=== PATIENT | female | born 1960 | race Caucasian/White ===

== ENCOUNTER 2016-06-15 06:16 | Emergency (ER) | payer OTHER ==
[~2016-06-15] VITALS: Ht 162.6 cm; Wt 92.5 kg
[~2016-06-15 06:16] MED LIST: ATOR40TA68 PO; BEN50 PO; CEPH-443 PO; CHOL100062 PO; CIPR500T4 PO; FLUC150T17 PO; FLUO20CA38 PO; GABA300C16 PO; GLIP-95 PO; HYDR-3498 PO; HYDR-906 PO; INSU100V23 SC; LANT3I SC; LISI2.5T59 PO; PRED20TA PO; TAMS-14 PO; TRAM50TA2 PO
[2016-06-15 06:18] VITALS: Ht 162.6 cm; Wt 92.5 kg
[2016-06-15] MEDS ORDERED: ALBUTEROL 0.5% (NEB) 2.5 MG/0.5 ML AMP NEB STA (06:41)
[2016-06-15] MEDS ORDERED: IPRATROPIUM (NEB) 0.5 MG/2.5 ML AMP HHN ONE (07:00)
[2016-06-15] MEDS ORDERED: LEVALBUTEROL (NEB) 1.25 MG/0.5 ML AMP INH STA (07:39)
--- NOTE | 2016-06-15 07:49 | RADRPT ---
PROCEDURE: XR Chest. CLINICAL INDICATION: Asthma exacerbation TECHNIQUE: A single AP view of the chest was obtained. COMPARISON: Chest x-ray dated 12/05/2015 FINDINGS: No focal airspace opacification, pleural effusion or pneumothorax is seen. The cardiomediastinal si lhouette is within normal limits for size. The osseous structures are unremarkable. IMPRESSION: No radiographic evidence of acute cardiopulmonary disease. No significant interval change. RPTAT: HH .Temitope Covarrubias MD, MD Date Time Electronically viewed and signed by .Temitope Covarrubias MD, MD on 06/15/2016 07:49 .G/
[2016-06-15] MEDS ORDERED: DEXAMETHASONE 10 MG/ML 1 ML INJ IM ONE (08:00)
[2016-06-15] MEDS ORDERED: METHYLPREDNISOLONE 125 MG INJ IM ONE (08:00)
[2016-06-15] MEDS ORDERED: IBUPROFEN 600 MG TAB PO ONE (09:30)
[2016-06-15] MEDS ORDERED: IBUP400T22 PO (09:49)
[2016-06-15] MEDS ORDERED: BENZ100C70 PO (09:49)
[2016-06-15] MEDS ORDERED: ALBU8.5H3 INH (09:49)
[2016-06-15 10:01] VITALS: BP 125/58; PULSE 104; RESP 20; TEMP 98.7
--- NOTE | 2016-06-15 11:32 | ERD ---
ER Documentation Chief Complaint Date/Time DATE: 06/15/16 TIME: 11:26 Chief Complaint cough x 1 week, sob since 2 hours ago HPI 55-year-old female with a past medical history of asthma, diabetes, hypertension , hyperlipidemia presents to the ED complaining of a productive cough that occurred intermittently 1 month ago. States that she went to a clinic about 15 days ago and was given Zithromax which has not alleviated her symptoms. States that she started to get shortness of breath 2 days ago. States that she feels like the wheezing has worsened. Reports that using her inhaler has not helped her symptoms. Denies any fever, chills, leg swelling, abdominal pain, nausea, vomiting. ROS All systems reviewed and are negative except as per history of present illness. Medications Home Meds Active Scripts Benzonatate* (Tessalon Perle*) 100 Mg Capsule, 100 MG PO Q8H Y for COUGH, #20 CAP Prov:JACOB GOLDMAN PA-C 06/15/16 Albuterol Sulfate* (Proair HFA*) 8.5 Gm Hfa.aer.ad, 2 PUFF INH Q4, #1 INHALER Prov:JACOB GOLDMAN PA-C 06/15/16 Ibuprofen* (Motrin*) 400 Mg Tab, 400 MG PO Q6, #30 TAB Prov:JACOB GOLDMAN PA-C 06/15/16 Hydrocodone/Acetaminophen (Margie 5-325 Tablet) 1 Each Tablet, 1 TAB PO Q6H Y for PAIN, #7 TAB Prov:JACOB GOLDMAN PA-C 02/17/16 Cephalexin* (Keflex*) 500 Mg Capsule, 500 MG PO QID for 10 Days, CAP Prov:JACOB GOLDMAN PA-C 02/17/16 Tramadol HCl (Tramadol HCl) 50 Mg Tablet, 50 MG PO Q8H Y for PAIN, #6 TAB Prov:LAILA GOLDMAN MD 01/09/16 Tamsulosin Hcl* (Flomax*) 0.4 Mg Cap.er.24h, 0.4 MG PO BID, #30 CAP Prov:KATLYN JOHNS PA-C 10/08/15 Tramadol HCl (Tramadol HCl) 50 Mg Tablet, 50 MG PO Q4 Y for PAIN, #20 TAB Prov:KATLYN JOHNS PA-C 10/08/15 Cephalexin* (Keflex*) 500 Mg Capsule, 500 MG PO QID for 7 Days, CAP Prov:SUSAN VEEC 10/03/15 Prednisone* (Prednisone*) 20 Mg Tab, 40 MG PO DAILY for 4 Days, TAB Prov:MERA GARCIA PIPE STEM SAWYER 10/02/15 Diphenhydramine Hcl* (Benadryl*) 50 Mg Cap, 50 MG PO Q6 Y for ITCHING, #10 CAP Prov:MERA GARCIA PIPE STEM SAWYER 10/02/15 Prednisone* (Prednisone*) 20 Mg Tab, 40 MG PO DAILY for 4 Days, TAB Prov:MERA GARCIA PIPE STEM SAWYER 10/02/15 Hydrocodone Bit-Acetaminophen* (Margie*) 5-325 Mg Tab, 1 TAB PO Q6 Y for PAIN, # 7 TAB Prov:TAWANA NOONANC 04/25/15 Fluconazole* (Diflucan*) 150 Mg Tablet, 150 MG PO ONCE, #1 TAB Prov:TAWANA NOONANC 04/25/15 Ciprofloxacin Hcl* (Ciprofloxacin Hcl*) 500 Mg Tablet, 500 MG PO BID for 7 Days , TAB Prov:TAWANA NOONANC 04/25/15 Reported Medications Atorvastatin* (Atorvastatin*) 40 Mg Tablet, 40 MG PO QHS, #30 TAB 12/05/15 Insulin Glargine* (Lantus*) 100 Unit/Ml Soln, 20 UNIT SC QHS, #1 VIAL 12/05/15 Insulin Regular, Human* (Novolin R*) 100 U/Ml Vial, 5 UNIT SC TID, VIAL 12/05/15 Gabapentin* (Gabapentin*) 300 Mg Capsule, 300 MG PO TID, #90 CAP 12/05/15 Fluoxetine Hcl* (Prozac*) 20 Mg Capsule, 20 MG PO DAILY, CAP 08/24/14 Lisinopril* (Lisinopril*) 2.5 Mg Tablet, 2.5 MG PO DAILY, TAB 08/24/14 Glipizide* (Glipizide*) 10 Mg Tablet, 10 MG PO BID, TAB 08/24/14 Cholecalciferol* (Vitamin D3*) 1,000 Unit Tablet, 1000 UNIT PO EVERY JUJU, TAB 03/20/14 Allergies Allergies: Coded Allergies: No Known Allergy (Unverified , 06/15/16) PMhx/Soc History of Surgery: Yes (cholecystectomy , hernia repair , c section ) Anesthesia Reaction: No Hx Neurological Disorder: No Hx Respiratory Disorders: Yes (asthma ) Hx Cardiac Disorders: Yes (htn ,high cholesterol) Hx Psychiatric Problems: No Hx Miscellaneous Medical Probl: Yes (dm) Hx Alcohol Use: No Hx Substance Use: No Hx Tobacco Use: No Smoking Status: Never smoker Physical Exam Vitals Vital Signs Date Time Temp Pulse Resp B/P Pulse Ox O2 Delivery O2 Flow Rate FiO2 06/15/16 10:01 98.7 104 20 125/58 96 Room Air 06/15/16 07:57 72 20 97 21 06/15/16 07:00 68 20 97 21 Physical Exam Const: [id number], well-nourished. In no acute distress. Head: Atraumatic, normocephalic Eyes: Normal Conjunctiva without injection. No purulent discharge. PERRL. EOMI ENT: Normal external ear. Ear canal without erythema. Tympanic membrane pearly deleon without effusion or bulging. Nasal canal clear with normal turbinates. Moist oropharynx without tonsillar exudates. Non-erythematous pharynx. Uvula midline. No drooling. No trismus. Neck: Full range of motion. No meningismus. No cervical lymphadenopathy. Resp: Clear to auscultation bilaterally. No wheezing, rhonchi, rales, or crackles. No accessory muscle use. No retractions. Cardio: Regular rate and rhythm. No murmurs, rubs or gallops. Abd: Soft, non tender, non distended. Normal bowel sounds. No palpable masses. No rebound tenderness. No guarding. Skin: No petechiae or rashes Back: No midline tenderness. No CVA tenderness. Ext: No cyanosis, or edema. Neur: Awake and alert. Psych: Normal Mood and Affect Results 24 hrs Current Medications Medications (Trade) Dose Ordered Sig/Roland Route PRN Reason Start Time Stop Time Status Last Admin Dose Admin Albuterol (Proventil 0.5% (Neb)) 10 mg ONCE STAT NEB 06/15/16 06:41 06/15/16 06:43 DC 06/15/16 06:57 Ipratropium [place] (Atrovent 0.02% (Neb)) 1 mg ONCE ONCE HHN 06/15/16 07:00 06/15/16 07:01 DC 06/15/16 06:58 Methylprednisolone Sodium Succinate (Solu-Medrol) 125 mg ONCE ONCE IM 06/15/16 08:00 06/15/16 08:01 Cancel Dexamethasone (Decadron) 10 mg ONCE ONCE IM 06/15/16 08:00 06/15/16 08:01 DC 06/15/16 07:47 Levalbuterol (Xopenex Neb) 5 mg ONCE STAT INH 06/15/16 07:39 06/15/16 07:41 DC 06/15/16 07:56 Ibuprofen (Motrin) 600 mg ONCE ONCE PO 06/15/16 09:30 06/15/16 09:31 DC 06/15/16 09:31 Procedures/MDM 55-year-old female with a past medical history of asthma, diabetes, hypertension , hyperlipidemia presents the ED complaining of an intermittent cough that has worsened her asthma. Patient is afebrile and nontoxic-appearing. Patient has normal vital signs. Patient was given a breathing treatment here in the ED consisting of 10 mg albuterol and 1 mg Atrovent. Patient was noted to still have wheezing and stated that she felt like she had palpitations from the breathing treatment. Therefore a breathing treatment consisting of 5 mg continuous Xopenex was ordered to further treat patient with improvement. Patient was also given Decadron here in the ED which has improved her wheezing. I instructed patient strictly to monitor her blood sugars at home as the steroids can increase her glucose. Also reported that she has a headache therefore Ibuprofen was ordered to further improve her pain. PROCEDURE: XR Chest. CLINICAL INDICATION: Asthma exacerbation TECHNIQUE: A single AP view of the chest was obtained. COMPARISON: Chest x-ray dated 12/05/2015 FINDINGS: No focal airspace opacification, pleural effusion or pneumothorax is seen. The cardiomediastinal silhouette is within normal limits for size. The osseous structures are unremarkable. IMPRESSION: No radiographic evidence of acute cardiopulmonary disease. No significant interval change. EKG reviewed and interpreted by Dr. Gay Rate/Rhythm: [97 bpm, Normal Sinus Rhythm] No ectopy, no ST elevations, normal axis. QRS, ST, T-waves: [No changes consistent w/ acute ischemia] Impression: [No evidence of ischemia or arrhythmia] Patient is afebrile and non-toxic appearing. Patient is hemodynamically stable. Patient has a normal pulse oximetry. Patient's respiratory status has stabilized while in the department and is appropriate for outpatient work up.Exam and work up not consistent w/ impending respiratory failure or cardiovascular collapse. This patient presents to the ED with symptoms consistent with a viral bronchitis which exacerbated her asthma. Patient is afebrile and has normal vital signs. Patient's physical exam include lungs which were clear to auscultation and a normal pulse oximetry. There is a low suspicion for pneumonia, pneumothorax, pulmonary embolism, epiglottitis, otitis media, otitis externa, viral/strep pharyngitis, sinusitis, peritonsillar abscess , mastoiditis, retropharyngeal abscess, meningitis, sepsis, acute abdomen or other emergent conditions. Fluids, rest, and symptomatic treatment are recommended for the management of patient's symptoms. Low suspicion for acute myocardial infarction, cardiac tamponade, pulmonary embolism, AAA, aortic dissection, Boerhaave's syndrome, cardiac dysrhythmias,meningitis, intracranial bleed, seizure, stroke, TIA or other emergent conditions. Discharge medications: Tessalon Perles, Pro-air, Ibuprofen Follow up with primary care physician in 1-2 days. Instructed patient to return to the ED sooner for any worsening symptoms. Patient's questions were answered. Patient understood and agreed with discharge plan. Patient discharged stable. Departure Diagnosis: Primary Impression: Bronchitis Condition: Stable Patient Instructions: Asthma, Acute (Adult), Bronchitis With Wheezing (Adult) Referrals: [facility] YOU HAVE RECEIVED A MEDICAL SCREENING EXAM AND THE RESULTS INDICATE THAT YOU DO NOT HAVE A CONDITION THAT REQUIRES URGENT TREATMENT IN THE EMERGENCY DEPARTMENT. FURTHER EVALUATION AND TREATMENT OF YOUR CONDITION CAN WAIT UNTIL YOU ARE SEEN IN YOUR DOCTORS OFFICE WITHIN THE NEXT 1-2 DAYS. IT IS YOUR RESPONSIBILITY TO MAKE AN APPOINTMENT FOR FOLOW-UP CARE. IF YOU HAVE A PRIMARY DOCTOR --you should call your primary doctor and schedule an appointment IF YOU DO NOT HAVE A PRIMARY DOCTOR YOU CAN CALL OUR PHYSICIAN REFERRAL HOTLINE AT IF YOU CAN NOT AFFORD TO SEE A PHYSICIAN YOU CAN CHOSE FROM THE FOLLOWING [facility] [address] [facility]. [facility] [address] [address] [facility] [address] [facility] [address] [facility]. [facility] [address] [facility]. [facility] YOU HAVE RECEIVED A MEDICAL SCREENING EXAM AND THE RESULTS INDICATE THAT YOU DO NOT HAVE A CONDITION THAT REQUIRES URGENT TREATMENT IN THE EMERGENCY DEPARTMENT. FURTHER EVALUATION AND TREATMENT OF YOUR CONDITION CAN WAIT UNTIL YOU ARE SEEN IN YOUR DOCTORS OFFICE WITHIN THE NEXT 1-2 DAYS. IT IS YOUR RESPONSIBILITY TO MAKE AN APPOINTMENT FOR FOLOW-UP CARE. IF YOU HAVE A PRIMARY DOCTOR --you should call your primary doctor and schedule and appointment IF YOU DO NOT HAVE A PRIMARY DOCTOR YOU CAN CALL OUR PHYSICIAN REFERRAL HOTLINE AT . IF YOU CAN NOT AFFORD TO SEE A PHYSICIAN YOU CAN CHOSE FROM THE FOLLOWING [facility] INSTITUTIONS: [facility] [address] [place] [address] [facility] [address] [place] [address] [facility] [address] [place] [address] [facility] URGENT CARE/SPECIALTIES Additional Instructions: You were given steroids here in the ER to help with your breathing. Please monitor your blood sugar at home accordingly. FOLLOW UP WITH YOUR PRIMARY CARE PHYSICIAN TOMORROW. Return to this facility if you are not improving as expected. JACOB GOLDMAN PA-C Jun 15, 2016 11:32 JACOB GOLDMAN PA-C Jun 15, 2016 11:32
== END 2016-06-15 10:00 | disposition home or self-care (01) ==
LOC: FTE 06:16
DX: J40 Bronchitis, not specified as acute or chronic (principal); I10 Essential (primary) hypertension; E11.9 Type 2 diabetes mellitus without complications; Z79.4 Long term (current) use of insulin; Z79.84 Long term (current) use of oral hypoglycemic drugs
CPT/HCPCS: 71010; 93005; 94644; 94645; 96372; J1100; Z7502; Z7610

== ENCOUNTER 2016-08-01 10:37 | Emergency (ER) | payer OTHER ==
[~2016-08-01] VITALS: Ht 162.6 cm; Wt 92.0 kg
[~2016-08-01 10:37] MED LIST changes: +ALBU8.5H3 INH; +BENZ100C70 PO; +IBUP400T22 PO
[2016-08-01 10:41] VITALS: Ht 162.6 cm; Wt 92.0 kg
--- NOTE | 2016-08-01 11:53 | RADRPT ---
PROCEDURE: CT Abdomen and Pelvis without contrast. CLINICAL INDICATION: Left flank pain TECHNIQUE: CT of the abdomen and pelvis was performed on a multi-detector scanner without IV contr ast. Coronal and sagittal images were reformatted from the axial data set. One or more of the foll owing dose reduction techniques were used: automated exposure control, adjustment of the mA and/or kV according to patient size, use of iterative reconstruction technique. CTDI = 21.62 mGy. DLP = 13 86.37 mGy-cm. COMPARISON: CT, 02/17/2016 FINDINGS: CT abdomen: The lung bases are clear. The heart size is normal, without pericardial effusion. Gallbladder is s urgically absent. Mild hepatomegaly (20 cm) and splenomegaly (13 cm) are noted, without evidence of focal mass. Biliary tree, pancreas and adrenal glands are unremarkable. Multiple small bilateral nonobstructive renal calculi are noted, measuring up to 3 mm on the left, without ureterolithiasis o r obstructive uropathy. Benign renal cysts are noted. The stomach is grossly unremarkable. The aorta is of normal caliber. There is no retroperitoneal lymphadenopathy. The ely hepatis reg ion is clear. CT pelvis: No bowel obstruction, free intraperitoneal air or abscess is identified. The appendix is well visua lized and normal. There is no diverticulosis, diverticulitis or colitis. Urinary bladder, uterus a nd adnexa are grossly unremarkable. No pelvic mass, free fluid or lymphadenopathy is seen. Bilater al fat containing inguinal hernias are noted without incarceration. The surrounding osseous structures are unremarkable. No osteolytic or osteoblastic lesion is detect ed. IMPRESSION: 1. Small bilateral nonobstructive renal calculi are noted, without ureterolithiasis or obstructive uropathy, similar in appearance to the prior CT. 2. There is mild hepatosplenomegaly. 3. Gallbladder is surgically absent. 4. Bilateral fat containing inguinal hernias are seen, without incarceration. 5. No mass, lymphadenopathy, or focal acute inflammatory process is identified. RPTAT: EE .Adrian Bethea MD, MD Date Time Electronically viewed and signed by .Adrian Bethea MD, MD on 08/01/2016 11:52 .R/
[2016-08-01 12:15] LABS: ADD UMIC NO; URINE BILIRUBIN (Dip) NEGATIVE (NEGATIVE); URINE BLOOD (Dip) NEGATIVE (NEGATIVE); URINE COLOR LT. YELLOW (YELLOW); URINE GLUCOSE (Dip) NEGATIVE (NEGATIVE); URINE KETONES (Dip) NEGATIVE (NEGATIVE); URINE LEUKOCYTE ESTERASE (Dip) NEGATIVE (NEGATIVE); URINE NITRITE (Dip) NEGATIVE (NEGATIVE); URINE TOTAL PROTEIN (Dip) NEGATIVE (NEGATIVE); URINE UROBILINOGEN (Dip) 0.2 E.U./dL (0.1-1.0)
[2016-08-01] MEDS ORDERED: KETOROLAC 30 MG INJ IM STA (12:58)
[2016-08-01] MEDS ORDERED: IBUP-1542 PO (13:02)
--- NOTE | 2016-08-01 13:13 | ERD ---
ER Documentation Chief Complaint Date/Time DATE: 08/01/16 TIME: 13:04 Chief Complaint dysuria, L flank and back pain HPI Patient is a 55-year-old female with past medical history of asthma, diabetes, hypertension, hyperlipidemia, nephrolithiasis who presents to the emergency department with dysuria and left-sided flank pain and back pain. She states that she was seen yesterday at an outside hospital however she states they only gave her "a unknown shot" and sent her home. Patient states that she has had severe flank pain for the last 4 days. Patient describes the pain to be constant. Patient states the pain originates in her left flank and radiates into her left groin. Patient denies taking any medications for her pain. She states yesterday she was given a prescription for Tylenol 3 however she did not fill this medication. Patient states that her current pain level is an 8 out of 10. Patient denies any fever, chills, nausea, vomiting, upper abdominal pain , vaginal bleeding, loss of consciousness. Patient does complain of some burning pain with urination. She denies any blood in her urine. She denies any chest pain, shortness of breath, arm pain, jaw pain or diaphoresis. She denies any saddle anesthesia, stool incontinence, urinary incontinence. Of note , patient has multiple visits to numerous emergency departments over the last year. ROS All systems reviewed and are negative except as per history of present illness. Medications Home Meds Active Scripts Ibuprofen* (Motrin*) 600 Mg Tab, 600 MG PO Q6, #30 TAB Prov:FELTON MORA PA-C 08/01/16 Benzonatate* (Tessalon Perle*) 100 Mg Capsule, 100 MG PO Q8H Y for COUGH, #20 CAP Prov:JACOB GOLDMAN PA-C 06/15/16 Albuterol Sulfate* (Proair HFA*) 8.5 Gm Hfa.aer.ad, 2 PUFF INH Q4, #1 INHALER Prov:JACOB GOLDMAN PA-C 06/15/16 Ibuprofen* (Motrin*) 400 Mg Tab, 400 MG PO Q6, #30 TAB Prov:JACOB GOLDMAN PA-C 06/15/16 Hydrocodone/Acetaminophen ([place] 5-325 Tablet) 1 Each Tablet, 1 TAB PO Q6H Y for PAIN, #7 TAB Prov:JACOB GOLDMAN PA-C 02/17/16 Cephalexin* (Keflex*) 500 Mg Capsule, 500 MG PO QID for 10 Days, CAP Prov:JACOB GOLDMAN PA-C 02/17/16 Tramadol HCl (Tramadol HCl) 50 Mg Tablet, 50 MG PO Q8H Y for PAIN, #6 TAB Prov:LAILA GOLDMAN MD 01/09/16 Tamsulosin Hcl* (Flomax*) 0.4 Mg Cap.er.24h, 0.4 MG PO BID, #30 CAP Prov:KATLYN JOHNS PA-C 10/08/15 Tramadol HCl (Tramadol HCl) 50 Mg Tablet, 50 MG PO Q4 Y for PAIN, #20 TAB Prov:KATLYN JOHNS PA-C 10/08/15 Cephalexin* (Keflex*) 500 Mg Capsule, 500 MG PO QID for 7 Days, CAP Prov:SUSAN VEE PA-C 10/03/15 Prednisone* (Prednisone*) 20 Mg Tab, 40 MG PO DAILY for 4 Days, TAB Prov:MERA GARCIA NP 10/02/15 Diphenhydramine Hcl* (Benadryl*) 50 Mg Cap, 50 MG PO Q6 Y for ITCHING, #10 CAP Prov:MERA GARCIA NP 10/02/15 Prednisone* (Prednisone*) 20 Mg Tab, 40 MG PO DAILY for 4 Days, TAB Prov:MERA GARCIA NP 10/02/15 Hydrocodone Bit-Acetaminophen* ([place]*) 5-325 Mg Tab, 1 TAB PO Q6 Y for PAIN, # 7 TAB Prov:TAWANA NOONAN PA-C 04/25/15 Fluconazole* (Diflucan*) 150 Mg Tablet, 150 MG PO ONCE, #1 TAB Prov:TAWANA NOONAN PA-C 04/25/15 Ciprofloxacin Hcl* (Ciprofloxacin Hcl*) 500 Mg Tablet, 500 MG PO BID for 7 Days , TAB Prov:TAWANA NOONANC 04/25/15 Reported Medications Atorvastatin* (Atorvastatin*) 40 Mg Tablet, 40 MG PO QHS, #30 TAB 12/05/15 Insulin Glargine* (Lantus*) 100 Unit/Ml Soln, 20 UNIT SC QHS, #1 VIAL 12/05/15 Insulin Regular, Human* (Novolin R*) 100 U/Ml Vial, 5 UNIT SC TID, VIAL 12/05/15 Gabapentin* (Gabapentin*) 300 Mg Capsule, 300 MG PO TID, #90 CAP 12/05/15 Fluoxetine Hcl* (Prozac*) 20 Mg Capsule, 20 MG PO DAILY, CAP 08/24/14 Lisinopril* (Lisinopril*) 2.5 Mg Tablet, 2.5 MG PO DAILY, TAB 08/24/14 Glipizide* (Glipizide*) 10 Mg Tablet, 10 MG PO BID, TAB 08/24/14 Cholecalciferol* (Vitamin D3*) 1,000 Unit Tablet, 1000 UNIT PO EVERY SUNDAY, TAB 03/20/14 Allergies Allergies: Coded Allergies: No Known Allergy (Unverified , 06/15/16) PMhx/Soc History of Surgery: Yes (cholecystectomy , hernia repair , c section ) Anesthesia Reaction: No Hx Neurological Disorder: No Hx Respiratory Disorders: Yes (asthma ) Hx Cardiac Disorders: Yes (htn ,high cholesterol) Hx Psychiatric Problems: No Hx Miscellaneous Medical Probl: Yes (dm) Hx Alcohol Use: No Hx Substance Use: No Hx Tobacco Use: No Smoking Status: Never smoker Physical Exam Vitals Vital Signs Date Time Temp Pulse Resp B/P Pulse Ox O2 Delivery O2 Flow Rate FiO2 08/01/16 10:41 98.3 73 18 115/62 96 Physical Exam GENERAL: Well-developed, well-nourished female. Appears in no acute distress. HEAD: Normocephalic, atraumatic. EYES: Pupils are equally reactive bilaterally. EOMs grossly intact. No conjunctival erythema. ENT: Moist mucous membranes. No uvula deviation. No kissing tonsils. NECK: Supple. No meningismus. Normal range of motion of the neck. LUNG: Clear to auscultation bilaterally. No rhonchi, wheezing, rales or coarse breath sounds. HEART: Regular rate and rhythm. No murmurs, rubs or gallops. ABDOMEN: No scars, ecchymosis or rashes noted. Soft, nontender, and nondistended. Positive bowel sounds in all four quadrants. No rebound tenderness , no guarding. (-) McBurney's point tenderness. L CVA tenderness. BACK: No midline tenderness. Tender to palpation to paraspinalis muscles of L lumbar region. EXTREMITIES: Equal pulses bilaterally. No peripheral clubbing, cyanosis or edema. No unilateral leg swelling. NEUROLOGIC: Alert and oriented. Moving all four extremities without any difficulty. Normal speech. Steady gait. SKIN: Normal color. Warm and dry. No rashes or lesions. Results 24 hrs Laboratory Tests Test 08/01/16 11:35 Urine Bilirubin NEGATIVE Urine Clarity CLEAR Urine Color LT. YELLOW Urine Glucose NEGATIVE% Urine Hemoglobin NEGATIVE Urine Ketones NEGATIVE Urine Leukocyte Esterase NEGATIVE Urine Nitrite NEGATIVE Urine Specific [place] 1.020 Urine Total Protein NEGATIVE Urine Urobilinogen 0.2 E.U./dL Urine pH 6.0 Current Medications Medications (Trade) Dose Ordered Sig/Roland Route PRN Reason Start Time Stop Time Status Last Admin Dose Admin Ketorolac Tromethamine (Toradol) 30 mg ONCE STAT IM 08/01/16 12:58 08/01/16 13:00 DC 08/01/16 13:11 Procedures/MDM ED COURSE: The patient was stable throughout ED course. I kept the patient and/or family informed of laboratory and diagnostic imaging results throughout the ED course. DIAGNOSTIC IMAGING: Read by radiologist. DIAGNOSTIC IMAGING REPORT Patient: MARK LEONARD : 1960 Age: 55 Sex: F [id number] DOS: 08/01/16 1130 Ordering MD: FELTON MORA PA-C Location: [facility] Room/Bed: PROCEDURE: CT Abdomen and Pelvis without contrast. CLINICAL INDICATION: Left flank pain TECHNIQUE: CT of the abdomen and pelvis was performed on a multi-detector scanner without IV contrast. Coronal and sagittal images were reformatted from the axial data set. One or more of the following dose reduction techniques were used: automated exposure control, adjustment of the mA and/or kV according to patient size, use of iterative reconstruction technique. CTDI = 21.62 mGy. DLP = 1386.37 mGy-cm. COMPARISON: CT, 02/17/2016 FINDINGS: CT abdomen: The lung bases are clear. The heart size is normal, without pericardial effusion. Gallbladder is surgically absent. Mild hepatomegaly (20 cm) and splenomegaly (13 cm) are noted, without evidence of focal mass. Biliary tree, pancreas and adrenal glands are unremarkable. Multiple small bilateral nonobstructive renal calculi are noted, measuring up to 3 mm on the left, without ureterolithiasis or obstructive uropathy. Benign renal cysts are noted. The stomach is grossly unremarkable. The aorta is of normal caliber. There is no retroperitoneal lymphadenopathy. The ely hepatis region is clear. CT pelvis: No bowel obstruction, free intraperitoneal air or abscess is identified. The appendix is well visualized and normal. There is no diverticulosis, diverticulitis or colitis. Urinary bladder, uterus and adnexa are grossly unremarkable. No pelvic mass, free fluid or lymphadenopathy is seen. Bilateral fat containing inguinal hernias are noted without incarceration. The surrounding osseous structures are unremarkable. No osteolytic or osteoblastic lesion is detected. IMPRESSION: 1. Small bilateral nonobstructive renal calculi are noted, without ureterolithiasis or obstructive uropathy, similar in appearance to the prior CT. 2. There is mild hepatosplenomegaly. 3. Gallbladder is surgically absent. 4. Bilateral fat containing inguinal hernias are seen, without incarceration. 5. No mass, lymphadenopathy, or focal acute inflammatory process is identified. RPTAT: EE .Adrian Bethea MD, MD Date Time Electronically viewed and signed by .Adrian Bethea MD, MD on 08/01/2016 11: 52 .R/ CC: FELTON MORA PA-C PROCEDURES: None. MEDICATIONS GIVEN: Toradol IM Patient tolerated medication well with no adverse reactions. Patient reported improvement in pain. MEDICAL DECISION MAKING: This is a 55-year-old female with a past medical history of asthma, diabetes, hypertension, hyperlipidemia and nephrolithiasis who presents with flank pain, dysuria, lower back pain is 4 days. Patient denied saddle anesthesia, stool incontinence, urinary incontinence fever, chills or loss of consciousness. Of note patient was seen in outside hospital yesterday and she states that they only gave her pain medication and discharged her home. Vital signs were reviewed. Patient was afebrile. UA showed no acute infection or hematuria. Abdominal CT showed Small bilateral nonobstructive renal calculi are noted, without ureterolithiasis or obstructive uropathy, similar in appearance to the prior CT. There is mild hepatosplenomegaly. Gallbladder is surgically absent. Bilateral fat containing inguinal hernias are seen, without incarceration. No mass, lymphadenopathy, or focal acute inflammatory process is identified. Given these findings, the patient's presentation is most consistent with nephrolithiasis and lumbar strain. I have a much lower clinical concern for pyelonephritis, appendicitis, diverticulitis, small bowel obstruction, bowel perforation, cauda equina syndrome, spinal fracture, epidural abscess, epidural hematoma. PRESCRIPTIONS: Ibuprofen Patient states that she has a prescription for Tylenol 3 at home. I advised the patient that she will need to fill this prescription. I will not prescribe patient any additional narcotics at this time given that she does have prescription for pain at home. DISCHARGE: At this time, patient is stable for discharge and outpatient management. I have instructed the patient to follow-up with his/her primary care physician in 1-2 days. If symptoms persist, patient may need to see a urologist for further examinations and testing. I have instructed the patient to promptly return to the ER at any time for any new or worsening symptoms including increased increased pain, fever, nausea, vomiting, urinary changes or weakness. The patient and/or family expressed understanding of and agreement with this plan. All questions were answered. Home care instructions were provided. Departure Diagnosis: Primary Impression: Nephrolithiasis Condition: Stable Patient Instructions: Kidney Stone W/ Colic Referrals: VIKI COBOS MD, GALESH L. MD GUERENA, MICHAEL METZGER, CHARLES K MOTZKIN, DONALD MD= [facility] YOU HAVE RECEIVED A MEDICAL SCREENING EXAM AND THE RESULTS INDICATE THAT YOU DO NOT HAVE A CONDITION THAT REQUIRES URGENT TREATMENT IN THE EMERGENCY DEPARTMENT. FURTHER EVALUATION AND TREATMENT OF YOUR CONDITION CAN WAIT UNTIL YOU ARE SEEN IN YOUR DOCTORS OFFICE WITHIN THE NEXT 1-2 DAYS. IT IS YOUR RESPONSIBILITY TO MAKE AN APPOINTMENT FOR FOLOW-UP CARE. IF YOU HAVE A PRIMARY DOCTOR --you should call your primary doctor and schedule an appointment IF YOU DO NOT HAVE A PRIMARY DOCTOR YOU CAN CALL OUR PHYSICIAN REFERRAL HOTLINE AT IF YOU CAN NOT AFFORD TO SEE A PHYSICIAN YOU CAN CHOSE FROM THE FOLLOWING [facility] [address] [facility] [address] [facility] [address] [facility] [address] [facility] [address] [facility]. [facility] [address] [facility]. [facility] YOU HAVE RECEIVED A MEDICAL SCREENING EXAM AND THE RESULTS INDICATE THAT YOU DO NOT HAVE A CONDITION THAT REQUIRES URGENT TREATMENT IN THE EMERGENCY DEPARTMENT. FURTHER EVALUATION AND TREATMENT OF YOUR CONDITION CAN WAIT UNTIL YOU ARE SEEN IN YOUR DOCTORS OFFICE WITHIN THE NEXT 1-2 DAYS. IT IS YOUR RESPONSIBILITY TO MAKE AN APPOINTMENT FOR FOLOW-UP CARE. IF YOU HAVE A PRIMARY DOCTOR --you should call your primary doctor and schedule and appointment IF YOU DO NOT HAVE A PRIMARY DOCTOR YOU CAN CALL OUR PHYSICIAN REFERRAL HOTLINE AT . IF YOU CAN NOT AFFORD TO SEE A PHYSICIAN YOU CAN CHOSE FROM THE FOLLOWING [facility] INSTITUTIONS: [facility] [address] [place] [address] [facility] [address] [place] [address] [facility] + [facility] [address] [place] [address] Additional Instructions: Call your primary care doctor TOMORROW for an appointment during the next 1-2 days.See the doctor sooner or return here if your condition worsens before your appointment time. Patient states that she was given Tylenol 3 while being seen at [facility] yesterday. Patient was advised that she will need to fill this prescription. I will not prescribe the patient any additional narcotics at this time. Patient will need to follow-up with the urologist for further management of her chronic kidney stones. Referral information provided. FELTON MORA PA-C Aug 01, 2016 13:12
== END 2016-08-01 13:18 | disposition home or self-care (01) ==
LOC: FTE 10:37
DX: N20.0 Calculus of kidney (principal); J45.909 Unspecified asthma, uncomplicated; I10 Essential (primary) hypertension; E11.9 Type 2 diabetes mellitus without complications; Z79.4 Long term (current) use of insulin; Z79.84 Long term (current) use of oral hypoglycemic drugs
CPT/HCPCS: 74176; 81003; J1885; 96372

== ENCOUNTER 2016-08-04 16:23 | Inpatient (IN) | payer OTHER ==
[~2016-08-04] VITALS: Ht 162.6 cm; Wt 91.1 kg
[~2016-08-04 16:23] MED LIST changes: +IBUP-1542 PO
[2016-08-04 21:30] VITALS: BP 110/63; RESP 18
[2016-08-04 22:05] VITALS: Ht 162.6 cm; Wt 91.1 kg
[2016-08-04] MEDS ORDERED: METF1000 PO (22:20)
[2016-08-04] MEDS ORDERED: ONDANSETRON 4 MG INJ IV PRN (22:30)
[2016-08-04] MEDS ORDERED: ACETAMINOPHEN 325 MG TAB PO PRN (22:30)
[2016-08-04] MEDS ORDERED: BARIUM SULF 2% 450 ML BTL (BERRY SMOOTHIE) PO ONE (23:00)
[2016-08-04] MEDS: SOD CHLORIDE 0.45% 1,000 ML IV SCH (23:11)
[2016-08-05] MEDS: morphine 2 MG INJ IV PRN ×3 (03:45→18:36)
[2016-08-05] MEDS: ALBUTEROL HFA 8 GM INHALER INH SCH ×5 (05:00→21:28)
[2016-08-05] MEDS ORDERED: GLUCOSE GEL 15 GRAM TUBE BUCCAL PRN (05:00)
[2016-08-05] MEDS ORDERED: GLUCOSE GEL 15 GRAM TUBE PO PRN ×2 (05:00)
[2016-08-05] MEDS ORDERED: GLUCAGON 1 MG INJ IM PRN (05:00)
[2016-08-05] MEDS ORDERED: hydrALAzine 20 MG INJ IV PRN (05:00)
[2016-08-05] MEDS ORDERED: DEXTROSE 50% 50 ML SYRINGE IV PRN ×2 (05:00)
[2016-08-05] MEDS ORDERED: BENZONATATE 100 MG CAP PO PRN (05:00)
[2016-08-05 05:06] LABS: ADD SCAN DIFF NO
[2016-08-05 05:23] LABS: BASOPHILS % 0.4 % (0.0-2.0); EOSINOPHILS # 0.1 10^3/ul (0.0-0.5); EOSINOPHILS % 1.8 % (0.0-7.0); HEMATOCRIT 33.7 % (37.0-47.0); HEMOGLOBIN 11.2 g/dl (12.0-16.0); LYMPHOCYTES # 1.7 10^3/ul (0.8-2.9); LYMPHOCYTES % 29.3 % (15.0-51.0); MEAN CORPUSCULAR HEMOGLOBIN 30.1 pg (29.0-33.0); MEAN CORPUSCULAR HGB CONC 33.2 g/dl (32.0-37.0); MEAN CORPUSCULAR VOLUME 90.6 fl (82.0-101.0); MONOCYTE # 0.4 10^3/ul (0.3-0.9); MONOCYTES % 6.7 % (0.0-11.0); NEUTROPHIL # 3.5 10^3/ul (1.6-7.5); NEUTROPHILS % 61.6 % (39.0-77.0); PLATELET COUNT 212 10^3/UL (140-415); RED BLOOD COUNT 3.72 10^6/ul (4.20-5.40); RED CELL DISTRIBUTION WIDTH 13.5 % (11.5-14.5); WHITE BLOOD COUNT 5.7 10^3/ul (4.8-10.8)
[2016-08-05 05:40] LABS: ALBUMIN 3.4 g/dl (3.3-4.9)
[2016-08-05 05:43] LABS: ALBUMIN/GLOBULIN RATIO 1.36; BILIRUBIN,INDIRECT 0.1 mg/dl (0-1.1); BILIRUBIN,TOTAL 0.1 mg/dl (0.2-1.3); CREATININE 0.64 mg/dl (0.44-1.00); TOTAL PROTEIN 5.9 g/dl (6.1-8.1)
[2016-08-05 05:44] LABS: CALCIUM 8.2 mg/dl (8.4-10.2); CHOL/HDL RATIO 2.8 RATIO
[2016-08-05] MEDS: CEFTRIAXONE 1 GM/50 ML (PMX) 50 ML IVPB SCH (05:45)
[2016-08-05] MEDS: PANTOPRAZOLE 40 MG INJ IV SCH (05:45)
[2016-08-05] MEDS: INSULIN ASPART [NOVOLOG] 3 ML PEN SC SCH ×5 (06:05→21:35)
[2016-08-05 06:09] LABS: THYROID STIMULATING HORMONE 3.89 MIU/L (0.465-4.680)
--- NOTE | 2016-08-05 06:40 | HP ---
DATE OF ADMISSION: 08/04/2016 The patient was seen and examined by me at 10:00 p.m. on 08/04/2016. CHIEF COMPLAINT: Abdominal pain. HISTORY OF PRESENT ILLNESS: A 55-year-old female with a past medical history of kidney stones, type 2 diabetes, chronic low back pain, essential hypertension, and high cholesterol, who has been havin g abdominal pain and low back pain for the last 5 days. She denies any significant nausea or vomiti ng, no fevers or chills. She says that she had a bowel movement yesterday, however. No diarrhea or constipation. No headaches, dizziness or loss of consciousness. No chest pain or shortness of karsno ath. She presented to an outside hospital earlier today at [place] and was transferred over here du e to insurance purposes, but not before having a CT of the abdomen and pelvis performed that shows s igns of possible early small-bowel obstruction. The patient was made n.p.o. She also had nonobstru ctive left kidney stones, but again, they were nonobstructive. She has been having some mild dysuri a symptoms, but no hematuria. The patient was last here at our hospital from 12/05/2015 to 12/08/19 16. At that time she had chest pain and ruled out for acute coronary syndrome. PAST MEDICAL HISTORY: As stated above. ALLERGIES: NO KNOWN DRUG ALLERGIES. HOME MEDICATIONS: 1. Benadryl 50 mg q.6 p.r.n. 2. ProAir HFA 2 puffs inhaled q.4h. 3. Flomax 0.4 mg b.i.d. 4. Atorvastatin 40 mg at bedtime. 5. Lisinopril 2.5 mg daily. 6. Prozac 20 mg daily. 7. Tessalon Perles 100 mg q.8h. p.r.n. 8. Glipizide 10 mg b.i.d. 9. Metformin 1000 mg b.i.d. 10. Vitamin D3 1000 units every Sunday. PAST SURGICAL HISTORY: She has had C-sections x3 in the past. She has had kidney stone removal kelly matthew in the past and a cholecystectomy in the past. FAMILY HISTORY: Her brother had heart disease at age 40 and there is positive diabetes in the famil y. SOCIAL HISTORY: Negative for smoking, drinking, or IV drug abuse. PHYSICAL EXAMINATION: VITAL SIGNS: Today T-max 97.9, pulse 70, respirations 18, blood pressure 110/63, saturating at 98% o n room air. GENERAL: The patient is lying in bed, in mild distress, but alert. HEENT: Pupils are equal, round, react to light. Extraocular muscles are intact. NECK: Supple. No thyromegaly. LUNGS: Clear to auscultation bilaterally. CARDIOVASCULAR: S1, S2 heard. No rubs or gallops. ABDOMEN: Soft. Mild tenderness to palpation in the epigastric area, but no rebound or guarding. MUSCULOSKELETAL: No lower extremity edema bilaterally. NEUROLOGIC: No focal deficits. LABORATORIES: At the outside hospital she had a UA that showed negative nitrites, but 1+ leukocyte esterase positive. CMP showed sodium 143, potassium 4.4, chloride 104, CO2 25, BUN 15, creatinine 0 .6, glucose 160, total bilirubin 0.3, alkaline phosphatase 72. AST is 21, ALT is 20. WBC 6.0, hemo globin 12.3, hematocrit 36.7, platelets 204, lipase 58. CT abdomen and pelvis results showed dilated left upper quadrant small bowel, raising questions of e mirian small-bowel obstruction possibly. Followup imaging is recommended. Nonobstructing left renal stones, as described above. No hydronephrosis. Mild bibasilar atelectasis. Status post cholecyste ctomy, bilateral inguinal hernias containing mesenteric fat, small calcific foci along the anterior bladder wall. No hydronephrosis seen. ASSESSMENT AND PLAN: A 55-year-old female coming in with abdominal pain. Differential diagnoses in clude small-bowel obstruction versus renal calculus versus other abdominal pathology. 1. Abdominal pain. Again, keep the patient n.p.o. I discussed the case with the general surgery te am, who will consult on the case. Will order for CT scan with contrast to further evaluate. Antiem etic medicines. Pain control medications with morphine and [place] p.r.n. Tylenol p.r.n. for pain an d fevers. Check a TSH, A1c and lipid panel. 2. Type 2 diabetes. Again, check an A1c. Continue sliding scale insulin. 3. History of essential hypertension. Blood pressure is stable. Continue the current medications, including hydralazine p.r.n. 4. High cholesterol. Check a lipid panel. 5. Gastrointestinal prophylaxis. PPI. 6. Deep venous thrombosis prophylaxis. Heparin subcutaneously. Dictated By: JOSE RONDON Conf#: [id number] DID#: [id number]
[2016-08-05] MEDS: TAMSULOSIN (SR) 0.4 MG CAP PO SCH ×2 (08:35→21:27)
[2016-08-05] MEDS: FLUOXETINE 20 MG CAP PO SCH (08:35)
[2016-08-05] MEDS: HEPARIN 5,000 UNIT/0.5 ML SYG SC SCH ×2 (08:35→21:30)
[2016-08-05 08:38] VITALS: BP 98/48; PULSE 58; RESP 18
[2016-08-05] MEDS: SOD CHLORIDE 0.45% 1,000 ML IV SCH (09:05)
[2016-08-05] MEDS ORDERED: IOHEXOL 300MG/ML 150 ML BTL ONE (11:22)
[2016-08-05] MEDS ORDERED: SOD CHLORIDE 0.9% 100 ML ONE (11:22)
--- NOTE | 2016-08-05 11:33 | PN ---
Date/Time of Note Date/Time of Note DATE: 08/05/16 TIME: 11:30 Assessment/Plan VTE Prophylaxis VTE Prophylaxis Intervention: heparin Lines/Catheters IV Catheter Type (from Nrsg): Peripheral IV Assessment/Plan Assessment/Plan 1. small bowel obstruction 2. Type 2 diabetes. Again, check an A1c. Continue sliding scale insulin. 3. History of essential hypertension. Blood pressure is stable. Continue the current medications, including hydralazine p.r.n. 4. High cholesterol. Check a lipid panel. 5. Gastrointestinal prophylaxis. PPI. 6. Deep venous thrombosis prophylaxis. Heparin subcutaneously. Gen surg cconsulte, NPO, IVF Pain control CT abdomen with Plevis iwth IV contrast to rule out kidney stone also Subjective 24 Hr Interval Summary Free Text/Dictation abd pain, not passing gas, plan for CT abd +pelvi s Exam/Review of Systems Vital Signs Vitals Vital Signs Date Time Temp Pulse Resp B/P Pulse Ox O2 Delivery O2 Flow Rate FiO2 08/05/16 08:38 98.5 58 18 98/48 96 Room Air Intake and Output 08/04/16 08/04/16 08/05/16 15:00 23:00 07:00 Intake Total 700 ml Balance 700 ml Exam GENERAL: The patient is lying in bed, in mild distress, but alert. HEENT: Pupils are equal, round, react to light. Extraocular muscles are intact. NECK: Supple. No thyromegaly. LUNGS: Clear to auscultation bilaterally. CARDIOVASCULAR: S1, S2 heard. No rubs or gallops. ABDOMEN: Soft. Mild tenderness to palpation in the epigastric area, but no rebound or guarding. MUSCULOSKELETAL: No lower extremity edema bilaterally. NEUROLOGIC: No focal deficits. Results Result Diagram: 08/05/16 0445 08/05/16 0445 Results 24 hrs Laboratory Tests Test 08/04/16 23:18 08/05/16 04:45 08/05/16 05:57 08/05/16 08:24 Bedside Glucose 140 141 119 Alanine Aminotransferase (ALT/SGPT) 32 Albumin 3.4 Albumin/Globulin Ratio 1.36 Alkaline Phosphatase 68 Anion Gap 15 Aspartate Amino Transf (AST/SGOT) 26 Basophils # 0.0 Basophils % 0.4 Blood Urea Nitrogen 14 Calcium Level 8.2 L Carbon Dioxide Level 24 Chloride Level 106 Cholesterol Level 108 Cholesterol/HDL Ratio 2.8 Creatinine 0.64 Direct Bilirubin 0.00 Eosinophils # 0.1 Eosinophils % 1.8 Globulin 2.50 Glucose Level 141 HDL Cholesterol 38 Hematocrit 33.7 #L Hemoglobin 11.2 #L Hemoglobin A1c 9.2 H Indirect Bilirubin 0.1 LDL Cholesterol, Calculated 39 Lymphocytes # 1.7 Lymphocytes % 29.3 Mean Corpuscular Hemoglobin 30.1 Mean Corpuscular Hemoglobin Concent 33.2 Mean Corpuscular Volume 90.6 Mean Platelet Volume 12.0 H Monocytes # 0.4 Monocytes % 6.7 Neutrophils # 3.5 Neutrophils % 61.6 Nucleated Red Blood Cells # 0.0 Nucleated Red Blood Cells % 0.0 Platelet Count 212 Potassium Level 4.0 Red Blood Count 3.72 #L Red Cell Distribution Width 13.5 Sodium Level 141 Thyroid Stimulating Hormone (TSH) 3.890 Total Bilirubin 0.1 L Total Protein 5.9 L Triglycerides Level 157 H White Blood Count 5.7 Medications Medications Current Medications Ondansetron HCl (Zofran Inj) 4 mg Q6H PRN IV NAUSEA AND/OR VOMITING; Start at 22:30 Morphine Sulfate (morphine) 2 mg Q4H PRN IV pain Last administered on 03:45; Admin Dose 2 MG; Start 08/04/16 at 22:30 Pantoprazole (Protonix Iv) 40 mg DAILY@06 IV Last administered on 08/05/16 05: 45; Admin Dose 40 MG; Start 08/05/16 at 06:00 Heparin Sodium (Porcine) (Heparin (5000 Units/0.5 ml)) 5,000 unit BID SC Last administered on 08/05/16 08:35; Admin Dose 5,000 UNIT; Start 08/05/16 at 09:00 Acetaminophen (Tylenol Tab) 650 mg Q6H PRN PO PAIN AND OR ELEVATED TEMP; Start 08/04/16 at 22:30 Atorvastatin Calcium (Lipitor) 40 mg QHS PO ; Start 08/05/16 at 21:00 Benzonatate (Tessalon) 100 mg Q8H PRN PO COUGH; Start 08/05/16 at 05:00 Fluoxetine HCl (Prozac) 20 mg DAILY PO ; Start 08/05/16 at 09:00 Tamsulosin HCl (Flomax) 0.4 mg BID PO ; Start 08/05/16 at 09:00 Insulin Aspart (Novolog Insulin Pen) NOVOLOG *MILD* ALGORI... Q4 SC Last administered on 08/05/16 06:05; Admin Dose 1 UNIT; Start 08/05/16 at 05:00 Miscellaneous Information 1 ea NOTE XX ; Start 08/05/16 at 05:00 Glucose (Glutose) 15 gm Q15M PRN PO DECREASED GLUCOSE; Start 08/05/16 at 05:00 Glucose (Glutose) 22.5 gm Q15M PRN PO DECREASED GLUCOSE; Start 08/05/16 at 05: 00 Dextrose (D50w Syringe) 25 ml Q15M PRN IV DECREASED GLUCOSE; Start 08/05/16 at 05:00 Dextrose (D50w Syringe) 50 ml Q15M PRN IV DECREASED GLUCOSE; Start 08/05/16 at 05:00 Glucagon (Glucagen) 1 mg Q15M PRN IM DECREASED GLUCOSE; Start 08/05/16 at 05:00 Glucose 15 gm 15 gm Q15M PRN BUCCAL DECREASED GLUCOSE; Start 08/05/16 at 05:00 Ceftriaxone Sodium (Rocephin) 50 ml @ 100 mls/hr Q24H IVPB Last administered on 08/05/16 05:45; Admin Dose 100 MLS/HR; Start 08/05/16 at 05:00 Hydralazine HCl 10 mg 10 mg Q6H PRN IV ELEVATED SYSTOLIC BP; Start 08/05/16 at 05:00 Potassium Chloride/Dextrose/ Sod Cl (D5-1/2ns + KCl 10 Meq) 1,000 ml @ 75 mls/ hr [id number] IV ; Start 08/05/16 at 11:30 KENNY LEARY MD Aug 05, 2016 11:33
[2016-08-05] MEDS: D5W-0.45 NACL + KCL 10 MEQ 1,000 ML IV SCH (11:44)
--- NOTE | 2016-08-05 13:05 | RADRPT ---
PROCEDURE: CT abdomen and pelvis with intravenous contrast. CLINICAL INDICATION: SBO TECHNIQUE: Following intravenous contrast, spiral CT of the abdomen pelvis was performed and is re constructed at 2.5 mm contiguous axial intervals from the dome of the diaphragm to the inferior pubi c rami. Computer reformatted coronal and sagittal images are included. CT D I 20 millicurie Dose 1201 millicurie per centimeter COMPARISON: CT abdomen pelvis August 01, 2016 FINDINGS: Lung bases are clear of any infiltrate or mass. There is no effusion. The liver is of normal size, contour and attenuation with no mass or intrahepatic ductal dilatation. Gallbladder has been removed. No splenic, adrenal or pancreatic abnormalities present. Kidneys excrete contrast symmetrically. No hydronephrosis or solid masses present. Noted is a 3 mm nonobstructing stone in the lower pole of the left kidney. There is a 2 cm parapelvic cyst of the right kidney. Ureters are of normal course and caliber with no stone. No bladder mass or stone is present. Uterus and ovaries are normal. No bowel mass or obstruction is seen. There is no phlegmon, ascites or pneumoperitoneum. No aneurysm is detected. There is no adenopathy. The osseous structures are intact. IMPRESSION: No evidence of bowel obstruction. 3 mm nonobstructing left renal calculus. Right renal cyst. No obstructive uropathy, diverticulitis or appendicitis. Post cholecystectomy. .Sherman Aguirre MD, Date Time Electronically viewed and signed by .Sherman Aguirre MD, on 08/05/2016 13:05 .A/
[2016-08-05 20:00] VITALS: BP 118/65; PULSE 74; RESP 18
[2016-08-05] MEDS: ATORVASTATIN 40 MG TAB PO SCH (21:27)
[2016-08-06] MEDS: D5W-0.45 NACL + KCL 10 MEQ 1,000 ML IV SCH ×2 (00:27→15:52)
[2016-08-06] MEDS: morphine 2 MG INJ IV PRN ×2 (00:28→04:44)
[2016-08-06] MEDS: ALBUTEROL HFA 8 GM INHALER INH SCH ×6 (01:05→20:38)
[2016-08-06] MEDS ORDERED: ACCU-CHEK XX SCH (02:00)
[2016-08-06] MEDS: ACCU-CHEK XX SCH (02:07)
[2016-08-06] MEDS: CEFTRIAXONE 1 GM/50 ML (PMX) 50 ML IVPB SCH (04:46)
[2016-08-06] MEDS: PANTOPRAZOLE 40 MG INJ IV SCH (05:19)
[2016-08-06 05:36] LABS: ADD SCAN DIFF NO
[2016-08-06 05:39] LABS: BASOPHILS % 0.2 % (0.0-2.0); EOSINOPHILS # 0.1 10^3/ul (0.0-0.5); EOSINOPHILS % 1.9 % (0.0-7.0); HEMATOCRIT 34.5 % (37.0-47.0); HEMOGLOBIN 11.6 g/dl (12.0-16.0); LYMPHOCYTES # 1.7 10^3/ul (0.8-2.9); LYMPHOCYTES % 32.4 % (15.0-51.0); MEAN CORPUSCULAR HEMOGLOBIN 30.2 pg (29.0-33.0); MEAN CORPUSCULAR HGB CONC 33.6 g/dl (32.0-37.0); MEAN CORPUSCULAR VOLUME 89.8 fl (82.0-101.0); MEAN PLATELET VOLUME 12.2 fl (7.4-10.4); MONOCYTE # 0.4 10^3/ul (0.3-0.9); MONOCYTES % 8.1 % (0.0-11.0); NEUTROPHIL # 2.9 10^3/ul (1.6-7.5); PLATELET COUNT 220 10^3/UL (140-415); RED BLOOD COUNT 3.84 10^6/ul (4.20-5.40); RED CELL DISTRIBUTION WIDTH 13.5 % (11.5-14.5); WHITE BLOOD COUNT 5.2 10^3/ul (4.8-10.8)
[2016-08-06 05:57] LABS: PARTIAL THROMBOPLASTIN TIME 27.2 Sec (25.0-35.0)
[2016-08-06 06:00] LABS: INR 0.97; PROTIME 12.9 Sec (12.2-14.2)
[2016-08-06 06:01] LABS: POTASSIUM 4.1 mmol/L (3.5-5.1)
[2016-08-06 06:03] LABS: CREATININE 0.65 mg/dl (0.44-1.00)
[2016-08-06 06:04] LABS: CALCIUM 8.8 mg/dl (8.4-10.2)
[2016-08-06 07:43] VITALS: BP 110/52; RESP 18
[2016-08-06] MEDS: TAMSULOSIN (SR) 0.4 MG CAP PO SCH ×2 (07:56→20:38)
[2016-08-06] MEDS: FLUOXETINE 20 MG CAP PO SCH (07:56)
[2016-08-06] MEDS: HEPARIN 5,000 UNIT/0.5 ML SYG SC SCH ×2 (08:11→20:43)
[2016-08-06] MEDS: INSULIN ASPART [NOVOLOG] 3 ML PEN SC SCH ×4 (08:11→20:43)
[2016-08-06] MEDS ORDERED: morphine (ER) 15 MG TAB PO ONE (09:30)
[2016-08-06] MEDS ORDERED: CITRIC ACID/NA CITRATE 30 ML CUP PO ONE (09:30)
[2016-08-06] MEDS ORDERED: LACTULOSE 30ML CUP PO ONE (09:30)
[2016-08-06] MEDS ORDERED: LACTULOSE 30ML CUP PO PRN (09:30)
[2016-08-06] MEDS: CITRIC ACID/NA CITRATE 30 ML CUP PO SCH ×2 (09:49→20:38)
[2016-08-06] MEDS: morphine (ER) 15 MG TAB PO SCH ×2 (09:49→20:39)
[2016-08-06] MEDS: HYDROCODONE/APAP (7.5/325) TAB PO PRN ×2 (13:10→17:09)
[2016-08-06 19:50] VITALS: BP 103/52; RESP 18
[2016-08-06] MEDS: ATORVASTATIN 40 MG TAB PO SCH (20:38)
--- NOTE | 2016-08-06 20:51 | PN ---
Date/Time of Note Date/Time of Note DATE: 08/06/16 TIME: 20:49 Assessment/Plan VTE Prophylaxis VTE Prophylaxis Intervention: heparin Lines/Catheters IV Catheter Type (from Nrsg): Peripheral IV Assessment/Plan Assessment/Plan 1. small bowel obstruction resolved 2. Intractable abdominal pain due to 2. Type 2 diabetes. Again, check an A1c. Continue sliding scale insulin. 3. History of essential hypertension. Blood pressure is stable. Continue the current medications, including hydralazine p.r.n. 4. High cholesterol. Check a lipid panel. 5. Gastrointestinal prophylaxis. PPI. 6. Deep venous thrombosis prophylaxis. Heparin subcutaneously. advance diet as tolerated to soft diet Pain control CT abdomen with Plevis iwth IV contrast showed left kidney stone and Right kidney cyst Subjective 24 Hr Interval Summary Free Text/Dictation less abd pain, CT abdomen showed nephrolithiaiss and kidney cyst Exam/Review of Systems Vital Signs Vitals Vital Signs Date Time Temp Pulse Resp B/P Pulse Ox O2 Delivery O2 Flow Rate FiO2 08/06/16 19:50 98.5 63 18 103/52 97 08/05/16 20:00 Room Air Intake and Output 08/05/16 08/05/16 08/06/16 15:00 23:00 07:00 Intake Total 1240 ml 375 ml 1070 ml Output Total 250 ml Balance 1240 ml 125 ml 1070 ml Results Result Diagram: 08/06/16 0445 08/06/16 0445 Results 24 hrs Laboratory Tests Test 08/05/16 21:26 08/06/16 02:04 08/06/16 04:45 08/06/16 07:55 Bedside Glucose 267 H 131 180 Activated Partial Thromboplast Time 27.2 Anion Gap 14 Basophils # 0.0 Basophils % 0.2 Blood Urea Nitrogen 9 Calcium Level 8.8 Carbon Dioxide Level 28 Chloride Level 105 Creatinine 0.65 Eosinophils # 0.1 Eosinophils % 1.9 Glucose Level 154 Hematocrit 34.5 L Hemoglobin 11.6 L INR International Normalized Ratio 0.97 Lymphocytes # 1.7 Lymphocytes % 32.4 Mean Corpuscular Hemoglobin 30.2 Mean Corpuscular Hemoglobin Concent 33.6 Mean Corpuscular Volume 89.8 Mean Platelet Volume 12.2 H Monocytes # 0.4 Monocytes % 8.1 Neutrophils # 2.9 Neutrophils % 57.0 Nucleated Red Blood Cells # 0.0 Nucleated Red Blood Cells % 0.0 Platelet Count 220 Potassium Level 4.1 Prothrombin Time 12.9 Prothrombin Time Ratio 1.0 Red Blood Count 3.84 L Red Cell Distribution Width 13.5 Sodium Level 143 White Blood Count 5.2 Test 08/06/16 11:52 08/06/16 17:05 08/06/16 20:35 Bedside Glucose 185 219 165 Medications Medications Current Medications Ondansetron HCl (Zofran Inj) 4 mg Q6H PRN IV NAUSEA AND/OR VOMITING; Start at 22:30 Morphine Sulfate (morphine) 2 mg Q4H PRN IV pain Last administered on 04:44; Admin Dose 2 MG; Start 08/04/16 at 22:30 Pantoprazole (Protonix Iv) 40 mg DAILY@06 IV Last administered on 08/06/16 05: 19; Admin Dose 40 MG; Start 08/05/16 at 06:00 Heparin Sodium (Porcine) (Heparin (5000 Units/0.5 ml)) 5,000 unit BID SC Last administered on 08/06/16 20:43; Admin Dose 5,000 UNIT; Start 08/05/16 at 09:00 Acetaminophen (Tylenol Tab) 650 mg Q6H PRN PO PAIN AND OR ELEVATED TEMP; Start 08/04/16 at 22:30 Atorvastatin Calcium (Lipitor) 40 mg QHS PO Last administered on 08/06/16 20: 38; Admin Dose 40 MG; Start 08/05/16 at 21:00 Benzonatate (Tessalon) 100 mg Q8H PRN PO COUGH; Start 08/05/16 at 05:00 Fluoxetine HCl (Prozac) 20 mg DAILY PO Last administered on 08/06/16 07:56; Admin Dose 20 MG; Start 08/05/16 at 09:00 Tamsulosin HCl (Flomax) 0.4 mg BID PO Last administered on 08/06/16 20:38; Admin Dose 0.4 MG; Start 08/05/16 at 09:00 Miscellaneous Information 1 ea NOTE XX ; Start 08/05/16 at 05:00 Glucose (Glutose) 15 gm Q15M PRN PO DECREASED GLUCOSE; Start 08/05/16 at 05:00 Glucose (Glutose) 22.5 gm Q15M PRN PO DECREASED GLUCOSE; Start 08/05/16 at 05: 00 Dextrose (D50w Syringe) 25 ml Q15M PRN IV DECREASED GLUCOSE; Start 08/05/16 at 05:00 Dextrose (D50w Syringe) 50 ml Q15M PRN IV DECREASED GLUCOSE; Start 08/05/16 at 05:00 Glucagon (Glucagen) 1 mg Q15M PRN IM DECREASED GLUCOSE; Start 08/05/16 at 05:00 Glucose 15 gm 15 gm Q15M PRN BUCCAL DECREASED GLUCOSE; Start 08/05/16 at 05:00 Ceftriaxone Sodium (Rocephin) 50 ml @ 100 mls/hr Q24H IVPB Last administered on 08/06/16 04:46; Admin Dose 100 MLS/HR; Start 08/05/16 at 05:00 Hydralazine HCl 10 mg 10 mg Q6H PRN IV ELEVATED SYSTOLIC BP; Start 08/05/16 at 05:00 Potassium Chloride/Dextrose/ Sod Cl (D5-1/2ns + KCl 10 Meq) 1,000 ml @ 75 mls/ hr [id number] IV Last administered on 08/06/16 15:52; Admin Dose 75 MLS/HR; Start 08/05/16 at 11:30 Diagnostic Test (Pha) (Accucheck) 1 ea 02 XX Last administered on 08/06/16 02: 07; Admin Dose 1 EA; Start 08/06/16 at 02:00 Citric Acid/ Sodium Citrate (Bicitra) 30 ml BID PO Last administered on 20:38; Admin Dose 30 ML; Start 08/06/16 at 09:38 Acetaminophen/ Hydrocodone Bitart ([place] (7.5-325)) 1 tab Q4H PRN PO moderate pain Last administered on 08/06/16 17:09; Admin Dose 1 TAB; Start 08/06/16 at 09:30 Morphine Sulfate (Ms Contin (Er)) 15 mg BID PO Last administered on 08/06/16 20:39; Admin Dose 15 MG; Start 08/06/16 at 09:39 Lactulose (Enulose) 20 gm BID PRN PO CONSTIPATION; Start 08/06/16 at 09:30 KENNY LEARY MD Aug 06, 2016 20:50
[2016-08-07] MEDS: ALBUTEROL HFA 8 GM INHALER INH SCH ×6 (01:00→21:00)
[2016-08-07] MEDS: ACCU-CHEK XX SCH (01:54)
[2016-08-07] MEDS: HYDROCODONE/APAP (7.5/325) TAB PO PRN ×3 (04:04→19:46)
[2016-08-07] MEDS: CEFTRIAXONE 1 GM/50 ML (PMX) 50 ML IVPB SCH (04:05)
[2016-08-07] MEDS: D5W-0.45 NACL + KCL 10 MEQ 1,000 ML IV SCH ×3 (04:08→19:47)
[2016-08-07] MEDS: PANTOPRAZOLE 40 MG INJ IV SCH (05:39)
[2016-08-07] MEDS: TAMSULOSIN (SR) 0.4 MG CAP PO SCH ×2 (08:08→21:32)
[2016-08-07] MEDS: CITRIC ACID/NA CITRATE 30 ML CUP PO SCH ×2 (08:08→21:32)
[2016-08-07] MEDS: FLUOXETINE 20 MG CAP PO SCH (08:08)
[2016-08-07] MEDS: morphine (ER) 15 MG TAB PO SCH ×2 (08:09→21:32)
[2016-08-07 08:10] VITALS: BP 105/56; PULSE 62; RESP 18
[2016-08-07] MEDS: INSULIN ASPART [NOVOLOG] 3 ML PEN SC SCH ×4 (08:26→21:00)
[2016-08-07] MEDS: HEPARIN 5,000 UNIT/0.5 ML SYG SC SCH ×2 (08:26→21:33)
--- NOTE | 2016-08-07 10:17 | PN ---
Date/Time of Note Date/Time of Note DATE: 08/07/16 TIME: 10:15 Assessment/Plan VTE Prophylaxis VTE Prophylaxis Intervention: heparin Lines/Catheters IV Catheter Type (from Nrsg): Peripheral IV Assessment/Plan Assessment/Plan 1. small bowel obstruction resolved 2. Intractable abdominal pain due to nephrolithiasis and hemorrhagic Right renal cyst 2. Type 2 diabetes. 3. History of essential hypertension. Blood pressure is stable. Continue the current medications, including hydralazine p.r.n. 4. High cholesterol. Check a lipid panel. 5. Gastrointestinal prophylaxis. PPI. 6. Deep venous thrombosis prophylaxis. Heparin subcutaneously. advance diet as tolerated to soft diet Pain control-still requiring IV pain meds around the clock, MS contin added for better pain control CT abdomen with Plevis iwth IV contrast showed left kidney stone and Right kidney cyst Subjective 24 Hr Interval Summary Free Text/Dictation pt still c/o excruciting pain, Tolerating diet , no nausea, no vomiting Exam/Review of Systems Vital Signs Vitals Vital Signs Date Time Temp Pulse Resp B/P Pulse Ox O2 Delivery O2 Flow Rate FiO2 08/07/16 08:10 98.0 62 18 105/56 97 Room Air Intake and Output 08/06/16 08/06/16 08/07/16 15:00 23:00 07:00 Intake Total 2380 ml 1605 ml Balance 2380 ml 1605 ml Exam GENERAL: in acute distress due to pain HEENT: Pupils are equal, round, react to light. Extraocular muscles are intact. NECK: Supple. No thyromegaly. LUNGS: Clear to auscultation bilaterally. CARDIOVASCULAR: S1, S2 heard. No rubs or gallops. ABDOMEN: Soft. Mild tenderness to palpation in the epigastric area, but no rebound or guarding. MUSCULOSKELETAL: No lower extremity edema bilaterally. NEUROLOGIC: No focal deficits. Results Result Diagram: 08/06/16 0445 08/06/16 0445 Results 24 hrs Laboratory Tests Test 08/06/16 11:52 08/06/16 17:05 08/06/16 20:35 08/07/16 07:50 Bedside Glucose 185 219 165 186 Medications Medications Current Medications Ondansetron HCl (Zofran Inj) 4 mg Q6H PRN IV NAUSEA AND/OR VOMITING; Start at 22:30 Morphine Sulfate (morphine) 2 mg Q4H PRN IV pain Last administered on 04:44; Admin Dose 2 MG; Start 08/04/16 at 22:30 Pantoprazole (Protonix Iv) 40 mg DAILY@06 IV Last administered on 08/07/16 05: 39; Admin Dose 40 MG; Start 08/05/16 at 06:00 Heparin Sodium (Porcine) (Heparin (5000 Units/0.5 ml)) 5,000 unit BID SC Last administered on 08/07/16 08:26; Admin Dose 5,000 UNIT; Start 08/05/16 at 09:00 Acetaminophen (Tylenol Tab) 650 mg Q6H PRN PO PAIN AND OR ELEVATED TEMP; Start 08/04/16 at 22:30 Atorvastatin Calcium (Lipitor) 40 mg QHS PO Last administered on 08/06/16 20: 38; Admin Dose 40 MG; Start 08/05/16 at 21:00 Benzonatate (Tessalon) 100 mg Q8H PRN PO COUGH; Start 08/05/16 at 05:00 Fluoxetine HCl (Prozac) 20 mg DAILY PO Last administered on 08/07/16 08:08; Admin Dose 20 MG; Start 08/05/16 at 09:00 Tamsulosin HCl (Flomax) 0.4 mg BID PO Last administered on 08/07/16 08:08; Admin Dose 0.4 MG; Start 08/05/16 at 09:00 Miscellaneous Information 1 ea NOTE XX ; Start 08/05/16 at 05:00 Glucose (Glutose) 15 gm Q15M PRN PO DECREASED GLUCOSE; Start 08/05/16 at 05:00 Glucose (Glutose) 22.5 gm Q15M PRN PO DECREASED GLUCOSE; Start 08/05/16 at 05: 00 Dextrose (D50w Syringe) 25 ml Q15M PRN IV DECREASED GLUCOSE; Start 08/05/16 at 05:00 Dextrose (D50w Syringe) 50 ml Q15M PRN IV DECREASED GLUCOSE; Start 08/05/16 at 05:00 Glucagon (Glucagen) 1 mg Q15M PRN IM DECREASED GLUCOSE; Start 08/05/16 at 05:00 Glucose 15 gm 15 gm Q15M PRN BUCCAL DECREASED GLUCOSE; Start 08/05/16 at 05:00 Ceftriaxone Sodium (Rocephin) 50 ml @ 100 mls/hr Q24H IVPB Last administered on 08/07/16 04:05; Admin Dose 100 MLS/HR; Start 08/05/16 at 05:00 Hydralazine HCl 10 mg 10 mg Q6H PRN IV ELEVATED SYSTOLIC BP; Start 08/05/16 at 05:00 Potassium Chloride/Dextrose/ Sod Cl (D5-1/2ns + KCl 10 Meq) 1,000 ml @ 75 mls/ hr [id number] IV Last administered on 08/07/16 04:08; Admin Dose 75 MLS/HR; Start 08/05/16 at 11:30 Diagnostic Test (Pha) (Accucheck) 1 ea 02 XX Last administered on 08/06/16 02: 07; Admin Dose 1 EA; Start 08/06/16 at 02:00 Citric Acid/ Sodium Citrate (Bicitra) 30 ml BID PO Last administered on 08:08; Admin Dose 30 ML; Start 08/06/16 at 09:38 Acetaminophen/ Hydrocodone Bitart ([place] (7.5-325)) 1 tab Q4H PRN PO moderate pain Last administered on 08/07/16 04:04; Admin Dose 1 TAB; Start 08/06/16 at 09:30 Morphine Sulfate (Ms Contin (Er)) 15 mg BID PO Last administered on 08/07/16 08:09; Admin Dose 15 MG; Start 08/06/16 at 09:39 Lactulose (Enulose) 20 gm BID PRN PO CONSTIPATION; Start 08/06/16 at 09:30 KENNY LEARY MD Aug 07, 2016 10:17
[2016-08-07 20:00] VITALS: BP 119/57; RESP 18
[2016-08-07] MEDS: ATORVASTATIN 40 MG TAB PO SCH (21:32)
[2016-08-08] MEDS: ALBUTEROL HFA 8 GM INHALER INH SCH ×6 (01:00→20:09)
[2016-08-08] MEDS: ACCU-CHEK XX SCH (02:00)
[2016-08-08] MEDS: CEFTRIAXONE 1 GM/50 ML (PMX) 50 ML IVPB SCH (04:39)
[2016-08-08 05:34] LABS: ADD SCAN DIFF NO
[2016-08-08] MEDS: PANTOPRAZOLE (EC) 40 MG TAB PO SCH (05:50)
[2016-08-08] MEDS: HYDROCODONE/APAP (7.5/325) TAB PO PRN ×2 (05:50→15:08)
[2016-08-08 06:08] LABS: BASOPHILS % 0.4 % (0.0-2.0); EOSINOPHILS # 0.1 10^3/ul (0.0-0.5); EOSINOPHILS % 2.5 % (0.0-7.0); HEMATOCRIT 34.8 % (37.0-47.0); HEMOGLOBIN 11.6 g/dl (12.0-16.0); LYMPHOCYTES # 1.8 10^3/ul (0.8-2.9); LYMPHOCYTES % 34.2 % (15.0-51.0); MEAN CORPUSCULAR HEMOGLOBIN 30.1 pg (29.0-33.0); MEAN CORPUSCULAR HGB CONC 33.3 g/dl (32.0-37.0); MEAN CORPUSCULAR VOLUME 90.4 fl (82.0-101.0); MEAN PLATELET VOLUME 12.3 fl (7.4-10.4); MONOCYTE # 0.4 10^3/ul (0.3-0.9); MONOCYTES % 8.1 % (0.0-11.0); NEUTROPHIL # 2.8 10^3/ul (1.6-7.5); NEUTROPHILS % 54.4 % (39.0-77.0); PLATELET COUNT 207 10^3/UL (140-415); RED BLOOD COUNT 3.85 10^6/ul (4.20-5.40); RED CELL DISTRIBUTION WIDTH 13.6 % (11.5-14.5); WHITE BLOOD COUNT 5.2 10^3/ul (4.8-10.8)
[2016-08-08 06:32] LABS: POTASSIUM 4.1 mmol/L (3.5-5.1)
[2016-08-08 06:34] LABS: CREATININE 0.62 mg/dl (0.44-1.00)
[2016-08-08 06:35] LABS: CALCIUM 9.2 mg/dl (8.4-10.2)
[2016-08-08 07:06] VITALS: BP 118/56; RESP 18
[2016-08-08] MEDS: INSULIN ASPART [NOVOLOG] 3 ML PEN SC SCH ×4 (08:01→21:04)
[2016-08-08] MEDS: FLUOXETINE 20 MG CAP PO SCH (09:31)
[2016-08-08] MEDS: CITRIC ACID/NA CITRATE 30 ML CUP PO SCH ×2 (09:31→20:08)
[2016-08-08] MEDS: TAMSULOSIN (SR) 0.4 MG CAP PO SCH ×2 (09:31→20:08)
[2016-08-08] MEDS: morphine (ER) 15 MG TAB PO SCH ×2 (09:32→20:08)
[2016-08-08] MEDS: HEPARIN 5,000 UNIT/0.5 ML SYG SC SCH ×2 (09:35→20:59)
[2016-08-08] MEDS: D5W-0.45 NACL + KCL 10 MEQ 1,000 ML IV SCH (09:36)
[2016-08-08] MEDS: LACTULOSE 30ML CUP PO SCH ×2 (11:54→20:08)
--- NOTE | 2016-08-08 16:49 | PN ---
Date/Time of Note Date/Time of Note DATE: 08/08/16 TIME: 16:48 Assessment/Plan VTE Prophylaxis VTE Prophylaxis Intervention: heparin Lines/Catheters IV Catheter Type (from Nrsg): Peripheral IV Assessment/Plan Assessment/Plan 1. small bowel obstruction resolved 2. Intractable abdominal pain due to nephrolithiasis and hemorrhagic Right renal cyst 2. Type 2 diabetes. 3. History of essential hypertension. Blood pressure is stable. Continue the current medications, including hydralazine p.r.n. 4. High cholesterol. Check a lipid panel. 5. Gastrointestinal prophylaxis. PPI. 6. Deep venous thrombosis prophylaxis. Heparin subcutaneously. advance diet as tolerated to soft diet Pain control-still requiring IV pain meds around the clock, MS contin added for better pain control CT abdomen with Plevis iwth IV contrast showed left kidney stone and Right kidney cyst agressive bowel regimen for Constipation Subjective 24 Hr Interval Summary Free Text/Dictation c/o pain still, Constipated Exam/Review of Systems Vital Signs Vitals Vital Signs Date Time Temp Pulse Resp B/P Pulse Ox O2 Delivery O2 Flow Rate FiO2 08/08/16 07:06 98.8 63 18 118/56 96 08/07/16 08:10 Room Air Intake and Output 08/07/16 08/07/16 08/08/16 15:00 23:00 07:00 Intake Total 1840 ml 1380 ml Balance 1840 ml 1380 ml Exam GENERAL: in acute distress due to pain HEENT: Pupils are equal, round, react to light. Extraocular muscles are intact. NECK: Supple. No thyromegaly. LUNGS: Clear to auscultation bilaterally. CARDIOVASCULAR: S1, S2 heard. No rubs or gallops. ABDOMEN: Soft. Mild tenderness to palpation in the epigastric area, but no rebound or guarding. MUSCULOSKELETAL: No lower extremity edema bilaterally. NEUROLOGIC: No focal deficits. Results Result Diagram: 08/08/1652408/08/16524 Results 24 hrs Laboratory Tests Test 08/07/16 17:05 08/07/16 20:58 08/08/16 05:25 08/08/16 07:39 Bedside Glucose 226 H 175 193 Anion Gap 15 Basophils # 0.0 Basophils % 0.4 Blood Urea Nitrogen 10 Calcium Level 9.2 Carbon Dioxide Level 27 Chloride Level 103 Creatinine 0.62 Eosinophils # 0.1 Eosinophils % 2.5 Glucose Level 180 Hematocrit 34.8 L Hemoglobin 11.6 L Lymphocytes # 1.8 Lymphocytes % 34.2 Mean Corpuscular Hemoglobin 30.1 Mean Corpuscular Hemoglobin Concent 33.3 Mean Corpuscular Volume 90.4 Mean Platelet Volume 12.3 H Monocytes # 0.4 Monocytes % 8.1 Neutrophils # 2.8 Neutrophils % 54.4 Nucleated Red Blood Cells # 0.0 Nucleated Red Blood Cells % 0.0 Platelet Count 207 Potassium Level 4.1 Red Blood Count 3.85 L Red Cell Distribution Width 13.6 Sodium Level 141 White Blood Count 5.2 Test 08/08/16 11:53 Bedside Glucose 199 Medications Medications Current Medications Ondansetron HCl (Zofran Inj) 4 mg Q6H PRN IV NAUSEA AND/OR VOMITING; Start at 22:30 Morphine Sulfate (morphine) 2 mg Q4H PRN IV pain Last administered on 04:44; Admin Dose 2 MG; Start 08/04/16 at 22:30 Heparin Sodium (Porcine) (Heparin (5000 Units/0.5 ml)) 5,000 unit BID SC Last administered on 08/08/16 09:35; Admin Dose 5,000 UNIT; Start 08/05/16 at 09:00 Acetaminophen (Tylenol Tab) 650 mg Q6H PRN PO PAIN AND OR ELEVATED TEMP; Start 08/04/16 at 22:30 Atorvastatin Calcium (Lipitor) 40 mg QHS PO Last administered on 08/07/16 21: 32; Admin Dose 40 MG; Start 08/05/16 at 21:00 Benzonatate (Tessalon) 100 mg Q8H PRN PO COUGH; Start 08/05/16 at 05:00 Fluoxetine HCl (Prozac) 20 mg DAILY PO Last administered on 08/08/16 09:31; Admin Dose 20 MG; Start 08/05/16 at 09:00 Tamsulosin HCl (Flomax) 0.4 mg BID PO Last administered on 08/08/16 09:31; Admin Dose 0.4 MG; Start 08/05/16 at 09:00 Miscellaneous Information 1 ea NOTE XX ; Start 08/05/16 at 05:00 Glucose (Glutose) 15 gm Q15M PRN PO DECREASED GLUCOSE; Start 08/05/16 at 05:00 Glucose (Glutose) 22.5 gm Q15M PRN PO DECREASED GLUCOSE; Start 08/05/16 at 05: 00 Dextrose (D50w Syringe) 25 ml Q15M PRN IV DECREASED GLUCOSE; Start 08/05/16 at 05:00 Dextrose (D50w Syringe) 50 ml Q15M PRN IV DECREASED GLUCOSE; Start 08/05/16 at 05:00 Glucagon (Glucagen) 1 mg Q15M PRN IM DECREASED GLUCOSE; Start 08/05/16 at 05:00 Glucose 15 gm 15 gm Q15M PRN BUCCAL DECREASED GLUCOSE; Start 08/05/16 at 05:00 Ceftriaxone Sodium (Rocephin) 50 ml @ 100 mls/hr Q24H IVPB Last administered on 08/08/16 04:39; Admin Dose 100 MLS/HR; Start 08/05/16 at 05:00 Hydralazine HCl (Apresoline) 10 mg Q6H PRN IV ELEVATED SYSTOLIC BP; Start 08/05 at 05:00 Diagnostic Test (Pha) (Accucheck) 1 ea 02 XX Last administered on 08/06/16 02: 07; Admin Dose 1 EA; Start 08/06/16 at 02:00 Citric Acid/ Sodium Citrate (Bicitra) 30 ml BID PO Last administered on 09:31; Admin Dose 30 ML; Start 08/06/16 at 09:38 Acetaminophen/ Hydrocodone Bitart ([place] (7.5-325)) 1 tab Q4H PRN PO moderate pain Last administered on 08/08/16 15:08; Admin Dose 1 TAB; Start 08/06/16 at 09:30 Morphine Sulfate (Ms Contin (Er)) 15 mg BID PO Last administered on 08/08/16 09:32; Admin Dose 15 MG; Start 08/06/16 at 09:39 Lactulose (Enulose) 20 gm BID PRN PO CONSTIPATION; Start 08/06/16 at 09:30; Stop 08/08/16 at 21:00 Pantoprazole (Protonix Tab) 40 mg DAILY@06 PO Last administered on 08/08/16 05 :50; Admin Dose 40 MG; Start 08/08/16 at 06:00 Lactulose (Enulose) 20 gm TID PO Last administered on 08/08/16 11:54; Admin Dose 20 GM; Start 08/08/16 at 11:00 KENNY LEARY MD Aug 08, 2016 16:49
[2016-08-08 19:55] VITALS: BP 105/56; RESP 16
[2016-08-08] MEDS: ATORVASTATIN 40 MG TAB PO SCH (20:08)
[2016-08-09] MEDS: ALBUTEROL HFA 8 GM INHALER INH SCH ×4 (00:21→12:03)
[2016-08-09] MEDS: ACCU-CHEK XX SCH (02:17)
[2016-08-09] MEDS: CEFTRIAXONE 1 GM/50 ML (PMX) 50 ML IVPB SCH (05:20)
[2016-08-09] MEDS: PANTOPRAZOLE (EC) 40 MG TAB PO SCH (05:20)
[2016-08-09 07:35] VITALS: BP 104/53; RESP 18
[2016-08-09] MEDS: CITRIC ACID/NA CITRATE 30 ML CUP PO SCH (08:29)
[2016-08-09] MEDS: TAMSULOSIN (SR) 0.4 MG CAP PO SCH (08:30)
[2016-08-09] MEDS: morphine (ER) 15 MG TAB PO SCH (08:30)
[2016-08-09] MEDS: FLUOXETINE 20 MG CAP PO SCH (08:31)
[2016-08-09] MEDS: LACTULOSE 30ML CUP PO SCH ×2 (08:31→12:03)
[2016-08-09] MEDS: HEPARIN 5,000 UNIT/0.5 ML SYG SC SCH (08:33)
[2016-08-09] MEDS: INSULIN ASPART [NOVOLOG] 3 ML PEN SC SCH ×2 (08:33→12:02)
--- NOTE | 2016-08-09 11:46 | PN ---
Date/Time of Note Date/Time of Note DATE: 08/09/16 TIME: 11:44 Assessment/Plan VTE Prophylaxis VTE Prophylaxis Intervention: SCD's Lines/Catheters IV Catheter Type (from Nrsg): Peripheral IV Assessment/Plan Assessment/Plan 1. small bowel obstruction resolved 2. Intractable abdominal pain due to nephrolithiasis and hemorrhagic Right renal cyst 2. Type 2 diabetes. 3. History of essential hypertension. Blood pressure is stable. Continue the current medications, including hydralazine p.r.n. 4. High cholesterol. Check a lipid panel. 5. Gastrointestinal prophylaxis. PPI. 6. Deep venous thrombosis prophylaxis. Heparin subcutaneously. advance diet as tolerated to soft diet Pain control-still requiring IV pain meds around the clock, MS contin added for better pain control CT abdomen with Plevis iwth IV contrast showed left kidney stone and Right kidney cyst agressive bowel regimen for Constipation d/c home today Subjective 24 Hr Interval Summary Free Text/Dictation pt pain controlled, BP stable, afebirle, C/o Right abd pain Exam/Review of Systems Vital Signs Vitals Vital Signs Date Time Temp Pulse Resp B/P Pulse Ox O2 Delivery O2 Flow Rate FiO2 08/09/16 07:35 98.4 70 18 104/53 91 08/07/16 08:10 Room Air Intake and Output 08/08/16 08/08/16 08/09/16 15:00 23:00 07:00 Intake Total 1800 ml 200 ml Balance 1800 ml 200 ml Results Result Diagram: 08/08/16 0525 08/08/16 0525 Results 24 hrs Laboratory Tests Test 08/08/16 11:53 08/08/16 17:14 08/08/16 20:56 08/09/16 02:06 Bedside Glucose 199 181 215 200 Test 08/09/16 07:49 Bedside Glucose 195 Medications Medications Current Medications Ondansetron HCl (Zofran Inj) 4 mg Q6H PRN IV NAUSEA AND/OR VOMITING; Start at 22:30 Morphine Sulfate (morphine) 2 mg Q4H PRN IV pain Last administered on 04:44; Admin Dose 2 MG; Start 08/04/16 at 22:30 Heparin Sodium (Porcine) (Heparin (5000 Units/0.5 ml)) 5,000 unit BID SC Last administered on 08/09/16 08:33; Admin Dose 5,000 UNIT; Start 08/05/16 at 09:00 Acetaminophen (Tylenol Tab) 650 mg Q6H PRN PO PAIN AND OR ELEVATED TEMP Last administered on 08/08/16 22:54; Admin Dose 650 MG; Start 08/04/16 at 22:30 Atorvastatin Calcium (Lipitor) 40 mg QHS PO Last administered on 08/08/16 20: 08; Admin Dose 40 MG; Start 08/05/16 at 21:00 Benzonatate (Tessalon) 100 mg Q8H PRN PO COUGH; Start 08/05/16 at 05:00 Fluoxetine HCl (Prozac) 20 mg DAILY PO Last administered on 08/09/16 08:31; Admin Dose 20 MG; Start 08/05/16 at 09:00 Tamsulosin HCl (Flomax) 0.4 mg BID PO Last administered on 08/09/16 08:30; Admin Dose 0.4 MG; Start 08/05/16 at 09:00 Miscellaneous Information 1 ea NOTE XX ; Start 08/05/16 at 05:00 Glucose (Glutose) 15 gm Q15M PRN PO DECREASED GLUCOSE; Start 08/05/16 at 05:00 Glucose (Glutose) 22.5 gm Q15M PRN PO DECREASED GLUCOSE; Start 08/05/16 at 05: 00 Dextrose (D50w Syringe) 25 ml Q15M PRN IV DECREASED GLUCOSE; Start 08/05/16 at 05:00 Dextrose (D50w Syringe) 50 ml Q15M PRN IV DECREASED GLUCOSE; Start 08/05/16 at 05:00 Glucagon (Glucagen) 1 mg Q15M PRN IM DECREASED GLUCOSE; Start 08/05/16 at 05:00 Glucose 15 gm 15 gm Q15M PRN BUCCAL DECREASED GLUCOSE; Start 08/05/16 at 05:00 Ceftriaxone Sodium (Rocephin) 50 ml @ 100 mls/hr Q24H IVPB Last administered on 08/09/16 05:20; Admin Dose 100 MLS/HR; Start 08/05/16 at 05:00 Hydralazine HCl (Apresoline) 10 mg Q6H PRN IV ELEVATED SYSTOLIC BP; Start 08/05 at 05:00 Diagnostic Test (Pha) (Accucheck) 1 ea 02 XX Last administered on 08/09/16 02: 17; Admin Dose 1 EA; Start 08/06/16 at 02:00 Citric Acid/ Sodium Citrate (Bicitra) 30 ml BID PO Last administered on 08:29; Admin Dose 30 ML; Start 08/06/16 at 09:38 Acetaminophen/ Hydrocodone Bitart ([place] (7.5-325)) 1 tab Q4H PRN PO moderate pain Last administered on 08/08/16 15:08; Admin Dose 1 TAB; Start 08/06/16 at 09:30 Morphine Sulfate (Ms Contin (Er)) 15 mg BID PO Last administered on 08/09/16 08:30; Admin Dose 15 MG; Start 08/06/16 at 09:39 Pantoprazole (Protonix Tab) 40 mg DAILY@06 PO Last administered on 08/09/16 05 :20; Admin Dose 40 MG; Start 08/08/16 at 06:00 Lactulose (Enulose) 20 gm TID PO Last administered on 08/08/16 20:08; Admin Dose 20 GM; Start 08/08/16 at 11:00 KENNY LEARY MD Aug 09, 2016 11:45
--- NOTE | 2016-08-09 11:47 | PDOCDIS ---
Discharge Instructions CONDITION Patient Condition: Good HOME CARE INSTRUCTIONS: Special Diet: low salt diet ACTIVITY: Activity Restrictions: Slowly Increase Activity Rest between Activity Avoid heavy lifting Avoid Heavy Housework FOLLOW UP/APPOINTMENTS Appointments follow up with her own PMD through HMO insurance in 1-2 week after discharge KENNY LEARY MD Aug 09, 2016 11:47
[2016-08-09] MEDS ORDERED: HYDR-3605 PO (11:49)
[2016-08-09] MEDS ORDERED: CIPR500T4 PO (11:49)
[2016-08-09] MEDS ORDERED: TAMS-14 PO (11:49)
[2016-08-09] MEDS ORDERED: GLIP-95 PO (11:49)
--- NOTE | 2016-08-09 21:44 | DS ---
DATE OF ADMISSION: 08/04/2016 DATE OF DISCHARGE: 08/09/2016 FINAL DISCHARGE DIAGNOSES: 1. Small-bowel obstruction, early, resolved. 2. Intractable abdominal pain secondary to nephrolithiasis and hemorrhagic right renal cyst. 3. Type 2 diabetes mellitus. 4. History of hypertension. 5. History of hyperlipidemia. CONSULTATIONS DONE DURING THIS HOSPITALIZATION: None. PROCEDURES PERFORMED DURING THIS HOSPITALIZATION: None. Hospital COURSE: This is a 55-year-old female with a past medical history of hypertension, hyperlip idemia, diabetes mellitus, asthma, history of previous constipation who presented with a complaint o f abdominal pain. Her past surgical history includes cholecystectomy, , hernia repair, and history of previous kidney stones in 2010. The patient is noted to have mild early small-bowel obs truction for which she was kept n.p.o., IV fluid was given, and the bowel rest was given. Her small -bowel obstruction was resolved, but she continues to complain of abdominal pain for which she had a CT abdomen and pelvis with and without contrast done, which revealed right-sided kidney cyst, possi nai hemorrhagic, along with left-sided nephrolithiasis ____ kidney stone. The patient was complaini ng of bilateral flank pain associated with bilateral abdominal pain, which was thought secondary to her kidney stone and kidney cyst. She continues to complain of the abdominal pain for which she req uired aggressive pain regimen, MS Contin, along with the [place] p.r.n. She was complicated by consti pation for which she also required aggressive bowel regimen. Her constipation was resolved. Her pa in was getting better. Today, she was discharged home with prescriptions of [place] 7.5/325 p.r.n. pa in. DISPOSITION: To home. DISCHARGE CONDITION: Stable, improved compared to admission. DISCHARGE ACTIVITIES: As tolerated, slowly resume to the normal baseline activity. DISCHARGE DIET: Low fat, low sodium diet. DISCHARGE MEDICATIONS: As per medical reconciliation discharge. 1. Please note that the patient's glipizide has been decreased to 10 mg p.o. daily. 2. She was continued on metformin for her diabetes management. 3. She was also given a prescription of ciprofloxacin 500 mg p.o. b.i.d. to cover her for any infec tion. DISCHARGE FOLLOWUP AND INSTRUCTIONS: The patient is to follow up with her own primary care doctor t hrough her HMO insurance 1 to 2 weeks after discharge. She has been explained about the discharge p cruz and followup instructions. She understood and verbalized understanding. Dictated By: KENNY LEARY MD, KP/MONICA Conf#: [id number] DID#: [id number] CC: BETH COOK MD;*EndCC*
== END 2016-08-09 13:00 | disposition home or self-care (01) | DRG 390 ==
LOC: MS2 21:23
PROVIDERS: ADMIT Internal Medicine; ATTEND Internal Medicine
DX: K56.60 Unspecified intestinal obstruction (principal); N20.0 Calculus of kidney; I10 Essential (primary) hypertension; Z87.442 Personal history of urinary calculi; N28.1 Cyst of kidney, acquired; E11.9 Type 2 diabetes mellitus without complications; E78.5 Hyperlipidemia, unspecified; J45.909 Unspecified asthma, uncomplicated; Z79.84 Long term (current) use of oral hypoglycemic drugs
CPT/HCPCS: 74177; 80048; 80053; 80061; 82962; 83036; 84443; 85025; 85610; 85730; C9113; J0696; J1644; J1815; J2270; J3480; Q9967

== ENCOUNTER 2016-09-10 11:28 | Inpatient (IN) | payer OTHER ==
[~2016-09-10] VITALS: Ht 165.1 cm; Wt 92.0 kg
[~2016-09-10 11:28] MED LIST changes: -CEPH-443 PO; -FLUC150T17 PO; -GABA300C16 PO; -HYDR-3498 PO; +HYDR-3605 PO; -HYDR-906 PO; -IBUP-1542 PO; -IBUP400T22 PO; -INSU100V23 SC; -LANT3I SC; +METF1000 PO; -PRED20TA PO; -TRAM50TA2 PO
[2016-09-10] MEDS ORDERED: ASPIRIN 325 MG TAB PO STA (15:38)
[2016-09-10] MEDS ORDERED: ONDANSETRON 4 MG INJ IV STA (15:38)
[2016-09-10] MEDS ORDERED: morphine 4 MG/ML VIAL IV STA (15:38)
--- NOTE | 2016-09-10 16:16 | RADRPT ---
PROCEDURE: XR Chest. CLINICAL INDICATION: Chest pain, cough TECHNIQUE: Single frontal view of the chest was obtained COMPARISON: 06/15/2016 FINDINGS: The heart and mediastinum are within normal limits. The lungs are clear. There is no pleural effusion or pneumothorax. IMPRESSION: No definite abnormalities are identified. RPTAT:AAJJ Wyatt Matias Physician Date Time Electronically viewed and signed by Wyatt Matias Physician on 09/10/2016 16:16 MINA/
[2016-09-10 16:19] LABS: ADD SCAN DIFF NO
[2016-09-10 16:21] LABS: BASOPHILS % 0.3 % (0.0-2.0); EOSINOPHILS # 0.2 10^3/ul (0.0-0.5); EOSINOPHILS % 2.4 % (0.0-7.0); HEMOGLOBIN 12.7 g/dl (12.0-16.0); LYMPHOCYTES # 2.4 10^3/ul (0.8-2.9); LYMPHOCYTES % 35.8 % (15.0-51.0); MEAN CORPUSCULAR HEMOGLOBIN 29.5 pg (29.0-33.0); MEAN CORPUSCULAR HGB CONC 32.6 g/dl (32.0-37.0); MEAN CORPUSCULAR VOLUME 90.5 fl (82.0-101.0); MEAN PLATELET VOLUME 12.7 fl (7.4-10.4); MONOCYTE # 0.4 10^3/ul (0.3-0.9); NEUTROPHIL # 3.7 10^3/ul (1.6-7.5); NEUTROPHILS % 55.2 % (39.0-77.0); PLATELET COUNT 226 10^3/UL (140-415); RED BLOOD COUNT 4.31 10^6/ul (4.20-5.40); RED CELL DISTRIBUTION WIDTH 13.5 % (11.5-14.5); WHITE BLOOD COUNT 6.8 10^3/ul (4.8-10.8)
[2016-09-10 16:30] LABS: INR 0.91; PROTIME 12.3 Sec (12.2-14.2)
[2016-09-10 16:40] LABS: ANION GAP 12 (8-16); BLOOD UREA NITROGEN 17 mg/dl (7-20); CALCIUM 9.5 mg/dl (8.4-10.2); CARBON DIOXIDE 25 mmol/L (21-31); CHLORIDE 107 mmol/L (97-110); CREATININE 0.58 mg/dl (0.44-1.00); GLUCOSE 231 mg/dl (70-220); POTASSIUM 4.1 mmol/L (3.5-5.1); SODIUM 140 mmol/L (135-144)
--- NOTE | 2016-09-10 16:43 | ERA ---
ER Documentation Chief Complaint Date/Time DATE: 09/10/16 TIME: 16:41 Chief Complaint CHEST PAIN X3 DAYS HPI 55-year-old female history of hypertension, diabetes who presents emergency with chest pain. She describes left-sided substernal chest pressure for approximately 3 days. Nonexertional. No significant chest pain currently. She is having abdominal hernia surgery this Sunday. She denies any pleuritic pain, no fevers or chills. No cough. ROS All systems reviewed and are negative except as per history of present illness. Medications Home Meds Active Scripts Glipizide* (Glipizide*) 10 Mg Tablet, 10 MG PO DAILY, #60 TAB Prov:KENNY LEARY MD 08/09/16 Reported Medications Ibuprofen* (Ibuprofen*) 800 Mg Tab, 800 MG PO Q6H Y for PAIN, TAB 09/10/16 Fluoxetine Hcl* (Fluoxetine Hcl*) 40 Mg Capsule, 40 MG PO DAILY, CAP 09/10/16 Metformin Hcl* (Metformin Hcl*) 1,000 Mg Tablet, 1000 MG PO WITH BREAKFAST DINNE , #30 TAB 08/04/16 Atorvastatin* (Atorvastatin*) 40 Mg Tablet, 40 MG PO QHS, #30 TAB 12/05/15 Lisinopril* (Lisinopril*) 2.5 Mg Tablet, 2.5 MG PO DAILY, TAB 08/24/14 Discontinued Reported Medications Fluoxetine Hcl* (Prozac*) 20 Mg Capsule, 20 MG PO DAILY, CAP 08/24/14 Cholecalciferol* (Vitamin D3*) 1,000 Unit Tablet, 1000 UNIT PO EVERY SUNDAY, TAB 03/20/14 Discontinued Scripts Tamsulosin Hcl* (Flomax*) 0.4 Mg Cap.er.24h, 0.4 MG PO DAILY, #30 CAP Prov:KENNY LEARY MD 08/09/16 Ciprofloxacin Hcl* (Ciprofloxacin Hcl*) 500 Mg Tablet, 500 MG PO BID, #10 TAB Prov:KENNY LEARY MD 08/09/16 Hydrocodone/Acetaminophen (Hydrocodon-Acetaminoph 7.5-325) 1 Each Tablet, 1 TAB PO Q4H Y for moderate pain , #30 TAB Prov:KENNY LEARY MD 08/09/16 Benzonatate* (Tessalon Perle*) 100 Mg Capsule, 100 MG PO Q8H Y for COUGH, #20 CAP Prov:JACOB GOLDMAN Ekaterina MELGAR 06/15/16 Albuterol Sulfate* (Proair HFA*) 8.5 Gm Hfa.aer.ad, 2 PUFF INH Q4, #1 INHALER Prov:JACOB GOLDMAN Ekaterina MELGAR 06/15/16 Tamsulosin Hcl* (Flomax*) 0.4 Mg Cap.er.24h, 0.4 MG PO BID, #30 CAP Prov:KATLYN JOHNS PA-C 10/08/15 Diphenhydramine Hcl* (Benadryl*) 50 Mg Cap, 50 MG PO Q6 Y for ITCHING, #10 CAP Prov:MERA GARCIA NP 10/02/15 Allergies Allergies: Coded Allergies: No Known Allergy (Unverified , 09/10/16) PMhx/Soc History of Surgery: Yes (cholecystectomy, c-sections 3, hernia repair, kidney stones 2010) Anesthesia Reaction: No Hx Neurological Disorder: No Hx Respiratory Disorders: Yes (asthma) Hx Cardiac Disorders: Yes (htn, high cholestrol ) Hx Psychiatric Problems: No Hx Miscellaneous Medical Probl: Yes (DM) Hx Alcohol Use: No Hx Substance Use: No Hx Tobacco Use: No Smoking Status: Never smoker FmHx Family History: No diabetes Physical Exam Vitals Vital Signs Date Time Temp Pulse Resp B/P Pulse Ox O2 Delivery O2 Flow Rate FiO2 09/10/16 12:02 99.2 85 16 110/56 95 Physical Exam General: Well developed, well nourished, no acute distress Head: Normocephalic, atraumatic. Eyes: Pupils equally reactive, EOM intact ENT: Moist mucous membranes Neck: Supple, no lymphadenopathy Respiratory: Lungs clear bilaterally, no distress Cardiovascular: RRR, no murmurs, rubs, or gallops, slightly reproducible chest wall tenderness Abdominal: Soft, non-tender, non-distended, no peritoneal signs : Deferred MSK: No edema, no unilateral swelling, 5/5 strength Neurologic: Alert and oriented, moving all extremities, normal speech, no focal weakness, no cerebellar signs Skin: No rash Psych: Normal mood Result Diagram: 09/10/16 1549 09/10/16 1549 Results 24 hrs Laboratory Tests Test 09/10/16 15:49 White Blood Count 6.810^3/ul Red Blood Count 4.3110^6/ul Hemoglobin 12.7g/dl Hematocrit 39.0% Mean Corpuscular Volume 90.5fl Mean Corpuscular Hemoglobin 29.5pg Mean Corpuscular Hemoglobin Concent 32.6g/dl Red Cell Distribution Width 13.5% Platelet Count 34836^3/UL Mean Platelet Volume 12.7fl Neutrophils % 55.2% Lymphocytes % 35.8% Monocytes % 6.0% Eosinophils % 2.4% Basophils % 0.3% Nucleated Red Blood Cells % 0.0/100WBC Neutrophils # 3.710^3/ul Lymphocytes # 2.410^3/ul Monocytes # 0.410^3/ul Eosinophils # 0.210^3/ul Basophils # 0.010^3/ul Nucleated Red Blood Cells # 0.010^3/ul Prothrombin Time 12.3Sec Prothrombin Time Ratio 1.0 INR International Normalized Ratio 0.91 Activated Partial Thromboplast Time 27.0Sec Sodium Level 140mmol/L Potassium Level 4.1mmol/L Chloride Level 107mmol/L Carbon Dioxide Level 25mmol/L Anion Gap 12 Blood Urea Nitrogen 17mg/dl Creatinine 0.58mg/dl Glucose Level 231mg/dl Calcium Level 9.5mg/dl Troponin I < 0.012ng/ml Current Medications Medications (Trade) Dose Ordered Sig/Roland Route PRN Reason Start Time Stop Time Status Last Admin Dose Admin Aspirin (Aspirin) 325 mg ONCE STAT PO 09/10/16 15:38 09/10/16 15:39 DC 09/10/16 15:53 Morphine Sulfate (morphine) 4 mg ONCE STAT IV 09/10/16 15:38 09/10/16 15:40 DC 09/10/16 15:54 Ondansetron HCl (Zofran Inj) 4 mg ONCE STAT IV 09/10/16 15:38 09/10/16 15:40 DC 09/10/16 15:53 Procedures/MDM EKG, MONITORS, & DIAGNOSTIC IMAGING: EKG: I reviewed and interpreted a 12-lead EKG. Rhythm: Normal sinus rhythm Ectopy: None Intervals: No abnormalities ST segments: No elevations or depressions T waves: No contiguous inversions Repeat EKG: EKG: I reviewed and interpreted a 12-lead EKG. Rhythm: Normal sinus rhythm Ectopy: None Intervals: No abnormalities ST segments: No elevations or depressions T waves: No contiguous inversions Chest x-ray: I reviewed and interpreted a 1 view of the chest Mediastinum: No enlargement Cardiac silhouette: No cardiomegaly Airspace: Clear lung aragon bilaterally without evidence of pneumothorax Bones: No evidence of fracture LAB INTERPRETATION: Negative troponin MEDICAL DECISION MAKING: The patient's history, physical exam and clinical presentation is concerning for possible cardiogenic etiology and acute coronary syndrome. Based on the patient's clinical exam and history and risk factors, I have a much lower clinical concern for pulmonary embolism, acute aortic dissection, pneumothorax, pneumonia, cardiac tamponade HEART Score: 4 MACE Rate: 16.6% Shared Decision Making: We had a conversation regarding risk stratification, MACE rate, and the risks, benefits, alternatives of disposition planning options. Disposition planning: Given risk profile I recommend inpatient hospitalization last stress testing >1 year ago ER COURSE: Patient given aspirin, morphine. The patient does have a strong reproducible component however given her risk factor profile inpatient hospitalization would be appropriate. Regardless, the patient requires medical clearance prior to surgical intervention this week. I kept the patient and/or family informed of laboratory and diagnostic imaging results throughout the emergency room course. DISPOSITION PLAN: Telemetry admission for management of chest pain CONSULTATION: Accepting care team and consultations: I discussed the current laboratory data, diagnostic imaging and emergency care provided. Admitting team: Dr. Harden Admitting team indication: Insurance directed Departure Diagnosis: Primary Impression: Chest pain Qualified Code: R07.9 - Chest pain, unspecified type Condition: Stable MICHELLE COPPOLA MD Sep 10, 2016 16:43
[2016-09-10 16:53] LABS: TROPONIN-I < 0.012 ng/ml (0.00-0.12)
[2016-09-10] MEDS ORDERED: FLUO40CA PO (17:00)
[2016-09-10] MEDS ORDERED: IBUP800T25 PO (17:01)
[2016-09-10] MEDS ORDERED: ACETAMINOPHEN 325 MG TAB PO PRN ×2 (17:30→19:30)
[2016-09-10] MEDS ORDERED: ONDANSETRON 4 MG INJ IV PRN ×2 (17:30→19:30)
[2016-09-10 18:18] VITALS: TEMP 98.6
[2016-09-10 18:47] LABS: CK-MB 0.32 ng/ml (0.0-2.4)
[2016-09-10] MEDS ORDERED: HYDROCODONE/APAP (5/325) TAB PO PRN (19:30)
[2016-09-10] MEDS ORDERED: DOCUSATE SODIUM 100 MG CAP PO PRN (19:30)
[2016-09-10] MEDS ORDERED: IBUPROFEN 800 MG TAB PO PRN (19:30)
[2016-09-10] MEDS ORDERED: NACL 0.9% 3 ML SYG IV SCH (19:30)
[2016-09-10] MEDS ORDERED: morphine 2 MG INJ IV PRN (19:30)
[2016-09-10] MEDS ORDERED: ZOLPIDEM 5 MG TAB PO PRN (19:30)
[2016-09-10 19:50] VITALS: BP 92/49; RESP 17
[2016-09-10 20:11] VITALS: PULSE 60
[2016-09-10 20:12] VITALS: Ht 165.1 cm; Wt 92.0 kg
--- NOTE | 2016-09-10 20:19 | HP ---
DATE OF ADMISSION: 09/10/2016 CHIEF COMPLAINT: Chest pain. HISTORY OF PRESENT ILLNESS: This is a 55-year-old female with a history of flx-heqdmad-dqoqnbvma di abetes, hypertension, dyslipidemia, and small-bowel obstruction. The patient was recently hospitali zed and discharged in July of this year for small-bowel obstruction. The patient presents with sherry st pain. She states that the pain has been going on for 3 days now. There is radiation of pain int o her left arm. She denies any cardiac history. In the ED, EKG and troponins were negative for any signs of ischemia. PAST MEDICAL HISTORY: As per HPI. HOME MEDICATIONS: Please see medication reconciliation. ALLERGIES: NO KNOWN DRUG ALLERGIES. FAMILY HISTORY: Diabetes. SOCIAL HISTORY: Denies any tobacco abuse, any alcohol or drug abuse. REVIEW OF SYSTEMS: A 12-point review of systems negative except for that as in HPI. PHYSICAL EXAMINATION: VITAL SIGNS: Temperature is 98.6, pulse 70, respiratory rate is 18, BP is 105/73, saturation 95% on room air. GENERAL: No acute distress, alert and oriented. HEENT: Normocephalic, atraumatic. LUNGS: Clear to auscultation. CARDIOVASCULAR: Regular rate and rhythm. ABDOMEN: Nondistended, nontender, soft. EXTREMITIES: No clubbing, cyanosis, or edema. MUSCULOSKELETAL: Chest pain reproducible with palpation. LABORATORIES: White count 6.8, hemoglobin 12.7, platelets are 276. Chemistry within normal limits except for glucose of 231. Troponin is negative. INR is 0.91. DIAGNOSTICS: Chest x-ray shows no acute findings. EKG shows no signs of ischemia. ASSESSMENT AND PLAN: 1. Chest pain, atypical, but her pain is reproducible with palpation. An EKG and first set of trop onins negative. We will trend the troponins. We will get a 2D echo. 2. Diabetes. Continue home medications. 3. Hypertension. Resume home medications. 4. Prophylaxis. Ambulation. Dictated By: BETH COOK MD BS/NTS Conf#: [id number] DID#: [id number]
[2016-09-10] MEDS ORDERED: ATORVASTATIN 40 MG TAB PO SCH (21:00)
[2016-09-10 22:05] LABS: CREATINE KINASE 51 IU/L (23-200)
[2016-09-10 22:15] LABS: CK-MB 0.24 ng/ml (0.0-2.4)
[2016-09-10 22:20] LABS: TROPONIN-I < 0.012 ng/ml (0.00-0.12)
[2016-09-11] VITALS (8 sets, daily range): BP systolic 89–115; BP diastolic 48–56; PULSE 60–69; RESP 17–20
[2016-09-11 03:49] LABS: ADD SCAN DIFF NO
[2016-09-11 04:13] LABS: POTASSIUM 3.8 mmol/L (3.5-5.1)
[2016-09-11 04:15] LABS: CREATININE 0.58 mg/dl (0.44-1.00)
[2016-09-11 04:16] LABS: CALCIUM 8.6 mg/dl (8.4-10.2); CHOL/HDL RATIO 2.7 RATIO; MAGNESIUM 1.5 mg/dl (1.7-2.5)
[2016-09-11 04:17] LABS: BASOPHILS % 0.3 % (0.0-2.0); EOSINOPHILS # 0.2 10^3/ul (0.0-0.5); EOSINOPHILS % 2.9 % (0.0-7.0); HEMATOCRIT 36.9 % (37.0-47.0); HEMOGLOBIN 11.9 g/dl (12.0-16.0); LYMPHOCYTES # 2.4 10^3/ul (0.8-2.9); LYMPHOCYTES % 37.6 % (15.0-51.0); MEAN CORPUSCULAR HEMOGLOBIN 29.6 pg (29.0-33.0); MEAN CORPUSCULAR HGB CONC 32.2 g/dl (32.0-37.0); MEAN CORPUSCULAR VOLUME 91.8 fl (82.0-101.0); MONOCYTE # 0.5 10^3/ul (0.3-0.9); NEUTROPHIL # 3.4 10^3/ul (1.6-7.5); NEUTROPHILS % 51.9 % (39.0-77.0); PLATELET COUNT 211 10^3/UL (140-415); RED BLOOD COUNT 4.02 10^6/ul (4.20-5.40); RED CELL DISTRIBUTION WIDTH 13.3 % (11.5-14.5); WHITE BLOOD COUNT 6.5 10^3/ul (4.8-10.8)
[2016-09-11 04:31] LABS: CREATINE KINASE 45 IU/L (23-200)
[2016-09-11 04:45] LABS: CK-MB 0.38 ng/ml (0.0-2.4)
[2016-09-11 04:47] LABS: TROPONIN-I < 0.012 ng/ml (0.00-0.12)
[2016-09-11] MEDS ORDERED: MAGNESIUM SULFATE 2 GM/50 ML 50 ML IVPB ONE (05:30)
[2016-09-11] MEDS ORDERED: SOD CHLORIDE 0.9% 500 ML IV ONE (06:30)
[2016-09-11] MEDS ORDERED: metFORMIN 500 MG TAB PO SCH (07:55)
[2016-09-11] MEDS ORDERED: ASPIRIN (EC) 81 MG TAB PO SCH (09:00)
[2016-09-11] MEDS ORDERED: FLUOXETINE 20 MG CAP PO SCH (09:00)
[2016-09-11] MEDS ORDERED: LISINOPRIL 5 MG TAB PO SCH (09:00)
[2016-09-11] MEDS ORDERED: glipiZIDE 10 MG TAB PO SCH (09:00)
[2016-09-11] MEDS ORDERED: MAGNESIUM OXIDE 400 MG TAB PO ONE (09:30)
--- NOTE | 2016-09-11 09:31 | PDOCDIS ---
Discharge Instructions CONDITION Patient Condition: Good HOME CARE INSTRUCTIONS: Special Diet: Carbohydrate Controlled Diet ACTIVITY: Activity Restrictions: No Restrictions FOLLOW UP/APPOINTMENTS Appointments F/U WITH YOUR PCP IN 1-2 WEEKS BETH COOK Sep 11, 2016 09:31
--- NOTE | 2016-09-11 14:44 | RADRPT ---
Echocardiogram Report Patient Name: MARK LEONARD Gender: Female Date: 1960 Study Date: 11-Sep-2016 Skein Yarn Dyer: Linda Kemp [facility] Location: [facility] Ref. Physician: BETH COOK Quality: Good Procedures: Transthoracic echocardiogram with complete 2D, M-Mode, and doppler examination. Indications: Chest Pain. 2D/M Mode Doppler Measurement Value Normal Ranges Measurement Value Normal Ranges LVIDd 2D 5.2 3.5 - 5.6 cm AV Peak Sage 1.2 m/sec LVIDs 2D 2.2 2.1 - 4.1 cm AV Peak PG 6.0 mmHg FS 2D 57.9 % LVOT Peak Sage 1.1 m/sec LVPWd 2D 1.1 0.6 - 1.1 cm LVOT Peak PG 5.0 mmHg IVSd 2D 1.0 0.6 - 1.1 cm MV E Peak Sage 0.7 m/sec IVS/LVPW 2D 1.0 MV A Peak Sage 0.7 m/sec AoR Diam 2D 2.9 2.0 - 3.7 cm MV E/A 0.9 LA/Ao 2D 1 0 - 1 MV Decel Time 173 msec EDV 2D 143.0 cm3 MV E/A 0.9 ESV 2D 10.6 cm3 TR Peak Sage 2.4 m/sec LA Dimen 2D 3.9 2.3 - 4.0 cm TR Peak PG 23.0 mmHg RVSP 31.0 mmHg Findings Left Ventricle: Normal left ventricular systolic function. Normal left ventricular cavity size. Mild concentric left ventricular hypertrophy. Ejection fraction is visually estimated at 65 %. Tissue Doppler/Mitral Doppler indices are consistent with impaired relaxation (Stage I diastolic dysfunction). Right Ventricle: Normal right ventricular size. Normal right ventricular systolic function. Left Atrium: The left atrium is normal in size. Right Atrium: The right atrium is normal in size. Mitral Valve: Normal appearance and function of the mitral valve with trace physiologic regurgitation. Aortic Valve: Normal appearance of the aortic valve. No significant aortic stenosis or insufficiency. Tricuspid Valve: Normal appearance of the tricuspid valve. Estimated peak PA systolic pressure 31 mmHg. There is trace tricuspid regurgitation. Pulmonic Valve: Normal pulmonic valve appearance. Pericardium: Normal pericardium with no significant pericardial effusion. Aorta: Normal aortic root. IVC: Dilated IVC with respiratory collapse consistent with elevated right atrial pressure. Conclusions 1.Normal left ventricular systolic function. Normal left ventricular cavity size. Mild concentric left ventricular hypertrophy. Ejection fraction is visually estimated at 65 %. Tissue Doppler/Mitral Doppler indices are consistent with impaired relaxation (Stage I diastolic dysfunction). 2.Normal appearance and function of the mitral valve with trace physiologic regurgitation. 3.Normal appearance of the aortic valve. No significant aortic stenosis or insufficiency. 4.Normal appearance of the tricuspid valve. Estimated peak PA systolic pressure 31 mmHg. There is trace tricuspid regurgitation. Electronically Signed By: Pj Collado 11-Sep-2016 14:43:20 -0700 Patient Name: MARK LEONARD Study Date: 11-Sep-2016 [id number]
--- NOTE | 2016-09-12 03:00 | DS ---
DATE OF ADMISSION: 09/10/2016 DATE OF DISCHARGE: 09/11/2016 DISCHARGE DIAGNOSES: 1. Chest pain secondary to musculoskeletal pain, improved. Acute coronary syndrome has been ruled out. Musculoskeletal pain may have been secondary to low magnesium. 2. Hypomagnesemia, replaced. 3. History of diabetes. Continue home medications. 4. Hypertension. Continue home medications. HOSPITAL COURSE: The patient is a 55-year-old female with a history of hypertension and non-insulin -dependent diabetes. The patient also has a history of small-bowel obstruction. The patient presen ts with atypical chest pain. Pain was reproducible with palpation. The patient was ruled out for A CS as patient had 3 negative troponins. EKG showed no signs of ischemia. The patient's magnesium w as quite low and was replaced, and her muscle pain did improve once magnesium was replaced. The [facility] ient does have chronically low blood pressure. Otherwise, patient's vital signs and labs are stable . On day of discharge, the patient had no acute complaints. The physical exam was stable on day of discharge. CONDITION ON DISCHARGE: Stable. DISPOSITION: To home. MEDICATIONS: The patient to continue her usual home medications. FOLLOWUP: The patient to follow up with her PCP in 1 to 2 weeks. Of note, she is to have surgery w chely March for hernia repair this coming Sunday. Once again, the patient to follow up with her PCP in 1 to 2 weeks. Greater than 30 minutes was spent coordinating discharge of patient. Dictated By: BETH COOK MD BS/NTS Conf#: [id number] DID#: [id number]
== END 2016-09-11 13:57 | disposition home or self-care (01) | DRG 313 ==
LOC: E/R 11:28 → TEL 17:07
PROVIDERS: ADMIT Internal Medicine; ATTEND Internal Medicine
DX: R07.89 Other chest pain (principal); E83.42 Hypomagnesemia; I10 Essential (primary) hypertension; E11.9 Type 2 diabetes mellitus without complications
CPT/HCPCS: 36415; 71010; 80048; 80061; 82550; 82553; 82962; 83036; 83735; 84484; 85025; 85610; 85730; 93005; 93306; 96374; 96375; J2270; J2405; J3475; J7040

== ENCOUNTER 2016-09-24 07:07 | Emergency (ER) | payer OTHER ==
[~2016-09-24] VITALS: Ht 167.6 cm; Wt 89.0 kg
[~2016-09-24 07:07] MED LIST changes: -ALBU8.5H3 INH; -BEN50 PO; -BENZ100C70 PO; -CHOL100062 PO; -CIPR500T4 PO; -FLUO20CA38 PO; +FLUO40CA PO; -HYDR-3605 PO; +IBUP800T25 PO; -TAMS-14 PO
[2016-09-24 07:09] VITALS: Ht 167.6 cm; Wt 89.0 kg
[2016-09-24] MEDS ORDERED: ONDANSETRON 4 MG INJ IV STA (07:34)
[2016-09-24] MEDS ORDERED: SOD CHLORIDE 0.9% 1,000 ML IV STA (07:34)
[2016-09-24] MEDS ORDERED: morphine 4 MG/ML VIAL IV STA (07:34)
--- NOTE | 2016-09-24 07:41 | ERA ---
ER Documentation Chief Complaint Date/Time DATE: 09/24/16 TIME: 07:30 Chief Complaint on and off vomitting and generalized abdominal pain since last night HPI 55-year-old female diabetic, hypertensive, dyslipidemic, history of small bowel obstruction, remote cholecystectomy and umbilical hernia repair presents to the ED for evaluation of abdominal pain and vomiting. She has had multiple previous admissions for small bowel obstruction. Yesterday and multiple episodes of nonbloody, nonbilious emesis and then developed severe, crampy and achy, nonradiating generalized abdominal pain. She had a loose bowel movement yesterday morning but none since. Has not passed gas since then. Denies hematemesis, hematochezia or melanotic stools. No chest pain or palpitations. No shortness of breath or cough. Denies dysuria, polyuria, hematuria or flank pain. No relieving or exacerbating factors. No fevers or chills. ROS All systems reviewed and are negative except as per history of present illness. Medications Home Meds Active Scripts Glipizide* (Glipizide*) 10 Mg Tablet, 10 MG PO DAILY, #60 TAB Prov:KENNY LEARY MD 08/09/16 Reported Medications Ibuprofen* (Ibuprofen*) 800 Mg Tab, 800 MG PO Q6H Y for PAIN, TAB 09/10/16 Fluoxetine Hcl* (Fluoxetine Hcl*) 40 Mg Capsule, 40 MG PO DAILY, CAP 09/10/16 Metformin Hcl* (Metformin Hcl*) 1,000 Mg Tablet, 1000 MG PO WITH BREAKFAST DINNE , #30 TAB 08/04/16 Atorvastatin* (Atorvastatin*) 40 Mg Tablet, 40 MG PO QHS, #30 TAB 12/05/15 Lisinopril* (Lisinopril*) 2.5 Mg Tablet, 2.5 MG PO DAILY, TAB 08/24/14 Allergies Allergies: Coded Allergies: No Known Allergy (Unverified , 09/24/16) PMhx/Soc Reviewed in chart. As per HPI. History of Surgery: Yes (CHOLECYSTECTOMY, C-SEECTION 3X, HERNIA REPAIR, KIDNEY STONES REMOVAL 2010) Anesthesia Reaction: No Hx Neurological Disorder: No Hx Respiratory Disorders: No Hx Cardiac Disorders: Yes (HTN, HIGH CHOLESTEROL) Hx Psychiatric Problems: No Hx Miscellaneous Medical Probl: No Hx Alcohol Use: No Hx Substance Use: No Hx Tobacco Use: No FmHx Brother: DC at the age of 30. Daughter: Diabetes and uterine cancer. Mother: Diabetes Physical Exam Vitals Vital Signs Date Time Temp Pulse Resp B/P Pulse Ox O2 Delivery O2 Flow Rate FiO2 09/24/16 07:09 98.0 104 18 122/51 94 Physical Exam Const: Alert, moderate distress due to pain Head: Atraumatic Eyes: Normal Conjunctiva ENT: Normal External Ears, Nose and Mouth. Neck: Full range of motion. Nontender. Resp: Clear to auscultation bilaterally Cardio: Regular rate and rhythm, no murmurs Abd: Soft, obese, diffuse tenderness but no rebound or guarding. Mild distention. Bowel sounds are present. Skin: No petechiae or rashes Back: No midline or flank tenderness Ext: No cyanosis, or edema Neur: Awake and alert. No focal deficit Psych: Normal Mood and Affect Result Diagram: 09/24/16 0845 09/24/16 0845 Results 24 hrs Laboratory Tests Test 09/24/16 07:45 09/24/16 08:00 09/24/16 08:45 Bedside Glucose 213mg/dL Urine Color YELLOW Urine Clarity CLEAR Urine pH 5.5 Urine Specific [place] >=1.030 Urine Ketones NEGATIVE Urine Nitrite NEGATIVE Urine Bilirubin NEGATIVE Urine Urobilinogen 0.2 E.U./dL Urine Leukocyte Esterase NEGATIVE Urine Microscopic RBC NONE SEEN/HPF Urine Microscopic WBC NONE SEEN/HPF Urine Hemoglobin TRACE Urine Glucose NEGATIVE% Urine Total Protein 2+ White Blood Count 9.710^3/ul Red Blood Count 4.4610^6/ul Hemoglobin 13.5g/dl Hematocrit 40.5% Mean Corpuscular Volume 90.8fl Mean Corpuscular Hemoglobin 30.3pg Mean Corpuscular Hemoglobin Concent 33.3g/dl Red Cell Distribution Width 13.1% Platelet Count 81040^3/UL Mean Platelet Volume 11.5fl Neutrophils % 90.1% Lymphocytes % 4.0% Monocytes % 4.6% Eosinophils % 1.0% Basophils % 0.1% Nucleated Red Blood Cells % 0.0/100WBC Neutrophils # 8.710^3/ul Lymphocytes # 0.410^3/ul Monocytes # 0.510^3/ul Eosinophils # 0.110^3/ul Basophils # 0.010^3/ul Nucleated Red Blood Cells # 0.010^3/ul Sodium Level 140mmol/L Potassium Level 4.4mmol/L Chloride Level 106mmol/L Carbon Dioxide Level 24mmol/L Anion Gap 14 Blood Urea Nitrogen 16mg/dl Creatinine 0.58mg/dl Glucose Level 206mg/dl Calcium Level 9.1mg/dl Total Bilirubin 0.3mg/dl Direct Bilirubin 0.00mg/dl Indirect Bilirubin 0.3mg/dl Aspartate Amino Transf (AST/SGOT) 28IU/L Alanine Aminotransferase (ALT/SGPT) 36IU/L Alkaline Phosphatase 91IU/L Total Protein 7.3g/dl Albumin 4.2g/dl Globulin 3.10g/dl Albumin/Globulin Ratio 1.35 Lipase 517U/L Current Medications Medications (Trade) Dose Ordered Sig/Roland Route PRN Reason Start Time Stop Time Status Last Admin Dose Admin Sodium Chloride (NS) 1,000 ml @ 1,000 mls/hr Q1H STAT IV 09/24/16 07:34 09/24/16 08:33 DC 09/24/16 08:16 Morphine Sulfate (morphine) 4 mg ONCE STAT IV 09/24/16 07:34 09/24/16 07:36 DC 09/24/16 07:57 Ondansetron HCl (Zofran Inj) 4 mg ONCE STAT IV 09/24/16 07:34 09/24/16 07:36 DC 09/24/16 07:56 Metoclopramide HCl (Reglan) 10 mg ONCE ONCE IV 09/24/16 09:30 09/24/16 09:31 DC 09/24/16 09:28 Diphenhydramine HCl (Benadryl) 25 mg ONCE ONCE IV 09/24/16 09:30 09/24/16 09:31 DC 09/24/16 09:28 IMAGING: PROCEDURE: CT scan of the abdomen and pelvis without IV contrast. CLINICAL INDICATION: 55-year-old with abdominal pain. TECHNIQUE: Thin section axial, coronal and sagittal images were performed through the abdomen and pelvis without contrast. Radiation Dose: CTDI: 20 and DLP: 1146. One or more of the following dose reduction techniques were used: - Automated exposure control. - Adjustment of the mA and/or kV according to patient size. Use of iterative reconstruction technique. COMPARISON: Chest x-ray 06/23/2016 06:18 a.m. FINDINGS: Soft tissues: Normal. Lungs and pleural spaces: There is minimal peripheral atelectasis in the dependent portion of the lungs. No pleural effusion or pulmonary nodule is identified. Heart: Normal. No pericardial effusion is identified. The liver, common bile duct and gallbladder: Liver is enlarged measuring 18.1 cm AP. No hepatic mass or intrahepatic biliary ductal dilatation is identified. There are clips in the ely hepatis area from prior cholecystectomy. The extrahepatic common bile duct is normal. Gastrointestinal: There is no hiatal hernia. The stomach is unremarkable. Some small bowel wall thickening is noted. Series 3; image 89. The small bowel loops have a normal caliber. There is fluid in the small bowel and colon. No mechanical bowel obstruction is identified. Multiple phleboliths are noted in the pelvis. There are bilateral inguinal hernias. There is no intra-abdominal. Pancreas: Normal. Kidneys, bladder and adrenal glands : The adrenal glands are normal. There is focal cortical scarring involving both kidneys. There is a 3.7 mm nonobstructive nephrolith in the upper pole of the left kidney. There is a 4.4 mm nonobstructive nephrolith in the lower pole of the left kidney. There is a 1 mm nonobstructive nephrolith in the lower portion of the upper third of the right kidney. A 1.6 cm parapelvic cyst is noted in the lower middle third of the right kidney. There is no evidence of hydronephrosis. Urinary bladder is incompletely distended but no bladder stone or bladder wall thickening is noted. Spleen: Normal. Lymph nodes: Normal. Reproductive system and pelvis : Normal. Bony elements: There are degenerative osteophytes in the lower thoracic spine. No acute bony fracture or bone metastasis is identified. Vasculature: A punctate calcifications noted in the dorsal wall of the upper abdominal aorta. No aneurysm or stenosis is identified. IMPRESSION: 1. Hepatomegaly. 2. Status post cholecystectomy. 3. Acute small bowel enteritis. There are no signs of appendicitis or diverticulitis. 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 5. Focal cortical scarring involving both kidneys. 6. 3.7 mm nonobstructive nephrolith upper pole left kidney. 4.4 mm nonobstructive nephrolith lower pole left kidney. 1 mm nonobstructive nephrolith lower middle third left kidney. 7. 1 mm nonobstructive nephrolith upper pole right kidney. 1.6 cm parapelvic cyst lower middle third right kidney. RPTAT:AAJJ Physician Reynaldo Date Time Electronically viewed and signed by Dhruv Doll Physician on 09/24/2016 08:25 JM/ Procedures/MDM DOCUMENTS REVIEWED: ED nurse, prior ED, prior records MEDICAL DECISION MAKIN-year-old female diabetic, hypertensive, dyslipidemic , history of small bowel obstruction, remote cholecystectomy and umbilical hernia repair presents to the ED for evaluation of abdominal pain and vomiting. CT reveals evidence of enteritis but no obstruction or signs of mesenteric ischemia. Nonobstructive ureterolithiasis. Mildly elevated lipase less than 2 times normal without any epigastric tenderness likely secondary to vomiting and irritation. CT does not show any signs of pancreatitis. Pain resolved with intravenous hydration, analgesics and antiemetics. Patient observed in the ED for over 4 hours multiple examinations were performed. At 11:35 she is tolerating p.o.'s and stable for discharge with precautionary instructions and outpatient follow-up as counseled. Counseled patient and family regarding diagnosis, diagnostic results and plan for discharge. Observation Note: Time: 4 hours Family Hx: No Hypertension Evaluation: Multiple exams showed improving symptoms and no significant abdominal tenderness, rebound, guarding or signs of peritonitis. Departure Diagnosis: Primary Impression: Acute generalized abdominal pain Additional Impressions: Enteritis Diabetes mellitus type 2 in obese Condition: Stable (Improved) DAVIDA CLARK MD September 24, 2016 07:41
[2016-09-24 08:18] LABS: ADD UMIC YES; URINE BILIRUBIN (Dip) NEGATIVE (NEGATIVE); URINE BLOOD (Dip) TRACE (NEGATIVE); URINE COLOR YELLOW (YELLOW); URINE GLUCOSE (Dip) NEGATIVE (NEGATIVE); URINE KETONES (Dip) NEGATIVE (NEGATIVE); URINE LEUKOCYTE ESTERASE (Dip) NEGATIVE (NEGATIVE); URINE NITRITE (Dip) NEGATIVE (NEGATIVE); URINE TOTAL PROTEIN (Dip) 2+ (NEGATIVE); URINE UROBILINOGEN (Dip) 0.2 E.U./dL (0.1-1.0)
--- NOTE | 2016-09-24 08:26 | RADRPT ---
PROCEDURE: CT scan of the abdomen and pelvis without IV contrast. CLINICAL INDICATION: 55-year-old with abdominal pain. TECHNIQUE: Thin section axial, coronal and sagittal images were performed through the abdomen and pelvis without contrast. Radiation Dose: CTDI: 20 and DLP: 1146. One or more of the following dose reduction techniques were used: - Automated exposure control. - Adjustment of the mA and/or kV according to patient size. Use of iterative reconstruction technique. COMPARISON: Chest x-ray 06/23/2016 06:18 a.m. FINDINGS: Soft tissues: Normal. Lungs and pleural spaces: There is minimal peripheral atelectasis in the dependent portion of the bipin ngs. No pleural effusion or pulmonary nodule is identified. Heart: Normal. No pericardial effusion is identified. The liver, common bile duct and gallbladder: Liver is enlarged measuring 18.1 cm AP. No hepatic mas s or intrahepatic biliary ductal dilatation is identified. There are clips in the ely hepatis are a from prior cholecystectomy. The extrahepatic common bile duct is normal. Gastrointestinal: There is no hiatal hernia. The stomach is unremarkable. Some small bowel wall th ickening is noted. Series 3; image 89. The small bowel loops have a normal caliber. There is fluid in the small bowel and colon. No mechanical bowel obstruction is identified. Multiple phleboliths are noted in the pelvis. There are bilateral inguinal hernias. There is no intra-abdominal. Pancreas: Normal. Kidneys, bladder and adrenal glands : The adrenal glands are normal. There is focal cortical scarrin g involving both kidneys. There is a 3.7 mm nonobstructive nephrolith in the upper pole of the left kidney. There is a 4.4 mm nonobstructive nephrolith in the lower pole of the left kidney. There i s a 1 mm nonobstructive nephrolith in the lower portion of the upper third of the right kidney. A 1 .6 cm parapelvic cyst is noted in the lower middle third of the right kidney. There is no evidence of hydronephrosis. Urinary bladder is incompletely distended but no bladder stone or bladder wall th ickening is noted. Spleen: Normal. Lymph nodes: Normal. Reproductive system and pelvis : Normal. Bony elements: There are degenerative osteophytes in the lower thoracic spine. No acute bony fractu re or bone metastasis is identified. Vasculature: A punctate calcifications noted in the dorsal wall of the upper abdominal aorta. No an eurysm or stenosis is identified. IMPRESSION: 1. Hepatomegaly. 2. Status post cholecystectomy. 3. Acute small bowel enteritis. There are no signs of appendicitis or diverticulitis. 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 5. Focal cortical scarring involving both kidneys. 6. 3.7 mm nonobstructive nephrolith upper pole left kidney. 4.4 mm nonobstructive nephrolith lower pole left kidney. 1 mm nonobstructive nephrolith lower middle third left kidney. 7. 1 mm nonobstructive nephrolith upper pole right kidney. 1.6 cm parapelvic cyst lower middle thi rd right kidney. RPTAT:AAJJ Physician Reynaldo Date Time Electronically viewed and signed by Physician Reynaldo on 09/24/2016 08:25 /
[2016-09-24 08:53] LABS: ADD SCAN DIFF NO
[2016-09-24 08:53] LABS: URINE RBCS NONE SEEN /HPF (0)
[2016-09-24 08:55] LABS: ABNORMAL IP MESSAGE 1; BASOPHILS % 0.1 % (0.0-2.0); EOSINOPHILS # 0.1 10^3/ul (0.0-0.5); HEMATOCRIT 40.5 % (37.0-47.0); HEMOGLOBIN 13.5 g/dl (12.0-16.0); LYMPHOCYTES # 0.4 10^3/ul (0.8-2.9); MEAN CORPUSCULAR HEMOGLOBIN 30.3 pg (29.0-33.0); MEAN CORPUSCULAR HGB CONC 33.3 g/dl (32.0-37.0); MEAN CORPUSCULAR VOLUME 90.8 fl (82.0-101.0); MEAN PLATELET VOLUME 11.5 fl (7.4-10.4); MONOCYTE # 0.5 10^3/ul (0.3-0.9); MONOCYTES % 4.6 % (0.0-11.0); NEUTROPHIL # 8.7 10^3/ul (1.6-7.5); NEUTROPHILS % 90.1 % (39.0-77.0); PLATELET COUNT 219 10^3/UL (140-415); RED BLOOD COUNT 4.46 10^6/ul (4.20-5.40); RED CELL DISTRIBUTION WIDTH 13.1 % (11.5-14.5); WHITE BLOOD COUNT 9.7 10^3/ul (4.8-10.8)
[2016-09-24 09:28] LABS: ALBUMIN 4.2 g/dl (3.3-4.9); ALBUMIN/GLOBULIN RATIO 1.35; BILIRUBIN,INDIRECT 0.3 mg/dl (0-1.1); BILIRUBIN,TOTAL 0.3 mg/dl (0.2-1.3); CALCIUM 9.1 mg/dl (8.4-10.2); CREATININE 0.58 mg/dl (0.44-1.00); POTASSIUM 4.4 mmol/L (3.5-5.1); TOTAL PROTEIN 7.3 g/dl (6.1-8.1)
[2016-09-24] MEDS ORDERED: DIPHENHYDRAMINE 50 MG INJ IV ONE (09:30)
[2016-09-24] MEDS ORDERED: METOCLOPRAMIDE 10 MG INJ IV ONE (09:30)
[2016-09-24] MEDS ORDERED: TRAM50TA2 PO (11:50)
[2016-09-24] MEDS ORDERED: ONDA4TAB14 PO (11:50)
[2016-09-24] MEDS ORDERED: METR500T PO (11:50)
[2016-09-24] MEDS ORDERED: CIPR500T4 PO (11:50)
[2016-09-24 12:04] VITALS: BP 111/61; PULSE 100; RESP 16; TEMP 98
== END 2016-09-24 10:24 | disposition home or self-care (01) ==
LOC: E/R 07:07
DX: R10.84 Generalized abdominal pain (principal); K52.9 Noninfective gastroenteritis and colitis, unspecified; E11.9 Type 2 diabetes mellitus without complications; I10 Essential (primary) hypertension; E66.9 Obesity, unspecified; Z68.31 Body mass index [BMI] 31.0-31.9, adult; Z79.84 Long term (current) use of oral hypoglycemic drugs
CPT/HCPCS: 74176; 80053; 81001; 82962; 83690; 85025; 96374; 96375; J1200; J2270; J2405; J2765; J7030; Z7502; 81003

== ENCOUNTER 2016-10-19 16:39 | Emergency (ER) | payer OTHER ==
[~2016-10-19] VITALS: Wt 90.5 kg
[~2016-10-19 16:39] MED LIST changes: +CIPR500T4 PO; +METR500T PO; +ONDA4TAB14 PO; +TRAM50TA2 PO
[2016-10-19] MEDS ORDERED: HYDROmorphONE 1 MG/ML SYG IV STA ×2 (18:45→19:54)
[2016-10-19] MEDS ORDERED: SOD CHLORIDE 0.9% 1,000 ML IV STA (18:45)
[2016-10-19] MEDS ORDERED: ONDANSETRON 4 MG INJ IV STA ×2 (18:45→19:54)
[2016-10-19 18:50] VITALS: BP 108/58; PULSE 72; RESP 20; TEMP 97.8
[2016-10-19 19:05] LABS: ADD SCAN DIFF NO
[2016-10-19 19:06] LABS: BASOPHILS % 0.3 % (0.0-2.0); EOSINOPHILS # 0.2 10^3/ul (0.0-0.5); HEMATOCRIT 37.5 % (37.0-47.0); HEMOGLOBIN 12.7 g/dl (12.0-16.0); LYMPHOCYTES # 2.4 10^3/ul (0.8-2.9); LYMPHOCYTES % 32.3 % (15.0-51.0); MEAN CORPUSCULAR HEMOGLOBIN 30.2 pg (29.0-33.0); MEAN CORPUSCULAR HGB CONC 33.9 g/dl (32.0-37.0); MEAN CORPUSCULAR VOLUME 89.3 fl (82.0-101.0); MEAN PLATELET VOLUME 11.7 fl (7.4-10.4); MONOCYTE # 0.6 10^3/ul (0.3-0.9); MONOCYTES % 7.6 % (0.0-11.0); NEUTROPHIL # 4.2 10^3/ul (1.6-7.5); NEUTROPHILS % 57.4 % (39.0-77.0); PLATELET COUNT 247 10^3/UL (140-415); RED CELL DISTRIBUTION WIDTH 13.2 % (11.5-14.5); WHITE BLOOD COUNT 7.3 10^3/ul (4.8-10.8)
[2016-10-19] MEDS ORDERED: NIT4 SL (19:15)
[2016-10-19] MEDS ORDERED: MOME13HF2 INHALATION (19:18)
[2016-10-19 19:24] LABS: ALBUMIN 4.8 g/dl (3.3-4.9); ALBUMIN/GLOBULIN RATIO 2.08; BILIRUBIN,INDIRECT 0.1 mg/dl (0-1.1); BILIRUBIN,TOTAL 0.1 mg/dl (0.2-1.3); CALCIUM 9.5 mg/dl (8.4-10.2); CREATININE 0.64 mg/dl (0.44-1.00); POTASSIUM 4.5 mmol/L (3.5-5.1); TOTAL PROTEIN 7.1 g/dl (6.1-8.1)
[2016-10-19] MEDS ORDERED: IODIXANOL LOCM 100 ML BTL ONE (19:36)
[2016-10-19] MEDS ORDERED: SOD CHLORIDE 0.9% 100 ML ONE (19:36)
--- NOTE | 2016-10-19 20:58 | RADRPT ---
PROCEDURE: CT Abdomen and Pelvis without contrast. CLINICAL INDICATION: Pain. TECHNIQUE: CT scan of the abdomen and pelvis was performed on a multidetector slice CT scanner. No intravenous contrast material was utilized. Sagittal and coronal reformatted images were obtained fr om the axial source images. Images were reviewed on a high-resolution PACS workstation. Exam CTDlvol = 21 mGy and DLP = 1293 Gy-cm. One of the following 3 dose reduction techniques were used: Automate d exposure control; adjustment of the mA and/or kV according to patient size; or use of iterative re construction technique. COMPARISON: 09/24/2016. FINDINGS: There is no obstruction or ileus. There is redemonstrated mild small bowel thickening and 9-day of t he loops of mid small bowel suggestive of a nonspecific enteritis. The appendix is visualized. Ther e is no evidence for appendicitis.. There is no evidence for diverticulitis. There is no free fluid. The liver is enlarged at 21.8 cm length.. No intrahepatic lesions are identified. The gallbladder aky s been removed.. There is no definite biliary ductal dilation. Pancreas is normal in appearance. The spleen is unremarkable.. There are no adrenal masses. The aorta is normal caliber. Minimal atheros clerotic vascular calcifications are present. There is redemonstrated bilateral renal scarring. There is 1.7 cm cyst in the mid pole right kidney . Punctate nonobstructing left renal calcifications present. No definite right renal calcification s are present. Kidneys are otherwise normal in appearance without hydronephrosis, mass or obstructi ng calculus.. Ureters are of normal caliber and without evidence for an obstructing calculus. The u rinary bladder is normal in appearance.. Uterus unremarkable. The ovaries are not well characterized. Limited evaluation of the lung bases is unremarkable. There are degenerative changes of the lumbar spine. IMPRESSION: 1. Mild small bowel wall thickening in nondilated loops of small bowel. Consistent with a nonspeci fic enteritis. No bowel obstruction or ileus. 2. No evidence for appendicitis or diverticulitis. 3. Hepatomegaly. 4. Status post cholecystectomy. 5. No obstructive uropathy. Nonobstructing left renal calcifications. Bilateral renal scarring. Right renal cyst. RPTAT: HMVK .Noel Valdez MD, MD Date Time Electronically viewed and signed by .Noel Valdez MD, MD on 10/19/2016 20:58 .K/
[2016-10-19] MEDS ORDERED: ONDA4TAB14 PO (22:34)
[2016-10-19] MEDS ORDERED: HYDR-902 PO (22:34)
[2016-10-19] MEDS ORDERED: METR500T PO (22:34)
[2016-10-19] MEDS ORDERED: CIPR500T4 PO (22:34)
--- NOTE | 2016-10-19 22:38 | ERD ---
ER Documentation Chief Complaint Date/Time DATE: 10/19/16 TIME: 22:34 Chief Complaint ABD PAIN X3 DAYS, HX OF HERNIA, NO N/V HPI This is a 55-year-old female who complains of nausea and vomiting and some left mid abdominal pain described as crampy and intermittent. No diarrhea no fever no bili or blood in her vomit. No chest pain shortness of breath or dysuria hematuria. No prior symptoms like this in the past. She said the pain for the past 2 days. ROS All systems reviewed and are negative except as per history of present illness. Medications Home Meds Active Scripts Metronidazole* (Flagyl*) 500 Mg Tablet, 500 MG PO TID for 7 Days, TAB Prov:KATERIN SETH A. DO 10/19/16 Ciprofloxacin Hcl* (Ciprofloxacin Hcl*) 500 Mg Tablet, 500 MG PO BID for 7 Days , TAB Prov:HEMA SETHS A. DO 10/19/16 Ondansetron (Ondansetron Odt) 4 Mg Tab.rapdis, 4 MG PO Q6H Y for NAUSEA AND/OR VOMITING, #10 TAB Prov:HEMA SETHS A. DO 10/19/16 Hydrocodone/Acetaminophen ([place] 10-325 Tablet) 1 Each Tablet, 1 TAB PO Q6H Y for PAIN, #15 TAB Prov:HEMA SETHS A. DO 10/19/16 Glipizide* (Glipizide*) 10 Mg Tablet, 10 MG PO DAILY, #60 TAB Prov:KENNY LEARY MD 08/09/16 Reported Medications Mometasone-Formoterol (Dulera) 100-5 Mcg - 13 Gm Hfa.aer.ad, 2 PUFFS INHALATION BID, #1 INHALER 10/19/16 Nitroglycerin* (Nitrostat*) 0.4 Mg Tab.subl, 0.4 MG SL Q5MIN Y for CHEST PAIN, BOTTLE 10/19/16 Fluoxetine Hcl* (Fluoxetine Hcl*) 40 Mg Capsule, 40 MG PO DAILY, CAP 09/10/16 Metformin Hcl* (Metformin Hcl*) 1,000 Mg Tablet, 1000 MG PO WITH BREAKFAST DINNE , #30 TAB 08/04/16 Atorvastatin* (Atorvastatin*) 40 Mg Tablet, 40 MG PO QHS, #30 TAB 12/05/15 Lisinopril* (Lisinopril*) 2.5 Mg Tablet, 2.5 MG PO DAILY, TAB 08/24/14 Discontinued Reported Medications Ibuprofen* (Ibuprofen*) 800 Mg Tab, 800 MG PO Q6H Y for PAIN, TAB 09/10/16 Discontinued Scripts Ciprofloxacin Hcl* (Ciprofloxacin Hcl*) 500 Mg Tablet, 500 MG PO BID for 7 Days , TAB Prov:DAVIDA CLARK MD 09/24/16 Metronidazole* (Flagyl*) 500 Mg Tablet, 500 MG PO TID for 7 Days, TAB Prov:DAVIDA CLARK MD 09/24/16 Tramadol HCl (Tramadol HCl) 50 Mg Tablet, 50 MG PO Q6 Y for PAIN, #12 TAB Prov:DAVIDA CLARK MD 09/24/16 Ondansetron (Ondansetron Odt) 4 Mg Tab.rapdis, 4 MG PO Q6H Y for NAUSEA AND/OR VOMITING, #10 TAB Prov:DAVIDA CLARK MD 09/24/16 Allergies Allergies: Coded Allergies: No Known Allergy (Unverified , 10/19/16) PMhx/Soc History of Surgery: Yes (CHOLECYSTECTOMY, C-SEECTION 3X, HERNIA REPAIR, KIDNEY STONES REMOVAL 2010) Anesthesia Reaction: No Hx Neurological Disorder: No Hx Respiratory Disorders: No Hx Cardiac Disorders: Yes (HTN, HIGH CHOLESTEROL) Hx Psychiatric Problems: No Hx Miscellaneous Medical Probl: Yes (inguinal hernia (bilat)) Hx Alcohol Use: No Hx Substance Use: No Hx Tobacco Use: No Smoking Status: Never smoker FmHx Family History: No coronary disease Physical Exam Vitals Vital Signs Date Time Temp Pulse Resp B/P Pulse Ox O2 Delivery O2 Flow Rate FiO2 10/19/16 18:50 97.8 72 20 108/58 97 Room Air 10/19/16 16:42 98.0 90 17 129/59 97 Physical Exam Const: Well-developed, well-nourished Head: Atraumatic, normocephalic Eyes: Normal Conjunctiva, PERRLA, EOMI, normal sclera, no nystagmus ENT: Normal External Ears, Nose and Mouth, moist mucus membranes. Neck: Full range of motion. No meningismus, no lymphadenopathy. Resp: Clear to auscultation bilaterally, no wheezing, rhonchi, rales Cardio: Regular rate and rhythm, no murmurs, S1 S2 present Abd: Soft, mild left lower and left mid abdominal tenderness to palpation, non distended. Normal bowel sounds, no guarding or rebound, no pulsitile abdominal masses or bruits Skin: No petechiae or rashes, no ecchymosis , no maculopapular rash Back: No midline or flank tenderness Ext: No cyanosis, or edema, FROM x 4, normal inspection, neurovascularly intact x 4 Neur: Awake and alert, STR 5/5 x 4, sensation intact x 4, no focal findings, cerebellum intact Psych: Normal Mood and Affect Result Diagram: 10/19/16184910/19/161849 Results 24 hrs Laboratory Tests Test 10/19/16 18:50 White Blood Count 7.310^3/ul Red Blood Count 4.2010^6/ul Hemoglobin 12.7g/dl Hematocrit 37.5% Mean Corpuscular Volume 89.3fl Mean Corpuscular Hemoglobin 30.2pg Mean Corpuscular Hemoglobin Concent 33.9g/dl Red Cell Distribution Width 13.2% Platelet Count 99598^3/UL Mean Platelet Volume 11.7fl Neutrophils % 57.4% Lymphocytes % 32.3% Monocytes % 7.6% Eosinophils % 2.0% Basophils % 0.3% Nucleated Red Blood Cells % 0.0/100WBC Neutrophils # 4.210^3/ul Lymphocytes # 2.410^3/ul Monocytes # 0.610^3/ul Eosinophils # 0.210^3/ul Basophils # 0.010^3/ul Nucleated Red Blood Cells # 0.010^3/ul Sodium Level 139mmol/L Potassium Level 4.5mmol/L Chloride Level 108mmol/L Carbon Dioxide Level 24mmol/L Anion Gap 12 Blood Urea Nitrogen 21mg/dl Creatinine 0.64mg/dl Glucose Level 346mg/dl Calcium Level 9.5mg/dl Total Bilirubin 0.1mg/dl Direct Bilirubin 0.00mg/dl Indirect Bilirubin 0.1mg/dl Aspartate Amino Transf (AST/SGOT) 41IU/L Alanine Aminotransferase (ALT/SGPT) 42IU/L Alkaline Phosphatase 94IU/L Total Protein 7.1g/dl Albumin 4.8g/dl Globulin 2.30g/dl Albumin/Globulin Ratio 2.08 Lipase 235U/L Current Medications Medications (Trade) Dose Ordered Sig/Roland Route PRN Reason Start Time Stop Time Status Last Admin Dose Admin Sodium Chloride (NS) 1,000 ml @ 1,000 mls/hr Q1H STAT IV 10/19/16 18:45 10/19/16 19:44 DC 10/19/16 18:59 Hydromorphone HCl (Dilaudid) 1 mg ONCE STAT IV 10/19/16 18:45 10/19/16 18:47 DC 10/19/16 18:59 Ondansetron HCl (Zofran Inj) 4 mg ONCE STAT IV 10/19/16 18:45 10/19/16 18:47 DC 10/19/16 18:58 Iodixanol 100 ml 100 ml STK-MED ONCE .ROUTE 10/19/16 19:36 10/19/16 19:37 DC 10/19/16 20:13 Sodium Chloride (NS) 100 ml @ ud STK-MED ONCE .ROUTE 10/19/16 19:36 10/19/16 19:37 DC 10/19/16 20:12 Hydromorphone HCl (Dilaudid) 1 mg ONCE STAT IV 10/19/16 19:54 10/19/16 19:55 DC 10/19/16 19:57 Ondansetron HCl (Zofran Inj) 4 mg ONCE STAT IV 10/19/16 19:54 10/19/16 19:55 DC 10/19/16 19:57 Procedures/MDM PROCEDURE: CT Abdomen and Pelvis without contrast. CLINICAL INDICATION: Pain. TECHNIQUE: CT scan of the abdomen and pelvis was performed on a multidetector slice CT scanner. No intravenous contrast material was utilized. Sagittal and coronal reformatted images were obtained from the axial source images. Images were reviewed on a high-resolution PACS workstation. Exam CTDlvol = 21 mGy and DLP = 1293 Gy-cm. One of the following 3 dose reduction techniques were used: Automated exposure control; adjustment of the mA and/or kV according to patient size; or use of iterative reconstruction technique. COMPARISON: 09/24/2016. FINDINGS: There is no obstruction or ileus. There is redemonstrated mild small bowel thickening and 9-day of the loops of mid small bowel suggestive of a nonspecific enteritis. The appendix is visualized. There is no evidence for appendicitis.. There is no evidence for diverticulitis. There is no free fluid. The liver is enlarged at 21.8 cm length.. No intrahepatic lesions are identified. The gallbladder has been removed.. There is no definite biliary ductal dilation. Pancreas is normal in appearance. The spleen is unremarkable.. There are no adrenal masses. The aorta is normal caliber. Minimal atherosclerotic vascular calcifications are present. There is redemonstrated bilateral renal scarring. There is 1.7 cm cyst in the mid pole right kidney. Punctate nonobstructing left renal calcifications present. No definite right renal calcifications are present. Kidneys are otherwise normal in appearance without hydronephrosis, mass or obstructing calculus.. Ureters are of normal caliber and without evidence for an obstructing calculus. The urinary bladder is normal in appearance.. Uterus unremarkable. The ovaries are not well characterized. Limited evaluation of the lung bases is unremarkable. There are degenerative changes of the lumbar spine. IMPRESSION: 1. Mild small bowel wall thickening in nondilated loops of small bowel. Consistent with a nonspecific enteritis. No bowel obstruction or ileus. 2. No evidence for appendicitis or diverticulitis. 3. Hepatomegaly. 4. Status post cholecystectomy. 5. No obstructive uropathy. Nonobstructing left renal calcifications. Bilateral renal scarring. Right renal cyst. RPTAT: HMVK .Noel Valdez MD, MD Date Time Electronically viewed and signed by .Noel Valdez MD, on 10/19/2016 20:58 .K/ CC: KATERIN SETH DO Patient has no acute process other than some mild enteritis for discharge home with Cipro Flagyl and [place] and Zoan Departure Diagnosis: Primary Impression: Enteritis Condition: Stable Patient Instructions: Abdominal Pain, Unknown Cause, (Female) KATERIN SETH DO Oct 19, 2016 22:38
== END 2016-10-19 22:51 | disposition home or self-care (01) ==
LOC: E/R 16:39
DX: K52.9 Noninfective gastroenteritis and colitis, unspecified (principal); I10 Essential (primary) hypertension
CPT/HCPCS: 36415; 74177; 80053; 83690; 85025; 96374; 96375; 96376; J1170; J2405; J7030; Q9967; Z7502; Z7610

== ENCOUNTER 2016-11-10 17:42 | Emergency (ER) | payer OTHER ==
[~2016-11-10] VITALS: Ht 167.6 cm; Wt 89.0 kg
[~2016-11-10 17:42] MED LIST changes: +HYDR-902 PO; -IBUP800T25 PO; +MOME13HF2 INHALATION; +NIT4 SL; -TRAM50TA2 PO
[2016-11-10 17:50] VITALS: Ht 167.6 cm; Wt 89.0 kg
[2016-11-10] MEDS ORDERED: morphine 4 MG/ML VIAL IV STA (18:40)
[2016-11-10] MEDS ORDERED: SOD CHLORIDE 0.9% 1,000 ML IV STA (18:40)
[2016-11-10] MEDS ORDERED: ONDANSETRON 4 MG INJ IV STA (18:40)
[2016-11-10 19:02] LABS: ADD UMIC YES; UR ASCORBIC ACID NEGATIVE (NEGATIVE); UR BACTERIA FEW /HPF (NONE SEEN); UR BILIRUBIN (Dip) NEGATIVE (NEGATIVE); UR BLOOD (Dip) 1+ mg/dL (NEGATIVE); UR CLARITY SLIGHTLY CLOUDY (CLEAR); UR COLOR YELLOW (YELLOW); UR GLUCOSE (Dip) NEGATIVE (NEGATIVE); UR KETONES (Dip) NEGATIVE (NEGATIVE); UR LEUKOCYTE ESTERASE (Dip) 3+ Leu/ul (NEGATIVE); UR NITRITE (Dip) NEGATIVE (NEGATIVE); UR RBC 1 /HPF (0-5); UR SPECIFIC GRAVITY (Dip) 1.018 (1.003-1.030); UR SQUAMOUS EPITHELIAL CELL FEW /HPF (FEW); UR TOTAL PROTEIN (Dip) NEGATIVE (NEGATIVE); UR UROBILINOGEN (Dip) NEGATIVE (NEGATIVE)
--- NOTE | 2016-11-10 19:26 | ERD ---
ER Documentation Chief Complaint Date/Time DATE: 11/10/16 TIME: 19:23 Chief Complaint Complains of blood in the stool Hx of a hernia (DEVORAH BATRES) HPI This is a 55-year-old female presents to the ER with lower abdominal pain that started today. Patient has a known medical history of 2 hernias, however she was unable to get surgery because they found something wrong with her EKG and she is currently being treated by Dr. Palbo. Patient states that last night she had fever. She is complaining of nausea and nonbilious nonbloody vomiting. Patient was constipated over the last few days and today had 3 episodes of bright red blood per rectum. Patient denies any dark stools. Patient denies any diarrhea. Pain is severe and constant and radiates throughout her lower abdomen. Patient denies any chest pain, palpitations, shortness of breath at this time. (DEVORAH BATRES) ROS 12 point review of systems was done, all negative except per HPI. (DEVORAH BATRES) Medications Home Meds Active Scripts Hydrocodone/Acetaminophen ([place] 5-325 Tablet) 1 Each Tablet, 1 TAB PO Q6H Y for PAIN, #20 TAB Prov:SUSAN VEE PA-C 11/10/16 Cephalexin* (Keflex*) 500 Mg Capsule, 500 MG PO BID for 7 Days, CAP Prov:DEVORAH BATRES 11/10/16 Metronidazole* (Flagyl*) 500 Mg Tablet, 500 MG PO TID for 7 Days, TAB Prov:KATERIN SETH DO 10/19/16 Ciprofloxacin Hcl* (Ciprofloxacin Hcl*) 500 Mg Tablet, 500 MG PO BID for 7 Days , TAB Prov:HEMA SETHS ARegan DO 10/19/16 Ondansetron (Ondansetron Odt) 4 Mg Tab.rapdis, 4 MG PO Q6H Y for NAUSEA AND/OR VOMITING, #10 TAB Prov:SHAHBAZ SETHSTFELIPES A. DO 10/19/16 Hydrocodone/Acetaminophen ([place] 10-325 Tablet) 1 Each Tablet, 1 TAB PO Q6H Y for PAIN, #15 TAB Prov:SHAHBAZ SETHSTFELIPES ARegan DO 10/19/16 Glipizide* (Glipizide*) 10 Mg Tablet, 10 MG PO DAILY, #60 TAB Prov:KENNY LEARY MD 08/09/16 Reported Medications Mometasone-Formoterol (Dulera) 100-5 Mcg - 13 Gm Hfa.aer.ad, 2 PUFFS INHALATION BID, #1 INHALER 10/19/16 Nitroglycerin* (Nitrostat*) 0.4 Mg Tab.subl, 0.4 MG SL Q5MIN Y for CHEST PAIN, BOTTLE 10/19/16 Fluoxetine Hcl* (Fluoxetine Hcl*) 40 Mg Capsule, 40 MG PO DAILY, CAP 09/10/16 Metformin Hcl* (Metformin Hcl*) 1,000 Mg Tablet, 1000 MG PO WITH BREAKFAST DINNE , #30 TAB 08/04/16 Atorvastatin* (Atorvastatin*) 40 Mg Tablet, 40 MG PO QHS, #30 TAB 12/05/15 Lisinopril* (Lisinopril*) 2.5 Mg Tablet, 2.5 MG PO DAILY, TAB 08/24/14 Allergies Allergies: Coded Allergies: No Known Allergy (Unverified , 10/19/16) PMhx/Soc History of Surgery: Yes (CHOLECYSTECTOMY, C-SEECTION 3X, HERNIA REPAIR, KIDNEY STONES REMOVAL 2010) Anesthesia Reaction: No Hx Neurological Disorder: No Hx Respiratory Disorders: No Hx Cardiac Disorders: Yes (HTN, HIGH CHOLESTEROL) Hx Psychiatric Problems: No Hx Miscellaneous Medical Probl: Yes (inguinal hernia (bilat)) Hx Alcohol Use: No Hx Substance Use: No Hx Tobacco Use: No Smoking Status: Never smoker (DEVORAH BATRES) Physical Exam Vitals Vital Signs Date Time Temp Pulse Resp B/P Pulse Ox O2 Delivery O2 Flow Rate FiO2 11/10/16 17:50 98.3 87 20 115/56 94 (SUSAN VEE-C) Physical Exam GENERAL: The patient is well developed and appropriate for usual state of health , in no apparent distress. HEENT: Atraumatic CHEST: Clear to auscultation bilaterally. There are no rales, wheezes or rhonchi. HEART: Regular rate and rhythm. No murmurs, clicks, rubs or gallops. ABDOMEN: Soft and nondistended, patient is tender to palpation in the left lower quadrant of the abdomen and the right lower quadrant of the abdomen. Good bowel sounds. No rebound or guarding. No gross peritonitis. No gross organomegaly or masses. No Kraus sign or McBurney point tenderness. BACK: No midline or flank tenderness. NEURO: Alert and oriented. SKIN: There is no apparent rash or petechia. The skin is warm and dry. (DEVORAH BATRES) Result Diagram: 11/10/16193211/10/161932 Results 24 hrs Laboratory Tests Test 11/10/16 18:51 11/10/16 19:33 Urine Color YELLOW Urine Clarity SLIGHTLY CLOUDY Urine pH 5.0 Urine Specific [place] 1.018 Urine Ketones NEGATIVEmg/dL Urine Nitrite NEGATIVEmg/dL Urine Bilirubin NEGATIVEmg/dL Urine Urobilinogen NEGATIVEmg/dL Urine Leukocyte Esterase 3+Margaret/ul Urine Microscopic RBC 1/HPF Urine Microscopic WBC 10/HPF Urine Squamous Epithelial Cells FEW/HPF Urine Bacteria FEW/HPF Urine Hemoglobin 1+mg/dL Urine Glucose NEGATIVEmg/dL Urine Total Protein NEGATIVEmg/dl White Blood Count 7.610^3/ul Red Blood Count 4.3710^6/ul Hemoglobin 13.1g/dl Hematocrit 39.1% Mean Corpuscular Volume 89.5fl Mean Corpuscular Hemoglobin 30.0pg Mean Corpuscular Hemoglobin Concent 33.5g/dl Red Cell Distribution Width 13.0% Platelet Count 62435^3/UL Mean Platelet Volume 12.4fl Neutrophils % 58.4% Lymphocytes % 31.2% Monocytes % 7.6% Eosinophils % 2.1% Basophils % 0.3% Nucleated Red Blood Cells % 0.0/100WBC Neutrophils # 4.510^3/ul Lymphocytes # 2.410^3/ul Monocytes # 0.610^3/ul Eosinophils # 0.210^3/ul Basophils # 0.010^3/ul Nucleated Red Blood Cells # 0.010^3/ul Sodium Level 144mmol/L Potassium Level 4.4mmol/L Chloride Level 110mmol/L Carbon Dioxide Level 21mmol/L Anion Gap 17 Blood Urea Nitrogen 18mg/dl Creatinine 0.63mg/dl Glucose Level 168mg/dl Calcium Level 9.9mg/dl Total Bilirubin 0.2mg/dl Direct Bilirubin 0.00mg/dl Indirect Bilirubin 0.2mg/dl Aspartate Amino Transf (AST/SGOT) 36IU/L Alanine Aminotransferase (ALT/SGPT) 36IU/L Alkaline Phosphatase 95IU/L Total Protein 7.5g/dl Albumin 4.6g/dl Globulin 2.90g/dl Albumin/Globulin Ratio 1.58 Lipase 152U/L Current Medications Medications (Trade) Dose Ordered Sig/Roland Route PRN Reason Start Time Stop Time Status Last Admin Dose Admin Sodium Chloride (NS) 1,000 ml @ 1,000 mls/hr Q1H STAT IV 11/10/16 18:40 11/10/16 19:39 DC 11/10/16 19:03 Morphine Sulfate (morphine) 6 mg ONCE STAT IV 11/10/16 18:40 11/10/16 18:41 DC 11/10/16 19:04 Ondansetron HCl (Zofran Inj) 4 mg ONCE STAT IV 11/10/16 18:40 11/10/16 18:41 DC 11/10/16 19:04 IV Flush 10 ml 10 ml STK-MED ONCE .ROUTE 11/10/16 20:18 11/10/16 20:19 DC Sodium Chloride (NS) 100 ml @ ud STK-MED ONCE .ROUTE 11/10/16 20:18 11/10/16 20:19 DC Iohexol (Omnipaque 300mg/ ml) 150 ml STK-MED ONCE .ROUTE 11/10/16 20:18 11/10/16 20:19 DC Iodixanol (Visipaque Locm) 100 ml STK-MED ONCE .ROUTE 11/10/16 20:23 11/10/16 20:24 DC (SUSAN VEE PA-C) Procedures/MDM Addendum to the note placed by BARRY Batres who asked me to follow-up regarding the patient's blood work which was unremarkable other than the urinalysis which shows evidence of cystitis. CT scan of the pelvis shows1. When compared to the previous CT of 10/19/2016, there is again evidence of a previous cholecystectomy with a mild dilatation of the central intrahepatic bile ducts and with the common bile duct slightly more dilated now measuring 9 mm in cross diameter. No choledocholith is evident and the pancreas appears unremarkable. 2. There is less fluid distension of small bowel and there is no evidence of bowel obstruction or inflammation. There is no evidence of appendicitis. 3. Too nonobstructing nephroliths are again seen within the left kidney and a 1.8 cm inferior parapelvic cyst is again seen within the right kidney but there is no evidence of urinary outflow obstruction or ureterolithiasis. 2 punctate calcifications are again seen within the anterior wall of the bladder which is otherwise unremarkable. 4. There is no free intraperitoneal fluid or air. Small bilateral fat containing inguinal hernias are again noted. 5. The liver remains enlarged and mildly diffusely fatty infiltrated with no focal lesion. 6. Minimal vague ground-glass infiltrates are again seen in the lung bases with no alveolar infiltrate or effusion identified. Patient was discharged with Keflex as well as [place] for pain and copies of all of her labs and radiology reports she can follow with primary care. Please refer to Devorah's note for further details. (SUSAN VEE PA-C) DEVORAH BATRES Nov 10, 2016 19:26 SUSAN VEE PA-C Nov 10, 2016 21:11
[2016-11-10 19:41] LABS: ADD SCAN DIFF NO
[2016-11-10 19:52] LABS: BASOPHILS % 0.3 % (0.0-2.0); EOSINOPHILS # 0.2 10^3/ul (0.0-0.5); EOSINOPHILS % 2.1 % (0.0-7.0); HEMATOCRIT 39.1 % (37.0-47.0); HEMOGLOBIN 13.1 g/dl (12.0-16.0); LYMPHOCYTES # 2.4 10^3/ul (0.8-2.9); LYMPHOCYTES % 31.2 % (15.0-51.0); MEAN CORPUSCULAR HGB CONC 33.5 g/dl (32.0-37.0); MEAN CORPUSCULAR VOLUME 89.5 fl (82.0-101.0); MEAN PLATELET VOLUME 12.4 fl (7.4-10.4); MONOCYTE # 0.6 10^3/ul (0.3-0.9); MONOCYTES % 7.6 % (0.0-11.0); NEUTROPHIL # 4.5 10^3/ul (1.6-7.5); NEUTROPHILS % 58.4 % (39.0-77.0); PLATELET COUNT 231 10^3/UL (140-415); RED BLOOD COUNT 4.37 10^6/ul (4.20-5.40); WHITE BLOOD COUNT 7.6 10^3/ul (4.8-10.8)
[2016-11-10] MEDS ORDERED: CEPH-443 PO (19:58)
[2016-11-10 20:03] LABS: ALBUMIN 4.6 g/dl (3.3-4.9); ALBUMIN/GLOBULIN RATIO 1.58; BILIRUBIN,INDIRECT 0.2 mg/dl (0-1.1); BILIRUBIN,TOTAL 0.2 mg/dl (0.2-1.3); CALCIUM 9.9 mg/dl (8.4-10.2); CREATININE 0.63 mg/dl (0.44-1.00); POTASSIUM 4.4 mmol/L (3.5-5.1); TOTAL PROTEIN 7.5 g/dl (6.1-8.1)
[2016-11-10] MEDS ORDERED: SOD CHLORIDE 0.9% 100 ML ONE (20:18)
[2016-11-10] MEDS ORDERED: IOHEXOL 300MG/ML 150 ML BTL ONE (20:18)
[2016-11-10] MEDS ORDERED: IODIXANOL LOCM 100 ML BTL ONE (20:23)
--- NOTE | 2016-11-10 21:02 | RADRPT ---
PROCEDURE: CT Abdomen and Pelvis with Contrast CLINICAL INDICATION: Abdominal pain, bilateral abdominal hernia TECHNIQUE: Transaxial images were obtained through the abdomen and pelvis on a multi-slice scanner following the intravenous administration of iodinated contrast. No oral contrast had previously be en given. Sagittal and coronal re-formations were subsequently reconstructed. One or more of the following dose reduction techniques were used: - Automated exposure control. - Adjustment of the mA and/or kV according to patient size. - Use of iterative reconstruction technique. Radiation dose: CTDIvol = 20.55 mGy; DLP = 1271.61 mGy-cm. COMPARISON: 10/19/2016 FINDINGS: Lung bases: Vague ground-glass infiltrates are is again seen at the lung bases. No alveolar infiltr ate or effusion is identified. Liver: The liver remains enlarged and appears mildly diffusely fatty infiltrated with no focal lesio n identified. Gallbladder: Surgical cindi are again seen in the gallbladder fossa. Bile ducts: There is mild dilatation of the central intrahepatic bile ducts. The common bile duct i s slightly more dilated now measuring 9 mm through the head of the pancreas. Pancreas: Appears normal with no mass or inflammation evident. Spleen: Normal in size with no focal lesion. Adrenals: Normal with no mass identified. Kidneys, ureters and bladder: A 4 mm nonobstructing nephrolith is seen at the superior pole left kid anne-marie and a 2 mm nonobstructing nephrolith is seen at the inferior pole of the left kidney. A 1.8 cm parapelvic cyst is seen at the inferior pole of the right kidney. Both renal margins are nodular co mpatible with cortical scarring. There is no hydronephrosis. The ureters appear unremarkable. Too small punctate calcifications are seen in the anterior bladder wall with the bladder otherwise appe aring unremarkable. Reproductive organs: The uterus is midline. No adnexal mass is identified. Phleboliths are seen in the pelvis. Stomach, bowel, and mesentery: The stomach appears unremarkable. There is no evidence of bowel obst ruction or inflammation. Appendix: There are no findings to suggest appendicitis. Peritoneum: No free intraperitoneal fluid or air is identified. Small fat containing bilateral ingui nal hernias are evident. Aorta: Normal in caliber with no aneurysmal dilatation. IVC: Unremarkable. Lymph nodes: No pathologically enlarged nodes are identified. Osseous structures: Mild degenerative endplate changes are seen anteriorly within the thoracic spine . IMPRESSION: 1. When compared to the previous CT of 10/19/2016, there is again evidence of a previous cholecyste ctomy with a mild dilatation of the central intrahepatic bile ducts and with the common bile duct sl ightly more dilated now measuring 9 mm in cross diameter. No choledocholith is evident and the panc reas appears unremarkable. 2. There is less fluid distension of small bowel and there is no evidence of bowel obstruction or i nflammation. There is no evidence of appendicitis. 3. Too nonobstructing nephroliths are again seen within the left kidney and a 1.8 cm inferior parap elvic cyst is again seen within the right kidney but there is no evidence of urinary outflow obstruc tion or ureterolithiasis. 2 punctate calcifications are again seen within the anterior wall of the bladder which is otherwise unremarkable. 4. There is no free intraperitoneal fluid or air. Small bilateral fat containing inguinal hernias are again noted. 5. The liver remains enlarged and mildly diffusely fatty infiltrated with no focal lesion. 6. Minimal vague ground-glass infiltrates are again seen in the lung bases with no alveolar infiltr ate or effusion identified. Physician Daniela Date Time Electronically viewed and signed by Physician Daniela on 11/10/2016 21:01 /
[2016-11-10] MEDS ORDERED: HYDR-906 PO (21:08)
[2016-11-10 21:18] VITALS: BP 109/56; PULSE 74; RESP 18; TEMP 96.9
[2016-11-10] MEDS ORDERED: HYDROCODONE/APAP (5/325) TAB PO ONE (21:30)
== END 2016-11-10 21:25 | disposition home or self-care (01) ==
LOC: FTE 17:42
DX: R10.30 Lower abdominal pain, unspecified (principal); I10 Essential (primary) hypertension; R11.0 Nausea; N30.90 Cystitis, unspecified without hematuria; Z79.84 Long term (current) use of oral hypoglycemic drugs
CPT/HCPCS: 36415; 74177; 80053; 81001; 83690; 85025; 96374; 96375; J2270; J2405; J7030; Q9967; Z7502; Z7610

== ENCOUNTER 2016-11-15 12:33 | Emergency (ER) | payer OTHER ==
[~2016-11-15] VITALS: Ht 162.6 cm; Wt 88.0 kg
[~2016-11-15 12:33] MED LIST changes: +CEPH-443 PO; +HYDR-906 PO
[2016-11-15 12:41] VITALS: Ht 162.6 cm; Wt 88.0 kg
[2016-11-15] MEDS ORDERED: ASPIRIN 325 MG TAB PO STA (13:06)
[2016-11-15] MEDS ORDERED: ONDANSETRON 4 MG INJ IV STA (13:09)
[2016-11-15] MEDS ORDERED: ALPR0.254 PO (13:15)
[2016-11-15] MEDS ORDERED: AMLO-145 PO (13:15)
[2016-11-15] MEDS ORDERED: RANI150T9 PO (13:16)
[2016-11-15] MEDS ORDERED: morphine 2 MG INJ IV ONE (13:30)
[2016-11-15 13:51] LABS: ADD SCAN DIFF NO
--- NOTE | 2016-11-15 14:02 | RADRPT ---
PROCEDURE: CT Abdomen and Pelvis without contrast. CLINICAL INDICATION: Abdominal pain TECHNIQUE: CT scan of the abdomen and pelvis was performed on a multidetector high-resolution CT s canner without intravenous contrast. Coronal and sagittal reformatted images were obtained from the axial source images. Images were reviewed on a high-resolution PACS workstation. The total exam CTD I equals 20/14mGy and the total exam DLP equals 1313mGy-cm. One or more of the following dose reduct ion techniques were used: Automated exposure control, Adjustment of the mA and/or kV according to pa tient size, and/or use of iterative reconstruction technique. COMPARISON: Abdominal CT 11/10/2016 FINDINGS: Evaluation of the solid organs is limited given the lack of intravenous contrast administration. The lung bases are clear. Hepatic dome not fully included in the field of view. Stable liver size. No pancreatic ductal dila tation. The spleen and right adrenals are unremarkable. Mild left adrenal nodularity is unchanged. Status post cholecystectomy. No hydronephrosis. Stable size nonobstructing left renal stones with the largest in the left upper renal pole measuring 5 mm. No new renal stone identified. Right renal cyst is stable size. Punctat e calcifications again seen along the anterior wall of the bladder. Bilateral fat containing inguin al hernias. No bowel obstruction. Normal-caliber appendix. No significant retroperitoneal lymphadenopathy, ascites or evidence of pneumoperitoneum. IMPRESSION: No definite change since 11/10/2016. Stable appearance of nonobstructing left renal stones. No evidence of bowel obstruction or appendicitis. Status post cholecystectomy. RPTAT: AA .Girish Moulton MD, MD Date Time Electronically viewed and signed by .Girish Moulton MD, MD on 11/15/2016 14:02 .T/
[2016-11-15 14:08] LABS: INR 0.89; PARTIAL THROMBOPLASTIN TIME 26.9 Sec (25.0-35.0); PT RATIO 0.9
[2016-11-15 14:10] LABS: ALANINE AMINOTRANSFERASE 45 IU/L (13-69); ALBUMIN 4.7 g/dl (3.3-4.9); ALBUMIN/GLOBULIN RATIO 1.67; ALKALINE PHOSPHATASE 89 IU/L (42-121); ANION GAP 19 (8-16); ASPARTATE AMINO TRANSFERASE 34 IU/L (15-46); BILIRUBIN,INDIRECT 0.2 mg/dl (0-1.1); BILIRUBIN,TOTAL 0.2 mg/dl (0.2-1.3); BLOOD UREA NITROGEN 18 mg/dl (7-20); CARBON DIOXIDE 23 mmol/L (21-31); CHLORIDE 106 mmol/L (97-110); CREATININE 0.73 mg/dl (0.44-1.00); GLUCOSE 163 mg/dl (70-220); POTASSIUM 3.9 mmol/L (3.5-5.1); SODIUM 144 mmol/L (135-144); TOTAL PROTEIN 7.5 g/dl (6.1-8.1)
[2016-11-15 14:14] LABS: BASOPHILS % 0.3 % (0.0-2.0); EOSINOPHILS # 0.2 10^3/ul (0.0-0.5); EOSINOPHILS % 2.3 % (0.0-7.0); HEMATOCRIT 38.9 % (37.0-47.0); LYMPHOCYTES # 2.2 10^3/ul (0.8-2.9); LYMPHOCYTES % 32.8 % (15.0-51.0); MEAN CORPUSCULAR HEMOGLOBIN 29.3 pg (29.0-33.0); MEAN CORPUSCULAR HGB CONC 33.4 g/dl (32.0-37.0); MEAN CORPUSCULAR VOLUME 87.8 fl (82.0-101.0); MEAN PLATELET VOLUME 12.2 fl (7.4-10.4); MONOCYTE # 0.5 10^3/ul (0.3-0.9); MONOCYTES % 8.2 % (0.0-11.0); NEUTROPHIL # 3.7 10^3/ul (1.6-7.5); NEUTROPHILS % 55.5 % (39.0-77.0); PLATELET COUNT 243 10^3/UL (140-415); RED BLOOD COUNT 4.43 10^6/ul (4.20-5.40); RED CELL DISTRIBUTION WIDTH 13.2 % (11.5-14.5); WHITE BLOOD COUNT 6.6 10^3/ul (4.8-10.8)
[2016-11-15 14:21] LABS: B-TYPE NATRIURETIC PEPTIDE 42 PG/ML (0-125)
[2016-11-15 14:23] LABS: TROPONIN-I < 0.012 ng/ml (0.00-0.12)
[2016-11-15 14:49] LABS: ADD UMIC YES; UR ASCORBIC ACID NEGATIVE (NEGATIVE); UR BILIRUBIN (Dip) NEGATIVE (NEGATIVE); UR BLOOD (Dip) NEGATIVE (NEGATIVE); UR CLARITY CLEAR (CLEAR); UR COLOR YELLOW (YELLOW); UR GLUCOSE (Dip) NEGATIVE (NEGATIVE); UR KETONES (Dip) NEGATIVE (NEGATIVE); UR LEUKOCYTE ESTERASE (Dip) 1+ Leu/ul (NEGATIVE); UR NITRITE (Dip) NEGATIVE (NEGATIVE); UR RBC 1 /HPF (0-5); UR SPECIFIC GRAVITY (Dip) 1.018 (1.003-1.030); UR SQUAMOUS EPITHELIAL CELL FEW /HPF (FEW); UR TOTAL PROTEIN (Dip) NEGATIVE (NEGATIVE); UR UROBILINOGEN (Dip) NEGATIVE (NEGATIVE)
--- NOTE | 2016-11-15 15:26 | RADRPT ---
PROCEDURE: XR Chest. CLINICAL INDICATION: Chest pain. TECHNIQUE: Single frontal view. COMPARISON: 09/10/2016. FINDINGS: The lungs are clear. The heart size is normal. There is no pleural effusion. There is no pneumothorax. IMPRESSION: 1. Normal chest radiograph. 2. No change from 09/10/2016. RPTAT: QQ .Gavino Seo MD, MD Date Time Electronically viewed and signed by .Gavino Seo MD, MD on 11/15/2016 15:26 .R/
[2016-11-15] MEDS ORDERED: HYDROmorphONE 1 MG/ML SYG IV STA (16:24)
[2016-11-15] MEDS ORDERED: OXYC-279 PO (16:28)
[2016-11-15] MEDS ORDERED: METO10TA92 PO (16:29)
--- NOTE | 2016-11-15 17:36 | ERD ---
ER Documentation Chief Complaint Date/Time DATE: 11/15/16 TIME: 17:26 Chief Complaint cp with radiating left and back pain, also ap with yellow stool HPI 55-year-old female presents emergency room mostly for aching abdominal pain in her mid abdomen and left lower quadrant that she has had on and off for a while.. States that she has hernias there she is working on getting repaired. She already has an appointment for cardiac clearance with Dr. Pablo coming up in the near future. States that sometimes her stool is hard and pellet like and sometimes it is yellow and soft. Has intermittent nausea. Only when asked if she mentioned that she also has chest pain. No shortness of breath. ROS All systems reviewed and are negative except as per history of present illness. Medications Home Meds Active Scripts Metoclopramide* (Reglan*) 10 Mg Tablet, 10 MG PO Q6 Y for NAUSEA AND/OR VOMITING , #10 TAB Prov:ELPIDIO MORALES DO 11/15/16 Oxycodone HCl/Acetaminophen (Percocet 5-325 mg Tablet) 1 Each Tablet, 1 EACH PO Q6, #18 TAB Prov:ELPIDIO MORALES DO 11/15/16 Ranitidine Hcl* (Zantac*) 150 Mg Tablet, 150 MG PO BID Y for EPIGASTRIC PAIN, # 30 TAB Prov:ELPIDIO MORALES DO 11/15/16 Hydrocodone/Acetaminophen ([place] 5-325 Tablet) 1 Each Tablet, 1 TAB PO Q6H Y for PAIN, #20 TAB Prov:SUSAN VEE PA-C 11/10/16 Cephalexin* (Keflex*) 500 Mg Capsule, 500 MG PO BID for 7 Days, CAP Prov:ANDREW BATRES 11/10/16 Glipizide* (Glipizide*) 10 Mg Tablet, 10 MG PO DAILY, #60 TAB Prov:KENNY LEARY MD 08/09/16 Reported Medications Fluoxetine Hcl* (Fluoxetine Hcl*) 40 Mg Capsule, 40 MG PO QAM, CAP 09/10/16 Metformin Hcl* (Metformin Hcl*) 1,000 Mg Tablet, 1000 MG PO WITH BREAKFAST DINNE , #30 TAB 08/04/16 Atorvastatin* (Atorvastatin*) 40 Mg Tablet, 40 MG PO QHS, #30 TAB 12/05/15 Lisinopril* (Lisinopril*) 2.5 Mg Tablet, 2.5 MG PO DAILY, TAB 08/24/14 Discontinued Reported Medications Mometasone-Formoterol (Dulera) 100-5 Mcg - 13 Gm Hfa.aer.ad, 2 PUFFS INHALATION BID, #1 INHALER 10/19/16 Nitroglycerin* (Nitrostat*) 0.4 Mg Tab.subl, 0.4 MG SL Q5MIN Y for CHEST PAIN, BOTTLE 10/19/16 Discontinued Scripts Alprazolam (Xanax) 0.25 Mg Tab, 0.25 MG PO Q8H Y for ANXIETY, #7 TAB Prov:ELPIDIO MORALES DO 11/15/16 Amlodipine Besylate* (Amlodipine Besylate*) 5 Mg Tablet, 5 MG PO DAILY, #15 TAB Prov:ELPIDIO MORALES DO 11/15/16 Metronidazole* (Flagyl*) 500 Mg Tablet, 500 MG PO TID for 7 Days, TAB Prov:LEKKOSAPOSTOLOS A. DO 10/19/16 Ciprofloxacin Hcl* (Ciprofloxacin Hcl*) 500 Mg Tablet, 500 MG PO BID for 7 Days , TAB Prov:LEKKOSAPOSTOLOS A. DO 10/19/16 Ondansetron (Ondansetron Odt) 4 Mg Tab.rapdis, 4 MG PO Q6H Y for NAUSEA AND/OR VOMITING, #10 TAB Prov:LEKKOSAPOSTOLOS A. DO 10/19/16 Hydrocodone/Acetaminophen ([place] 10-325 Tablet) 1 Each Tablet, 1 TAB PO Q6H Y for PAIN, #15 TAB Prov:LETAMERAOS,APOSTOLOS A. DO 10/19/16 Allergies Allergies: Coded Allergies: No Known Allergy (Unverified , 11/15/16) PMhx/Soc History of Surgery: Yes (CHOLECYSTECTOMY, C-SEECTION 3X, HERNIA REPAIR, KIDNEY STONES REMOVAL 2010) Anesthesia Reaction: No Hx Neurological Disorder: No Hx Respiratory Disorders: No Hx Cardiac Disorders: Yes (HTN, HIGH CHOLESTEROL) Hx Psychiatric Problems: No Hx Miscellaneous Medical Probl: Yes (inguinal hernia (bilat)) Hx Alcohol Use: No Hx Substance Use: No Hx Tobacco Use: No Smoking Status: Never smoker Physical Exam Vitals Vital Signs Date Time Temp Pulse Resp B/P Pulse Ox O2 Delivery O2 Flow Rate FiO2 11/15/16 15:47 73 18 91/67 98 Room Air 11/15/16 13:14 Nasal Cannula 2 11/15/16 12:41 99.1 70 20 123/56 97 Physical Exam Const: [] Mild distress, Head: Atraumatic Eyes: Normal Conjunctiva ENT: Normal External Ears, Nose and Mouth. Neck: Full range of motion..~ No meningismus. Resp: Clear to auscultation bilaterally Cardio: Regular rate and rhythm, no murmurs Abd: Soft, left periumbilical tenderness close to the left lower quadrant, no left upper quadrant tenderness or pain below the rib, non distended. Normal bowel sounds Skin: No petechiae or rashes Back: No midline or flank tenderness Ext: No cyanosis, or edema Neur: Awake and alert and oriented 3, no focal deficits Psych: Normal Mood and Affect Result Diagram: 11/15/16 1340 11/15/16 1340 Results 24 hrs Laboratory Tests Test 11/15/16 13:40 11/15/16 14:30 White Blood Count 6.610^3/ul Red Blood Count 4.4310^6/ul Hemoglobin 13.0g/dl Hematocrit 38.9% Mean Corpuscular Volume 87.8fl Mean Corpuscular Hemoglobin 29.3pg Mean Corpuscular Hemoglobin Concent 33.4g/dl Red Cell Distribution Width 13.2% Platelet Count 29584^3/UL Mean Platelet Volume 12.2fl Neutrophils % 55.5% Lymphocytes % 32.8% Monocytes % 8.2% Eosinophils % 2.3% Basophils % 0.3% Nucleated Red Blood Cells % 0.0/100WBC Neutrophils # 3.710^3/ul Lymphocytes # 2.210^3/ul Monocytes # 0.510^3/ul Eosinophils # 0.210^3/ul Basophils # 0.010^3/ul Nucleated Red Blood Cells # 0.010^3/ul Prothrombin Time 12.0Sec Prothrombin Time Ratio 0.9 INR International Normalized Ratio 0.89 Activated Partial Thromboplast Time 26.9Sec Sodium Level 144mmol/L Potassium Level 3.9mmol/L Chloride Level 106mmol/L Carbon Dioxide Level 23mmol/L Anion Gap 19 Blood Urea Nitrogen 18mg/dl Creatinine 0.73mg/dl Glucose Level 163mg/dl Calcium Level 10.0mg/dl Total Bilirubin 0.2mg/dl Direct Bilirubin 0.00mg/dl Indirect Bilirubin 0.2mg/dl Aspartate Amino Transf (AST/SGOT) 34IU/L Alanine Aminotransferase (ALT/SGPT) 45IU/L Alkaline Phosphatase 89IU/L Troponin I < 0.012ng/ml B-Type Natriuretic Peptide 42PG/ML Total Protein 7.5g/dl Albumin 4.7g/dl Globulin 2.80g/dl Albumin/Globulin Ratio 1.67 Lipase 736U/L Urine Color YELLOW Urine Clarity CLEAR Urine pH 5.0 Urine Specific [place] 1.018 Urine Ketones NEGATIVEmg/dL Urine Nitrite NEGATIVEmg/dL Urine Bilirubin NEGATIVEmg/dL Urine Urobilinogen NEGATIVEmg/dL Urine Leukocyte Esterase 1+Margaret/ul Urine Microscopic RBC 1/HPF Urine Microscopic WBC 2/HPF Urine Squamous Epithelial Cells FEW/HPF Urine Hemoglobin NEGATIVEmg/dL Urine Glucose NEGATIVEmg/dL Urine Total Protein NEGATIVEmg/dl Current Medications Medications (Trade) Dose Ordered Sig/Roland Route PRN Reason Start Time Stop Time Status Last Admin Dose Admin Aspirin (Aspirin) 325 mg ONCE STAT PO 11/15/16 13:06 11/15/16 13:09 DC 11/15/16 13:06 Morphine Sulfate (morphine) 2 mg ONCE ONCE IV 11/15/16 13:30 11/15/16 13:31 DC 11/15/16 13:30 Ondansetron HCl (Zofran Inj) 4 mg ONCE STAT IV 11/15/16 13:09 11/15/16 13:10 DC 11/15/16 13:09 Hydromorphone HCl (Dilaudid) 1 mg ONCE STAT IV 11/15/16 16:24 11/15/16 16:27 DC 11/15/16 17:18 Procedures/MDM Atypical chest pain as well as abdominal pain in a patient with history of hernias. Stated that nitro did not work she had taken at home. States that she has hernia that was not visible on CT causing her some pain. She was given 4 mg of Zofran with 4 mg of morphine. She stated this only helped with the pain a little. She was then given Dilaudid 1 mg IV. She stated the Rich[place] at home was not helping for the pain, and that she had taken Tylenol already. There is some suspicion for drug-seeking behavior although this is not high in the differential as the patient does mention surgical and anatomical abnormalities for which she is going to be treated for that did not appear on her CAT scan. She has an elevation of her lipase it is slightly higher than her previous lipase value of 517. No signs of pancreatitis on imaging on physical exam. Pain pattern not consistent with pancreatitis. I am going to discharge her with Percocet as well as Reglan. [place] has established follow -up. I am having her call her primary care doctor to notify him of the study today. A very low suspicion for acute coronary syndrome and the chest pain is resolved. EKG interpretation: Normal sinus rhythm rate of 79, left axis deviation, no ST or T-wave changes concerning for acute ischemia, normal intervals. I reviewed the patient's EKG from 3 months ago and is unchanged. satellite project site monitor interpretation: Normal sinus rhythm without arrhythmia Chest x-ray interpretation: I see no acute process. I see no pneumothorax, no pulmonary edema, no widened mediastinum, no fractures CT abdomen pelvis interpretation: Renal stones without significant hydronephrosis, I see no other acute process. I see no abnormal fat stranding, no obstruction, no free air, no fractures Departure Diagnosis: Primary Impression: Abdominal pain Additional Impression: Chest pain Condition: Stable Patient Instructions: Abdominal Pain, Chest Pain, Uncertain Cause Additional Instructions: Call your primary care doctor TOMORROW for an appointment during the next 1-2 days.See the doctor sooner or return here if your condition worsens before your appointment time. ELPIDIO MORALES DO Nov 15, 2016 17:36
[2016-11-15 18:20] VITALS: BP 113/65; PULSE 74; RESP 19; TEMP 97.9
== END 2016-11-15 18:21 | disposition home or self-care (01) ==
LOC: E/R 12:33
DX: R10.33 Periumbilical pain (principal); I10 Essential (primary) hypertension; R07.89 Other chest pain
CPT/HCPCS: 71010; 74176; 80053; 81001; 83690; 83880; 84484; 85025; 85610; 85730; 93005; 96374; 96375; J1170; J2270; J2405; Z7502; Z7610

== ENCOUNTER 2016-12-02 15:53 | Emergency (ER) | payer OTHER ==
[~2016-12-02] VITALS: Wt 89.0 kg
[~2016-12-02 15:53] MED LIST changes: -CIPR500T4 PO; -HYDR-902 PO; +METO10TA92 PO; -METR500T PO; -MOME13HF2 INHALATION; -NIT4 SL; -ONDA4TAB14 PO; +OXYC-279 PO; +RANI150T9 PO
[2016-12-02] MEDS ORDERED: ASPIRIN 325 MG TAB PO STA (16:37)
[2016-12-02 16:52] LABS: ADD SCAN DIFF NO
[2016-12-02 16:53] LABS: BASOPHILS % 0.2 % (0.0-2.0); EOSINOPHILS # 0.2 10^3/ul (0.0-0.5); EOSINOPHILS % 2.8 % (0.0-7.0); HEMATOCRIT 36.8 % (37.0-47.0); HEMOGLOBIN 12.5 g/dl (12.0-16.0); LYMPHOCYTES # 1.7 10^3/ul (0.8-2.9); LYMPHOCYTES % 29.7 % (15.0-51.0); MEAN CORPUSCULAR VOLUME 88.5 fl (82.0-101.0); MEAN PLATELET VOLUME 12.1 fl (7.4-10.4); MONOCYTE # 0.4 10^3/ul (0.3-0.9); MONOCYTES % 6.6 % (0.0-11.0); NEUTROPHIL # 3.4 10^3/ul (1.6-7.5); NEUTROPHILS % 60.3 % (39.0-77.0); PLATELET COUNT 213 10^3/UL (140-415); RED BLOOD COUNT 4.16 10^6/ul (4.20-5.40); RED CELL DISTRIBUTION WIDTH 13.2 % (11.5-14.5); WHITE BLOOD COUNT 5.6 10^3/ul (4.8-10.8)
[2016-12-02 17:08] LABS: INR 0.88; PROTIME 11.9 Sec (12.2-14.2); PT RATIO 0.9
[2016-12-02 17:09] LABS: PARTIAL THROMBOPLASTIN TIME 24.4 Sec (25.0-35.0)
[2016-12-02 17:21] LABS: ANION GAP 20 (8-16); BLOOD UREA NITROGEN 12 mg/dl (7-20); CARBON DIOXIDE 23 mmol/L (21-31); CHLORIDE 104 mmol/L (97-110); CREATININE 0.67 mg/dl (0.44-1.00); POTASSIUM 4.1 mmol/L (3.5-5.1); SODIUM 143 mmol/L (135-144)
[2016-12-02 17:23] LABS: GLUCOSE 449 mg/dl (70-220)
[2016-12-02 17:54] LABS: TROPONIN-I < 0.012 ng/ml (0.00-0.12)
--- NOTE | 2016-12-02 18:20 | RADRPT ---
PROCEDURE: XR Chest. CLINICAL INDICATION: Chest pain. TECHNIQUE: Single frontal view. COMPARISON: 11/15/2016. FINDINGS: The lungs are clear. The heart size is normal. There is no pleural effusion. There is no pneumothorax. IMPRESSION: 1. Normal chest radiograph. 2. No change from 11/15/2016. RPTAT: QQ .Gavino Seo MD, MD Date Time Electronically viewed and signed by .Gavino Seo MD, MD on 12/02/2016 18:19 .R/
[2016-12-02] MEDS ORDERED: SOD CHLORIDE 0.9% 1,000 ML IV ONE (18:30)
[2016-12-02] MEDS ORDERED: KETOROLAC 30 MG INJ IV STA (18:34)
[2016-12-02] MEDS ORDERED: morphine 4 MG/ML VIAL IV STA (18:59)
[2016-12-02] MEDS ORDERED: MAGNESIUM OXIDE 400 MG TAB PO ONE (19:00)
[2016-12-02] MEDS ORDERED: HYDROmorphONE 1 MG/ML SYG IV STA (19:13)
[2016-12-02] MEDS ORDERED: ONDANSETRON 4 MG INJ IV STA (19:13)
--- NOTE | 2016-12-02 19:25 | ERD ---
ER Documentation Chief Complaint Date/Time DATE: 12/02/16 TIME: 19:05 Chief Complaint BILAT ARM/LEG PAIN X1DAY; CHEST PAIN RADIATES BACK W/ DIZZINESS X1DAY HPI This 56-year-old female presents to the emergency room for chest pain is substernal and nonradiating described as an aching pain. She also has aches in her bilateral. Elbow areas in her bilateral area around her knees. Denies shortness of breath. ROS All systems reviewed and are negative except as per history of present illness. Medications Home Meds Active Scripts Metoclopramide* (Reglan*) 10 Mg Tablet, 10 MG PO Q6 Y for NAUSEA AND/OR VOMITING , #10 TAB Prov:ELPIDIO MORALES DO 11/15/16 Oxycodone HCl/Acetaminophen (Percocet 5-325 mg Tablet) 1 Each Tablet, 1 EACH PO Q6, #18 TAB Prov:ELPIDIO MORALES DO 11/15/16 Ranitidine Hcl* (Zantac*) 150 Mg Tablet, 150 MG PO BID Y for EPIGASTRIC PAIN, # 30 TAB Prov:ELPIDIO MORALES DO 11/15/16 Hydrocodone/Acetaminophen (Jean 5-325 Tablet) 1 Each Tablet, 1 TAB PO Q6H Y for PAIN, #20 TAB Prov:SUSAN VEE PA-C 11/10/16 Cephalexin* (Keflex*) 500 Mg Capsule, 500 MG PO BID for 7 Days, CAP Prov:ANDREW BATRES 11/10/16 Glipizide* (Glipizide*) 10 Mg Tablet, 10 MG PO DAILY, #60 TAB Prov:KENNY LEARY MD 08/09/16 Reported Medications Fluoxetine Hcl* (Fluoxetine Hcl*) 40 Mg Capsule, 40 MG PO QAM, CAP 09/10/16 Metformin Hcl* (Metformin Hcl*) 1,000 Mg Tablet, 1000 MG PO WITH BREAKFAST DINNE , #30 TAB 08/04/16 Atorvastatin* (Atorvastatin*) 40 Mg Tablet, 40 MG PO QHS, #30 TAB 12/05/15 Lisinopril* (Lisinopril*) 2.5 Mg Tablet, 2.5 MG PO DAILY, TAB 08/24/14 Allergies Allergies: Coded Allergies: No Known Allergy (Unverified , 11/15/16) PMhx/Soc History of Surgery: Yes (CHOLECYSTECTOMY, C-SEECTION 3X, HERNIA REPAIR, KIDNEY STONES REMOVAL 2010) Anesthesia Reaction: No Hx Neurological Disorder: No Hx Respiratory Disorders: No Hx Cardiac Disorders: Yes (HTN, HIGH CHOLESTEROL) Hx Psychiatric Problems: No Hx Miscellaneous Medical Probl: Yes (inguinal hernia (bilat)) Hx Alcohol Use: No Hx Substance Use: No Hx Tobacco Use: No Smoking Status: Never smoker Physical Exam Vitals Vital Signs Date Time Temp Pulse Resp B/P Pulse Ox O2 Delivery O2 Flow Rate FiO2 12/02/16 18:05 72 18 113/64 98 12/02/16 17:48 Nasal Cannula 2 12/02/16 15:56 98.6 87 20 126/58 98 Physical Exam Const: [] No distress Head: Atraumatic Eyes: Normal Conjunctiva ENT: Normal External Ears, Nose and Mouth. Neck: Full range of motion..~ No meningismus. Resp: Clear to auscultation bilaterally Cardio: Regular rate and rhythm, no murmurs Abd: Soft, non tender, non distended. Normal bowel sounds Skin: No petechiae or rashes Back: No midline or flank tenderness Ext: No cyanosis, or edema, some tenderness when you squeeze the area around her elbows and her knees. No deformities. Neur: Awake and alert and oriented 3, no focal deficits Psych: Normal Mood and Affect Result Diagram: 12/02/16 1650 12/02/16 1650 Results 24 hrs Laboratory Tests Test 12/02/16 16:50 White Blood Count 5.610^3/ul Red Blood Count 4.1610^6/ul Hemoglobin 12.5g/dl Hematocrit 36.8% Mean Corpuscular Volume 88.5fl Mean Corpuscular Hemoglobin 30.0pg Mean Corpuscular Hemoglobin Concent 34.0g/dl Red Cell Distribution Width 13.2% Platelet Count 09067^3/UL Mean Platelet Volume 12.1fl Neutrophils % 60.3% Lymphocytes % 29.7% Monocytes % 6.6% Eosinophils % 2.8% Basophils % 0.2% Nucleated Red Blood Cells % 0.0/100WBC Neutrophils # 3.410^3/ul Lymphocytes # 1.710^3/ul Monocytes # 0.410^3/ul Eosinophils # 0.210^3/ul Basophils # 0.010^3/ul Nucleated Red Blood Cells # 0.010^3/ul Prothrombin Time 11.9Sec Prothrombin Time Ratio 0.9 INR International Normalized Ratio 0.88 Activated Partial Thromboplast Time 24.4Sec Sodium Level 143mmol/L Potassium Level 4.1mmol/L Chloride Level 104mmol/L Carbon Dioxide Level 23mmol/L Anion Gap 20 Blood Urea Nitrogen 12mg/dl Creatinine 0.67mg/dl Glucose Level 449mg/dl Calcium Level 9.0mg/dl Troponin I < 0.012ng/ml Current Medications Medications (Trade) Dose Ordered Sig/Roland Route PRN Reason Start Time Stop Time Status Last Admin Dose Admin Aspirin 325 mg 325 mg ONCE STAT PO 12/02/16 16:37 12/02/16 16:39 DC 12/02/16 17:13 Sodium Chloride (NS) 1,000 ml @ 1,000 mls/hr Q1H ONCE IV 12/02/16 18:30 12/02/16 19:29 12/02/16 18:40 Ketorolac Tromethamine (Toradol) 30 mg ONCE STAT IV 12/02/16 18:34 12/02/16 18:35 DC 12/02/16 18:40 Magnesium Oxide (Mag-Ox 400) 400 mg ONCE ONCE PO 12/02/16 19:00 12/02/16 19:01 DC Morphine Sulfate (morphine) 4 mg ONCE STAT IV 12/02/16 18:59 12/02/16 19:02 DC Procedures/MDM Chest pain resolved with aspirin only. Senia low suspicion for acute coronary syndrome as patient has a nonischemic EKG and a recent visit in which she was ruled out for cardiac ischemia when she had chest pain. Does have significant hyperglycemia was treated with a liter of normal saline which is reducing her sugar. No signs of infection. Reviewed her EMR and see that on the last visit she had the same pains until she was treated with magnesium which was low. Give her Toradol as well as morphine and magnesium pill. Muscle can give her 1 mg 1 g of magnesium IV. Discharging with primary care follow-up and instructions to see her doctor to obtain a magnesium level as well as an echocardiogram as an outpatient. She is going to go home and take a diabetic medications. We are hydrating her with 2 L of normal saline which was certainly lower her sugar in the ER. Urine is still pending if she has UTI it is not causing any septic signs or systemic signs are elevated white count. Medication will be discharged with antibiotics. Also additionally with p.o. potassium and analgesic pain medicine. EKG interpretation: Normal sinus rhythm rate of 86, left axis deviation, normal intervals, no ST or T-wave changes concerning for acute ischemia. front desk monitor interpretation: Normal sinus rhythm without arrhythmia Chest x-ray interpretation: I see no acute process, no pneumothorax no hemothorax, no widened mediastinum, no fractures Departure Diagnosis: Primary Impression: Chest pain Additional Impression: Musculoskeletal pain of extremity Condition: Stable ELPIDIO MORALES DO Dec 02, 2016 19:15
[2016-12-02] MEDS ORDERED: MAGN250T24 PO (19:34)
[2016-12-02] MEDS ORDERED: HYDR-906 PO (19:34)
[2016-12-02] MEDS ORDERED: NAPR-688 PO (19:34)
[2016-12-02 19:51] LABS: ADD UMIC YES; UR ASCORBIC ACID NEGATIVE (NEGATIVE); UR BILIRUBIN (Dip) NEGATIVE (NEGATIVE); UR BLOOD (Dip) NEGATIVE (NEGATIVE); UR CLARITY CLEAR (CLEAR); UR COLOR STRAW (YELLOW); UR GLUCOSE (Dip) 3+ mg/dL (NEGATIVE); UR KETONES (Dip) TRACE mg/dL (NEGATIVE); UR LEUKOCYTE ESTERASE (Dip) TRACE Leu/ul (NEGATIVE); UR NITRITE (Dip) NEGATIVE (NEGATIVE); UR RBC 3 /HPF (0-5); UR SPECIFIC GRAVITY (Dip) 1.024 (1.003-1.030); UR TOTAL PROTEIN (Dip) NEGATIVE (NEGATIVE); UR UROBILINOGEN (Dip) NEGATIVE (NEGATIVE)
[2016-12-02 21:54] VITALS: BP 111/60; PULSE 60; RESP 15
== END 2016-12-02 22:02 | disposition home or self-care (01) ==
LOC: E/R 15:53
DX: R07.2 Precordial pain (principal); M25.521 Pain in right elbow; I10 Essential (primary) hypertension; R07.9 Chest pain, unspecified; Z79.84 Long term (current) use of oral hypoglycemic drugs
CPT/HCPCS: 36415; 71010; 80048; 81001; 83735; 84484; 85025; 85610; 85730; 93005; 96374; 96375; J1170; J1885; J2270; J2405; J7030; Z7502; Z7610

== ENCOUNTER 2016-12-22 06:03 | Day surgery (SDC) | payer OTHER ==
[2016-12-22] VITALS (18 sets, daily range): BP systolic 87–105; BP diastolic 41–60; PULSE 58–76; RESP 13–28; Ht 167.6 cm; Wt 86.0 kg
[~2016-12-22] VITALS: Ht 167.6 cm; Wt 86.0 kg
[~2016-12-22 06:03] MED LIST changes: +MAGN250T24 PO; +NAPR-688 PO
[2016-12-22 07:45] LABS: BASOPHILS % 0.5 % (0.0-2.0); EOSINOPHILS # 0.2 10^3/ul (0.0-0.5); EOSINOPHILS % 3.9 % (0.0-7.0); HEMATOCRIT 37.4 % (37.0-47.0); HEMOGLOBIN 12.4 g/dl (12.0-16.0); LYMPHOCYTES # 2.1 10^3/ul (0.8-2.9); LYMPHOCYTES % 34.3 % (15.0-51.0); MEAN CORPUSCULAR HEMOGLOBIN 29.2 pg (29.0-33.0); MEAN CORPUSCULAR HGB CONC 33.2 g/dl (32.0-37.0); MEAN CORPUSCULAR VOLUME 88.2 fl (82.0-101.0); MEAN PLATELET VOLUME 11.9 fl (7.4-10.4); MONOCYTE # 0.4 10^3/ul (0.3-0.9); MONOCYTES % 6.5 % (0.0-11.0); NEUTROPHIL # 3.3 10^3/ul (1.6-7.5); NEUTROPHILS % 54.5 % (39.0-77.0); PLATELET COUNT 226 10^3/UL (140-415); RED BLOOD COUNT 4.24 10^6/ul (4.20-5.40); RED CELL DISTRIBUTION WIDTH 13.6 % (11.5-14.5)
[2016-12-22] MEDS ORDERED: DIPHENHYDRAMINE 50 MG CAP PO ONE (08:00)
[2016-12-22] MEDS ORDERED: FAMOTIDINE 20 MG TAB PO ONE (08:00)
[2016-12-22] MEDS ORDERED: SOD CHLORIDE 0.45% 1,000 ML IV ONE (08:00)
[2016-12-22] MEDS ORDERED: DIAZEPAM 5 MG TAB PO ONE (08:00)
[2016-12-22] MEDS ORDERED: NITR0.4T6 SL (08:05)
[2016-12-22 08:14] LABS: CHOL/HDL RATIO 3.1 RATIO; POTASSIUM 4.3 mmol/L (3.5-5.1)
[2016-12-22 08:15] LABS: CALCIUM 9.5 mg/dl (8.4-10.2); CREATININE 0.57 mg/dl (0.44-1.00)
[2016-12-22 08:17] LABS: INR 0.93; PROTIME 12.5 Sec (12.2-14.2)
[2016-12-22 08:18] LABS: PARTIAL THROMBOPLASTIN TIME 27.4 Sec (25.0-35.0)
--- NOTE | 2016-12-22 09:11 | RADRPT ---
PROCEDURE: XR Chest. CLINICAL INDICATION: Preoperative. Chest pain. TECHNIQUE: Single frontal view. COMPARISON: 12/02/2016. FINDINGS: The lungs are clear. The heart size is normal. There is no pleural effusion. There is no pneumothorax. IMPRESSION: 1. Normal chest radiograph. 2. No change from 12/02/2016. RPTAT: QQ .Gavino Seo MD, MD Date Time Electronically viewed and signed by .Gavino Seo MD, MD on 12/22/2016 09:11 .R/
[2016-12-22] MEDS ORDERED: HEPARIN 1000 UNITS/ML 10 ML INJ ONE (09:14)
[2016-12-22] MEDS ORDERED: VERAPAMIL 5 MG INJ ONE (09:15)
[2016-12-22] MEDS ORDERED: MIDAZOLAM 1 MG/ML 2 ML INJ ONE (09:15)
[2016-12-22] MEDS ORDERED: LIDOCAINE 1% (MDV) 20 ML INJ ONE (09:15)
[2016-12-22] MEDS ORDERED: IODIXANOL LOCM 100 ML BTL ONE (09:15)
[2016-12-22] MEDS ORDERED: FENTAnyl 50 MCG/ML VIAL ONE (09:15)
[2016-12-22] MEDS ORDERED: NITROGLYCERIN (IC) 100 MCG/ML INJ ONE (09:16)
[2016-12-22] MEDS ORDERED: SOD CHLORIDE 0.9% 1,000 ML IV SCH (10:00)
--- NOTE | 2016-12-22 10:02 | OPR ---
Date/Time of Note Date/Time of Note DATE: 12/22/16 TIME: 09:53 Operative Report Procedure Date: Dec 22, 2016 Preoperative Diagnosis 1. Abnormal MPI 2.Pre-op Postoperative Diagnosis 1.Non-obstructive cad Operation Performed 1.Left Heart Catheterization 2.30 minutes concious sedation Anesthesia: other (Moderate concious sedation) Estimated Blood Loss: minimal Specimens None Grafts/Implants NA Tubes/Drains NA Complications: None Operative\Procedure Findings 20% Distal LAD stenosis 20% mid RCA stenosis LVEDP 22 No sig by gradient 1+MR LVEF 60% Procedure Description Modified seldinger technique 6 liberian radial sheath placed. JL 3.5 6 liberian used to cannulate LMN coronary ostium. Multiple views with contrast injection taken. JL 3.5 removed over guidewire. 6 Chinese JR4 used to cannulate R coronary artery ostium, and mutiple views taken with contrast injection. Removed over guidewire and pigtail placed in LV. LV gram undertaken and pigtail catheter removed over guidewire. Sheath removed and TR band applied. This completed procedure. ANISHA AMBROSIO Dec 22, 2016 10:02
[2016-12-22] MEDS ORDERED: AL HYDROX/MG HYDROX/SIMETH 30 ML CUP PO PRN (10:30)
[2016-12-22] MEDS ORDERED: morphine 4 MG/ML VIAL IV PRN (10:30)
[2016-12-22] MEDS ORDERED: ONDANSETRON 4 MG INJ IV PRN (10:30)
[2016-12-22] MEDS ORDERED: ACETAMINOPHEN 325 MG TAB PO PRN (10:30)
--- NOTE | 2016-12-22 15:05 | RADRPT ---
Vent Rate: 63 bpm RR Interval: 0 msec VA Interval: 126 msec QRS Duration: 82 msec QT Interval: 418 msec QTC Interval: 427 msec P-R-T [place] Var[place]: 2 - -35 - 12 degrees Normal sinus rhythm Left axis deviation Abnormal ECG Electronically Signed By: Lonnie Pablo [id number]
== END 2016-12-22 13:10 | disposition home or self-care (01) ==
LOC: SDS 06:03
PROVIDERS: ATTEND Internal Medicine
DX: I25.10 Atherosclerotic heart disease of native coronary artery without angina pectoris (principal); R94.31 Abnormal electrocardiogram [ECG] [EKG]; E11.9 Type 2 diabetes mellitus without complications; I10 Essential (primary) hypertension; E78.00 Pure hypercholesterolemia, unspecified; F41.9 Anxiety disorder, unspecified; J45.909 Unspecified asthma, uncomplicated
CPT/HCPCS: 71010; 80048; 80061; 82962; 84703; 85025; 85610; 85730; 93005; 93458; C1769; C1887; J1644; J2250; J3010; Q9967; Z7610

== ENCOUNTER 2017-01-07 07:43 | Emergency (ER) | payer OTHER ==
[~2017-01-07] VITALS: Ht 157.5 cm; Wt 90.0 kg
[~2017-01-07 07:43] MED LIST changes: -CEPH-443 PO; -GLIP-95 PO; -HYDR-906 PO; -MAGN250T24 PO; -METO10TA92 PO; -NAPR-688 PO; +NITR0.4T6 SL; -OXYC-279 PO; -RANI150T9 PO
[2017-01-07 07:56] VITALS: Ht 157.5 cm; Wt 90.0 kg
[2017-01-07] MEDS ORDERED: ALBUTEROL 0.083% (NEB) 2.5 MG/3 ML AMP NEB STA (08:26)
[2017-01-07] MEDS ORDERED: IPRATROPIUM (NEB) 0.5 MG/2.5 ML AMP NEB STA (08:26)
[2017-01-07] MEDS ORDERED: predniSONE 20 MG TAB PO ONE (08:30)
--- NOTE | 2017-01-07 09:21 | ERD ---
ER Documentation Chief Complaint Date/Time DATE: 01/07/17 TIME: 09:18 Chief Complaint Complains of SOB Hx Of Asthma HPI Patient is a 56-year-old female who has a history of diabetes, hypertension, high cholesterol, and asthma complaining of shortness of breath that began last night. She uses her inhaler but it did not help. She denies any chest pain or palpitations. Denies any fever or cough. She states she has appointment with her primary care doctor tomorrow but did not want to wait as she was still feeling short of breath after using her inhaler. ROS All systems reviewed and are negative except as per history of present illness. Medications Home Meds Reported Medications Nitroglycerin* (Nitroglycerin* SL) 0.4 Mg Tab.subl, 0.4 MG SL Q5MIN Y for CHEST PAIN, BOTTLE 12/22/16 Fluoxetine Hcl* (Fluoxetine Hcl*) 40 Mg Capsule, 40 MG PO QAM, CAP 09/10/16 Metformin Hcl* (Metformin Hcl*) 1,000 Mg Tablet, 1000 MG PO WITH BREAKFAST DINNE , #30 TAB 08/04/16 Atorvastatin* (Atorvastatin*) 40 Mg Tablet, 40 MG PO QHS, #30 TAB 12/05/15 Lisinopril* (Lisinopril*) 2.5 Mg Tablet, 2.5 MG PO DAILY, TAB 08/24/14 Allergies Allergies: Coded Allergies: No Known Allergy (Unverified , 01/07/17) PMhx/Soc History of Surgery: Yes (hernia, ) Anesthesia Reaction: No Hx Neurological Disorder: No Hx Respiratory Disorders: No Hx Cardiac Disorders: Yes (HTN) Hx Psychiatric Problems: No Hx Miscellaneous Medical Probl: Yes (DM) Hx Alcohol Use: No Hx Substance Use: No Hx Tobacco Use: No Smoking Status: Never smoker FmHx Family History: No diabetes Physical Exam Vitals Vital Signs Date Time Temp Pulse Resp B/P Pulse Ox O2 Delivery O2 Flow Rate FiO2 01/07/17 08:37 72 18 96 21 01/07/17 07:56 98.3 74 20 111/59 97 Physical Exam INITIAL VITAL SIGNS: Reviewed by me GENERAL: Awake, alert and oriented x 4, well appearing, nontoxic, speaking in full sentences. No acute distress HEAD: Atraumatic NECK: Supple. No masses. Full range of motion. No meningismus. No midline tenderness. RESPIRATORY: Clear to auscultation bilaterally. Symmetric chest wall rise. Mild inspiratory wheezing, no rales. No accessory muscle use. CV: Regular rate and rhythm. No murmurs, rubs, or gallops. ABDOMEN: Soft, non-distended. Nontender. Negative Brusly. Negative McBurneys point tenderness. No CVA tenderness bilaterally. No guarding. No rebound. : Deffered. Results 24 hrs Laboratory Tests Test 01/07/17 08:53 Bedside Glucose 196mg/dL Current Medications Medications (Trade) Dose Ordered Sig/Roland Route PRN Reason Start Time Stop Time Status Last Admin Dose Admin Albuterol (Proventil 0.083% (Neb)) 2.5 mg ONCE STAT NEB 01/07/17 08:26 01/07/17 08:28 DC 01/07/17 08:35 Ipratropium [place] (Atrovent 0.02% (Neb)) 0.5 mg ONCE STAT NEB 01/07/17 08:26 01/07/17 08:28 DC 01/07/17 08:35 Prednisone (Prednisone) 40 mg ONCE ONCE PO 01/07/17 08:30 01/07/17 08:31 DC 01/07/17 08:31 Procedures/MDM Patient presents with asthma exacerbation. Patients is alert, oriented, well appearing, and in no distress with normal vital signs. There is no fever, tachycardia, or tachypnea. The differential diagnosis includes but is not limited to asthma, COPD, pneumonia, pulmonary embolus, pleural effusion, congestive heart failure, and others. She was given a single dose of prednisone and a breathing treatment with significant improvement of her wheezing. Her Accu-Chek was 196. There is no evidence of DKA. I explained to her that I do not want to send her home with more steroids as it may increase her blood sugar and she states that this is okay with her and that she has appointment with primary care doctor tomorrow and will follow up with him. Patient counseled regarding my diagnostic impression and care plan. Prior to discharge all questions answered. Pt agrees with treatment plan and understands strict return precautions. Pt is instructed to follow up with primary care provider within 24-48 hours. Precautionary instructions provided including instructions to return to the ER if not improving or for any worsening or changing symptoms or concerns. Departure Diagnosis: Primary Impression: Asthma exacerbation Condition: Stable Patient Instructions: Asthma, Acute (Adult) Additional Instructions: Call your primary care doctor TOMORROW for an appointment during the next 1-2 days.See the doctor sooner or return here if your condition worsens before your appointment time. SUSAN VEE PA-C Jan 07, 2017 09:21
== END 2017-01-07 09:32 | disposition home or self-care (01) ==
LOC: FTE 07:43
DX: J45.901 Unspecified asthma with (acute) exacerbation (principal); E11.9 Type 2 diabetes mellitus without complications; I10 Essential (primary) hypertension; Z79.84 Long term (current) use of oral hypoglycemic drugs
CPT/HCPCS: 82962; 94664; J7512; Z7502; Z7610

== ENCOUNTER 2017-01-15 06:48 | Day surgery (SDC) | payer OTHER ==
[2017-01-15] VITALS (12 sets, daily range): BP systolic 93–155; BP diastolic 49–65; PULSE 74–81; RESP 10–25; Ht 167.6 cm; Wt 89.0 kg
[~2017-01-15] VITALS: Ht 167.6 cm; Wt 89.0 kg
[~2017-01-15 06:48] MED LIST changes: +CEFAZOLIN 2 GM/50 ML (PMX) 50 ML IVPB SCH; +MEPERIDINE 50 MG INJ ONE; +ONDANSETRON 4 MG INJ ONE; +SOD CHLORIDE 0.9% 1,000 ML IV SCH
[2017-01-15] MEDS ORDERED: ASPI81TA3 PO (08:12)
[2017-01-15] MEDS ORDERED: TAMS-14 PO (08:18)
[2017-01-15] MEDS ORDERED: MOME13HF2 INHALATION (08:18)
[2017-01-15] MEDS ORDERED: GLIP-95 PO (08:19)
[2017-01-15] MEDS ORDERED: ALBU8.5H3 INH (08:20)
[2017-01-15] MEDS ORDERED: INSULIN ASPART [NOVOLOG] 3 ML PEN SC ONE (09:30)
[2017-01-15] MEDS ORDERED: SOD CHLORIDE 0.9% 1,000 ML IV SCH (11:00)
[2017-01-15] MEDS ORDERED: CEFAZOLIN 2 GM/50 ML (PMX) 50 ML IVPB ONE (11:00)
[2017-01-15] MEDS ORDERED: PROPOFOL 20 ML ONE (13:11)
[2017-01-15] MEDS ORDERED: MIDAZOLAM 1 MG/ML 2 ML INJ ONE (13:11)
[2017-01-15] MEDS ORDERED: CEFAZOLIN 1 GM INJ ONE (13:11)
[2017-01-15] MEDS ORDERED: FENTAnyl 50 MCG/ML VIAL ONE ×2 (13:11→14:21)
[2017-01-15] MEDS ORDERED: ROPIVACAINE 0.5 % 30 ML VIAL ONE (13:11)
[2017-01-15] MEDS ORDERED: BUPIVACAINE 0.25% (MPF) 30 ML INJ ONE (13:29)
[2017-01-15] MEDS ORDERED: BUPIVACAINE 0.25% (STERILE-PAK) 30 ML INJ INJ ONE (13:45)
[2017-01-15] MEDS ORDERED: ONDANSETRON 4 MG INJ ONE (14:00)
[2017-01-15] MEDS ORDERED: METOCLOPRAMIDE 10 MG INJ ONE (14:00)
[2017-01-15] MEDS ORDERED: KETOROLAC 30 MG INJ ONE (14:00)
[2017-01-15] MEDS ORDERED: DEXAMETHASONE 4 MG/ML 1 ML INJ ONE (14:00)
[2017-01-15] MEDS ORDERED: EPHEDrine SULFATE 50 MG/5 ML SYG IV PRN (14:30)
[2017-01-15] MEDS ORDERED: METOCLOPRAMIDE 10 MG INJ IV PRN (14:30)
[2017-01-15] MEDS ORDERED: morphine (1 MG/ML) 10ML SYRINGE IV PRN ×3 (14:30)
[2017-01-15] MEDS ORDERED: DIPHENHYDRAMINE 50 MG INJ IV PRN (14:30)
[2017-01-15] MEDS ORDERED: hydrALAzine 20 MG INJ IV PRN (14:30)
[2017-01-15] MEDS ORDERED: ONDANSETRON 4 MG INJ IV PRN (14:30)
[2017-01-15] MEDS ORDERED: OXYCODONE/ACETAMINOPHEN (5/325) TAB PO PRN ×2 (14:30)
[2017-01-15] MEDS ORDERED: LABETALOL HCL 20MG INJ IV PRN (14:30)
[2017-01-15] MEDS ORDERED: FENTAnyl 50 MCG/ML VIAL IV PRN ×3 (14:30)
[2017-01-15] MEDS ORDERED: MEPERIDINE 25 MG INJ IV PRN (14:30)
[2017-01-15] MEDS ORDERED: HYDROmorphONE (0.2 MG/ML) 10ML SYG IV PRN ×3 (14:30)
[2017-01-15] MEDS ORDERED: SUGAMMADEX SODIUM 200 MG/2 ML VIAL IV ONE (14:40)
--- NOTE | 2017-01-15 14:45 | OPR ---
Date/Time of Note Date/Time of Note DATE: 01/15/17 TIME: 14:42 Operative Report Procedure Date: Jan 15, 2017 Preoperative Diagnosis incarcerated large left inguinal hernia Postoperative Diagnosis same Operation Performed 1. open incarcerated left inguinal hernia repair with large size ultrapro hernia system mesh 2. localized adjacent tissue transfer with the use of skin flaps 22 sq cm defect 3. therapeutic injection of subcutaneous marcaine cpt code 47941 Surgeon: Matt STEIN Anesthesia Type: general Estimated Blood Loss: minimal Specimen: none Grafts/Implants large ultrapro hernia system mesh Complications: no Indications This is a 56-year-old female with a large left incarcerated inguinal hernia which is painful. Patient requires surgical repair risks alternatives benefits in personal discussed the patient. Patient expressed understanding consents to the operation. Procedure Description She was taken to the OR and prepped and draped in usual sterile fashion. Surgical timeout was performed. IV antibiotics given. Left inguinal oblique incision was made approximately 11 cm due to the obese body habitus of the patient. Dissection cautery was carried down through the Rhiannon's fashion although down 6 oblique fascia. The external fascia is open with a 15 blade. This incision is extended medially inferiorly lateral superiorly with Metzenbaum scissors. Large indirect hernia is incarcerated. This indirect hernia is reduced manually. Large ultra pro hernia system mesh was used for this defect. The disc portion of the ultra pro system mesh was used to bolster and block this hernia defect. This is secured in place with a running 0 Prolene from the pubic tubercle along the shelving edge of the inguinal ligament. Superiorly to enter oblique this is fixed with interrupted 3-0 Vicryl. Onlay mesh is secured in a similar fashion from the pubic tubercle along the shelving of the inguinal ligament. The onlay mesh is secured to the internal oblique with interrupted 3-0 Vicryl. External oblique fascia is closed with running 3-0 Vicryl. Rhiannon's fascia was closed with interrupted 3- 0 Vicryl. Due to the very large tissue defect localized adjacent tissue transfer use of skin flaps was used to close the defect with skin cindi. Therapeutic subcutaneous Marcaine is injected throughout the large incision site. Dry dressings were applied. Matt STEIN Jan 15, 2017 14:45
[2017-01-15] MEDS ORDERED: HYDROCODONE/APAP (5/325) TAB PO ONE (15:00)
== END 2017-01-15 17:35 | disposition home or self-care (01) ==
LOC: SDS 06:48
PROVIDERS: ATTEND Surgery
DX: K40.30 Unilateral inguinal hernia, with obstruction, without gangrene, not specified as recurrent (principal); I10 Essential (primary) hypertension; E11.9 Type 2 diabetes mellitus without complications; E78.5 Hyperlipidemia, unspecified
CPT/HCPCS: 49507; 82962; 84703; C1781; J0690; J1100; J1815; J1885; J2175; J2250; J2405; J2765; J2795; J3010; Z7512; Z7610

== ENCOUNTER 2017-01-17 08:29 | Emergency (ER) | payer OTHER ==
[~2017-01-17] VITALS: Ht 167.6 cm; Wt 89.0 kg
[~2017-01-17 08:29] MED LIST changes: +ALBU8.5H3 INH; +ASPI81TA3 PO; -CEFAZOLIN 2 GM/50 ML (PMX) 50 ML IVPB SCH; +GLIP-95 PO; -LISI2.5T59 PO; -MEPERIDINE 50 MG INJ ONE; +MOME13HF2 INHALATION; -ONDANSETRON 4 MG INJ ONE; -SOD CHLORIDE 0.9% 1,000 ML IV SCH; +TAMS-14 PO
[2017-01-17 08:32] VITALS: Ht 167.6 cm; Wt 89.0 kg
[2017-01-17] MEDS ORDERED: morphine 4 MG/ML VIAL IV STA ×2 (08:46→11:45)
[2017-01-17] MEDS ORDERED: ONDANSETRON 4 MG INJ IV STA (08:46)
--- NOTE | 2017-01-17 09:17 | ERD ---
ER Documentation Chief Complaint Date/Time DATE: 01/17/17 TIME: 09:14 Chief Complaint POST OP PAIN, HERNIA REPAIR 2 DAYS AGO, BLEEDING FROM THE INCISION SITE HPI [id number] female with history of recent left inguinal hernia repair [address] March, comes in with postoperative pain, as well as bleeding from the site since yesterday. Patient describes pain that goes diffusely from the left groin to the left upper quadrant, achy, severe, not improving with the pain medication she was prescribed. She denies any fevers, chills, vomiting, diarrhea. She does report painful urination. Patient's other surgical history includes , cholecystectomy, umbilical hernia repair. ROS All systems reviewed and are negative except as per history of present illness. Medications Home Meds Active Scripts Oxycodone HCl/Acetaminophen (Percocet 5-325 mg Tablet) 1 Each Tablet, 1 EACH PO Q6, #15 TAB Prov:JAYLYN MCCOY PA-C 01/17/17 Amoxicillin/Potassium Clav (Amox-Clav 875-125 mg Tablet) 875-125 mg Tab, 1 TAB PO BID for 14 Days, #28 TAB Prov:JAYLYN MCCOY PA-C 01/17/17 Reported Medications Albuterol Sulfate* (Proair HFA*) 8.5 Gm Hfa.aer.ad, 2 PUFF INH Q4H Y for WHEEZING AND SOB, #1 INHALER 01/15/17 Glipizide* (Glipizide*) 10 Mg Tablet, 10 MG PO BID, TAB 01/15/17 Tamsulosin Hcl* (Flomax*) 0.4 Mg Cap.er.24h, 0.4 MG PO HS, CAP 01/15/17 Mometasone-Formoterol (Dulera) 100-5 Mcg - 13 Gm Hfa.aer.ad, 2 PUFFS INHALATION BID, #1 INHALER 01/15/17 Aspirin* (Aspirin* Chew) 81 Mg Tab.chew, 81 MG PO DAILY, TAB.CHEW 01/15/17 Nitroglycerin* (Nitroglycerin* SL) 0.4 Mg Tab.subl, 0.4 MG SL Q5MIN Y for CHEST PAIN, BOTTLE 12/22/16 Fluoxetine Hcl* (Fluoxetine Hcl*) 40 Mg Capsule, 40 MG PO QAM, CAP 09/10/16 Metformin Hcl* (Metformin Hcl*) 1,000 Mg Tablet, 1000 MG PO WITH BREAKFAST DINNE , #30 TAB 08/04/16 Atorvastatin* (Atorvastatin*) 40 Mg Tablet, 40 MG PO QHS, #30 TAB 12/05/15 Discontinued Reported Medications Lisinopril* (Lisinopril*) 2.5 Mg Tablet, 2.5 MG PO DAILY, TAB 08/24/14 Allergies Allergies: Coded Allergies: No Known Allergy (Unverified , 01/15/17) PMhx/Soc History of Surgery: Yes (C SECTION X3,UMBILICAL HERNIA REPAIR,NAYELI,KIDNEY STONES) Anesthesia Reaction: No Hx Neurological Disorder: No Hx Respiratory Disorders: Yes (ASTHMA,) Hx Cardiac Disorders: Yes (HTN) Hx Psychiatric Problems: No Hx Miscellaneous Medical Probl: Yes (ELEVATED CHOLESTEROL,ANEMIA, diabetes) Hx Alcohol Use: No Hx Substance Use: No Hx Tobacco Use: No Smoking Status: Never smoker Physical Exam Vitals Vital Signs Date Time Temp Pulse Resp B/P Pulse Ox O2 Delivery O2 Flow Rate FiO2 01/17/17 08:32 98.0 73 18 108/59 97 Physical Exam General: Well-developed, well-nourished. The patient appears in no acute distress. HEENT: Head is normocephalic, atraumatic. No scleral icterus. Pupils are equal , round, and reactive. Oral mucous membranes are moist. No pharyngeal erythema. Neck: Supple. Nontender. Lungs: Clear to auscultation. Normal air movement. Heart: Regular rate and rhythm. S1 and S2 are normal. No murmurs, gallops, or rubs. Abdomen: Soft, incision in the left inguinal region, is intact, no drainage, no erythema, no warmth, areas dry, cindi intact patient is tender to palpation across the incisional area, nondistended. Bowel sounds are normoactive. No peritoneal signs Extremities: No clubbing or cyanosis. Normal pulses. Moving extremities x 4. No weakness. Neurologic: Alert and oriented 3. No focal deficits. Skin: Normal turgor. No rash or lesions. Result Diagram: 01/17/17 0910 01/17/17 0910 Results 24 hrs Laboratory Tests Test 01/17/17 09:10 White Blood Count 8.410^3/ul Red Blood Count 4.2510^6/ul Hemoglobin 12.5g/dl Hematocrit 38.0% Mean Corpuscular Volume 89.4fl Mean Corpuscular Hemoglobin 29.4pg Mean Corpuscular Hemoglobin Concent 32.9g/dl Red Cell Distribution Width 13.8% Platelet Count 57583^3/UL Mean Platelet Volume 12.0fl Neutrophils % 61.4% Lymphocytes % 29.2% Monocytes % 7.1% Eosinophils % 1.7% Basophils % 0.4% Nucleated Red Blood Cells % 0.0/100WBC Neutrophils # (Manual) 5.210^3/ul Lymphocytes # 2.510^3/ul Monocytes # 0.610^3/ul Eosinophils # 0.110^3/ul Basophils # 0.010^3/ul Nucleated Red Blood Cells # 0.010^3/ul Urine Color YELLOW Urine Clarity CLEAR Urine pH 5.0 Urine Specific [place] 1.018 Urine Ketones NEGATIVEmg/dL Urine Nitrite NEGATIVEmg/dL Urine Bilirubin NEGATIVEmg/dL Urine Urobilinogen NEGATIVEmg/dL Urine Leukocyte Esterase NEGATIVELeu/ul Urine Hemoglobin NEGATIVEmg/dL Urine Glucose NEGATIVEmg/dL Urine Total Protein NEGATIVEmg/dl Sodium Level 146mmol/L Potassium Level 3.9mmol/L Chloride Level 106mmol/L Carbon Dioxide Level 25mmol/L Anion Gap 19 Blood Urea Nitrogen 13mg/dl Creatinine 0.66mg/dl Glucose Level 194mg/dl Calcium Level 9.1mg/dl Total Bilirubin 0.3mg/dl Direct Bilirubin 0.00mg/dl Indirect Bilirubin 0.3mg/dl Aspartate Amino Transf (AST/SGOT) 25IU/L Alanine Aminotransferase (ALT/SGPT) 46IU/L Alkaline Phosphatase 97IU/L Total Protein 7.5g/dl Albumin 4.2g/dl Globulin 3.30g/dl Albumin/Globulin Ratio 1.27 Lipase 102U/L Current Medications Medications (Trade) Dose Ordered Sig/Roland Route PRN Reason Start Time Stop Time Status Last Admin Dose Admin Morphine Sulfate (morphine) 4 mg ONCE STAT IV 01/17/17 08:46 01/17/17 08:49 DC 01/17/17 09:12 Ondansetron HCl (Zofran Inj) 4 mg ONCE STAT IV 01/17/17 08:46 01/17/17 08:49 DC 01/17/17 09:13 IV Flush 10 ml 10 ml STK-MED ONCE .ROUTE 01/17/17 09:21 01/17/17 09:22 DC Sodium Chloride (NS) 100 ml @ ud STK-MED ONCE .ROUTE 01/17/17 09:21 01/17/17 09:22 DC Iodixanol (Visipaque Locm) 100 ml STK-MED ONCE .ROUTE 01/17/17 09:21 01/17/17 09:22 DC Morphine Sulfate (morphine) 4 mg ONCE STAT IV 01/17/17 11:45 01/17/17 11:46 DC DIAGNOSTIC IMAGING REPORT Patient: MARK LEONARD : 1960 Age: 56 Sex: F MR #: [id number] DOS: 01/17/17 0846 Ordering MD: JAYLYN MCCOY PA-C Location: [facility] Room/Bed: PROCEDURE: CT Abdomen and pelvis with contrast CLINICAL INDICATION: Left lower quadrant pain, status post left inguinal hernia repair, bleeding TECHNIQUE: Spiral CT images through the abdomen and pelvis without administration of oral and during intravenous administration of 100 cc of Visipaque 320 contrast material. Multiplanar reconstructions. The total exam CTDI equals 21.9 mGy and the total exam DLP equals 1368 mGy-cm. One or more of the following dose reduction techniques were used: automated exposure control, adjustment of the mA and/or kV according to patient size, or use of iterative reconstruction technique. COMPARISON: 11/15/2016 FINDINGS: The lung bases are clear. No pleural or pericardial effusion is seen.. The liver is mildly enlarged. No focal lesion is identified. Unchanged small left adrenal nodule. The spleen, right adrenal gland and pancreas are normal in appearance. Cholecystectomy clips are seen. There is mild dilatation of the common duct. The kidneys are normal in size. The hypodense lesion in the lower pole of the right kidney appears unchanged. Lobulated renal contour and cortical scarring also noted.. The punctate calculus in the lower pole of the left kidney is unchanged. The calculus in the upper pole is no longer present. There is no hydronephrosis. The aorta is normal in caliber. No adenopathy or ascites is seen. There is no evidence for bowel obstruction, free air, or abscess. The appendix is absent. The colon rectum are fecal filled. There is lower left abdominal wall edema and emphysema, most pronounced at the inguinal region with a gas containing subcutaneous fluid measuring 3.6 x 2 cm anterior laterally. the uterus is anteverted. The bladder is decompressed. There are multiple pelvic phleboliths. There is bilateral sacroiliac joint space narrowing and sclerosis. IMPRESSION: Postoperative changes in the abdominal wall and inguinal region related to recent left inguinal hernia repair. Gas containing fluid collection or abscess. Follow-up recommended. Nonobstructing left renal calculus.. Fecal filled colon. Other findings are stable. RPTAT: HCNS Physician Rosangela Date Time Electronically viewed and signed by Michelle Chin Physician on 01/17/2017 10: 10 CS/ CC: JAYLYN MCCOY PA-C Procedures/MDM ED course: Patient had an IV line established, blood and urine obtained, she was given morphine 4 mg, Zofran 4 mg IV. Medical decision makin-year-old female comes in status post inguinal hernia repair on the left side 2 days ago coming in with bleeding from the incision site as well as postoperative pain Anca, There is evidence of free fluid versus gas seen in the left lower quadrant, likely patient's symptoms are most consistent with a postoperative pain with a hematoma. I spoke with Dr. March , who agrees that the patient may be discharged home. He also reviewed the CT imaging as well, and agreed that patient may be discharged home with Augmentin for 2 weeks. Differentials include bowel obstruction, intra-abdominal abscess, cellulitis, dehiscence, sepsis, UTI. The case was reviewed and discussed with Dr. Camilo who agrees with the plan of care including labs, treatment, and advanced imaging as appropriate. Departure Diagnosis: Primary Impression: Postoperative pain Condition: Good JAYLYN MCCOY PA-C Jan 17, 2017 09:17
[2017-01-17] MEDS ORDERED: IODIXANOL LOCM 100 ML BTL ONE (09:21)
[2017-01-17] MEDS ORDERED: SOD CHLORIDE 0.9% 100 ML ONE (09:21)
[2017-01-17 09:35] LABS: BASOPHILS % 0.4 % (0.0-2.0); EOSINOPHILS # 0.1 10^3/ul (0.0-0.5); EOSINOPHILS % 1.7 % (0.0-7.0); HEMOGLOBIN 12.5 g/dl (12.0-16.0); LYMPHOCYTES # 2.5 10^3/ul (0.8-2.9); LYMPHOCYTES % 29.2 % (15.0-51.0); MEAN CORPUSCULAR HEMOGLOBIN 29.4 pg (29.0-33.0); MEAN CORPUSCULAR HGB CONC 32.9 g/dl (32.0-37.0); MEAN CORPUSCULAR VOLUME 89.4 fl (82.0-101.0); MONOCYTE # 0.6 10^3/ul (0.3-0.9); MONOCYTES % 7.1 % (0.0-11.0); NEUTROPHILS % 61.4 % (39.0-77.0); PLATELET COUNT 253 10^3/UL (140-415); RED BLOOD COUNT 4.25 10^6/ul (4.20-5.40); RED CELL DISTRIBUTION WIDTH 13.8 % (11.5-14.5); WHITE BLOOD COUNT 8.4 10^3/ul (4.8-10.8)
[2017-01-17 09:40] LABS: ADD UMIC NO; UR ASCORBIC ACID NEGATIVE (NEGATIVE); UR BILIRUBIN (Dip) NEGATIVE (NEGATIVE); UR BLOOD (Dip) NEGATIVE (NEGATIVE); UR CLARITY CLEAR (CLEAR); UR COLOR YELLOW (YELLOW); UR GLUCOSE (Dip) NEGATIVE (NEGATIVE); UR KETONES (Dip) NEGATIVE (NEGATIVE); UR LEUKOCYTE ESTERASE (Dip) NEGATIVE Leu/ul (NEGATIVE); UR NITRITE (Dip) NEGATIVE (NEGATIVE); UR SPECIFIC GRAVITY (Dip) 1.018 (1.003-1.030); UR TOTAL PROTEIN (Dip) NEGATIVE (NEGATIVE); UR UROBILINOGEN (Dip) NEGATIVE (NEGATIVE)
[2017-01-17 09:51] LABS: ALBUMIN 4.2 g/dl (3.3-4.9); ALBUMIN/GLOBULIN RATIO 1.27; BILIRUBIN,INDIRECT 0.3 mg/dl (0-1.1); BILIRUBIN,TOTAL 0.3 mg/dl (0.2-1.3); CALCIUM 9.1 mg/dl (8.4-10.2); CREATININE 0.66 mg/dl (0.44-1.00); POTASSIUM 3.9 mmol/L (3.5-5.1); TOTAL PROTEIN 7.5 g/dl (6.1-8.1)
--- NOTE | 2017-01-17 11:00 | RADRPT ---
PROCEDURE: CT Abdomen and pelvis with contrast CLINICAL INDICATION: Left lower quadrant pain, status post left inguinal hernia repair, bleeding TECHNIQUE: Spiral CT images through the abdomen and pelvis without administration of oral and duri ng intravenous administration of 100 cc of Visipaque 320 contrast material. Multiplanar reconstruct ions. The total exam CTDI equals 21.9 mGy and the total exam DLP equals 1368 mGy-cm. One or more of the following dose reduction techniques were used: automated exposure control, adjustment of the mA and/or kV according to patient size, or use of iterative reconstruction technique. COMPARISON: 11/15/2016 FINDINGS: The lung bases are clear. No pleural or pericardial effusion is seen.. The liver is mildly enlarged. No focal lesion is identified. Unchanged small left adrenal nodule. The spleen, right adrenal gland and pancreas are normal in appearance. Cholecystectomy clips are se en. There is mild dilatation of the common duct. The kidneys are normal in size. The hypodense les ion in the lower pole of the right kidney appears unchanged. Lobulated renal contour and cortical s carring also noted.. The punctate calculus in the lower pole of the left kidney is unchanged. The c alculus in the upper pole is no longer present. There is no hydronephrosis. The aorta is normal in caliber. No adenopathy or ascites is seen. There is no evidence for bowel obstruction, free air, o r abscess. The appendix is absent. The colon rectum are fecal filled. There is lower left abdomin al wall edema and emphysema, most pronounced at the inguinal region with a gas containing subcutaneo us fluid measuring 3.6 x 2 cm anterior laterally. the uterus is anteverted. The bladder is decompressed. There are multiple pelvic phleboliths. There is bilateral sacroiliac joint space narrowing and sclerosis. IMPRESSION: Postoperative changes in the abdominal wall and inguinal region related to recent left inguinal nhan ia repair. Gas containing fluid collection or abscess. Follow-up recommended. Nonobstructing left renal calculus.. Fecal filled colon. Other findings are stable. RPTAT: HCNS Physician Rosangela Date Time Electronically viewed and signed by Physician Rosangela on 01/17/2017 10:10 CS/
[2017-01-17] MEDS ORDERED: AMOX1TAB10 PO (11:54)
[2017-01-17] MEDS ORDERED: OXYC-279 PO (12:02)
[2017-01-17 12:11] VITALS: BP 109/61; PULSE 72; RESP 22
== END 2017-01-17 12:12 | disposition home or self-care (01) ==
LOC: FTE 08:29
DX: G89.18 Other acute postprocedural pain (principal); E11.9 Type 2 diabetes mellitus without complications; J45.909 Unspecified asthma, uncomplicated; I10 Essential (primary) hypertension; R10.84 Generalized abdominal pain; Z79.82 Long term (current) use of aspirin; Z79.84 Long term (current) use of oral hypoglycemic drugs
CPT/HCPCS: 36415; 74177; 80053; 81003; 83690; 85025; 96374; 96375; J2270; J2405; Q9967; Z7502; Z7610

== ENCOUNTER 2017-01-23 17:05 | Emergency (ER) | payer OTHER ==
[~2017-01-23] VITALS: Ht 165.1 cm; Wt 80.0 kg
[~2017-01-23 17:05] MED LIST changes: +AMOX1TAB10 PO; +OXYC-279 PO
[2017-01-23 17:09] VITALS: Ht 165.1 cm; Wt 80.0 kg
--- NOTE | 2017-01-23 19:59 | ERA ---
ER Documentation Chief Complaint Date/Time DATE: 01/23/17 TIME: 19:56 Chief Complaint had left groin hernia repair on january 15, back for recheck HPI 56-year-old female presented with a chief complaint of discharge 7 days status post left inguinal repair. Patient states that there has been pain in the area as well as discharge. Denies any fevers, chills, headache, fell odor. Patient was prescribed Augmentin 7 days ago.Followed up with surgeon who prescribed Augmentin. Patient never told the surgeon that she was already on a forementioned medication. Denies worsening of symptoms since a visit with surgeon.Patient has no other complaints and describes no other associated manifestations. Nursing notes have been reviewed and are consistent with history given. ROS All systems reviewed and are negative except as per history of present illness. Medications Home Meds Active Scripts Oxycodone HCl/Acetaminophen (Percocet 5-325 mg Tablet) 1 Each Tablet, 1 EACH PO Q6, #15 TAB Prov:JAYLYN MCCOY PA-C 01/17/17 Amoxicillin/Potassium Clav (Amox-Clav 875-125 mg Tablet) 875-125 mg Tab, 1 TAB PO BID for 14 Days, #28 TAB Prov:JAYLYN MCCOY PA-C 01/17/17 Reported Medications Albuterol Sulfate* (Proair HFA*) 8.5 Gm Hfa.aer.ad, 2 PUFF INH Q4H Y for WHEEZING AND SOB, #1 INHALER 01/15/17 Glipizide* (Glipizide*) 10 Mg Tablet, 10 MG PO BID, TAB 01/15/17 Tamsulosin Hcl* (Flomax*) 0.4 Mg Cap.er.24h, 0.4 MG PO HS, CAP 01/15/17 Mometasone-Formoterol (Dulera) 100-5 Mcg - 13 Gm Hfa.aer.ad, 2 PUFFS INHALATION BID, #1 INHALER 01/15/17 Aspirin* (Aspirin* Chew) 81 Mg Tab.chew, 81 MG PO DAILY, TAB.CHEW 01/15/17 Nitroglycerin* (Nitroglycerin* SL) 0.4 Mg Tab.subl, 0.4 MG SL Q5MIN Y for CHEST PAIN, BOTTLE 12/22/16 Fluoxetine Hcl* (Fluoxetine Hcl*) 40 Mg Capsule, 40 MG PO QAM, CAP 09/10/16 Metformin Hcl* (Metformin Hcl*) 1,000 Mg Tablet, 1000 MG PO WITH BREAKFAST DINNE , #30 TAB 08/04/16 Atorvastatin* (Atorvastatin*) 40 Mg Tablet, 40 MG PO QHS, #30 TAB 12/05/15 Allergies Allergies: Coded Allergies: No Known Allergy (Unverified , 01/15/17) PMhx/Soc History of Surgery: Yes (C SECTION X3,UMBILICAL HERNIA REPAIR,NAYELI,KIDNEY STONES) Anesthesia Reaction: No Hx Neurological Disorder: No Hx Respiratory Disorders: Yes (ASTHMA,) Hx Cardiac Disorders: Yes (HTN) Hx Psychiatric Problems: No Hx Miscellaneous Medical Probl: Yes (ELEVATED CHOLESTEROL,ANEMIA, diabetes) Hx Alcohol Use: No Hx Substance Use: No Hx Tobacco Use: No Physical Exam Vitals Vital Signs Date Time Temp Pulse Resp B/P Pulse Ox O2 Delivery O2 Flow Rate FiO2 01/23/17 17:09 99.3 93 18 122/58 99 Physical Exam Const: Healthy-appearing. Well-nourished. Well-developed. No acute distress. Skin: Well appearing mildly erythematous incision consistent with a left inguinal hernia repair. No obvious discharge. Mild induration spreading 2 cm beyond incision site. Most consistent with superficial infection. No petechiae or rashes. No ulcer. Good turgor. Ext: No cyanosis or edema noted. Head: Normocephalic. As noted in skin exam. Eyes: Non-injected; No scleral erythema, or discharge. EOMI and CATALINO bilaterally. Ears: Normal External Ears, EACs clear, TM normal bilaterally without erythema. Nose: Normal nose without discharge, septal deviation, or sinus tenderness. Oral: No oral edema visualized. Mucous membranes moist and pink. Neck: No cervical lymphadenopathy, or masses. Trachea midline. Supple ~ No meningismus. Pulm: Good air movement in upper and lower respiratory tracts. No dyspnea, stridor, tripoding or drooling. Clear to auscultation bilaterally. Cardio: Regular rate and rhythm. No JVD grossly observed. Radial and posterior tibial pulses 2+ bilaterally. No cyanosis. Capillary refill less than 2 seconds. Abd: Soft, non tender, non distended. No guarding. Normal bowel sounds. MS: Normal motor strength, normal tone with gross examination. Back: No midline or flank tenderness. Neur: Neurovascularly intact bilaterally. Awake, alert and oriented x3. Procedures/MDM 56-year-old female with a chief complaint of discharge from incision site 7 days status post left inguinal repair as described in history and physical examination. At this time physical exam showed a well appearing/healing left inguinal repair. No obvious signs of infection. No discharge visualized. No foul odor. No imaging modalities indicated at this time. I have spoken with my attending Dr. Bradford who has recommended the continuation of Augmentin and follow-up with surgeon in the next 1-2 days. I have spoken with the patient and told her that these are the discharge instructions and she has verbally agreed that she understands and agrees to the plan of management. I will suspicion for systemic involvement versus there is bacterial infection, or abscess at this time. Patient be discharged with discharge instructions return precautions. Departure Diagnosis: Primary Impression: Postoperative complication Qualified Code: L76.82 - Other postoperative complication of skin Condition: Stable Patient Instructions: Post Op Wound Check, Infection Additional Instructions: Continue prescriptions as prescribed/directed. If symptoms worsen or change return to the emergency department immediately. Follow-up with surgeon within the next 1-2 days for further evaluation. SCOTT GARCIA PA-C Jan 23, 2017 19:59
[2017-01-23 20:11] VITALS: BP 125/81; PULSE 81; RESP 18; TEMP 99.3
== END 2017-01-23 20:45 | disposition home or self-care (01) ==
LOC: FTE 17:05
DX: L76.82 Other postprocedural complications of skin and subcutaneous tissue (principal); J45.909 Unspecified asthma, uncomplicated; I10 Essential (primary) hypertension; E11.9 Type 2 diabetes mellitus without complications; Z79.82 Long term (current) use of aspirin; Z79.84 Long term (current) use of oral hypoglycemic drugs
CPT/HCPCS: 99282

== ENCOUNTER 2017-02-18 09:01 | Emergency (ER) | payer OTHER ==
[~2017-02-18] VITALS: Ht 170.2 cm; Wt 88.0 kg
[~2017-02-18 09:01] MED LIST changes: +NITR0.4T32 SL; -NITR0.4T6 SL
[2017-02-18 09:03] VITALS: Ht 170.2 cm; Wt 88.0 kg
[2017-02-18] MEDS ORDERED: ALBUTEROL 0.083% (NEB) 2.5 MG/3 ML AMP HHN STA (09:16)
--- NOTE | 2017-02-18 09:22 | ERD ---
ER Documentation Chief Complaint Date/Time DATE: 02/18/17 TIME: 09:14 Chief Complaint asthma attack x2 days, worse today HPI 56-year-old female who presents emergency department for cough, asthma attack for 2 days. Stated that it worse today. Denies headache, dizziness, blurry vision, neck pain, shoulder pain, chest pain , back pain, abdominal pain, nausea, vomiting, fever, chills. No known drug allergies. Past medical history of hypertension, asthma, depression, diabetes, hyperlipidemia. Surgical history of hernia repair. Medication: Metformin, atorvastatin. Social: Not working at this time. Denies smoking, use of alcohol, use of illegal drugs. ROS All systems reviewed and are negative except as per history of present illness. Medications Home Meds Active Scripts Prednisone* (Prednisone*) 20 Mg Tab, 20 MG PO DAILY for 4 Days, TAB Prov:SANJEEV PALUMBO 02/18/17 Loratadine* (Claritin*) 10 Mg Capsule, 10 MG PO DAILY for 10 Days, CAP Prov:SANJEEV PALUMBO 02/18/17 Azithromycin* (Zithromax*) 250 Mg Tablet, 250 MG PO .ZPACK DIRECTED, #6 TAB TAKE 500 MG (2 TABS) THE FIRST DAY THEN 250 MG (1 TAB) DAYS 2-5 Prov:SANJEEV PALUMBO 02/18/17 Albuterol Sulfate* (Proair HFA*) 8.5 Gm Hfa.aer.ad, 2 PUFF INH Q4, #1 INHALER Prov:SANJEEV PALUMBO 02/18/17 Oxycodone HCl/Acetaminophen (Percocet 5-325 mg Tablet) 1 Each Tablet, 1 EACH PO Q6, #15 TAB Prov:JAYLYN MCCOY PA-C 01/17/17 Amoxicillin/Potassium Clav (Amox-Clav 875-125 mg Tablet) 875-125 mg Tab, 1 TAB PO BID for 14 Days, #28 TAB Prov:JAYLYN MCCOY PA-C 01/17/17 Reported Medications Albuterol Sulfate* (Proair HFA*) 8.5 Gm Hfa.aer.ad, 2 PUFF INH Q4H Y for WHEEZING AND SOB, #1 INHALER 01/15/17 Glipizide* (Glipizide*) 10 Mg Tablet, 10 MG PO BID, TAB 01/15/17 Tamsulosin Hcl* (Flomax*) 0.4 Mg Cap.er.24h, 0.4 MG PO HS, CAP 01/15/17 Mometasone-Formoterol (Dulera) 100-5 Mcg - 13 Gm Hfa.aer.ad, 2 PUFFS INHALATION BID, #1 INHALER 01/15/17 Aspirin* (Aspirin* Chew) 81 Mg Tab.chew, 81 MG PO DAILY, TAB.CHEW 01/15/17 Nitroglycerin* (Nitroglycerin* SL) 0.4 Mg Tab.subl, 0.4 MG SL Q5MIN Y for CHEST PAIN, BOTTLE 12/22/16 Fluoxetine Hcl* (Fluoxetine Hcl*) 40 Mg Capsule, 40 MG PO QAM, CAP 09/10/16 Metformin Hcl* (Metformin Hcl*) 1,000 Mg Tablet, 1000 MG PO WITH BREAKFAST DINNE , #30 TAB 08/04/16 Atorvastatin* (Atorvastatin*) 40 Mg Tablet, 40 MG PO QHS, #30 TAB 12/05/15 Allergies Allergies: Coded Allergies: No Known Allergy (Unverified , 01/15/17) PMhx/Soc History of Surgery: Yes (Hernia 1 month ago) Anesthesia Reaction: No Hx Neurological Disorder: No Hx Respiratory Disorders: Yes (ASTHMA,) Hx Cardiac Disorders: Yes (HTN, Hypercholesteremia) Hx Psychiatric Problems: No Hx Miscellaneous Medical Probl: Yes (DM) Hx Alcohol Use: No Hx Substance Use: No Hx Tobacco Use: No Smoking Status: Never smoker Physical Exam Vitals Vital Signs Date Time Temp Pulse Resp B/P Pulse Ox O2 Delivery O2 Flow Rate FiO2 02/18/17 09:36 80 18 97 21 02/18/17 09:03 97.0 72 18 118/61 97 Physical Exam Const: [] Head: Atraumatic Eyes: Normal Conjunctiva ENT: Normal External Ears, Nose and Mouth. Neck: Full range of motion..~ No meningismus. Resp: Mild wheezing bilaterally. Cardio: Regular rate and rhythm, no murmurs Abd: Soft, non tender, non distended. Normal bowel sounds Skin: No petechiae or rashes Back: No midline or flank tenderness Ext: No cyanosis, or edema Neur: Awake and alert Psych: Normal Mood and Affect Results 24 hrs Current Medications Medications (Trade) Dose Ordered Sig/Roland Route PRN Reason Start Time Stop Time Status Last Admin Dose Admin Methylprednisolone Sodium Succinate (Solu-Medrol) 125 mg ONCE ONCE IM 02/18/17 09:30 02/18/17 09:31 DC 02/18/17 09:22 Albuterol (Proventil 0.083% (Neb)) 5 mg ONCE STAT N 02/18/17 09:16 02/18/17 09:18 DC 02/18/17 09:34 Ipratropium [place] (Atrovent 0.02% (Neb)) 0.5 mg ONCE ONCE N 02/18/17 09:30 02/18/17 09:31 DC 02/18/17 09:34 Procedures/MDM 56-year-old female who presents emergency department for cough, asthma attack for 2 days. Stated that it worse today. Exam: Mild wheezing bilaterally. Disease process was explained to the patient. Verbalized understanding, treatment, plan of care. Treatment: Solu-Medrol IM. Albuterol and Atrovent. Reevaluation: Denies headache, dizziness, blurred vision, neck pain, shoulder pain, chest pain, back pain, difficulty breathing, nausea, vomiting. Respirations even and unlabored. Lung sounds are clear to auscultation. No abdominal tenderness. Differential diagnosis: Asthma exacerbation versus pneumonia versus asthmatic bronchitis versus upper respiratory infection. EKG: Normal sinus rhythm with a ventricular rate of 69 bpm. No STEMI. Prescription: Pro-air. Azithromycin. Low-dose prednisone. Follow-up with primary care physician the next 24-48 hours. Come back to emergency department for any new symptoms or any worsening symptoms. All questions and concerns are answered. Patient verbalized understanding and agreed with the plan of care. Hemodynamically stable on discharge. Departure Diagnosis: Primary Impression: Asthma attack Additional Impression: Asthma with acute exacerbation Condition: Stable Additional Instructions: Follow-up with primary care physician the next 24-48 hours. Come back to emergency department for any new symptoms or any worsening symptoms. All questions and concerns are answered. Patient verbalized understanding and agreed with the plan of care. SANJEEV PALUMBO Feb 18, 2017 09:22
[2017-02-18] MEDS ORDERED: IPRATROPIUM (NEB) 0.5 MG/2.5 ML AMP HHN ONE (09:30)
[2017-02-18] MEDS ORDERED: METHYLPREDNISOLONE 125 MG INJ IM ONE (09:30)
[2017-02-18] MEDS ORDERED: ALBU8.5H3 INH (09:47)
[2017-02-18] MEDS ORDERED: PRED20TA PO (09:48)
[2017-02-18] MEDS ORDERED: AZIT250T94 PO (09:48)
[2017-02-18] MEDS ORDERED: LORA10CA PO (09:48)
== END 2017-02-18 10:08 | disposition home or self-care (01) ==
LOC: FTE 09:01
DX: J45.901 Unspecified asthma with (acute) exacerbation (principal); I10 Essential (primary) hypertension; E11.9 Type 2 diabetes mellitus without complications; Z79.82 Long term (current) use of aspirin; Z79.84 Long term (current) use of oral hypoglycemic drugs
CPT/HCPCS: 93005; 94664; 96372; J2930; Z7502; Z7610

== ENCOUNTER 2017-03-14 13:49 | Emergency (ER) | payer OTHER ==
[~2017-03-14] VITALS: Ht 167.6 cm; Wt 86.0 kg
[~2017-03-14 13:49] MED LIST changes: +AZIT250T94 PO; +LORA10CA PO; +PRED20TA PO
[2017-03-14 14:01] VITALS: Ht 167.6 cm; Wt 86.0 kg
--- NOTE | 2017-03-14 17:13 | ERD ---
ER Documentation Chief Complaint Chief Complaint NAUSEA AND VOMITING TODAY SINCE 1100 HPI 56-year-old female presenting with a chief complaint of 7 out of 10 back pain. Previous symptoms in the past 1 month ago diagnosis kidney stones. Patient states that she has also vomited twice today. No specific characteristics with vomiting. Patient denies constipation, decreased appetite, recent unintentional weight loss, migrating pain, symptoms associated with food, new or recently changed medications, genital pain or ingestion of new or undercooked food. Has not taken any medications to relieve symptoms. History of a cholecystectomy. Patient has no other complaints and describes no other associated manifestations. Nursing notes have been reviewed and are consistent with history given. ROS All systems reviewed and are negative except as per history of present illness. Medications Home Meds Active Scripts Phenazopyridine Hcl* (Pyridium*) 100 Mg Tab, 100 MG PO TID Y for URINARY PAIN, # 8 TAB Prov:SCOTT GARCIA PA-C 03/14/17 Nitrofurantoin Monohyd Macrocr* (Macrobid*) 100 Mg Capsr, 100 MG PO HS for 7 Days, CAP Prov:SCOTT GARCIA PA-C 03/14/17 Prednisone* (Prednisone*) 20 Mg Tab, 20 MG PO DAILY for 4 Days, TAB Prov:SANJEEV PALUMBO 02/18/17 Loratadine* (Claritin*) 10 Mg Capsule, 10 MG PO DAILY for 10 Days, CAP Prov:SANJEEV PALUMBO 02/18/17 Azithromycin* (Zithromax*) 250 Mg Tablet, 250 MG PO .ZPACK DIRECTED, #6 TAB TAKE 500 MG (2 TABS) THE FIRST DAY THEN 250 MG (1 TAB) DAYS 2-5 Prov:SANJEEV PALUMBO 02/18/17 Albuterol Sulfate* (Proair HFA*) 8.5 Gm Hfa.aer.ad, 2 PUFF INH Q4, #1 INHALER Prov:SANJEEV PALUMBO 02/18/17 Oxycodone HCl/Acetaminophen (Percocet 5-325 mg Tablet) 1 Each Tablet, 1 EACH PO Q6, #15 TAB Prov:JAYLYN MCCOY PA-C 01/17/17 Amoxicillin/Potassium Clav (Amox-Clav 875-125 mg Tablet) 875-125 mg Tab, 1 TAB PO BID for 14 Days, #28 TAB Prov:JAYLYN MCCOY PA-C 01/17/17 Reported Medications Albuterol Sulfate* (Proair HFA*) 8.5 Gm Hfa.aer.ad, 2 PUFF INH Q4H Y for WHEEZING AND SOB, #1 INHALER 01/15/17 Glipizide* (Glipizide*) 10 Mg Tablet, 10 MG PO BID, TAB 01/15/17 Tamsulosin Hcl* (Flomax*) 0.4 Mg Cap.er.24h, 0.4 MG PO HS, CAP 01/15/17 Mometasone-Formoterol (Dulera) 100-5 Mcg - 13 Gm Hfa.aer.ad, 2 PUFFS INHALATION BID, #1 INHALER 01/15/17 Aspirin* (Aspirin* Chew) 81 Mg Tab.chew, 81 MG PO DAILY, TAB.CHEW 01/15/17 Nitroglycerin* (Nitroglycerin* SL) 0.4 Mg Tab.subl, 0.4 MG SL Q5MIN Y for CHEST PAIN, BOTTLE 12/22/16 Fluoxetine Hcl* (Fluoxetine Hcl*) 40 Mg Capsule, 40 MG PO QAM, CAP 09/10/16 Metformin Hcl* (Metformin Hcl*) 1,000 Mg Tablet, 1000 MG PO WITH BREAKFAST DINNE , #30 TAB 08/04/16 Atorvastatin* (Atorvastatin*) 40 Mg Tablet, 40 MG PO QHS, #30 TAB 12/05/15 Allergies Allergies: Coded Allergies: No Known Allergy (Unverified , 01/15/17) PMhx/Soc History of Surgery: Yes (Hernia 1 month ago) Anesthesia Reaction: No Hx Neurological Disorder: No Hx Respiratory Disorders: Yes (ASTHMA,) Hx Cardiac Disorders: Yes (HTN, Hypercholesteremia) Hx Psychiatric Problems: No Hx Miscellaneous Medical Probl: Yes (DM) Hx Alcohol Use: No Hx Substance Use: No Hx Tobacco Use: No Physical Exam Vitals Vital Signs Date Time Temp Pulse Resp B/P Pulse Ox O2 Delivery O2 Flow Rate FiO2 03/14/17 14:01 98.3 81 16 106/54 96 Physical Exam Const: [] Head: Atraumatic Eyes: Normal Conjunctiva ENT: Normal External Ears, Nose and Mouth. Neck: Full range of motion..~ No meningismus. Resp: Clear to auscultation bilaterally Cardio: Regular rate and rhythm, no murmurs Abd: Soft, nondistended. Mild tenderness to palpation in the right upper quadrant. No McBurney's point tenderness. No rebound tenderness. Negative psoas and Rovsing signs. Skin: No petechiae or rashes Back: No midline or flank tenderness Ext: No cyanosis, or edema Neur: Awake and alert Psych: Normal Mood and Affect Result Diagram: 03/14/17 1725 03/14/17 1835 Results 24 hrs Laboratory Tests Test 03/14/17 17:25 03/14/17 18:35 White Blood Count 9.110^3/ul Red Blood Count 4.6010^6/ul Hemoglobin 13.7g/dl Hematocrit 40.3% Mean Corpuscular Volume 87.6fl Mean Corpuscular Hemoglobin 29.8pg Mean Corpuscular Hemoglobin Concent 34.0g/dl Red Cell Distribution Width 13.8% Platelet Count 68462^3/UL Mean Platelet Volume 12.3fl Neutrophils % 69.9% Lymphocytes % 24.3% Monocytes % 4.3% Eosinophils % 0.8% Basophils % 0.4% Nucleated Red Blood Cells % 0.0/100WBC Neutrophils # 6.410^3/ul Lymphocytes # 2.210^3/ul Monocytes # 0.410^3/ul Eosinophils # 0.110^3/ul Basophils # 0.010^3/ul Nucleated Red Blood Cells # 0.010^3/ul Urine Color YELLOW Urine Clarity CLEAR Urine pH 5.0 Urine Specific [place] 1.025 Urine Ketones NEGATIVEmg/dL Urine Nitrite NEGATIVEmg/dL Urine Bilirubin NEGATIVEmg/dL Urine Urobilinogen NEGATIVEmg/dL Urine Leukocyte Esterase 1+Margaret/ul Urine Microscopic RBC 2/HPF Urine Microscopic WBC 6/HPF Urine Mucus FEW/HPF Urine Hemoglobin NEGATIVEmg/dL Urine Glucose NEGATIVEmg/dL Urine Total Protein 1+mg/dl Sodium Level 145mmol/L Potassium Level 4.1mmol/L Chloride Level 107mmol/L Carbon Dioxide Level 25mmol/L Anion Gap 17 Blood Urea Nitrogen 17mg/dl Creatinine 0.60mg/dl Glucose Level 176mg/dl Calcium Level 9.5mg/dl Total Bilirubin 0.3mg/dl Direct Bilirubin 0.00mg/dl Indirect Bilirubin 0.3mg/dl Aspartate Amino Transf (AST/SGOT) 50IU/L Alanine Aminotransferase (ALT/SGPT) 39IU/L Alkaline Phosphatase 84IU/L Total Protein 7.6g/dl Albumin 4.6g/dl Globulin 3.00g/dl Albumin/Globulin Ratio 1.53 Lipase 113U/L Current Medications Medications (Trade) Dose Ordered Sig/Roland Route PRN Reason Start Time Stop Time Status Last Admin Dose Admin Famotidine (Pepcid Iv) 20 mg ONCE ONCE IV 03/14/17 17:30 03/14/17 17:31 DC 03/14/17 17:34 Procedures/MDM 56-year-old female presenting with a chief complaints of left flank pain. Previous symptoms in the past have been diagnosed as kidney stones. Inguinal hernia repair 1 month ago. History of diabetes. Urinalysis, CMP, CBC, lipase were obtained and revealed the following: Anion gap 17. Urinalysis 1+ leukocyte esterase. WBC is 6+. Mucus few. Total protein 1+. Patient's discomfort was successfully managed with Pepcid IV. At this time I do not suspect pyelonephritis, ovarian torsion, tubo-ovarian abscess, ectopic , mechanical obstruction, hernia, appendicitis, intestinal ischemia, PID, AAA, or diverticulitis. The patient is well appearing, and tolerates PO. I have spoke with the patient regarding their condition and future management. They have verbally responded that they understand their status and treatment plan. The patients vitals are stable, and their current condition is appropriate for discharge. The patient will be given discharge instructions with return precautions. Departure Diagnosis: Primary Impression: UTI (urinary tract infection) Urinary tract infection type: site unspecified Hematuria presence: with hematuria Qualified Code: N39.0 - Urinary tract infection with hematuria, site unspecified Condition: Stable Additional Instructions: Follow up with your PCP within the next 1-3 days for a more thorough evaluation and a possible referral to a specialist. Return the the emergency department immediately if symptoms worsen or change. If you have any questions regarding medications, ask your pharmacist or us before you leave. If any adverse reactions occur while taking your medications, discontinue the treatment and return to the emergency department immediately. Take your medications as directed, and complete the entire course of treatment. SCOTT GARCIA PA-C Mar 14, 2017 17:13
[2017-03-14] MEDS ORDERED: FAMOTIDINE 20 MG INJ IV ONE (17:30)
[2017-03-14] MEDS ORDERED: NITR-58 PO (19:10)
[2017-03-14] MEDS ORDERED: PHEN-537 PO (19:10)
[2017-03-14] MEDS ORDERED: ONDA4TAB14 PO (19:16)
[2017-03-14 19:28] VITALS: BP 109/59; PULSE 70; RESP 16; TEMP 98.3
== END 2017-03-14 19:29 | disposition home or self-care (01) ==
LOC: FTE 13:49
DX: N39.0 Urinary tract infection, site not specified (principal); J45.909 Unspecified asthma, uncomplicated; I10 Essential (primary) hypertension; E11.9 Type 2 diabetes mellitus without complications; Z79.82 Long term (current) use of aspirin; Z79.84 Long term (current) use of oral hypoglycemic drugs
CPT/HCPCS: 36415; 80053; 81001; 83690; 85025; 96374; Z7502; Z7610

== ENCOUNTER 2017-04-27 05:46 | Observation (INO) | payer OTHER ==
[2017-04-27] VITALS (35 sets, daily range): BP systolic 93–125; BP diastolic 46–72; PULSE 70–84; RESP 12–20; Ht 167.6 cm; Wt 86.6 kg
[~2017-04-27] VITALS: Ht 167.6 cm; Wt 86.6 kg
[~2017-04-27 05:46] MED LIST changes: +NITR-58 PO; +ONDA4TAB14 PO; +PHEN-537 PO
[2017-04-27] MEDS ORDERED: CEFAZOLIN 2 GM/50 ML (PMX) 50 ML IVPB SCH (07:00)
[2017-04-27] MEDS ORDERED: SOD CHLORIDE 0.9% 1,000 ML IV SCH (07:00)
[2017-04-27 07:52] LABS: BASOPHILS % 0.6 % (0.0-2.0); EOSINOPHILS # 0.2 10^3/ul (0.0-0.5); EOSINOPHILS % 3.2 % (0.0-7.0); HEMATOCRIT 37.7 % (37.0-47.0); HEMOGLOBIN 12.7 g/dl (12.0-16.0); LYMPHOCYTES # 2.2 10^3/ul (0.8-2.9); LYMPHOCYTES % 30.2 % (15.0-51.0); MEAN CORPUSCULAR HEMOGLOBIN 29.5 pg (29.0-33.0); MEAN CORPUSCULAR HGB CONC 33.7 g/dl (32.0-37.0); MEAN CORPUSCULAR VOLUME 87.5 fl (82.0-101.0); MEAN PLATELET VOLUME 12.6 fl (7.4-10.4); MONOCYTE # 0.5 10^3/ul (0.3-0.9); NEUTROPHIL # 4.2 10^3/ul (1.6-7.5); NEUTROPHILS % 58.7 % (39.0-77.0); PLATELET COUNT 224 10^3/UL (140-415); RED BLOOD COUNT 4.31 10^6/ul (4.20-5.40); RED CELL DISTRIBUTION WIDTH 13.5 % (11.5-14.5); WHITE BLOOD COUNT 7.2 10^3/ul (4.8-10.8)
[2017-04-27 07:56] LABS: INR 0.89; PROTIME 12.1 Sec (11.9-14.9); PT RATIO 0.9
[2017-04-27 07:57] LABS: ALBUMIN 3.9 g/dl (3.3-4.9); ALBUMIN/GLOBULIN RATIO 1.25; BILIRUBIN,INDIRECT 0.2 mg/dl (0-1.1); BILIRUBIN,TOTAL 0.2 mg/dl (0.2-1.3)
[2017-04-27] MEDS ORDERED: BUPIVACAINE 0.25% (MPF) 30 ML INJ ONE (07:57)
[2017-04-27 07:58] LABS: CALCIUM 9.1 mg/dl (8.4-10.2); CREATININE 0.61 mg/dl (0.44-1.00); POTASSIUM 4.2 mmol/L (3.5-5.1)
[2017-04-27] MEDS ORDERED: POLYMYXIN/BACITRACIN 1L IRRIG ONE (08:00)
[2017-04-27] MEDS ORDERED: SUCCINYLCHOLINE CHLORIDE 100 MG/5 ML SYG IV ONE (08:19)
[2017-04-27] MEDS ORDERED: PROPOFOL 20 ML ONE (08:19)
[2017-04-27] MEDS ORDERED: LIDOCAINE 2% (SDV) 5 ML INJ ONE (08:19)
[2017-04-27] MEDS ORDERED: ROCURONIUM 50 MG INJ ONE (08:19)
[2017-04-27] MEDS ORDERED: MIDAZOLAM 1 MG/ML 2 ML INJ ONE (08:19)
[2017-04-27] MEDS ORDERED: FENTAnyl 50 MCG/ML VIAL ONE (08:21)
[2017-04-27] MEDS ORDERED: PHENYLephrine (100 MCG/ML) 5ML SYG ONE (08:34)
[2017-04-27] MEDS ORDERED: CEFAZOLIN 1 GM INJ ONE (08:35)
[2017-04-27] MEDS ORDERED: ONDANSETRON 4 MG INJ ONE (08:45)
[2017-04-27] MEDS ORDERED: FAMOTIDINE 20 MG INJ ONE (08:45)
[2017-04-27] MEDS ORDERED: SUGAMMADEX SODIUM 200 MG/2 ML VIAL IV ONE ×2 (09:07→09:12)
[2017-04-27] MEDS ORDERED: KETOROLAC 30 MG INJ ONE (09:09)
--- NOTE | 2017-04-27 09:22 | OPR ---
Date/Time of Note Date/Time of Note DATE: 04/27/17 TIME: 09:18 Operative Report Procedure Date: Apr 27, 2017 Preoperative Diagnosis right inguinal hernia Postoperative Diagnosis incarcerated right inguinal hernia Operation/Procedure Performed 1. open incarcerated right inguinal hernia repair with medium ultrapro hernia system mesh 2. therapeutic injection of subcutaneous local anesthesia cpt code 42146 Surgeon see signature line Senior Director Marketing none Anesthesia Type: general Estimated Blood Loss: 0 - 10 ml's Transfusion none Specimen none Grafts/Implants none Complications none Pt Condition Post Procedure: stable Indications This is a 56-year-old female with obesity who has attempted weight loss and has not been able to lose any weight for hernia surgery. She requests surgical repair of her right inguinal hernia. Risks alternatives benefits and percent were discussed the patient. Patient expressed understanding consents to the operation. Procedure Description Patient is taken to the OR and prepped and draped in usual sterile fashion. Surgical timeout was performed. IV antibiotics given. Right inguinal oblique incision was made with a 10 blade. Dissection Carrs carried onto the extremity fascia. The extremity fascia is opened. The hernia is identified the round ligament is identified and divided. The hernia is manually reduced. The disc portion of the ultrapure hernia system mesh is secured in place with a running 0 Prolene from the pubic tubercle along the shelving of the inguinal ligament. Superiorly to enter oblique the disc is secured with interrupted 0 Vicryl. [place] mesh is secured in a similar fashion with a running 0 Prolene from the pubic tubercle along the shelving of the inguinal ligament. The onlay mesh was secured to intra-bleed with interrupted 3-0 Vicryl. Externally fascia was closed with a running 3-0 Vicryl. Rhiannon's fascia was closed with interrupted 3 -0 Vicryl. Skin was closed using absorbable skin staplers. Therapeutic subcutaneous local anesthesia was injected throughout the incision site. Dry dressings were applied. Matt STEIN Apr 27, 2017 09:22
[2017-04-27] MEDS ORDERED: OXYCODONE/ACETAMINOPHEN (5/325) TAB PO PRN (09:30)
[2017-04-27] MEDS ORDERED: HYDROmorphONE (0.2 MG/ML) 10ML SYG IV PRN (09:30)
[2017-04-27] MEDS ORDERED: DIPHENHYDRAMINE 50 MG INJ IV PRN (09:30)
[2017-04-27] MEDS ORDERED: hydrALAzine 20 MG INJ IV PRN (09:30)
[2017-04-27] MEDS ORDERED: HYDROCODONE/APAP (5/325) TAB PO ONE (09:30)
[2017-04-27] MEDS ORDERED: FENTAnyl 50 MCG/ML VIAL IV PRN (09:30)
[2017-04-27] MEDS ORDERED: ONDANSETRON 4 MG INJ IV PRN ×2 (09:30→15:00)
[2017-04-27] MEDS ORDERED: PROCHLORPERAZINE 10 MG INJ IV PRN (09:30)
[2017-04-27] MEDS ORDERED: MEPERIDINE 25 MG INJ IV PRN (09:30)
[2017-04-27] MEDS ORDERED: LABETALOL HCL 20MG INJ IV PRN (09:30)
[2017-04-27] MEDS ORDERED: HYDROmorphONE 0.5 MG/0.5 ML SYG IV PRN ×2 (14:45→15:00)
[2017-04-27] MEDS ORDERED: ACETAMINOPHEN 325 MG TAB PO PRN (15:00)
[2017-04-27] MEDS ORDERED: GLUCOSE GEL 15 GRAM TUBE BUCCAL PRN (15:30)
[2017-04-27] MEDS ORDERED: GLUCOSE GEL 15 GRAM TUBE PO PRN ×2 (15:30)
[2017-04-27] MEDS ORDERED: DEXTROSE 50% 50 ML SYRINGE IV PRN ×2 (15:30)
[2017-04-27] MEDS ORDERED: GLUCAGON 1 MG INJ IM PRN (15:30)
[2017-04-27] MEDS: SOD CHLORIDE 0.45% 1,000 ML IV SCH (16:15)
[2017-04-27] MEDS ORDERED: INSULIN ASPART [NOVOLOG] 3 ML PEN SC SCH (17:55)
[2017-04-27] MEDS: HYDROCODONE/APAP (5/325) TAB PO PRN ×2 (18:07→22:09)
[2017-04-27] MEDS ORDERED: HYPOGLYCEMIA PROTOCOL when Glucose is <70 mg/dL or symptomatic <90 mg/dL. XX ONE (18:30)
[2017-04-27] MEDS ORDERED: Discontinue current oral sulfonylureas (glyburide, glipizide, and/or glimepiride) prior to XX ONE (18:30)
[2017-04-27] MEDS: INSULIN ASPART [NOVOLOG] 3 ML PEN SC SCH (22:04)
[2017-04-28] VITALS: BP 100/59; RESP 20
[2017-04-28] MEDS ORDERED: ACCU-CHEK XX SCH ×2 (02:00)
--- NOTE | 2017-04-28 03:01 | HP ---
DATE OF ADMISSION: 04/27/2017 HISTORY OF PRESENT ILLNESS: The patient is a 56-year-old pleasant female with past medical history positive for hypertension, diabetes mellitus, hyperlipidemia. Patient was evaluated by Dr. Stein in [facility] eneral surgery for right inguinal hernia and patient was brought to the hospital and underwent open incarcerated right inguinal hernia repair with mesh implantation. patient experienced signifi cant pain and the patient is admitted for further evaluation and management. PAST MEDICAL HISTORY: Patient has a prior history a left inguinal hernia repair by Dr. Stein 3 months ago. SOCIAL HISTORY: The patient lives with her family. The patient denies any tobacco use, denies any illicit drug use, denies any alcohol use. FAMILY HISTORY: Mother and grandmother with history of diabetes. ALLERGIES: NO KNOWN ALLERGIES. HOME MEDICATIONS: Include: 1. Albuterol. 2. Atorvastatin. 3. Fluoxetine. 4. Metformin. REVIEW OF SYSTEMS: A 12-point review of systems is negative unless what mentioned in the HPI. PHYSICAL ASSESSMENT: GENERAL: Well-developed, obese female currently is awake, alert. VITAL SIGNS: Temperature is 98.0, pulse 70, blood pressure 100/51, respiratory rate 16, oxygen satu ration 94% on room air. HEENT: Head is atraumatic, normocephalic. Pupils equal, round, reactive to light. Oral mucosa is pink and moist. NECK: Supple, no cervical lymphadenopathy, no thyromegaly. CHEST: Lungs clear to auscultation bilaterally. There are no rhonchi, wheezes, rales noted. CARDIOVASCULAR: Normal S1, S2. No murmurs, gallops, clicks, rubs noted. ABDOMEN: Protuberant, soft, nondistended, nontender. Bowel sounds are hypoactive bowel status post -surgery with a dry, clean and intact incision. EXTREMITIES: No edema, clubbing, cyanosis. SKIN: There is no rash, petechiae noted. NEUROLOGIC: Patient is awake, alert and oriented x4. No focal deficits noted. Motor strength 5/5 in all extremities. LABORATORY DATA: On admission, CBC: White blood cells 7.2, hemoglobin 12.7, hematocrit 37.7, plate lets 224. Chemistry: Sodium is 144, potassium 4.2, chloride 105, carbon dioxide 28, anion gap 15, BUN is 11, creatinine 0.61, glucose 184, AST is 29, ALT 41, alkaline phosphatase 81. ASSESSMENT AND PLAN: 1. Incarcerated right inguinal hernia status post open hernia repair with mesh by Dr. Stein on 2016; will continue postoperative antibiotics, intravenous fluids; [place] and Dilaudid for pain, Zofr an p.r.n. for nausea. 2. Diabetes mellitus type 2. Will check hemoglobin A1c. Continue NovoLog per mild algorithm slidi ng scale. 3. History of hypertension. Patient stated that her blood pressure has been stable and she does no t take any medication for that. 4. Hyperlipidemia. 5. Depression. Continue fluoxetine. Will obtain CBC and BMP and magnesium level tomorrow. Continue sequential compression device for de ep venous thrombosis prophylaxis. Advance diet per surgery. Further recommendations based on clinical course. Plan of care discussed with Dr. Johnson. Dictated By: BRIELLE ALATORRE AUTOMOTIVE SERVICE CONSULTANT for GARRY JOHNSON MD SR/NTS Conf#: [id number] DID#: [id number] CC: IRVING STEIN MD; BRIELLE ALATORRE NP;*EndCC*
[2017-04-28] MEDS: SOD CHLORIDE 0.45% 1,000 ML IV SCH (04:06)
[2017-04-28] MEDS: HYDROCODONE/APAP (5/325) TAB PO PRN ×3 (04:10→13:12)
[2017-04-28 05:39] LABS: BASOPHILS % 0.3 % (0.0-2.0); EOSINOPHILS # 0.2 10^3/ul (0.0-0.5); EOSINOPHILS % 2.5 % (0.0-7.0); HEMATOCRIT 34.5 % (37.0-47.0); HEMOGLOBIN 11.3 g/dl (12.0-16.0); LYMPHOCYTES % 26.7 % (15.0-51.0); MEAN CORPUSCULAR HEMOGLOBIN 29.4 pg (29.0-33.0); MEAN CORPUSCULAR HGB CONC 32.8 g/dl (32.0-37.0); MEAN CORPUSCULAR VOLUME 89.6 fl (82.0-101.0); MEAN PLATELET VOLUME 12.2 fl (7.4-10.4); MONOCYTE # 0.6 10^3/ul (0.3-0.9); MONOCYTES % 7.4 % (0.0-11.0); NEUTROPHIL # 4.7 10^3/ul (1.6-7.5); PLATELET COUNT 195 10^3/UL (140-415); RED BLOOD COUNT 3.85 10^6/ul (4.20-5.40); RED CELL DISTRIBUTION WIDTH 13.7 % (11.5-14.5); WHITE BLOOD COUNT 7.5 10^3/ul (4.8-10.8)
[2017-04-28 06:03] LABS: CALCIUM 8.4 mg/dl (8.4-10.2); CREATININE 0.63 mg/dl (0.44-1.00)
[2017-04-28 07:42] VITALS: BP 104/56; RESP 20
[2017-04-28] MEDS ORDERED: FLUOXETINE 20 MG CAP PO SCH (09:30)
[2017-04-28] MEDS ORDERED: ALBUTEROL HFA 8 GM INHALER INH PRN (09:30)
[2017-04-28] MEDS: INSULIN ASPART [NOVOLOG] 3 ML PEN SC SCH ×2 (09:44→13:15)
[2017-04-28] MEDS ORDERED: MAGNESIUM SULFATE 2 GM/50 ML 50 ML IVPB ONE (10:00)
--- NOTE | 2017-04-28 11:37 | PN ---
Date/Time of Note Date/Time of Note DATE: 04/28/17 TIME: 11:36 Assessment/Plan VTE Prophylaxis VTE Prophylaxis Intervention: other Lines/Catheters IV Catheter Type (from Nrs): Peripheral IV Urinary Cath still in place: No Assessment/Plan Chief Complaint/Hosp Course 1. Incarcerated right inguinal hernia status post open hernia repair with mesh by Dr. March on 04/27/2017; will continue postoperative antibiotics, intravenous fluids; [place] and Dilaudid for pain, Zofran p.r.n. for nausea. 2. Diabetes mellitus type 2. Will check hemoglobin A1c. Continue NovoLog per mild algorithm sliding scale. 3. History of hypertension. Patient stated that her blood pressure has been stable and she does not take any medication for that. 4. Hyperlipidemia. 5. Depression. Continue fluoxetine. Problems: Subjective 24 Hr Interval Summary Free Text/Dictation Patient complains of pain Exam/Review of Systems Vital Signs Vitals Vital Signs Date Time Temp Pulse Resp B/P Pulse Ox O2 Delivery O2 Flow Rate FiO2 04/28/17 07:42 98.1 76 20 104/56 93 04/27/17 18:30 Room Air 04/27/17 10:38 2.0 Intake and Output 04/27/17 04/27/17 04/28/17 15:00 23:00 07:00 Intake Total 600 ml 315 ml 1380 ml Output Total 10 ml Balance 590 ml 315 ml 1380 ml Exam Constitutional: well developed Head: atraumatic, normocephalic Neck: supple Respiratory: clear to auscultation Cardiovascular: regular rate and rhythm Gastrointestinal: non-tender, soft Extremities: normal pulses Results Result Diagram: 04/28/17 0439 04/28/17 0439 Results 24 hrs Laboratory Tests Test 04/27/17 12:36 04/27/17 17:35 04/27/17 20:46 04/27/17 22:00 Bedside Glucose 209 139 202 329 H Test 04/28/17 02:09 04/28/17 04:39 04/28/17 08:24 Bedside Glucose 235 H 181 White Blood Count 7.5 Red Blood Count 3.85 L Hemoglobin 11.3 L Hematocrit 34.5 L Mean Corpuscular Volume 89.6 Mean Corpuscular Hemoglobin 29.4 Mean Corpuscular Hemoglobin Concent 32.8 Red Cell Distribution Width 13.7 Platelet Count 195 Mean Platelet Volume 12.2 H Neutrophils % 63.0 Lymphocytes % 26.7 Monocytes % 7.4 Eosinophils % 2.5 Basophils % 0.3 Nucleated Red Blood Cells % 0.0 Neutrophils # 4.7 Lymphocytes # 2.0 Monocytes # 0.6 Eosinophils # 0.2 Basophils # 0.0 Nucleated Red Blood Cells # 0.0 Sodium Level 140 Potassium Level 4.0 Chloride Level 105 Carbon Dioxide Level 27 Anion Gap 12 Blood Urea Nitrogen 12 Creatinine 0.63 Glucose Level 228 H Calcium Level 8.4 Magnesium Level 1.3 L Medications Medications Current Medications Hydromorphone HCl (Dilaudid) 0.5 mg Q2 PRN IV PAIN Last administered on 16:16; Admin Dose 0.5 MG; Start 04/27/17 at 14:45 Ondansetron HCl (Zofran Inj) 4 mg Q6H PRN IV NAUSEA AND/OR VOMITING; Start 04/27/17 at 15:00 Diagnostic Test (Pha) (Accu-Chek) 1 ea 02 XX ; Start 04/28/17 at 02:00 Hydromorphone HCl (Dilaudid) 0.5 mg Q4H PRN IV PAIN; Start 04/27/17 at 15:00 Acetaminophen/ Hydrocodone Bitart ([place] (5/325)) 1 tab Q4H PRN PO PAIN Last administered on 04/28/17 08:21; Admin Dose 1 TAB; Start 04/27/17 at 15:00 Acetaminophen 650 mg 650 mg Q4H PRN PO PAIN AND OR ELEVATED TEMP; Start at 15:00 Sodium Chloride (1/2 NS) 1,000 ml @ 75 mls/hr [id number] IV Last administered on 04/28/17 04:06; Admin Dose 75 MLS/HR; Start 04/27/17 at 15:00 Miscellaneous Information 1 ea NOTE XX ; Start 04/27/17 at 15:30 Glucose (Glutose) 15 gm Q15M PRN PO DECREASED GLUCOSE; Start 04/27/17 at 15:30 Glucose (Glutose) 22.5 gm Q15M PRN PO DECREASED GLUCOSE; Start 04/27/17 at 15: 30 Dextrose (D50w Syringe) 25 ml Q15M PRN IV DECREASED GLUCOSE; Start 04/27/17 at 15:30 Dextrose (D50w Syringe) 50 ml Q15M PRN IV DECREASED GLUCOSE; Start 04/27/17 at 15:30 Glucagon (Glucagen) 1 mg Q15M PRN IM DECREASED GLUCOSE; Start 04/27/17 at 15:30 Glucose (Glutose) 15 gm Q15M PRN BUCCAL DECREASED GLUCOSE; Start 04/27/17 at 15 :30 Diagnostic Test (Pha) 1 ea 1 ea 02 XX ; Start 04/28/17 at 02:00 Magnesium Sulfate (Magnesium Sulfate 2 Gm/50 ml) 50 ml @ 25 mls/hr ONCE ONCE IVPB Last administered on 04/28/17 10:54; Admin Dose 25 MLS/HR; Start at 10:00; Stop 04/28/17 at 11:59 Atorvastatin Calcium (Lipitor) 40 mg QHS PO ; Start 04/28/17 at 21:00 Fluoxetine HCl (Prozac) 40 mg QAM PO Last administered on 04/28/17 10:54; Admin Dose 40 MG; Start 04/28/17 at 09:30 GOSIA FREY Apr 28, 2017 11:37
--- NOTE | 2017-04-28 15:55 | PN ---
DATE: 04/28/2017 No complaint, is status post inguinal hernia repair, postoperative day #1. SUBJECTIVE: No new complaints, some pain, which has been controlled by pain medication. OBJECTIVE: VITAL SIGNS: Temperature is 99.1, heart rate 77, respirations 20, blood pressure 100/59, saturation 100 on room air. LABORATORY DATA: WBC 7500 with 63% segmented. Chemistry: Blood sugar is elevated, 228. HEART: Regular. LUNGS: Clear. ABDOMEN: Soft. Dressing is intact. ASSESSMENT: Postop day #1. The patient with some obesity had right inguinal hernia repair with mes h. Vital signs postop day #1 are stable. The patient has walked around, has had breakfast. The pa jamee can be discharged home to be followed by Dr. March in his office. Dictated By: HOSEA SIFUENTES MD PS/NTS Conf#: [id number] DID#: [id number] CC: IRVING MARCH MD;*EndCC*
[2017-04-28] MEDS ORDERED: metFORMIN 500 MG TAB PO SCH (17:55)
[2017-04-28] MEDS ORDERED: ATORVASTATIN 40 MG TAB PO SCH (21:00)
--- NOTE | 2017-05-01 14:22 | RADRPT ---
Vent Rate: 75 bpm RR Interval: 0 msec VT Interval: 118 msec QRS Duration: 84 msec QT Interval: 426 msec QTC Interval: 475 msec P-R-T [place]: 0 - -41 - 20 degrees Normal sinus rhythm Left axis deviation Nonspecific T wave abnormality Prolonged QT Abnormal ECG Electronically Signed By: Warren Lacey [id number]
== END 2017-04-28 14:05 | disposition home or self-care (01) ==
LOC: SDS 05:46 → REC 13:07 → SDS 13:07 → MS1 15:20
PROVIDERS: ADMIT Surgery; ATTEND Surgery
DX: K40.30 Unilateral inguinal hernia, with obstruction, without gangrene, not specified as recurrent (principal); E11.9 Type 2 diabetes mellitus without complications; Z79.84 Long term (current) use of oral hypoglycemic drugs; I10 Essential (primary) hypertension; E78.5 Hyperlipidemia, unspecified; F32.9 Major depressive disorder, single episode, unspecified; J45.909 Unspecified asthma, uncomplicated
CPT/HCPCS: 49507; 80048; 80053; 82962; 83036; 83735; 85025; 85610; 85730; 93005; C1781; J0690; J1170; J1815; J1885; J2250; J2370; J2405; J3010; J3475; Z7500; Z7512; Z7610; 99217; G0378

== ENCOUNTER 2017-05-16 09:59 | Emergency (ER) | payer OTHER ==
[~2017-05-16] VITALS: Wt 88.0 kg
[~2017-05-16 09:59] MED LIST changes: -AMOX1TAB10 PO; -ASPI81TA3 PO; -AZIT250T94 PO; -GLIP-95 PO; -LORA10CA PO; -MOME13HF2 INHALATION; -NITR-58 PO; -NITR0.4T32 SL; -ONDA4TAB14 PO; -OXYC-279 PO; -PHEN-537 PO; -PRED20TA PO; -TAMS-14 PO
[2017-05-16] MEDS ORDERED: CETI10CA PO (12:38)
[2017-05-16] MEDS ORDERED: FLUT9.9S NASAL (12:38)
[2017-05-16] MEDS ORDERED: UDROBDM PO (12:38)
[2017-05-16] MEDS ORDERED: ALBU18HF INHALATION (12:38)
--- NOTE | 2017-05-16 12:52 | ERD ---
ER Documentation Chief Complaint Chief Complaint cough, has asthma HPI 56-year-old female with a history of asthma comes in with cough, congestion, sore throat rhinorrhea for about 3 days. She did describes a dry cough, and reports that she has been using Ventolin but needs a refill. Cough is been dry. She denies chest pain, shortness breath, hemoptysis, fevers or chills. ROS All systems reviewed and are negative except as per history of present illness. Medications Home Meds Active Scripts Guaifenesin-Dextromethorphan* (Robitussin* DM) 100MG/10MG/5ML Syrup, 5 ML PO Q4H Y for COUGH, #4 OZ Prov:JAYLYN MCCOY PA-C 05/16/17 Cetirizine Hcl* (Zyrtec*) 10 Mg Capsule, 10 MG PO DAILY, #10 TAB.CHEW Prov:JAYLYN MCCOY PA-C 05/16/17 Fluticasone Propionate (Flonase Allergy Relief) 9.9 Ml Rhododendron.susp, 1 SPRAY NASAL BID, #1 BOTTLE TO EACH NOSTRIL Prov:JAYLYN MCCOY PA-C 05/16/17 Albuterol Sulfate* (Ventolin HFA*) 18 Gm Hfa.aer.ad, 2 PUFF INHALATION Q4H, #1 INHALER Prov:JAYLYN MCCOY PA-C 05/16/17 Reported Medications Albuterol Sulfate* (Proair HFA*) 8.5 Gm Hfa.aer.ad, 2 PUFF INH Q4H Y for WHEEZING AND SOB, #1 INHALER 01/15/17 Fluoxetine Hcl* (Fluoxetine Hcl*) 40 Mg Capsule, 40 MG PO QAM, CAP 09/10/16 Metformin Hcl* (Metformin Hcl*) 1,000 Mg Tablet, 500 MG PO WITH BREAKFAST DINNE , #30 TAB 08/04/16 Atorvastatin* (Atorvastatin*) 40 Mg Tablet, 40 MG PO QHS, #30 TAB 12/05/15 Allergies Allergies: Coded Allergies: No Known Allergy (Unverified , 05/16/17) PMhx/Soc History of Surgery: Yes (cholecystectomy, lt hernia repair, 3c-section, umbilicus hernia repair) Anesthesia Reaction: No Hx Neurological Disorder: No Hx Respiratory Disorders: Yes (asthma) Hx Cardiac Disorders: Yes (HTN, Hypercholesteremia) Hx Psychiatric Problems: Yes (depression) Hx Miscellaneous Medical Probl: No Hx Alcohol Use: No Hx Substance Use: No Hx Tobacco Use: No Smoking Status: Never smoker Physical Exam Vitals Vital Signs Date Time Temp Pulse Resp B/P Pulse Ox O2 Delivery O2 Flow Rate FiO2 05/16/17 10:05 97.8 91 18 133/63 99 Physical Exam General: Well-developed, well-nourished. The patient appears in no acute distress. HEENT: Head is normocephalic, atraumatic. No scleral icterus. TMs normal, oropharynx is clear. Neck: Supple. Nontender. Lungs: Clear to auscultation. Normal air movement. Heart: Regular rate and rhythm. S1 and S2 are normal. No murmurs, gallops, or rubs. Abdomen: Nondistended. Extremities: No clubbing or cyanosis. Moving extremities x 4. No weakness. Neurologic: Alert and oriented 3. No focal deficits. Normal speech and gait. Skin: Normal turgor. No rash or lesions. Procedures/MDM The patient is a 56-year-old female who comes in with an acute upper respiratory infection, presumed viral. The patient has a differential diagnosis of a viral upper respiratory infection, bacterial upper respiratory infection, bronchitis, pneumonia, pharyngitis, laryngitis, epiglottitis, croup, pneumonia. Patient has a normal pulmonary examination, clear breath sounds, normal pulse oximetry, with no corrective measures needed at this time. Fluids, rest, antipyretics were encouraged. Departure Diagnosis: Primary Impression: Cough Additional Impression: Asthma Patient Instructions: Asthma, Acute (Adult), Uri, Viral, No Abx (Adult) JAYLYN MCCOY PA-C May 16, 2017 12:52
== END 2017-05-16 12:45 | disposition home or self-care (01) ==
LOC: FTE 09:59
DX: J45.909 Unspecified asthma, uncomplicated (principal); I10 Essential (primary) hypertension; Z79.84 Long term (current) use of oral hypoglycemic drugs
CPT/HCPCS: 99283

== ENCOUNTER 2017-08-11 07:11 | Emergency (ER) | END 2017-08-11 11:30 | disposition home or self-care (01) ==

== ENCOUNTER 2017-08-22 16:41 | Emergency (ER) | END 2017-08-22 22:03 | disposition home or self-care (01) ==

== ENCOUNTER 2017-09-25 15:22 | Emergency (ER) | END 2017-09-25 17:22 | disposition home or self-care (01) ==

== ENCOUNTER 2017-11-01 19:18 | Emergency (ER) | END 2017-11-01 23:34 | disposition home or self-care (01) ==

== ENCOUNTER 2017-12-16 12:11 | Emergency (ER) | END 2017-12-16 19:02 | disposition home or self-care (01) ==

== ENCOUNTER 2018-04-11 08:22 | Emergency (ER) | END 2018-04-11 09:59 | disposition home or self-care (01) ==

== ENCOUNTER 2018-05-14 11:09 | Emergency (ER) | END 2018-05-14 13:57 | disposition home or self-care (01) ==

== ENCOUNTER 2018-05-17 13:42 | Emergency (ER) | payer OTHER ==
[~2018-05-17] VITALS: Ht 165.1 cm; Wt 90.6 kg
[~2018-05-17 13:42] MED LIST changes: +ACET325T33 PO; +ALBU18HF INHALATION; -ALBU8.5H3 INH; +BENZ-6 PO; +CEPH-443 PO; +CETI10CA PO; +ERYT1OIN6 BOTH EYES; +GLIP10TA14 PO; +IBUP-1542 PO; +INSU100I33 SC; +LISI2.5T59 PO; -METF1000 PO; +METF100010 PO; +MOME13HF2 INHALATION
[2018-05-17 13:47] VITALS: BP 122/73; PULSE 83; RESP 18; Ht 165.1 cm; Wt 90.6 kg
--- NOTE | 2018-05-17 14:26 | ERD ---
ER Documentation Chief Complaint Chief Complaint pt bib family with c/o cough and pain with respiration, HPI 57-year-old female, presents to the emergency department, complaining of worsening of cough, chest congestion, runny nose and general malaise. The patient has been seen twice during the last week in the emergency department and had a negative workup for acute coronary event. The patient has been using pro-air without improvement of the symptoms. Other associated symptoms include subjective fever, chills and generalized arthralgia. ROS All systems reviewed and are negative except as per history of present illness. Medications Home Meds Active Scripts Guaifenesin-Codeine Phosphate* (Guaifenesin* AC Cough Syrup) 473 Ml Liquid, 5 ML PO QHS PRN for COUGH, #60 ML Prov:PRUDENCIO VANESSA MD 05/17/18 Inhaler, Assist Devices (Compact Space Chamber) 1 Each Spacer, EACH MC QID PRN for COUGH, #1 Prov:PRUDENCIO VANESSA MD 05/17/18 Albuterol Sulfate* (Proair HFA*) 8.5 Gm Hfa.aer.ad, 2 PUFF INH Q4H PRN for WHE EZING AND SOB, #1 INHALER Prov:PRUDENCIO VANESSA MD 05/17/18 Amoxicillin* (Amoxicillin*) 500 Mg Cap, 500 MG PO TID for 7 Days, CAP Prov:PRUDENCIO VANESSA MD 05/17/18 Azithromycin* (Zithromax*) 250 Mg Tablet, 250 MG PO .ZPACK DIRECTED, #6 TAB TAKE 500 MG (2 TABS) THE FIRST DAY THEN 250 MG (1 TAB) DAYS 2-5 Prov:PRUDENCIO VANESSA MD 05/17/18 Acetaminophen* (Tylenol*) 325 Mg Tablet, 2 TAB PO Q6 PRN for PAIN AND OR ELEVATED TEMP, #30 TAB Prov:TAWANA NOONAN PA-C 04/11/18 Cetirizine Hcl* (Zyrtec*) 10 Mg Capsule, 10 MG PO DAILY, #30 TAB.CHEW Prov:TAWANA NOONAN PA-C 04/11/18 Benzonatate* (Tessalon Perle*) 100 Mg Capsule, 100 MG PO Q8H PRN for COUGH, #30 CAP Prov:TAWANA NOONAN PA-C 04/11/18 Erythromycin Base (Erythromycin) 1 Gm Oint...g., 1 APPLIC BOTH EYES QID for 7 Days Prov:TAWANA NOONAN PA-C 04/11/18 Ibuprofen* (Motrin*) 600 Mg Tab, 600 MG PO Q6H PRN for PAIN, #30 TAB Prov:NATE ALVAREZ MD 12/16/17 Cephalexin* (Keflex*) 500 Mg Capsule, 500 MG PO BID for 5 Days, CAP Prov:NATE ALVAREZ MD 11/01/17 Reported Medications Glipizide* (Glipizide*) 10 Mg Tablet, 10 MG PO AC BREAKFAST DINNER, TAB 11/01/17 Mometasone-Formoterol (Dulera) 100-5 Mcg - 13 Gm Hfa.aer.ad, 2 PUFFS INHALATION BID, #1 INHALER 08/22/17 Albuterol Sulfate* (Ventolin HFA*) 18 Gm Hfa.aer.ad, 2 PUFF INHALATION Q4H, #1 INHALER 08/22/17 Fluoxetine Hcl* (Fluoxetine Hcl*) 40 Mg Capsule, 40 MG PO DAILY, CAP 08/22/17 Atorvastatin* (Atorvastatin*) 40 Mg Tablet, 40 MG PO QHS, #30 TAB 08/22/17 Lisinopril* (Lisinopril*) 2.5 Mg Tablet, 2.5 MG PO DAILY, #30 TAB 08/22/17 Insulin Glargine,Hum.rec.anlog (Kervinaglar Kwikpen U-100) 100 Unit/1 Ml Insuln.pen , 50 UNIT SC QHS, EA 08/22/17 Metformin Hcl* (Metformin Hcl*) 1,000 Mg Tablet, 1000 MG PO WITH BREAKFAST DINNE, #60 TAB 08/22/17 Allergies Allergies: Coded Allergies: No Known Allergy (Unverified , 05/14/18) PMhx/Soc History of Surgery: Yes (HERNIA REPAIR) Anesthesia Reaction: No Hx Neurological Disorder: No Hx Respiratory Disorders: No Hx Cardiac Disorders: Yes (Hypertension, hyperlipidemia, diabetes) Hx Psychiatric Problems: Yes (depression) Hx Miscellaneous Medical Probl: Yes (KIDNEY STONES) Hx Alcohol Use: No Hx Substance Use: No Hx Tobacco Use: No Smoking Status: Never smoker FmHx Family History: No diabetes, No coronary disease Physical Exam Vitals Vital Signs Date Temp Pulse Resp B/P (MAP) Pulse Ox O2 O2 Flow FiO2 Time Delivery Rate 05/17/18 87 18 98 21 17:00 05/17/18 86 20 96 21 15:10 05/17/18 97.8 83 18 122/73 95 13:47 (89) Physical Exam Const: No acute distress Head: Atraumatic Eyes: Normal Conjunctiva ENT: Erythematous oropharynx normal External Ears, Nose and Mouth. Neck: Full range of motion. No meningismus. Resp: Rhonchi to auscultation bilaterally Cardio: Regular rate and rhythm, no murmurs Abd: Soft, non tender, non distended. Normal bowel sounds Skin: No petechiae or rashes Back: No midline or flank tenderness Ext: No cyanosis, or edema Neur: Awake and alert Psych: Normal Mood and Affect Result Diagram: 05/17/18 1449 05/17/18 1449 Results 24 hrs Laboratory Tests Test 05/17/18 14:49 White Blood Count 6.3 10^3/ul Red Blood Count 4.47 10^6/ul Hemoglobin 13.0 g/dl Hematocrit 39.2 % Mean Corpuscular Volume 87.7 fl Mean Corpuscular Hemoglobin 29.1 pg Mean Corpuscular Hemoglobin Concent 33.2 g/dl Red Cell Distribution Width 13.0 % Platelet Count 203 10^3/UL Mean Platelet Volume 12.7 fl Immature Granulocytes % 0.500 % Neutrophils % 54.5 % Lymphocytes % 32.6 % Monocytes % 9.5 % Eosinophils % 2.4 % Basophils % 0.5 % Nucleated Red Blood Cells % 0.0 /100WBC Immature Granulocytes # 0.030 10^3/ul Neutrophils # 3.5 10^3/ul Lymphocytes # 2.1 10^3/ul Monocytes # 0.6 10^3/ul Eosinophils # 0.2 10^3/ul Basophils # 0.0 10^3/ul Nucleated Red Blood Cells # 0.0 10^3/ul Sodium Level 141 mmol/L Potassium Level 5.3 mmol/L Chloride Level 105 mmol/L Carbon Dioxide Level 25 mmol/L Anion Gap 11 Blood Urea Nitrogen 16 mg/dl Creatinine 0.56 mg/dl Est Glomerular Filtrat Rate mL/min > 60 mL/min Glucose Level 174 mg/dl Calcium Level 9.6 mg/dl Troponin I < 0.012 ng/ml Current Medications Medications Dose Sig/Roland Start Time Status Last (Trade) Ordered Route PRN Stop Time Admin Dose Reason Admin Sodium 1,000 ml @ Q1H STAT 05/17/18 DC 05/17/18 Chloride 1,000 mls/hr IV 14:34 14:40 05/17/18 15:33 Albuterol 5 mg ONCE STAT 05/17/18 DC 05/17/18 (Proventil NEB 14:34 14:59 0.083% (Neb)) 05/17/18 14:37 Ipratropium 0.5 mg ONCE STAT 05/17/18 DC 05/17/18 Flomot NEB 14:34 14:59 (Atrovent 05/17/18 0.02% 14:37 (Neb)) Ceftriaxone 50 ml @ ONCE ONCE 05/17/18 DC 05/17/18 Sodium 100 mls/hr IVPB 16:00 15:47 05/17/18 16:29 Albuterol 5 mg ONCE STAT 05/17/18 DC 05/17/18 (Proventil HHN 16:31 16:59 0.083% (Neb)) 05/17/18 16:37 Ipratropium 0.5 mg ONCE ONCE 05/17/18 DC 05/17/18 Flomot HHN 17:00 17:00 (Atrovent 05/17/18 0.02% 17:01 (Neb)) DIAGNOSTIC IMAGING REPORT Patient: MARK LEONARD : 1960 Age: 57 Sex: F MR #: [id number] DOS: 05/17/18 1434 Ordering MD: PRUDENCIO VANESSA MD Location: [facility] Room/Bed: PROCEDURE: XR Chest 1 View. CLINICAL INDICATION: Shortness of breath. Asthma exacerbation. TECHNIQUE: Single view of the chest was obtained. COMPARISON: DR NEGRO 05/14/2018 FINDINGS: Mediastinum: Within normal limits of size. Lungs: Hypoinflated lungs. Elevated right hemidiaphragm. Patchy atelectasis francheska samy mild infiltrates in the perihilar lower lobes. No pneumothorax. Osseous structures: Intact. Other: None. IMPRESSION: Patchy atelectasis versus mild infiltrates in the perihilar lower lobes. Hypoinflated lungs with a mildly elevated right hemidiaphragm. RPTAT: AA .Clyde Sherman MD, MD Date Time Electronically viewed and signed by .Clyde Sherman MD, MD on 05/17/2018 16:19 .P/ CC: PRUDENCIO VANESSA MD [phone] Procedures/MDM Vital signs stable, no respiratory distress. Differential diagnosis include but not limited to: Respiratory infection bacterial/viral/fungal. Croup, bronchiolitis, pneumonitis, allergies, GERD. Less likely foreign body aspiration, cardiac related. Physical examination and clinical presentation consistent most likely with viral infection with early superimposed bacterial infection. During the ED course the patient remained stable, no new complaints. Treatment options and clinical impression discussed with mother who agrees with management. The patient is stable to be treated outpatient and will be discharged home with a Rx for azithromycin, amoxicillin, pro-air and ibuprofen. Some side effects of prescribed medications (headache, rash, nausea, vomiting, diarrhea, interactions with other medications) were reviewed. The patient needs to follow up with the primary care provider in the next 48h. If symptoms persist, worsen or new symptoms develop, then patient should return to the ED immediately. Disclaimer: Inadvertent spelling and grammatical errors are likely due to EHR/dictation software use and do not reflect on the overall quality of patient care. Also, please note that the electronic time recorded on this note does not necessarily reflect the actual time of the patient encounter. Departure Diagnosis: Primary Impression: Cough Additional Impression: Superimposed infection Condition: Stable Additional Instructions: Thank you very much for allowing us to participate in your care. Your health and safety is our top priority at [facility]. Call your primary care doctor TOMORROW for an appointment during the next 2-4 days and bring all the information and medications prescribed. Have prescriptions filled and follow precisely the directions on the label. If the symptoms get worse and your provider is unavailable, return to the [facility] Department immediately. PRUDENCIO VANESSA MD May 17, 2018 14:26
[2018-05-17] MEDS ORDERED: SOD CHLORIDE 0.9% 1,000 ML IV STA (14:34)
[2018-05-17] MEDS ORDERED: ALBUTEROL 0.083% (NEB) 2.5 MG/3 ML AMP NEB STA (14:34)
[2018-05-17] MEDS ORDERED: IPRATROPIUM (NEB) 0.5 MG/2.5 ML AMP NEB STA (14:34)
[2018-05-17] MEDS ORDERED: CEFTRIAXONE 1 GM/50 ML (PMX) 50 ML IVPB ONE (16:00)
[2018-05-17] MEDS ORDERED: ALBUTEROL 0.083% (NEB) 2.5 MG/3 ML AMP HHN STA (16:31)
[2018-05-17] MEDS ORDERED: IPRATROPIUM (NEB) 0.5 MG/2.5 ML AMP HHN ONE (17:00)
[2018-05-17] MEDS ORDERED: AZIT250T PO (17:20)
[2018-05-17] MEDS ORDERED: GUAI473L22 PO (17:20)
[2018-05-17] MEDS ORDERED: AMOX500C2 PO (17:20)
[2018-05-17] MEDS ORDERED: INHA-3 MC (17:20)
[2018-05-17] MEDS ORDERED: ALBU8.5H8 INH (17:20)
== END 2018-05-17 17:36 | disposition home or self-care (01) ==
LOC: FTE 13:42
DX: A49.9 Bacterial infection, unspecified (principal); I10 Essential (primary) hypertension; E11.9 Type 2 diabetes mellitus without complications; Z79.4 Long term (current) use of insulin
CPT/HCPCS: 71045; 80048; 84484; 85025; 85378; 87400; 94640; 94664; J0696; J7030; Z7610; 93005; 96361; 96365

== ENCOUNTER 2018-06-10 12:37 | Emergency (ER) | payer OTHER ==
[~2018-06-10] VITALS: Wt 90.4 kg
[~2018-06-10 12:37] MED LIST changes: +ALBU8.5H8 INH; +AMOX500C2 PO; +AZIT250T PO; +GUAI473L22 PO; +INHA-3 MC
[2018-06-10] MEDS ORDERED: ONDANSETRON (ODT) 4 MG TAB ODT STA (15:13)
[2018-06-10] MEDS ORDERED: HYDROCODONE/APAP (5/325) TAB PO ONE (15:30)
[2018-06-10] MEDS ORDERED: CYCL10TA7 PO (16:22)
[2018-06-10] MEDS ORDERED: IBUP-1542 PO (16:22)
[2018-06-10] MEDS ORDERED: TRAM50TA2 PO (16:22)
--- NOTE | 2018-06-10 16:24 | ERD ---
ER Documentation Chief Complaint Chief Complaint bib self, cc; numbness on left leg radiating down leg, headache, lower back HPI 57-year-old female presents with approximate 3-day history of occipital headache. Does radiate from her neck. She denies any history of trauma or inciting events. She has an additional complaint of low back pain rating to the left leg without history of trauma, bowel or bladder incontinence, weakness. ROS All systems reviewed and are negative except as per history of present illness. Medications Home Meds Active Scripts Cyclobenzaprine Hcl* (Cyclobenzaprine Hcl*) 10 Mg Tablet, 10 MG PO TID, #15 TAB Prov:BRIDGET COKER MD 06/10/18 Tramadol HCl (Tramadol HCl) 50 Mg Tablet, 50 MG PO Q4 PRN for PAIN, #20 TAB Prov:BRIDGET COKER MD 06/10/18 Ibuprofen* (Motrin*) 600 Mg Tab, 600 MG PO Q6, #20 TAB Prov:BRIDGET COKER MD 06/10/18 Guaifenesin-Codeine Phosphate* (Guaifenesin* AC Cough Syrup) 473 Ml Liquid, 5 ML PO QHS PRN for COUGH, #60 ML Prov:PRUDENCIO VANESSA MD 05/17/18 Inhaler, Assist Devices (Compact Space Chamber) 1 Each Spacer, EACH MC QID PRN for COUGH, #1 Prov:PRUDENCIO VANESSA MD 05/17/18 Albuterol Sulfate* (Proair HFA*) 8.5 Gm Hfa.aer.ad, 2 PUFF INH Q4H PRN for WHEEZING AND SOB, #1 INHALER Prov:PRUDENCIO VANESSA MD 05/17/18 Amoxicillin* (Amoxicillin*) 500 Mg Cap, 500 MG PO TID for 7 Days, CAP Prov:PRUDENCIO VANESSA MD 05/17/18 Azithromycin* (Zithromax*) 250 Mg Tablet, 250 MG PO .ZPACK DIRECTED, #6 TAB TAKE 500 MG (2 TABS) THE FIRST DAY THEN 250 MG (1 TAB) DAYS 2-5 Prov:PRUDENCIO VANESSA MD 05/17/18 Acetaminophen* (Tylenol*) 325 Mg Tablet, 2 TAB PO Q6 PRN for PAIN AND OR ELEVATED TEMP, #30 TAB Prov:TAWANA NOONAN PA-C 04/11/18 Cetirizine Hcl* (Zyrtec*) 10 Mg Capsule, 10 MG PO DAILY, #30 TAB.CHEW Prov:TAWANA NOONAN PA-C 04/11/18 Benzonatate* (Tessalon Perle*) 100 Mg Capsule, 100 MG PO Q8H PRN for COUGH, #30 CAP Prov:TAWANA NOONAN PA-C 04/11/18 Erythromycin Base (Erythromycin) 1 Gm Oint...g., 1 APPLIC BOTH EYES QID for 7 Days Prov:TAWANA NOONAN PA-C 04/11/18 Ibuprofen* (Motrin*) 600 Mg Tab, 600 MG PO Q6H PRN for PAIN, #30 TAB Prov:NATE ALVAREZ MD 12/16/17 Cephalexin* (Keflex*) 500 Mg Capsule, 500 MG PO BID for 5 Days, CAP Prov:NATE ALVAREZ MD 11/01/17 Reported Medications Glipizide* (Glipizide*) 10 Mg Tablet, 10 MG PO AC BREAKFAST DINNER, TAB 11/01/17 Mometasone-Formoterol (Dulera) 100-5 Mcg - 13 Gm Hfa.aer.ad, 2 PUFFS INHALATION BID, #1 INHALER 08/22/17 Albuterol Sulfate* (Ventolin HFA*) 18 Gm Hfa.aer.ad, 2 PUFF INHALATION Q4H, #1 INHALER 08/22/17 Fluoxetine Hcl* (Fluoxetine Hcl*) 40 Mg Capsule, 40 MG PO DAILY, CAP 08/22/17 Atorvastatin* (Atorvastatin*) 40 Mg Tablet, 40 MG PO QHS, #30 TAB 08/22/17 Lisinopril* (Lisinopril*) 2.5 Mg Tablet, 2.5 MG PO DAILY, #30 TAB 08/22/17 Insulin Glargine,Hum.rec.anlog (Basaglar Kwikpen U-100) 100 Unit/1 Ml Insuln.pen, 50 UNIT SC QHS, EA 08/22/17 Metformin Hcl* (Metformin Hcl*) 1,000 Mg Tablet, 1000 MG PO WITH BREAKFAST DINNE, #60 TAB 08/22/17 Allergies Allergies: Coded Allergies: No Known Allergy (Unverified , 05/14/18) PMhx/Soc History of Surgery: Yes (HERNIA REPAIR,cholecystectomy,kidney stones removal,csection x 3) Anesthesia Reaction: No Hx Neurological Disorder: No Hx Respiratory Disorders: No Hx Cardiac Disorders: Yes (Hypertension, hyperlipidemia) Hx Psychiatric Problems: Yes (depression) Hx Miscellaneous Medical Probl: Yes (KIDNEY STONES) Hx Alcohol Use: No Hx Substance Use: No Hx Tobacco Use: No FmHx Family History: No diabetes, No coronary disease, No other Physical Exam Vitals Vital Signs Date Temp Pulse Resp B/P (MAP) Pulse Ox O2 O2 Flow FiO2 Time Delivery Rate 06/10/18 97.9 83 19 127/79 100 12:40 (95) Physical Exam Const: No acute distress Head: Atraumatic. Eyes Symone. Eyes: Normal Conjunctiva ENT: Normal External Ears, Nose and Mouth. Neck: Full range of motion. No meningismus. Mostly paraspinous muscles and possibly reproducible headache. Resp: Clear to auscultation bilaterally Cardio: Regular rate and rhythm, no murmurs Abd: Soft, non tender, non distended. Normal bowel sounds Skin: No petechiae or rashes Back: No midline or flank tenderness. Tenderness left L4-5 area paraspinous muscles. Positive straight leg raise. Normal gait. Ext: No cyanosis, or edema Neur: Awake and alert Psych: Normal Mood and Affect Results 24 hrs Current Medications Medications Dose Sig/Roland Start Time Status Last (Trade) Ordered Route PRN Stop Time Admin Dose Reason Admin 1 tab ONCE ONCE 06/10/18 DC 06/10/18 Acetaminophen PO 15:30 15:19 / 06/10/18 15:31 Hydrocodone Bitart ([place] (5/325)) Ondansetron 8 mg ONCE STAT 06/10/18 DC 06/10/18 HCl (Zofran ODT 15:13 15:20 Odt) 06/10/18 15:14 Procedures/MDM Patient given [place] 5 mg by mouth for pain. CT brain shows no acute abnormalities. Patient presents with 3-day history of occipital headache. She has no active bleeding, mass-effect, signs of fracture, dislocation. Suspect pain due to radicular pain radiating from the neck. She also has signs of sciatica without signs of cauda equina, epidural abscess, additional current complications. She will be treated with tramadol, ibuprofen, primary care follow-up and return precautions. The patient was stable with no new complaints during the ER course. Clinically, there is no current evidence to suggest m eningitis, sepsis, acute abdomen, pneumonia, stroke, acute coronary syndrome, pulmonary embolism, aortic dissection or any other emergent condition appearing to require further evaluation or hospitalization. Patient counseled regarding my diagnostic impression and care plan. Prior to discharge all questions answered. Pt agrees with treatment plan and understands strict return pre cautions. Pt is instructed to follow up with primary care provider within 24-48 hours. Precautionary instructions provided including instructions to return to the ER if not improving or for any worsening or changing symptoms or concerns. Departure Diagnosis: Primary Impression: Sciatica Laterality: unspecified laterality Qualified Codes: M54.30 - Sciatica, unspecified side Additional Impressions: Multiple complaints Headache Headache type: unspecified Headache chronicity pattern: acute headache Intractability: not intractable Qualified Codes: R51 - Headache Condition: Stable Patient Instructions: Headache, Unspecified, Back Pain W/ Sciatica Additional Instructions: CT shows no acute abnormalities. Suspect pinched nerve from neck. Back pain likely sciatica. See primary doctor for follow-up or recheck for new or worsening symptoms. BRIDGET COKER MD Jun 10, 2018 16:24
[2018-06-10] MEDS ORDERED: FIORICET PO (16:33)
[2018-06-10 16:35] VITALS: BP 126/65; PULSE 71; RESP 19
== END 2018-06-10 16:36 | disposition home or self-care (01) ==
LOC: FTE 12:37
DX: M54.40 Lumbago with sciatica, unspecified side (principal); R20.0 Anesthesia of skin; I10 Essential (primary) hypertension; E11.9 Type 2 diabetes mellitus without complications; Z79.4 Long term (current) use of insulin
CPT/HCPCS: 70450; Z7502; Z7610

== ENCOUNTER 2018-08-08 09:55 | Emergency (ER) | payer OTHER ==
[~2018-08-08] VITALS: Ht 165.1 cm; Wt 89.9 kg
[~2018-08-08 09:55] MED LIST changes: +CYCL10TA7 PO; +FIORICET PO
[2018-08-08 10:34] VITALS: Ht 165.1 cm; Wt 89.9 kg
[2018-08-08] MEDS ORDERED: KETOROLAC 30 MG INJ IM STA (13:46)
--- NOTE | 2018-08-08 13:50 | ERD ---
ER Documentation Chief Complaint Chief Complaint Complains of left flank,abdominal and back pain x4 days Hx of kidney stones HPI This is a 57-year-old woman complaining of left flank pain similar to multiple previous episodes she does have a history of left renal calculi and most recent CT performed a couple months ago was negative for ureterolithiasis or obstructive uropathy. Patient also has a history of multiple abdominal surgeries and herniorrhaphy. She states the pain is intermittent to the left flank times 4 days. She denies hematuria or dysuria, no fevers or chills, no chest pain or shortness of breath. Patient is here for pain control. ROS All systems reviewed and are negative except as per history of present illness. Medications Home Meds Active Scripts Naproxen* (Naprosyn*) 500 Mg Tablet, 500 MG PO BID PRN for PAIN AND/OR INFLAMMATION, #30 TAB Prov:LESLY SANTOS MD 08/08/18 Cephalexin* (Keflex*) 500 Mg Capsule, 500 MG PO QID for 5 Days, CAP Prov:LESLY SANTOS MD 08/08/18 Oxycodone HCl/Acetaminophen (Percocet 5-325 mg Tablet) 1 Each Tablet, 1 EACH PO TID PRN for PAIN LEVEL 6-10, #9 TAB Prov:LESLY SANTOS MD 08/08/18 Reported Medications Tiotropium [place]* (Spiriva*) 18 Mcg Cap.w.dev, 1 CAP INHALATION DAILY, #30 CAP 08/08/18 Zolpidem Tartrate* (Zolpidem Tartrate*) 10 Mg Tablet, 10 MG PO QHS PRN for INSOMNIA, #30 TAB 08/08/18 Glipizide* (Glipizide*) 10 Mg Tablet, 10 MG PO AC BREAKFAST DINNER, TAB 11/01/17 Mometasone-Formoterol (Dulera) 100-5 Mcg - 13 Gm Hfa.aer.ad, 2 PUFFS INHALATION BID, #1 INHALER 08/22/17 Albuterol Sulfate* (Ventolin HFA*) 18 Gm Hfa.aer.ad, 2 PUFF INHALATION Q4H, #1 INHALER 08/22/17 Fluoxetine Hcl* (Fluoxetine Hcl*) 40 Mg Capsule, 40 MG PO DAILY, CAP 08/22/17 Atorvastatin* (Atorvastatin*) 40 Mg Tablet, 40 MG PO QHS, #30 TAB 08/22/17 Lisinopril* (Lisinopril*) 2.5 Mg Tablet, 2.5 MG PO DAILY, #30 TAB 08/22/17 Insulin Glargine,Hum.rec.anlog (Basaglar Kwikpen U-100) 100 Unit/1 Ml Insu ln.pen, 50 UNIT SC QHS, EA 08/22/17 Metformin Hcl* (Metformin Hcl*) 1,000 Mg Tablet, 1000 MG PO WITH BREAKFAST DINNE, #60 TAB 08/22/17 Discontinued Scripts Acetamin/Butalbital/Caffeine* (Fioricet*) [id number] Tab, 1 TAB PO Q6H PRN for PAIN, #15 TAB Prov:BRIDGET COKER MD 06/10/18 Cyclobenzaprine Hcl* (Cyclobenzaprine Hcl*) 10 Mg Tablet, 10 MG PO TID, #15 TAB Prov:BRIDGET COKER MD 06/10/18 Ibuprofen* (Motrin*) 600 Mg Tab, 600 MG PO Q6, #20 TAB Prov:BRIDGET COKER MD 06/10/18 Guaifenesin-Codeine Phosphate* (Guaifenesin* AC Cough Syrup) 473 Ml Liquid, 5 ML PO QHS PRN for COUGH, #60 ML Prov:PRUDENCIO VANESSA MD 05/17/18 Inhaler, Assist Devices (Compact Space Chamber) 1 Each Spacer, EACH MC QID PRN for COUGH, #1 Prov:PRUDENCIO VANESSA MD 05/17/18 Albuterol Sulfate* (Proair HFA*) 8.5 Gm Hfa.aer.ad, 2 PUFF INH Q4H PRN for WHEEZING AND SOB, #1 INHALER Prov:PRUDENCIO VANESSA MD 05/17/18 Amoxicillin* (Amoxicillin*) 500 Mg Cap, 500 MG PO TID for 7 Days, CAP Prov:PRUDENCIO VANESSA MD 05/17/18 Azithromycin* (Zithromax*) 250 Mg Tablet, 250 MG PO .ZPACK DIRECTED, #6 TAB TAKE 500 MG (2 TABS) THE FIRST DAY THEN 250 MG (1 TAB) DAYS 2-5 Prov:PRUDENCIO VANESSA MD 05/17/18 Acetaminophen* (Tylenol*) 325 Mg Tablet, 2 TAB PO Q6 PRN for PAIN AND OR ELEVATED TEMP, #30 TAB Prov:TAWANA NOONAN PA-C 04/11/18 Cetirizine Hcl* (Zyrtec*) 10 Mg Capsule, 10 MG PO DAILY, #30 TAB.CHEW Prov:TAWANA NOONAN PA-C 04/11/18 Benzonatate* (Tessalon Perle*) 100 Mg Capsule, 100 MG PO Q8H PRN for COUGH, #30 CAP Prov:TAWANA NOONAN PA-C 04/11/18 Erythromycin Base (Erythromycin) 1 Gm Oint...g., 1 APPLIC BOTH EYES QID for 7 Days Prov:TAWANA NOONAN PA-C 04/11/18 Ibuprofen* (Motrin*) 600 Mg Tab, 600 MG PO Q6H PRN for PAIN, #30 TAB Prov:NATE ALVAREZ MD 12/16/17 Cephalexin* (Keflex*) 500 Mg Capsule, 500 MG PO BID for 5 Days, CAP Prov:NATE ALVAERZ MD 11/01/17 Allergies Allergies: Coded Allergies: No Known Allergy (Unverified , 08/08/18) PMhx/Soc Cholecystectomy, left renal calculus, herniorrhaphy, hypertension, obesity, dyslipidemia History of Surgery: Yes (HERNIA REPAIR,cholecystectomy,kidney stones removal,csection x 3) Anesthesia Reaction: No Hx Neurological Disorder: No Hx Respiratory Disorders: No Hx Cardiac Disorders: Yes (Hypertension, hyperlipidemia) Hx Psychiatric Problems: Yes (depression) Hx Miscellaneous Medical Probl: Yes (KIDNEY STONES) Hx Alcohol Use: No Hx Substance Use: No Hx Tobacco Use: No Smoking Status: Former smoker FmHx Family History: No diabetes Physical Exam Vitals Vital Signs Date Temp Pulse Resp B/P (MAP) Pulse Ox O2 O2 Flow FiO2 Time Delivery Rate 08/08/18 98.1 72 20 126/76 100 Room Air 15:42 (93) 08/08/18 97.2 67 20 120/58 100 10:34 (78) Physical Exam GENERAL: Well-developed, well-nourished, well-hydrated, in no apparent distress, looks nontoxic in appearance CARDIAC: Regular rate and rhythm, no murmurs rubs or gallops LUNGS: Clear bilaterally no wheezing crackles or stridor ABDOMEN: Soft nontender, no guarding, no rigidity, no rebound, no psoas sign no obturator sign. Normoactive bowel sounds SKIN: Warm and dry to touch, no abrasions, contusions, or hematomas, no lacerations, no ecchymosis, no target lesions, and without ulcers EXTREMITIES: No clubbing cyanosis or edema, calves are bilaterally symmetrical, no Homans sign, no popliteal cord sign. Distal pulses equal and bilateral PSYCH: Normal affect without agitation or irritability Results 24 hrs Laboratory Tests Test 08/08/18 13:47 08/08/18 13:48 Bedside Urine pH (LAB) 5.0 Bedside Urine Protein (LAB) 2+ Bedside Urine Glucose (UA) Negative Bedside Urine Ketones (LAB) Trace Bedside Urine Blood Negative Bedside Urine Nitrite (LAB) Negative Bedside Urine Leukocyte Esterase (L Negative Urine Color YELLOW Urine Clarity SLIGHTLY CLOUDY Urine pH 5.0 Urine Specific [place] 1.024 Urine Ketones TRACE mg/dL Urine Nitrite NEGATIVE mg/dL Urine Bilirubin NEGATIVE mg/dL Urine Urobilinogen NEGATIVE mg/dL Urine Leukocyte Esterase TRACE Margaret/ul Urine Microscopic RBC 1 /HPF Urine Microscopic WBC 6 /HPF Urine Squamous Epithelial Cells FEW /HPF Urine Mucus FEW /HPF Urine Hemoglobin NEGATIVE mg/dL Urine Glucose NEGATIVE mg/dL Urine Total Protein 2+ mg/dl Current Medications Medications Dose Sig/Roland Start Time Status Last (Trade) Ordered Route PRN Stop Time Admin Dose Reason Admin Ketorolac 30 mg ONCE STAT 08/08/18 DC 08/08/18 Tromethamine IM 13:46 13:57 (Toradol) 08/08/18 13:47 Oxycodone/ 1 tab ONCE ONCE 08/08/18 DC 08/08/18 Acetaminophen PO 14:00 13:57 (Percocet 08/08/18 14:01 (5/ 325)) Ceftriaxone 1 gm ONCE ONCE 08/08/18 DC 08/08/18 Sodium IM 14:30 14:31 (Rocephin) 08/08/18 14:31 Lidocaine 5 ml ONCE ONCE 08/08/18 DC 08/08/18 (Xylocaine INJ 14:30 14:31 1% (Mpf)) 08/08/18 14:31 Procedures/MDM I administered Toradol 30 mg IM x1 and Percocet 1 tablet p.o. UA was positive for infection. I administered ceftriaxone 1 g IM x1 Patient's pain was controlled and vital signs are normal she looks well and will be discharged with oral antibiotics. I recommended against further CT imaging and told her to follow-up with her PMD for consult as an outpatient Differential diagnoses considered, included but not limited to acute coronary syndrome, pulmonary embolism, aortic dissection, abdominal aortic aneurysm, sepsis, stroke, meningitis, encephalitis, pneumonia, appendicitis, cholecystitis, bowel obstruction, pyelonephritis, nephrolithiasis, cystitis, as well as metabolic, hematologic, and electrolyte abnormalities. As well as abscess, cellulitis, fractures, and dislocations. Patient feels much better at this time, and vital signs are normal, symptoms have improved. I did give strict instructions to return to the ED if symptoms continue or worsen, patient will otherwise follow-up with primary care physician . Patient understood instructions and agreed to plan. Disclaimer: Inadvertent spelling and grammatical errors are likely due to EHR/dictation software use and do not reflect on the overall quality of patient care. Also, please note that the electronic time recorded on this note does not necessarily reflect the actual time of the patient encounter. Departure Diagnosis: Primary Impression: Flank pain Additional Impression: Acute UTI Condition: LESLY Patel MD Aug 08, 2018 13:50
[2018-08-08] MEDS ORDERED: OXYCODONE/ACETAMINOPHEN (5/325) TAB PO ONE (14:00)
[2018-08-08] MEDS ORDERED: ZOLP10TA5 PO (14:09)
[2018-08-08] MEDS ORDERED: NAPR-985 PO (14:10)
[2018-08-08] MEDS ORDERED: CEPH-443 PO (14:10)
[2018-08-08] MEDS ORDERED: OXYC-279 PO (14:10)
[2018-08-08] MEDS ORDERED: TIOT18CA INHALATION (14:12)
[2018-08-08] MEDS ORDERED: LIDOCAINE 1% (MPF) 5 ML VIAL INJ ONE (14:30)
[2018-08-08] MEDS ORDERED: CEFTRIAXONE 1 GM INJ IM ONE (14:30)
[2018-08-08 15:42] VITALS: BP 126/76; PULSE 72; RESP 20
== END 2018-08-08 15:44 | disposition home or self-care (01) ==
LOC: E/R 09:55
DX: N39.0 Urinary tract infection, site not specified (principal); I10 Essential (primary) hypertension; E66.9 Obesity, unspecified; Z87.891 Personal history of nicotine dependence; Z79.4 Long term (current) use of insulin
CPT/HCPCS: 81001; 87086; J0696; J1885; Z7610; 81003; 96372

== ENCOUNTER 2018-09-18 16:35 | Emergency (ER) | payer OTHER ==
[~2018-09-18] VITALS: Ht 154.9 cm; Wt 89.1 kg
[~2018-09-18 16:35] MED LIST changes: -ACET325T33 PO; -ALBU8.5H8 INH; -AMOX500C2 PO; -AZIT250T PO; -BENZ-6 PO; -CETI10CA PO; -CYCL10TA7 PO; -ERYT1OIN6 BOTH EYES; -FIORICET PO; -GUAI473L22 PO; -IBUP-1542 PO; -INHA-3 MC; +NAPR-985 PO; +OXYC-279 PO; +TIOT18CA INHALATION; +ZOLP10TA5 PO
[2018-09-18 16:41] VITALS: Ht 154.9 cm; Wt 89.1 kg
[2018-09-18] MEDS ORDERED: IPRATROPIUM (NEB) 0.5 MG/2.5 ML AMP NEB STA (18:01)
[2018-09-18] MEDS ORDERED: ALBUTEROL 0.083% (NEB) 2.5 MG/3 ML AMP NEB STA (18:01)
[2018-09-18] MEDS ORDERED: predniSONE 20 MG TAB PO STA (18:01)
--- NOTE | 2018-09-18 18:02 | ERD ---
ER Documentation Chief Complaint Chief Complaint SOB, wheezing X 2 days, Hx asthma, rescue inhalers not working HPI 57-year-old female with history of asthma, presents to the emergency department, complaining of cough and wheezing for 2 days, associated with subjective fever and general malaise. The patient has been using albuterol inhaler without improvement of the symptoms. The patient denies chest pain, no palpitation. ROS All systems reviewed and are negative except as per history of present illness. Medications Home Meds Active Scripts Promethazine HCl/Codeine (Prometh-Codein 6.25-10 mg/5 ml) 5 Ml Syrup, 5 ML PO QHS PRN for COUGH, #60 ML Prov:PRUDENCIO VANESSA MD 09/18/18 Amoxicillin* (Amoxicillin*) 500 Mg Cap, 500 MG PO TID for 7 Days, CAP Prov:PRUDENCIO VANESSA MD 09/18/18 Azithromycin* (Zithromax*) 250 Mg Tablet, 250 MG PO .ZPACK DIRECTED, #6 TAB TAKE 500 MG (2 TABS) THE FIRST DAY THEN 250 MG (1 TAB) DAYS 2-5 Prov:PRUDENCIO VANESSA MD 09/18/18 Prednisone* (Prednisone*) 20 Mg Tab, 60 MG PO DAILY for 4 Days, TAB Prov:PRUDENCIO VANESSA MD 09/18/18 Naproxen* (Naprosyn*) 500 Mg Tablet, 500 MG PO BID PRN for PAIN AND/OR INFLAMMATION, #30 TAB Prov:LESLY SANTOS MD 08/08/18 Cephalexin* (Keflex*) 500 Mg Capsule, 500 MG PO QID for 5 Days, CAP Prov:LESLY SANTOS MD 08/08/18 Oxycodone HCl/Acetaminophen (Percocet 5-325 mg Tablet) 1 Each Tablet, 1 EACH PO TID PRN for PAIN LEVEL 6-10, #9 TAB Prov:LESLY SANTOS MD 08/08/18 Reported Medications Tiotropium [place]* (Spiriva*) 18 Mcg Cap.w.dev, 1 CAP INHALATION DAILY, #30 CAP 08/08/18 Zolpidem Tartrate* (Zolpidem Tartrate*) 10 Mg Tablet, 10 MG PO QHS PRN for INSOMNIA, #30 TAB 08/08/18 Glipizide* (Glipizide*) 10 Mg Tablet, 10 MG PO AC BREAKFAST DINNER, TAB 11/01/17 Mometasone-Formoterol (Dulera) 100-5 Mcg - 13 Gm Hfa.aer.ad, 2 PUFFS INHALATION BID, #1 INHALER 08/22/17 Albuterol Sulfate* (Ventolin HFA*) 18 Gm Hfa.aer.ad, 2 PUFF INHALATION Q4H, #1 INHALER 08/22/17 Fluoxetine Hcl* (Fluoxetine Hcl*) 40 Mg Capsule, 40 MG PO DAILY, CAP 08/22/17 Atorvastatin* (Atorvastatin*) 40 Mg Tablet, 40 MG PO QHS, #30 TAB 08/22/17 Lisinopril* (Lisinopril*) 2.5 Mg Tablet, 2.5 MG PO DAILY, #30 TAB 08/22/17 Insulin Glargine,Hum.rec.anlog (Basaglar Kwikpen U-100) 100 Unit/1 Ml Insuln.pen, 50 UNIT SC QHS, EA 08/22/17 Metformin Hcl* (Metformin Hcl*) 1,000 Mg Tablet, 1000 MG PO WITH BREAKFAST DINNE, #60 TAB 08/22/17 Allergies Allergies: Coded Allergies: No Known Allergy (Unverified , 08/08/18) PMhx/Soc History of Surgery: Yes (HERNIA REPAIR,cholecystectomy,kidney stones removal,csection x 3) Anesthesia Reaction: No Hx Neurological Disorder: No Hx Respiratory Disorders: No Hx Cardiac Disorders: Yes (Hypertension, hyperlipidemia) Hx Psychiatric Problems: Yes (depression) Hx Miscellaneous Medical Probl: Yes (KIDNEY STONES) Hx Alcohol Use: No Hx Substance Use: No Hx Tobacco Use: No Smoking Status: Never smoker FmHx Family History: No diabetes, No coronary disease Physical Exam Vitals Vital Signs Date Temp Pulse Resp B/P (MAP) Pulse Ox O2 O2 Flow FiO2 Time Delivery Rate 09/18/18 99.0 73 18 116/58 97 Room Air 19:27 (77) 09/18/18 85 20 98 21 18:17 09/18/18 98.9 85 18 148/67 97 16:41 (94) Physical Exam Patient alert, oriented, mild respiratory distress with cough. HEAD: Normocephalic, atraumatic. EYES: PERRLA, EOMI, Sclera and conjunctiva appear normal. NOSE: clear rhinorrhea . EARS: Canals clear, tympanic membranes WNL. MOUTH: normal lips and tongue, no oral lesions. THROAT: Erythema of the oropharynx, no tonsillar exudates. NECK: Supple, No lymphadenopathy. Full ROM without pain or tenderness. HEART: RRR, no rubs, murmurs, clicks or gallops. LUNGS: Bilateral inspiratory and expiratory wheezing to auscultation. ABDOMEN: Soft, non-tender without masses or hepatosplenomegaly. EXTREMITIES: No edema bilaterally. BACK: Full ROM, no deformity, normal back exam NEURO: Cranial nerves grossly intact, no motor or sensory deficit SKIN: No rashes, no petechia Results 24 hrs Current Medications Medications Dose Sig/Roland Start Time Status Last (Trade) Ordered Route PRN Stop Time Admin Dose Reason Admin Albuterol 5 mg ONCE STAT 09/18/18 DC 09/18/18 (Proventil NEB 18:01 09/18/18 18:16 0.083% (Neb)) 18:04 Ipratropium 0.5 mg ONCE STAT 09/18/18 DC 09/18/18 [place] NEB 18:01 09/18/18 18:16 (Atrovent 18:04 0.02% (Neb)) Prednisone 60 mg ONCE STAT 09/18/18 DC 09/18/18 (Prednisone) PO 18:01 09/18/18 18:07 18:04 Procedures/MDM At the time of discharge, vital signs stable, no respiratory distress. Differential diagnosis include but not limited to: Respiratory infection bacterial/viral/fungal. Asthma/COPD, pneumonitis, allergies, GERD. Less likely foreign body aspiration, cardiac related, aspiration pneumonia, malignancy. Physical examination and clinical presentation consistent most likely with acute asthma exacerbation with early superimposed bacterial infection. During the ED course the patient remained stable, received a nebulized treatment and steroids in the ED presenting overall improvement of the symptoms, no new complaints. Clinical impression discussed with the patient who agrees with management. The patient is stable to be treated outpatient and will be discharged home. Some side effects of prescribed medications (headache, rash, nausea, vomiting, diarrhea, drowsiness, habituation, bleeding, hypertension, interactions with other medications) were reviewed. The patient was instructed to follow up with the primary care provider in the next 48h. If symptoms persist, worsen or new symptoms develop, then patient should return to the ED immediately. Disclaimer: Inadvertent spelling and grammatical errors are likely due to EHR/dictation software use and do not reflect on the overall quality of patient care. Also, please note that the electronic time recorded on this note does not necessarily reflect the actual time of the patient encounter. Departure Diagnosis: Primary Impression: Asthma with acute exacerbation Patient Instructions: Asthma, Acute (Adult) Additional Instructions: Thank you very much for allowing us to participate in your care. Your health and safety is our top priority at [facility]. The evaluation in the emergency department has been done to rule out an acute emergency, therefore, chronic conditions like malignancy or other diseases have not been evaluated; therefore, you need to follow up with a primary care provider in the next 48h. If symptoms persist, worsen or new symptoms develop, then patient should return to the ED immediately. Call your primary care doctor TOMORROW for an appointment during the next 2-4 days and bring all the information provided. Have prescriptions filled and follow precisely the directions on the label. If the symptoms get worse and your provider is unavailable, return to the Emergency Department immediately. PRUDENCIO VANESSA MD September 18, 2018 18:02
[2018-09-18] MEDS ORDERED: AMOX500C2 PO (18:16)
[2018-09-18] MEDS ORDERED: AZIT250T PO (18:16)
[2018-09-18] MEDS ORDERED: PRED20TA PO (18:16)
[2018-09-18] MEDS ORDERED: PROM5SYR2 PO (18:16)
[2018-09-18 19:27] VITALS: BP 116/58; PULSE 73; RESP 18
== END 2018-09-18 19:28 | disposition home or self-care (01) ==
LOC: FTE 16:35
DX: J45.901 Unspecified asthma with (acute) exacerbation (principal); I10 Essential (primary) hypertension; Z79.4 Long term (current) use of insulin
CPT/HCPCS: 94664; J7512; Z7502; Z7610; 94640

== ENCOUNTER 2018-11-22 22:01 | Inpatient (IN) | payer OTHER ==
[~2018-11-22] VITALS: Ht 167.6 cm; Wt 89.8 kg
[2018-11-22 21:05] VITALS: BP 128/72; PULSE 72; RESP 16
[~2018-11-22 22:01] MED LIST changes: +AMOX500C2 PO; +AZIT250T PO; +PRED20TA PO; +PROM5SYR2 PO
[2018-11-22 23:57] VITALS: Ht 167.6 cm; Wt 89.8 kg
[2018-11-23 02:31] VITALS: BP 121/58; PULSE 71; RESP 18
[2018-11-23] MEDS ORDERED: DEXTROSE 5%-0.45% NACL 1,000 ML IV SCH (03:17)
[2018-11-23] MEDS ORDERED: GLUCOSE GEL 15 GRAM TUBE PO PRN ×2 (03:30)
[2018-11-23] MEDS ORDERED: HYDROCODONE/APAP (5/325) TAB PO PRN (03:30)
[2018-11-23] MEDS ORDERED: ONDANSETRON 4 MG INJ IV PRN (03:30)
[2018-11-23] MEDS ORDERED: ALBUTEROL/IPRATROPIUM (NEB) 3 ML AMP HHN PRN (03:30)
[2018-11-23] MEDS ORDERED: ALBUTEROL HFA 8 GM INHALER INH PRN (03:30)
[2018-11-23] MEDS ORDERED: GLUCAGON 1 MG INJ IM PRN (03:30)
[2018-11-23] MEDS ORDERED: GLUCOSE GEL 15 GRAM TUBE BUCCAL PRN (03:30)
[2018-11-23] MEDS ORDERED: ACETAMINOPHEN 325 MG TAB PO PRN (03:30)
[2018-11-23] MEDS ORDERED: NAPROXEN 500 MG TAB PO PRN (03:30)
[2018-11-23] MEDS ORDERED: DEXTROSE 50% 50 ML SYRINGE IV PRN ×2 (03:30)
[2018-11-23] MEDS ORDERED: ZOLPIDEM 5 MG TAB PO PRN (03:30)
[2018-11-23] MEDS ORDERED: NACL 0.9% 3 ML SYG IV SCH (03:30)
[2018-11-23 04:00] VITALS: BP 103/56; PULSE 72; RESP 18
--- NOTE | 2018-11-23 06:19 | HP ---
Date/Time of Note Date/Time of Note DATE: 11/23/18 TIME: 06:17 Assessment/Plan VTE Prophylaxis Pharmacological prophylaxis: heparin Lines/Catheters IV Catheter Type (from Nrsg): [place] Urinary Cath still in place: No Assessment/Plan Assessment/Plan 1. Lower back pain with left leg paresthesia and the bladder incontinence -MRI at the outside facility showed moderate central canal spinal stenosis of L4-5 -Steroid -Neurosurgery eval 2. Hypertension: BP within acceptable range 3. Diabetes: Insulin while in-house 4. Dyslipidemia: Continue statin 5. Depression: Continue home meds 6. Asthma: No sign of acute exacerbation. Continue bronchodilators and home inhaled corticosteroids HPI/ROS Admit Date/Time Admit Date/Time Nov 22, 2018 at 23:48 Hx of Present Illness Patient is a 58-year-old female with a history of hypertension, diabetes, dyslipidemia, asthma, depression who initially presented to [facility] complaining of lower back pain, bladder incontinence and left leg paresthesia. Back pain is been going on for the past 6 months. She has had 2 episodes of bladder incontinence, one last week and the other one yesterday. She said she had went to [facility] previously where she had a back x-ray. She said she was told that she had a disc problem and her nerve may have been trapped. She has been doing physical therapy, but she said she is not improving. Patient denied trauma. Patient had MRI today at the outside facility, which showed L4-5 with mild diffuse annular bulge with facet joint enlargement and mild to moderate central canal spinal stenosis. Patient was transferred to [facility] for insurance reason. PMH/Family/Social Past Medical History Medications Current Medications Dextrose/Sodium Chloride 1,000 ml @ 100 mls/hr Q10H IV ; Start 11/23/18 at 03:17 IV Flush (NS 3 ml) 3 ml PER PROTOCOL IV ; Start 11/23/18 at 03:30 Ondansetron HCl (Zofran Inj) 4 mg Q6H PRN IV NAUSEA/VOMITING; Start 11/23/18 at 03:30 Acetaminophen (Tylenol Tab) 650 mg Q6H PRN PO .PAIN 1-3 OR TEMP; Start 11/23/18 at 03:30 Acetaminophen/ Hydrocodone Bitart (Arjay (5/325)) 1 tab Q6H PRN PO .PAIN 4-6; Start 11/23/18 at 03:30 Acetaminophen/ Hydrocodone Bitart (Arjay (5/325)) 2 tab Q6H PRN PO .PAIN 7-10; Start 11/23/18 at 03:30 Heparin Sodium (Porcine) (Heparin (5000 Units/1ml)) 5,000 unit Q12 SC ; Start 11/23/18 at 09:00 Albuterol/ Ipratropium (Duoneb) 3 ml Q2H RESP THERAPY PRN HHN SHORTNESS OF BREATH; Start 11/23/18 at 03:30 Diagnostic Test (Pha) (Accu-Chek) 1 ea 02 XX ; Start 11/24/18 at 02:00 Insulin Glargine (Lantus) 20 units DAILY@0800 SC ; Start 11/23/18 at 08:00 Insulin Aspart (Novolog Insulin Pen) NOVOLOG *MODERATE* ALGORITHM WITH MEALS BEDTIME SC ; Start 11/23/18 at 08:00 Albuterol (Ventolin Hfa) 2 puff Q4H PRN INH SHORTNESS OF BREATH; Start 11/23/18 at 03:30 Atorvastatin Calcium (Lipitor) 40 mg QHS PO ; Start 11/23/18 at 21:00 Fluoxetine HCl (Prozac) 40 mg DAILY PO ; Start 11/23/18 at 09:00 Lisinopril (Zestril) 2.5 mg DAILY PO ; Start 11/23/18 at 09:00 Naproxen (Naprosyn) 500 mg BID PRN PO PAIN AND/OR INFLAMMATION; Start 11/23/18 at 03:30 Tiotropium [place] (Spiriva) 18 inh DAILY INH ; Start 11/23/18 at 09:00 Zolpidem Tartrate (Ambien) 10 mg QHS PRN PO INSOMNIA; Start 11/23/18 at 03:30 Miscellaneous Information 2 puffs BID INHALATION ; Start 11/23/18 at 09:00; Status UNV Miscellaneous Information 1 ea NOTE XX ; Start 11/23/18 at 03:30 Glucose (Glutose) 15 gm Q15M PRN PO DECREASED GLUCOSE; Start 11/23/18 at 03:30 Glucose (Glutose) 22.5 gm Q15M PRN PO DECREASED GLUCOSE; Start 11/23/18 at 03:30 Dextrose (D50w Syringe) 25 ml Q15M PRN IV DECREASED GLUCOSE; Start 11/23/18 at 03:30 Dextrose (D50w Syringe) 50 ml Q15M PRN IV DECREASED GLUCOSE; Start 11/23/18 at 03:30 Glucagon (Glucagen) 1 mg Q15M PRN IM DECREASED GLUCOSE; Start 11/23/18 at 03:30 Glucose (Glutose) 15 gm Q15M PRN BUCCAL DECREASED GLUCOSE; Start 11/23/18 at 03: 30 Coded Allergies: No Known Allergy (Unverified , 08/08/18) Family History Significant Family History: heart disease, diabetes Exam/Review of Systems Vital Signs Vitals Vital Signs Date Temp Pulse Resp B/P (MAP) Pulse Ox O2 O2 Flow FiO2 Time Delivery Rate 11/23/18 72 04:00 11/23/18 97.9 18 103/56 96 Room Air 04:00 (72) Intake and Output 11/22/18 11/22/18 11/23/18 1515:00 23:00 07:00 IntakeIntake Total 100 ml BalanceBalance 100 ml Exam Constitutional: alert, oriented, well developed Head: normocephalic, atraumatic Eyes: EOMI, PERRL Respiratory: clear to auscultation, normal air movement Cardiovascular: regular rate and rhythm, nl pulses Gastrointestinal: soft, non-tender Extremities: normal pulses Neurological: other (Pain was elicited with straight leg raising of the left lower extremity) KEYANNA HARVEY MD Nov 23, 2018 06:19
[2018-11-23] MEDS: HYDROCODONE/APAP (5/325) TAB PO PRN ×3 (06:48→21:38)
[2018-11-23 07:40] VITALS: BP 108/59; PULSE 65; RESP 20
[2018-11-23] MEDS ORDERED: INSULIN GLARGINE [LANTus] (100 UNITS/ML) SYG SC SCH (08:00)
[2018-11-23] MEDS: INSULIN ASPART [NOVOLOG] 3 ML PEN SC SCH ×4 (08:01→20:58)
[2018-11-23] MEDS: DEXAMETHASONE 4 MG/ML 1 ML INJ IV SCH ×3 (08:59→17:42)
[2018-11-23] MEDS: FLUOXETINE 20 MG CAP PO SCH (09:00)
[2018-11-23] MEDS ORDERED: HEPARIN 5,000 UNIT/1 ML VIAL SC SCH (09:00)
[2018-11-23] MEDS: TIOTROPIUM 18 MCG CAPSULE INHA DEV INH SCH (09:01)
[2018-11-23] MEDS: FLUTICASONE/VILANTEROL 100-25 INH SCH (09:09)
[2018-11-23] MEDS: LISINOPRIL 5 MG TAB PO SCH (09:31)
[2018-11-23] MEDS: HEPARIN 5,000 UNIT/1 ML VIAL SC SCH ×2 (09:36→20:50)
[2018-11-23 11:12] VITALS: BP 114/71; PULSE 71; RESP 20
--- NOTE | 2018-11-23 12:30 | CONS ---
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 - will take to OR tomorrow for L4/5 decompression and bilateral foramenotomies Consultation Date/Type/Reason Admit Date/Time Nov 22, 2018 at 23:48 Date of Consultation: Nov 23, 2018 Type of Consult Neurosurgery Date/Time of Note DATE: 11/23/18 TIME: 12:22 Hx of Present Illness 58 year old who has had several year history of back pain after failing physical therapy, injections, and oral steroids who presents now after transfer from [facility] with worsening left leg weakness and question of incontinence. She states that she has wet herself after going to the bathroom - not overflow. She has pain that radiates down the side of her legs and up to the hip. Past Medical History Home Meds Active Scripts Promethazine HCl/Codeine (Prometh-Codein 6.25-10 mg/5 ml) 5 Ml Syrup, 5 ML PO QHS PRN for COUGH, #60 ML Prov:PRUDENCIO VANESSA MD 09/18/18 Amoxicillin* (Amoxicillin*) 500 Mg Cap, 500 MG PO TID for 7 Days, CAP Prov:PRUDENCIO VANESSA MD 09/18/18 Azithromycin* (Zithromax*) 250 Mg Tablet, 250 MG PO .ZPACK DIRECTED, #6 TAB TAKE 500 MG (2 TABS) THE FIRST DAY THEN 250 MG (1 TAB) DAYS 2-5 Prov:PRUDENCIO VANESSA MD 09/18/18 Prednisone* (Prednisone*) 20 Mg Tab, 60 MG PO DAILY for 4 Days, TAB Prov:PRUDENCIO VANESSA MD 09/18/18 Naproxen* (Naprosyn*) 500 Mg Tablet, 500 MG PO BID PRN for PAIN AND/OR INFL AMMATION, #30 TAB Prov:LESLY SANTOS MD 08/08/18 Cephalexin* (Keflex*) 500 Mg Capsule, 500 MG PO QID for 5 Days, CAP Prov:LESLY SANTOS MD 08/08/18 Oxycodone HCl/Acetaminophen (Percocet 5-325 mg Tablet) 1 Each Tablet, 1 EACH PO TID PRN for PAIN LEVEL 6-10, #9 TAB Prov:LESLY SANTOS MD 08/08/18 Reported Medications Tiotropium [place]* (Spiriva*) 18 Mcg Cap.w.dev, 1 CAP INHALATION DAILY, #30 CAP 08/08/18 Zolpidem Tartrate* (Zolpidem Tartrate*) 10 Mg Tablet, 10 MG PO QHS PRN for INSOMNIA, #30 TAB 08/08/18 Glipizide* (Glipizide*) 10 Mg Tablet, 10 MG PO AC BREAKFAST DINNER, TAB 11/01/17 Mometasone-Formoterol (Dulera) 100-5 Mcg - 13 Gm Hfa.aer.ad, 2 PUFFS INHALATION BID, #1 INHALER 08/22/17 Albuterol Sulfate* (Ventolin HFA*) 18 Gm Hfa.aer.ad, 2 PUFF INHALATION Q4H, #1 INHALER 08/22/17 Fluoxetine Hcl* (Fluoxetine Hcl*) 40 Mg Capsule, 40 MG PO DAILY, CAP 08/22/17 Atorvastatin* (Atorvastatin*) 40 Mg Tablet, 40 MG PO QHS, #30 TAB 08/22/17 Lisinopril* (Lisinopril*) 2.5 Mg Tablet, 2.5 MG PO DAILY, #30 TAB 08/22/17 Insulin Glargine,Hum.rec.anlog (Basaglar Kwikpen U-100) 100 Unit/1 Ml Insuln.pen, 50 UNIT SC QHS, EA 08/22/17 Metformin Hcl* (Metformin Hcl*) 1,000 Mg Tablet, 1000 MG PO WITH BREAKFAST DINNE, #60 TAB 08/22/17 Medications Current Medications IV Flush (NS 3 ml) 3 ml PER PROTOCOL IV ; Start 11/23/18 at 03:30 Ondansetron HCl (Zofran Inj) 4 mg Q6H PRN IV NAUSEA/VOMITING; Start 11/23/18 at 03:30 Acetaminophen (Tylenol Tab) 650 mg Q6H PRN PO .PAIN 1-3 OR TEMP; Start 11/23/18 at 03:30 Acetaminophen/ Hydrocodone Bitart ([place] (5/325)) 1 tab Q6H PRN PO .PAIN 4-6; Start 11/23/18 at 03:30 Acetaminophen/ Hydrocodone Bitart ([place] (5/325)) 2 tab Q6H PRN PO .PAIN 7-10 Last administered on 11/23/18at 06:48; Admin Dose 2 TAB; Start 11/23/18 at 03:30 Albuterol/ Ipratropium (Duoneb) 3 ml Q2H RESP THERAPY PRN HHN SHORTNESS OF BREATH; Start 11/23/18 at 03:30 Diagnostic Test (Pha) (Accu-Chek) 1 ea 02 XX ; Start 11/24/18 at 02:00 Insulin Glargine (Lantus) 20 units DAILY@0800 SC Last administered on 11/23/18at 08:19; Admin Dose 20 UNITS; Start 11/23/18 at 08:00 Insulin Aspart (Novolog Insulin Pen) NOVOLOG *MODERATE* ALGORITHM WITH MEALS BEDTIME SC Last administered on 11/23/18at 11:39; Admin Dose 6 UNIT; Start 11/23/18 at 08:00 Albuterol (Ventolin Hfa) 2 puff Q4H PRN INH SHORTNESS OF BREATH; Start 11/23/18 at 03:30 Atorvastatin Calcium (Lipitor) 40 mg QHS PO ; Start 11/23/18 at 21:00 Fluoxetine HCl (Prozac) 40 mg DAILY PO Last administered on 11/23/18at 09:00; Admin Dose 40 MG; Start 11/23/18 at 09:00 Lisinopril (Zestril) 2.5 mg DAILY PO Last administered on 11/23/18at 09:31; Admin Dose 2.5 MG; Start 11/23/18 at 09:00 Naproxen (Naprosyn) 500 mg BID PRN PO PAIN AND/OR INFLAMMATION; Start 11/23/18 at 03:30 Tiotropium [place] (Spiriva) 18 inh DAILY INH Last administered on 11/23/18at 09:01; Admin Dose 18 INH; Start 11/23/18 at 09:00 Zolpidem Tartrate (Ambien) 10 mg QHS PRN PO INSOMNIA; Start 11/23/18 at 03:30 Fluticasone/ Vilanterol (Breo Ellipta 100-25 Mcg Inh) 1 inh DAILY INH Last admi nistered on 11/23/18at 09:09; Admin Dose 1 INH; Start 11/23/18 at 09:00 Miscellaneous Information 1 ea NOTE XX ; Start 11/23/18 at 03:30 Glucose (Glutose) 15 gm Q15M PRN PO DECREASED GLUCOSE; Start 11/23/18 at 03:30 Glucose (Glutose) 22.5 gm Q15M PRN PO DECREASED GLUCOSE; Start 11/23/18 at 03:30 Dextrose (D50w Syringe) 25 ml Q15M PRN IV DECREASED GLUCOSE; Start 11/23/18 at 03:30 Dextrose (D50w Syringe) 50 ml Q15M PRN IV DECREASED GLUCOSE; Start 11/23/18 at 03:30 Glucagon (Glucagen) 1 mg Q15M PRN IM DECREASED GLUCOSE; Start 11/23/18 at 03:30 Glucose (Glutose) 15 gm Q15M PRN BUCCAL DECREASED GLUCOSE; Start 11/23/18 at 03:30 Dexamethasone (Decadron) 6 mg Q6 IV Last administered on 11/23/18at 11:40; Admin Dose 6 MG; Start 11/23/18 at 06:30 Heparin Sodium (Porcine) (Heparin (5000 Units/1ml)) 5,000 unit BID SC Last administered on 11/23/18at 09:36; Admin Dose 5,000 UNIT; Start 11/23/18 at 09:00 Allergies: Coded Allergies: No Known Allergy (Unverified , 08/08/18) Exam/Review of Systems Exam Vitals Vital Signs Date Temp Pulse Resp B/P (MAP) Pulse Ox O2 O2 Flow FiO2 Time Delivery Rate 11/23/18 98.0 71 20 114/71 95 Room Air 11:12 (85) Intake and Output 11/22/18 11/22/18 11/23/18 1515:00 23:00 07:00 IntakeIntake Total 100 ml BalanceBalance 100 ml Exam 09/22 RLE 4+/5 L HF/KE/KF 5/5 L DF/PF + straight leg raise test L>R Results Result Diagram: 11/23/18 0502 11/23/18 0502 Results 24hrs Laboratory Tests Test 11/23/18 05:02 11/23/18 07:27 11/23/18 11:34 White Blood Count 7.1 Red Blood Count 4.22 Hemoglobin 11.9 L Hematocrit 36.1 L Mean Corpuscular Volume 85.5 Mean Corpuscular Hemoglobin 28.2 L Mean Corpuscular Hemoglobin Concent 33.0 Red Cell Distribution Width 13.7 Platelet Count 209 Mean Platelet Volume 12.7 H Immature Granulocytes % 0.300 Neutrophils % 54.5 Lymphocytes % 33.6 Monocytes % 6.8 Eosinophils % 4.4 Basophils % 0.4 Nucleated Red Blood Cells % 0.0 Immature Granulocytes # 0.020 Neutrophils # 3.9 Lymphocytes # 2.4 Monocytes # 0.5 Eosinophils # 0.3 Basophils # 0.0 Nucleated Red Blood Cells # 0.0 Sodium Level 141 Potassium Level 4.1 Chloride Level 109 Carbon Dioxide Level 24 Anion Gap 8 Blood Urea Nitrogen 13 Creatinine 0.56 Est Glomerular Filtrat Rate mL/min > 60 Glucose Level 214 Hemoglobin A1c 9.2 H Calcium Level 8.9 Magnesium Level 1.6 L Total Bilirubin 0.4 Direct Bilirubin 0.00 Indirect Bilirubin 0.4 Aspartate Amino Transf (AST/SGOT) 42 Alanine Aminotransferase (ALT/SGPT) 38 Alkaline Phosphatase 65 Total Protein 6.6 Albumin 3.6 Globulin 3.00 Albumin/Globulin Ratio 1.20 Triglycerides Level 123 Cholesterol Level 124 LDL Cholesterol, Calculated 59 HDL Cholesterol 40 Cholesterol/HDL Ratio 3.1 Bedside Glucose 221 H 247 H Imaging Imaging Mild central stenosis at L4/5 with moderate neuroforaminal stenosis bilaterally Medications Medication Current Medications IV Flush (NS 3 ml) 3 ml PER PROTOCOL IV ; Start 11/23/18 at 03:30 Ondansetron HCl (Zofran Inj) 4 mg Q6H PRN IV NAUSEA/VOMITING; Start 11/23/18 at 03:30 Acetaminophen (Tylenol Tab) 650 mg Q6H PRN PO .PAIN 1-3 OR TEMP; Start 11/23/18 at 03:30 Acetaminophen/ Hydrocodone Bitart ([place] (5/325)) 1 tab Q6H PRN PO .PAIN 4-6; Start 11/23/18 at 03:30 Acetaminophen/ Hydrocodone Bitart ([place] (5/325)) 2 tab Q6H PRN PO .PAIN 7-10 Last administered on 11/23/18at 06:48; Admin Dose 2 TAB; Start 11/23/18 at 03:30 Albuterol/ Ipratropium (Duoneb) 3 ml Q2H RESP THERAPY PRN HHN SHORTNESS OF BREATH; Start 11/23/18 at 03:30 Diagnostic Test (Pha) (Accu-Chek) 1 ea 02 XX ; Start 11/24/18 at 02:00 Insulin Glargine (Lantus) 20 units DAILY@0800 SC Last administered on 11/23/18at 08:19; Admin Dose 20 UNITS; Start 11/23/18 at 08:00 Insulin Aspart (Novolog Insulin Pen) NOVOLOG *MODERATE* ALGORITHM WITH MEALS BEDTIME SC Last administered on 11/23/18at 11:39; Admin Dose 6 UNIT; Start 11/23/18 at 08:00 Albuterol (Ventolin Hfa) 2 puff Q4H PRN INH SHORTNESS OF BREATH; Start 11/23/18 at 03:30 Atorvastatin Calcium (Lipitor) 40 mg QHS PO ; Start 11/23/18 at 21:00 Fluoxetine HCl (Prozac) 40 mg DAILY PO Last administered on 11/23/18at 09:00; Admin Dose 40 MG; Start 11/23/18 at 09:00 Lisinopril (Zestril) 2.5 mg DAILY PO Last administered on 11/23/18at 09:31; Admin Dose 2.5 MG; Start 11/23/18 at 09:00 Naproxen (Naprosyn) 500 mg BID PRN PO PAIN AND/OR INFLAMMATION; Start 11/23/18 at 03:30 Tiotropium [place] (Spiriva) 18 inh DAILY INH Last administered on 11/23/18at 09:01; Admin Dose 18 INH; Start 11/23/18 at 09:00 Zolpidem Tartrate (Ambien) 10 mg QHS PRN PO INSOMNIA; Start 11/23/18 at 03:30 Fluticasone/ Vilanterol (Breo Ellipta 100-25 Mcg Inh) 1 inh DAILY INH Last administered on 11/23/18at 09:09; Admin Dose 1 INH; Start 11/23/18 at 09:00 Miscellaneous Information 1 ea NOTE XX ; Start 11/23/18 at 03:30 Glucose (Glutose) 15 gm Q15M PRN PO DECREASED GLUCOSE; Start 11/23/18 at 03:30 Glucose (Glutose) 22.5 gm Q15M PRN PO DECREASED GLUCOSE; Start 11/23/18 at 03:30 Dextrose (D50w Syringe) 25 ml Q15M PRN IV DECREASED GLUCOSE; Start 11/23/18 at 03:30 Dextrose (D50w Syringe) 50 ml Q15M PRN IV DECREASED GLUCOSE; Start 11/23/18 at 03:30 Glucagon (Glucagen) 1 mg Q15M PRN IM DECREASED GLUCOSE; Start 11/23/18 at 03:30 Glucose (Glutose) 15 gm Q15M PRN BUCCAL DECREASED GLUCOSE; Start 11/23/18 at 03:30 Dexamethasone (Decadron) 6 mg Q6 IV Last administered on 11/23/18at 11:40; Admin Dose 6 MG; Start 11/23/18 at 06:30 Heparin Sodium (Porcine) (Heparin (5000 Units/1ml)) 5,000 unit BID SC Last administered on 11/23/18at 09:36; Admin Dose 5,000 UNIT; Start 11/23/18 at 09:00 AKIKO TOLBERT MD Nov 23, 2018 12:30
[2018-11-23 15:28] VITALS: BP 130/59; PULSE 82; RESP 20
--- NOTE | 2018-11-23 18:06 | PN ---
Date/Time of Note Date/Time of Note DATE: 11/23/18 TIME: 18:03 Assessment/Plan VTE Prophylaxis Risk score (from Ns)>0 risk: 1 SCD applied (from Ns): Yes Pharmacological prophylaxis: NA/contraindicated Pharm contraindication: surgical contra Lines/Catheters IV Catheter Type (from Nrsg): [place] Urinary Cath still in place: No Assessment/Plan Hospital Course 1. Bilateral L4/5 neuroforaminal stenosis MRI at the outside facility showed moderate central canal spinal stenosis of L4- 5 Continue steroids Neurosurgery consultation appreciated, plan is for L4/5 decompression and bilateral foramenotomies tomorrow Pain control 2. Hypertension: BP within acceptable range 3. Diabetes: Insulin while in-house 4. Dyslipidemia: Continue statin 5. Depression: Continue home meds 6. Asthma: No sign of acute exacerbation. Continue bronchodilators and home i nhaled corticosteroids Prophylaxis: SCDs Result Diagram: 11/23/18 0502 11/23/18 0502 Results 24hrs Laboratory Tests Test 11/23/18 05:02 11/23/18 07:27 11/23/18 11:34 11/23/18 17:06 White Blood Count 7.1 Red Blood Count 4.22 Hemoglobin 11.9 L Hematocrit 36.1 L Mean Corpuscular Volume 85.5 Mean Corpuscular 28.2 L Hemoglobin Mean Corpuscular 33.0 Hemoglobin Concent Red Cell Distribution 13.7 Width Platelet Count 209 Mean Platelet Volume 12.7 H Immature Granulocytes % 0.300 Neutrophils % 54.5 Lymphocytes % 33.6 Monocytes % 6.8 Eosinophils % 4.4 Basophils % 0.4 Nucleated Red Blood 0.0 Cells % Immature Granulocytes # 0.020 Neutrophils # 3.9 Lymphocytes # 2.4 Monocytes # 0.5 Eosinophils # 0.3 Basophils # 0.0 Nucleated Red Blood 0.0 Cells # Sodium Level 141 Potassium Level 4.1 Chloride Level 109 Carbon Dioxide Level 24 Anion Gap 8 Blood Urea Nitrogen 13 Creatinine 0.56 Est Glomerular Filtrat > 60 Rate mL/min Glucose Level 214 Hemoglobin A1c 9.2 H Calcium Level 8.9 Magnesium Level 1.6 L Total Bilirubin 0.4 Direct Bilirubin 0.00 Indirect Bilirubin 0.4 Aspartate Amino 42 Transf (AST/SGOT) Alanine 38 Aminotransferase (ALT/SG PT) Alkaline Phosphatase 65 Total Protein 6.6 Albumin 3.6 Globulin 3.00 Albumin/Globulin Ratio 1.20 Triglycerides Level 123 Cholesterol Level 124 LDL Cholesterol, 59 Calculated HDL Cholesterol 40 Cholesterol/HDL Ratio 3.1 Bedside Glucose 221 H 247 H 417 *H Subjective 24 Hr Interval Summary Musculoskeletal: back pain Exam/Review of Systems Exam Vitals Vital Signs Date Temp Pulse Resp B/P (MAP) Pulse Ox O2 O2 Flow FiO2 Time Delivery Rate 11/23/18 98.0 82 20 130/59 97 Room Air 15:28 (82) Intake and Output 11/22/18 11/22/18 11/23/18 1515:00 23:00 07:00 IntakeIntake Total 100 ml BalanceBalance 100 ml Constitutional: alert, oriented Respiratory: clear to auscultation Cardiovascular: regular rate and rhythm Gastrointestinal: soft; No distended Musculoskeletal: nl extremities to inspection Results Results 24hrs Laboratory Tests Test 11/23/18 05:02 11/23/18 07:27 11/23/18 11:34 11/23/18 17:06 White Blood Count 7.1 Red Blood Count 4.22 Hemoglobin 11.9 L Hematocrit 36.1 L Mean Corpuscular Volume 85.5 Mean Corpuscular 28.2 L Hemoglobin Mean Corpuscular 33.0 Hemoglobin Concent Red Cell Distribution 13.7 Width Platelet Count 209 Mean Platelet Volume 12.7 H Immature Granulocytes % 0.300 Neutrophils % 54.5 Lymphocytes % 33.6 Monocytes % 6.8 Eosinophils % 4.4 Basophils % 0.4 Nucleated Red Blood 0.0 Cells % Immature Granulocytes # 0.020 Neutrophils # 3.9 Lymphocytes # 2.4 Monocytes # 0.5 Eosinophils # 0.3 Basophils # 0.0 Nucleated Red Blood 0.0 Cells # Sodium Level 141 Potassium Level 4.1 Chloride Level 109 Carbon Dioxide Level 24 Anion Gap 8 Blood Urea Nitrogen 13 Creatinine 0.56 Est Glomerular Filtrat > 60 Rate mL/min Glucose Level 214 Hemoglobin A1c 9.2 H Calcium Level 8.9 Magnesium Level 1.6 L Total Bilirubin 0.4 Direct Bilirubin 0.00 Indirect Bilirubin 0.4 Aspartate Amino 42 Transf (AST/SGOT) Alanine 38 Aminotransferase (ALT/SG PT) Alkaline Phosphatase 65 Total Protein 6.6 Albumin 3.6 Globulin 3.00 Albumin/Globulin Ratio 1.20 Triglycerides Level 123 Cholesterol Level 124 LDL Cholesterol, 59 Calculated HDL Cholesterol 40 Cholesterol/HDL Ratio 3.1 Bedside Glucose 221 H 247 H 417 *H Medications Medication Current Medications IV Flush (NS 3 ml) 3 ml PER PROTOCOL IV ; Start 11/23/18 at 03:30 Ondansetron HCl (Zofran Inj) 4 mg Q6H PRN IV NAUSEA/VOMITING; Start 11/23/18 at 03:30 Acetaminophen (Tylenol Tab) 650 mg Q6H PRN PO .PAIN 1-3 OR TEMP; Start 11/23/18 at 03:30 Acetaminophen/ Hydrocodone Bitart ([place] (5/325)) 1 tab Q6H PRN PO .PAIN 4-6; Start 11/23/18 at 03:30 Acetaminophen/ Hydrocodone Bitart ([place] (5/325)) 2 tab Q6H PRN PO .PAIN 7-10 Last administered on 11/23/18at 15:43; Admin Dose 2 TAB; Start 11/23/18 at 03:30 Albuterol/ Ipratropium (Duoneb) 3 ml Q2H RESP THERAPY PRN HHN SHORTNESS OF BREATH; Start 11/23/18 at 03:30 Diagnostic Test (Pha) (Accu-Chek) 1 ea 02 XX ; Start 11/24/18 at 02:00 Insulin Glargine (Lantus) 20 units DAILY@0800 SC Last administered on 11/23/18at 08:19; Admin Dose 20 UNITS; Start 11/23/18 at 08:00 Insulin Aspart (Novolog Insulin Pen) NOVOLOG *MODERATE* ALGORITHM WITH MEALS BEDTIME SC Last administered on 11/23/18at 17:15; Admin Dose 12 UNIT; Start 11/23/18 at 08:00 Albuterol (Ventolin Hfa) 2 puff Q4H PRN INH SHORTNESS OF BREATH; Start 11/23/18 at 03:30 Atorvastatin Calcium (Lipitor) 40 mg QHS PO ; Start 11/23/18 at 21:00 Fluoxetine HCl (Prozac) 40 mg DAILY PO Last administered on 11/23/18at 09:00; Admin Dose 40 MG; Start 11/23/18 at 09:00 Lisinopril (Zestril) 2.5 mg DAILY PO Last administered on 11/23/18at 09:31; Admin Dose 2.5 MG; Start 11/23/18 at 09:00 Naproxen (Naprosyn) 500 mg BID PRN PO PAIN AND/OR INFLAMMATION; Start 11/23/18 at 03:30 Tiotropium [place] (Spiriva) 18 inh DAILY INH Last administered on 11/23/18at 09:01; Admin Dose 18 INH; Start 11/23/18 at 09:00 Zolpidem Tartrate (Ambien) 10 mg QHS PRN PO INSOMNIA; Start 11/23/18 at 03:30 Fluticasone/ Vilanterol (Breo Ellipta 100-25 Mcg Inh) 1 inh DAILY INH Last administered on 11/23/18at 09:09; Admin Dose 1 INH; Start 11/23/18 at 09:00 Miscellaneous Information 1 ea NOTE XX ; Start 11/23/18 at 03:30 Glucose (Glutose) 15 gm Q15M PRN PO DECREASED GLUCOSE; Start 11/23/18 at 03:30 Glucose (Glutose) 22.5 gm Q15M PRN PO DECREASED GLUCOSE; Start 11/23/18 at 03:30 Dextrose (D50w Syringe) 25 ml Q15M PRN IV DECREASED GLUCOSE; Start 11/23/18 at 03:30 Dextrose (D50w Syringe) 50 ml Q15M PRN IV DECREASED GLUCOSE; Start 11/23/18 at 03:30 Glucagon (Glucagen) 1 mg Q15M PRN IM DECREASED GLUCOSE; Start 11/23/18 at 03:30 Glucose (Glutose) 15 gm Q15M PRN BUCCAL DECREASED GLUCOSE; Start 11/23/18 at 03:30 Dexamethasone (Decadron) 6 mg Q6 IV Last administered on 11/23/18at 17:42; Admin Dose 6 MG; Start 11/23/18 at 06:30 Heparin Sodium (Porcine) (Heparin (5000 Units/1ml)) 5,000 unit BID SC Last administered on 11/23/18at 09:36; Admin Dose 5,000 UNIT; Start 11/23/18 at 09:00 BETH COOK Nov 23, 2018 18:06
[2018-11-23] MEDS ORDERED: INSULIN GLARGINE [LANTus] (100 UNITS/ML) SYG SC ONE ×2 (19:00→20:30)
[2018-11-23] MEDS ORDERED: MAGNESIUM SULFATE 2 GM/50 ML 50 ML IVPB ONE (19:30)
[2018-11-23 19:49] VITALS: BP 118/64; PULSE 75; RESP 20
[2018-11-23] MEDS: ATORVASTATIN 40 MG TAB PO SCH (20:10)
[2018-11-24] VITALS (28 sets, daily range): BP systolic 84–121; BP diastolic 35–64; PULSE 56–86; RESP 13–20
[2018-11-24] MEDS: DEXAMETHASONE 4 MG/ML 1 ML INJ IV SCH ×4 (01:08→17:17)
[2018-11-24] MEDS: ACCU-CHEK XX SCH (02:06)
[2018-11-24] MEDS ORDERED: DEXAMETHASONE 4 MG/ML 5 ML INJ ONE (07:10)
[2018-11-24] MEDS ORDERED: ONDANSETRON 4 MG INJ ONE (07:10)
[2018-11-24] MEDS ORDERED: HYDROmorphONE 2 MG/ML SYG ONE (07:10)
[2018-11-24] MEDS ORDERED: FENTAnyl 50 MCG/ML VIAL ONE (07:10)
[2018-11-24] MEDS ORDERED: INSULIN REGULAR, HUMAN 100 UNIT/1 ML 3ML VIAL ONE (07:10)
[2018-11-24] MEDS ORDERED: MIDAZOLAM 1 MG/ML 2 ML INJ ONE (07:10)
[2018-11-24] MEDS ORDERED: ROCURONIUM 50 MG INJ ONE (07:10)
[2018-11-24] MEDS ORDERED: GELATIN SIZE 100 SPONGE ONE (07:25)
[2018-11-24] MEDS ORDERED: THROMBIN 5000 UNIT VIAL ONE (07:25)
[2018-11-24] MEDS ORDERED: BUPIVACAINE 0.25%/EPI (SDV) 30 ML INJ ONE (07:26)
[2018-11-24] MEDS ORDERED: BUPIVACAINE 0.25% (MPF) 30 ML INJ ONE (07:26)
[2018-11-24] MEDS ORDERED: POLYMYXIN/BACITRACIN 1L IRRIG ONE (07:28)
--- NOTE | 2018-11-24 07:29 | PREAC ---
Date/Time of Note Date/Time of Note DATE: 11/24/18 TIME: 07:24 Anesthesia Eval and Record Evaluation Time Pre-Procedure Interview DATE: 11/24/18 TIME: 07:24 Age 58 Sex female NPO: 8 hrs Preoperative diagnosis Bilateral L4-L5 neuroforaminal stenosis Planned procedure Lumbar 4-5 decompression with bilateral foraminotomies Past Medical History Past Medical History: Includes Cardio: HTN, Dyslipidemia Endo: Diabetes Pulm: Asthma Neuro: Peripheral neuropathy Musculoskeletal: Osteoarthritis Renal: Other (Nephrolithiasis) GI: Obesity Psych: Depression Surgery & Anesthesia Issues No known issue Meds Anticoagulation: No Beta Gt within 24 hr: No Reason Beta Gt not given: Pt. not on B-Gt Active Scripts Promethazine HCl/Codeine (Prometh-Codein 6.25-10 mg/5 ml) 5 Ml Syrup, 5 ML PO QHS PRN for COUGH, #60 ML Prov:PRUDENCIO VANESSA MD 09/18/18 Amoxicillin* (Amoxicillin*) 500 Mg Cap, 500 MG PO TID for 7 Days, CAP Prov:PRUDENCIO VANESSA MD 09/18/18 Azithromycin* (Zithromax*) 250 Mg Tablet, 250 MG PO .ZPACK DIRECTED, #6 TAB TAKE 500 MG (2 TABS) THE FIRST DAY THEN 250 MG (1 TAB) DAYS 2-5 Prov:PRUDENCIO VANESSA MD 09/18/18 Prednisone* (Prednisone*) 20 Mg Tab, 60 MG PO DAILY for 4 Days, TAB Prov:PRUDENCIO VANESSA MD 09/18/18 Naproxen* (Naprosyn*) 500 Mg Tablet, 500 MG PO BID PRN for PAIN AND/OR INFLAMMATION, #30 TAB Prov:LESLY SANTOS MD 08/08/18 Cephalexin* (Keflex*) 500 Mg Capsule, 500 MG PO QID for 5 Days, CAP Prov:LESLY SANTOS MD 08/08/18 Oxycodone HCl/Acetaminophen (Percocet 5-325 mg Tablet) 1 Each Tablet, 1 EACH PO TID PRN for PAIN LEVEL 6-10, #9 TAB Prov:LESLY SANTOS MD 08/08/18 Reported Medications Tiotropium [place]* (Spiriva*) 18 Mcg Cap.w.dev, 1 CAP INHALATION DAILY, #30 CAP 08/08/18 Zolpidem Tartrate* (Zolpidem Tartrate*) 10 Mg Tablet, 10 MG PO QHS PRN for INSOMNIA, #30 TAB 08/08/18 Glipizide* (Glipizide*) 10 Mg Tablet, 10 MG PO AC BREAKFAST DINNER, TAB 11/01/17 Mometasone-Formoterol (Dulera) 100-5 Mcg - 13 Gm Hfa.aer.ad, 2 PUFFS INHALATION BID, #1 INHALER 08/22/17 Albuterol Sulfate* (Ventolin HFA*) 18 Gm Hfa.aer.ad, 2 PUFF INHALATION Q4H, #1 INHALER 08/22/17 Fluoxetine Hcl* (Fluoxetine Hcl*) 40 Mg Capsule, 40 MG PO DAILY, CAP 08/22/17 Atorvastatin* (Atorvastatin*) 40 Mg Tablet, 40 MG PO QHS, #30 TAB 08/22/17 Lisinopril* (Lisinopril*) 2.5 Mg Tablet, 2.5 MG PO DAILY, #30 TAB 08/22/17 Insulin Glargine,Hum.rec.anlog (Basaglar Kwikpen U-100) 100 Unit/1 Ml Insuln.pen, 50 UNIT SC QHS, EA 08/22/17 Metformin Hcl* (Metformin Hcl*) 1,000 Mg Tablet, 1000 MG PO WITH BREAKFAST DINNE, #60 TAB 08/22/17 Current Medications IV Flush (NS 3 ml) 3 ml PER PROTOCOL IV ; Start 11/23/18 at 03:30 Ondansetron HCl (Zofran Inj) 4 mg Q6H PRN IV NAUSEA/VOMITING; Start 11/23/18 at 03:30 Acetaminophen (Tylenol Tab) 650 mg Q6H PRN PO .PAIN 1-3 OR TEMP; Start 11/23/18 at 03:30 Acetaminophen/ Hydrocodone Bitart ([place] (5/325)) 1 tab Q6H PRN PO .PAIN 4-6; Start 11/23/18 at 03:30 Acetaminophen/ Hydrocodone Bitart ([place] (5/325)) 2 tab Q6H PRN PO .PAIN 7-10 Last administered on 11/23/18at 21:38; Admin Dose 2 TAB; Start 11/23/18 at 03:30 Albuterol/ Ipratropium (Duoneb) 3 ml Q2H RESP THERAPY PRN HHN SHORTNESS OF BREATH; Start 11/23/18 at 03:30 Diagnostic Test (Pha) (Accu-Chek) 1 ea 02 XX Last administered on 11/24/18at 02:06; Admin Dose 1 EA; Start 11/24/18 at 02:00 Insulin Aspart (Novolog Insulin Pen) NOVOLOG *MODERATE* ALGORITHM WITH MEALS BEDTIME SC Last administered on 11/23/18at 20:58; Admin Dose 7 UNIT; Start 11/23/18 at 08:00 Albuterol (Ventolin Hfa) 2 puff Q4H PRN INH SHORTNESS OF BREATH; Start 11/23/18 at 03:30 Atorvastatin Calcium (Lipitor) 40 mg QHS PO Last administered on 11/23/18at 20:10; Admin Dose 40 MG; Start 11/23/18 at 21:00 Fluoxetine HCl (Prozac) 40 mg DAILY PO Last administered on 11/23/18at 09:00; Admin Dose 40 MG; Start 11/23/18 at 09:00 Lisinopril (Zestril) 2.5 mg DAILY PO Last administered on 11/23/18at 09:31; Admin Dose 2.5 MG; Start 11/23/18 at 09:00 Naproxen (Naprosyn) 500 mg BID PRN PO PAIN AND/OR INFLAMMATION; Start 11/23/18 at 03:30 Tiotropium [place] (Spiriva) 18 inh DAILY INH Last administered on 11/23/18at 09:01; Admin Dose 18 INH; Start 11/23/18 at 09:00 Zolpidem Tartrate (Ambien) 10 mg QHS PRN PO INSOMNIA; Start 11/23/18 at 03:30 Fluticasone/ Vilanterol (Breo Ellipta 100-25 Mcg Inh) 1 inh DAILY INH Last administered on 11/23/18at 09:09; Admin Dose 1 INH; Start 11/23/18 at 09:00 Miscellaneous Information 1 ea NOTE XX ; Start 11/23/18 at 03:30 Glucose (Glutose) 15 gm Q15M PRN PO DECREASED GLUCOSE; Start 11/23/18 at 03:30 Glucose (Glutose) 22.5 gm Q15M PRN PO DECREASED GLUCOSE; Start 11/23/18 at 03:30 Dextrose (D50w Syringe) 25 ml Q15M PRN IV DECREASED GLUCOSE; Start 11/23/18 at 03:30 Dextrose (D50w Syringe) 50 ml Q15M PRN IV DECREASED GLUCOSE; Start 11/23/18 at 03:30 Glucagon (Glucagen) 1 mg Q15M PRN IM DECREASED GLUCOSE; Start 11/23/18 at 03:30 Glucose (Glutose) 15 gm Q15M PRN BUCCAL DECREASED GLUCOSE; Start 11/23/18 at 03:30 Dexamethasone (Decadron) 6 mg Q6 IV Last administered on 11/24/18at 06:12; Admin Dose 6 MG; Start 11/23/18 at 06:30 Heparin Sodium (Porcine) (Heparin (5000 Units/1ml)) 5,000 unit BID SC Last administered on 11/23/18at 20:50; Admin Dose 5,000 UNIT; Start 11/23/18 at 09:00 Insulin Glargine (Lantus) 25 units DAILY@0800 SC ; Start 11/24/18 at 08:00 Meds reviewed: Yes Allergies Coded Allergies: No Known Allergy (Unverified , 08/08/18) Allergies Reviewed: Yes Labs/Studies Labs Reviewed: Reviewed by anesthesiologist Result Diagram: 11/24/18 0530 11/24/18 0530 Laboratory Tests 11/24/18 05:30 Blood Bank Test 11/23/18 10:44 11/23/18 11:10 Blood Product Summary Counts Antibody Screen NEGATIVE Blood Type O POSITIVE test: Negative Studies: ECG, Other Pre-procedure Exam Last vitals Vital Signs Date Temp Pulse Resp B/P (MAP) Pulse Ox O2 O2 Flow FiO2 Time Delivery Rate 11/24/18 97.9 70 20 106/57 97 Room Air 03:52 (73) Airway: Adequate mouth opening, Adequate thyromental dist Mallampati: Mallampati III Teeth: Normal Lung: Normal Heart: Normal ASA Physical Status ASA physical status: 3 Emergency: None Planned Anesthetic General/MAC: ETT Pre-operative Attestations Prior to commencing anesthesia and surgery, the patient was re-evaluated, there was verification of: *The patient's identity *The results of appropriate recent lab work and preoperative vital signs *The above evaluation not changing prior to induction *Anesthetic plan, risk benefits, alternative and complications discussed with patient/family; questions answered; patient/family understands, accepts and wishes to proceed. ABAD HARRELL MD Nov 24, 2018 07:29
[2018-11-24] MEDS: INSULIN GLARGINE [LANTus] (100 UNITS/ML) SYG SC SCH ×4 (07:32→21:44)
[2018-11-24] MEDS: INSULIN ASPART [NOVOLOG] 3 ML PEN SC SCH ×5 (07:33→21:44)
--- NOTE | 2018-11-24 07:45 | OPR ---
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 Arana is a 58 year old woman who has had a several year history of back pain and left > right radiating leg pain. She has completed conservative management including physical therapy and oral steroids, but has had severe worsening of the pain with weakness over the past week. This has not responded to oral steroids. MRI revealed mild central canal stenosis, but moderate bilateral neuroforaminal stenosis at L4/5 with facet arthropathy. Given her level of pain with movement, she does not feel that she will be able to go home, therefore I have recommended a bilateral L4/5 foramenotomy and she has elected to proceed. Procedure Description Ms. Arana was brought to the operating room where general endotracheal anesthesia was induced without difficulty. She was placed prone on the OR table and the area of L4/5 was marked with a preoperative x-ray. This area was prepped and draped in the usual sterile fashion. A #10 blade was used to incise the skin and the dissection was carried down along the L4 and L5 lamina. A lateral x-ray was used to confirm the level. The matchstick drill bit was then used to remove the inferior portion of the L4 lamina and the superior L5 lamina bilaterally. Kerrison punches were used to widen this opening. The ligamentum flavum was then removed bilaterally, keeping the spinous process intact. There was significant ligamentous hypertrophy at this level. Once this was done, Kerrison rongeurs were used to open the neural foramen at L4/5 bilaterally. This was performed until a right angle instrument could easily pass into the foramen without compression. Careful hemostasis was achieved. The wound was then washed with copious antibiotic irrigation and closed in layers with 2-0 vicryl suture for the fascia and inverted interrupted 3-0 vicryl for the dermis. The skin was closed with a running 4-0 monocryl stitch and sealed with dermabond. WILNER TOLBERT MD Nov 24, 2018 07:45
--- NOTE | 2018-11-24 07:47 | HPN ---
Date/Time of Note Date/Time of Note DATE: 11/24/18 TIME: 07:46 Interval H&P Admission Note Pt. seen H&P reviewed: No system changes AKIKO TOLBERT MD Nov 24, 2018 07:47
[2018-11-24] MEDS ORDERED: CEFAZOLIN 1 GM INJ ONE (08:10)
[2018-11-24] MEDS ORDERED: BUPIVACAINE 0.5%/EPI (SDV) 30 ML INJ ONE (08:11)
[2018-11-24] MEDS ORDERED: LABETALOL HCL 20MG INJ IV PRN (08:30)
[2018-11-24] MEDS ORDERED: INSULIN ASPART [NOVOLOG] 3 ML PEN SC ONE (08:30)
[2018-11-24] MEDS ORDERED: ACETAMINOPHEN 1000MG/100ML IV 100 ML IVPB ONE (08:30)
[2018-11-24] MEDS ORDERED: ONDANSETRON 4 MG INJ IV PRN (08:30)
[2018-11-24] MEDS ORDERED: FENTAnyl 50 MCG/ML VIAL IV PRN ×2 (08:30)
[2018-11-24] MEDS ORDERED: ALBUTEROL 0.083% (NEB) 2.5 MG/3 ML AMP HHN PRN (08:30)
[2018-11-24] MEDS ORDERED: HYDROmorphONE 1 MG/5 ML IV SYRINGE IV PRN ×3 (08:30)
[2018-11-24] MEDS ORDERED: PROCHLORPERAZINE 10 MG INJ IV PRN (08:30)
[2018-11-24] MEDS ORDERED: METOCLOPRAMIDE 10 MG INJ ONE (08:49)
[2018-11-24] MEDS: HEPARIN 5,000 UNIT/1 ML VIAL SC SCH ×2 (09:00→21:44)
[2018-11-24] MEDS: FLUOXETINE 20 MG CAP PO SCH (09:00)
[2018-11-24] MEDS: FLUTICASONE/VILANTEROL 100-25 INH SCH (09:00)
[2018-11-24] MEDS: LISINOPRIL 5 MG TAB PO SCH (09:00)
[2018-11-24] MEDS: TIOTROPIUM 18 MCG CAPSULE INHA DEV INH SCH (09:00)
[2018-11-24] MEDS ORDERED: KETOROLAC 30 MG INJ ONE (09:26)
[2018-11-24] MEDS ORDERED: SUGAMMADEX SODIUM 200 MG/2 ML VIAL IV ONE (09:55)
--- NOTE | 2018-11-24 10:09 | PAC ---
Date/Time of Note Date/Time of Note DATE: 11/24/18 TIME: 10:07 Post-Anesthesia Notes Post-Anesthesia Note Last documented vital signs Vital Signs Date Temp Pulse Resp B/P (MAP) Pulse Ox O2 O2 Flow FiO2 Time Delivery Rate 11/24/18 98.1 74 14 121/60 96 Room Air 07:18 (80) Activity: WNL Respiratory function: WNL Cardiovascular function: WNL Mental status: Baseline Pain reasonably controlled: Yes Hydration appropriate: Yes Nausea/Vomiting absent: Yes Comments Remains hyperglycemic on arrival to PACU (recent inpatient steroids) despite intraoperative insulin administration. Will proceed with PACU insulin sliding scale, otherwise stable. ABAD HARRELL MD Nov 24, 2018 10:09
[2018-11-24] MEDS: FENTAnyl 50 MCG/ML VIAL IV PRN ×2 (10:40→11:34)
[2018-11-24] MEDS ORDERED: ALBUMIN HUMAN 5% 250 ML IV ONE (11:00)
[2018-11-24] MEDS ORDERED: ALBUMIN HUMAN 5% 250 ML ONE (11:02)
[2018-11-24] MEDS: HYDROCODONE/APAP (5/325) TAB PO PRN ×2 (12:11→20:29)
--- NOTE | 2018-11-24 12:14 | PN ---
Date/Time of Note Date/Time of Note DATE: 11/24/18 TIME: 12:13 Assessment/Plan VTE Prophylaxis Risk score (from Ns)>0 risk: 3 SCD applied (from Ns): Yes Pharmacological prophylaxis: NA/contraindicated Pharm contraindication: surgical contra Lines/Catheters IV Catheter Type (from Nrs): Peripheral IV Urinary Cath still in place: No Assessment/Plan Hospital Course 1. 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 Hypertension: BP within acceptable range 3. Diabetes: Insulin while in-house 4. Dyslipidemia: Continue statin 5. Depression: Continue home meds 6. Asthma: No sign of acute exacerbation. Continue bronchodilators and home in haled corticosteroids Prophylaxis: SCDs DC planning: Surgery today, follow-up with neurosurgery recommendations Result Diagram: 11/24/18 0530 11/24/18 0530 Results 24hrs Laboratory Tests Test 11/23/18 17:06 11/23/18 20:11 11/24/18 02:03 11/24/18 05:30 Bedside Glucose 417 *H 431 *H 352 H White Blood Count 7.6 Red Blood Count 4.47 Hemoglobin 12.6 Hematocrit 37.6 Mean Corpuscular Volume 84.1 Mean Corpuscular 28.2 L Hemoglobin Mean Corpuscular 33.5 Hemoglobin Concent Red Cell Distribution 13.5 Width Platelet Count 225 Mean Platelet Volume 12.4 H Immature Granulocytes % 0.500 H Neutrophils % 83.1 H Lymphocytes % 14.2 L Monocytes % 2.1 Eosinophils % 0.0 Basophils % 0.1 Nucleated Red Blood 0.0 Cells % Immature Granulocytes # 0.040 H Neutrophils # 6.3 Lymphocytes # 1.1 Monocytes # 0.2 L Eosinophils # 0.0 Basophils # 0.0 Nucleated Red Blood 0.0 Cells # Sodium Level 140 Potassium Level 4.8 Chloride Level 106 Carbon Dioxide Level 23 Anion Gap 11 Blood Urea Nitrogen 24 #H Creatinine 0.65 Est Glomerular Filtrat > 60 Rate mL/min Glucose Level 377 #H Calcium Level 9.4 Phosphorus Level 4.5 Magnesium Level 2.2 Test 11/24/18 07:24 11/24/18 08:53 11/24/18 09:16 11/24/18 10:00 Bedside Glucose 385 H 382 H 332 H 370 H Subjective 24 Hr Interval Summary Musculoskeletal: back pain Exam/Review of Systems Exam Vitals Vital Signs Date Temp Pulse Resp B/P (MAP) Pulse Ox O2 O2 Flow FiO2 Time Delivery Rate 11/24/18 70 16 101/57 96 Nasal 2.0 11:33 (72) Cannula 11/24/18 98.4 10:20 Intake and Output 11/23/18 11/23/18 11/24/18 1515:00 23:00 07:00 IntakeIntake Total 600 ml OutputOutput Total 8 ml BalanceBalance 592 ml Constitutional: alert, oriented Respiratory: clear to auscultation Cardiovascular: regular rate and rhythm Gastrointestinal: soft; No distended Musculoskeletal: nl extremities to inspection Results Results 24hrs Laboratory Tests Test 11/23/18 17:06 11/23/18 20:11 11/24/18 02:03 11/24/18 05:30 Bedside Glucose 417 *H 431 *H 352 H White Blood Count 7.6 Red Blood Count 4.47 Hemoglobin 12.6 Hematocrit 37.6 Mean Corpuscular Volume 84.1 Mean Corpuscular 28.2 L Hemoglobin Mean Corpuscular 33.5 Hemoglobin Concent Red Cell Distribution 13.5 Width Platelet Count 225 Mean Platelet Volume 12.4 H Immature Granulocytes % 0.500 H Neutrophils % 83.1 H Lymphocytes % 14.2 L Monocytes % 2.1 Eosinophils % 0.0 Basophils % 0.1 Nucleated Red Blood 0.0 Cells % Immature Granulocytes # 0.040 H Neutrophils # 6.3 Lymphocytes # 1.1 Monocytes # 0.2 L Eosinophils # 0.0 Basophils # 0.0 Nucleated Red Blood 0.0 Cells # Sodium Level 140 Potassium Level 4.8 Chloride Level 106 Carbon Dioxide Level 23 Anion Gap 11 Blood Urea Nitrogen 24 #H Creatinine 0.65 Est Glomerular Filtrat > 60 Rate mL/min Glucose Level 377 #H Calcium Level 9.4 Phosphorus Level 4.5 Magnesium Level 2.2 Test 11/24/18 07:24 11/24/18 08:53 11/24/18 09:16 11/24/18 10:00 Bedside Glucose 385 H 382 H 332 H 370 H Medications Medication Current Medications IV Flush (NS 3 ml) 3 ml PER PROTOCOL IV ; Start 11/23/18 at 03:30 Ondansetron HCl (Zofran Inj) 4 mg Q6H PRN IV NAUSEA/VOMITING; Start 11/23/18 at 03:30 Acetaminophen (Tylenol Tab) 650 mg Q6H PRN PO .PAIN 1-3 OR TEMP; Start 11/23/18 at 03:30 Acetaminophen/ Hydrocodone Bitart ([place] (5/325)) 1 tab Q6H PRN PO .PAIN 4-6; Start 11/23/18 at 03:30 Acetaminophen/ Hydrocodone Bitart ([place] (5/325)) 2 tab Q6H PRN PO .PAIN 7-10 Last administered on 11/24/18 12:11; Admin Dose 2 TAB; Start 11/23/18 at 03:30 Albuterol/ Ipratropium (Duoneb) 3 ml Q2H RESP THERAPY PRN HHN SHORTNESS OF BREATH; Start 11/23/18 at 03:30 Diagnostic Test (Pha) (Accu-Chek) 1 ea 02 XX Last administered on 11/24/18 02:06; Admin Dose 1 EA; Start 11/24/18 at 02:00 Insulin Aspart (Novolog Insulin Pen) NOVOLOG *MODERATE* ALGORITHM WITH MEALS BEDTIME SC Last administered on 11/24/18 10:18; Admin Dose 4 UNIT; Start 11/23/18 at 08:00 Albuterol (Ventolin Hfa) 2 puff Q4H PRN INH SHORTNESS OF BREATH; Start 11/23/18 at 03:30 Atorvastatin Calcium (Lipitor) 40 mg QHS PO Last administered on 11/23/18 20:10; Admin Dose 40 MG; Start 11/23/18 at 21:00 Fluoxetine HCl (Prozac) 40 mg DAILY PO Last administered on 11/23/18 09:00; Admin Dose 40 MG; Start 11/23/18 at 09:00 Lisinopril (Zestril) 2.5 mg DAILY PO Last administered on 11/23/18 09:31; Admin Dose 2.5 MG; Start 11/23/18 at 09:00 Naproxen (Naprosyn) 500 mg BID PRN PO PAIN AND/OR INFLAMMATION; Start 11/23/18 at 03:30 Tiotropium [place] (Spiriva) 18 inh DAILY INH Last administered on 11/23/18 09:01; Admin Dose 18 INH; Start 11/23/18 at 09:00 Zolpidem Tartrate (Ambien) 10 mg QHS PRN PO INSOMNIA; Start 11/23/18 at 03:30 Fluticasone/ Vilanterol (Breo Ellipta 100-25 Mcg Inh) 1 inh DAILY INH Last administered on 11/23/18at 09:09; Admin Dose 1 INH; Start 11/23/18 at 09:00 Miscellaneous Information 1 ea NOTE XX ; Start 11/23/18 at 03:30 Glucose (Glutose) 15 gm Q15M PRN PO DECREASED GLUCOSE; Start 11/23/18 at 03:30 Glucose (Glutose) 22.5 gm Q15M PRN PO DECREASED GLUCOSE; Start 11/23/18 at 03:30 Dextrose (D50w Syringe) 25 ml Q15M PRN IV DECREASED GLUCOSE; Start 11/23/18 at 03:30 Dextrose (D50w Syringe) 50 ml Q15M PRN IV DECREASED GLUCOSE; Start 11/23/18 at 03:30 Glucagon (Glucagen) 1 mg Q15M PRN IM DECREASED GLUCOSE; Start 11/23/18 at 03:30 Glucose (Glutose) 15 gm Q15M PRN BUCCAL DECREASED GLUCOSE; Start 11/23/18 at 03:30 Dexamethasone (Decadron) 6 mg Q6 IV Last administered on 11/24/18at 06:12; Admin Dose 6 MG; Start 11/23/18 at 06:30 Heparin Sodium (Porcine) (Heparin (5000 Units/1ml)) 5,000 unit BID SC Last administered on 11/23/18at 20:50; Admin Dose 5,000 UNIT; Start 11/23/18 at 09:00 Insulin Glargine (Lantus) 25 units DAILY@0800 SC ; Start 11/24/18 at 08:00 Hydromorphone HCl (Dilaudid) 0.2 mg PACU PRN IV MILD PAIN 1-3; Start 11/24/18 at 08:30; Stop 11/24/18 at 13:00 Hydromorphone HCl (Dilaudid) 0.4 mg PACU PRN IV MOD PAIN 4-6; Start 11/24/18 at 08:30; Stop 11/24/18 at 13:00 Hydromorphone HCl (Dilaudid) 0.6 mg PACU PRN IV SEVERE PAIN 7-10; Start 11/24/18 at 08:30; Stop 11/24/18 at 13:00 Fentanyl (Sublimaze) 25 mcg PACU ORDER PRN IV MILD PAIN 1-3; Start 11/24/18 at 08:30; Stop 11/24/18 at 13:00 Fentanyl (Sublimaze) 50 mcg PACU ORDER PRN IV MOD PAIN 4-6 Last administered on 11/24/18at 11:34; Admin Dose 50 MCG; Start 11/24/18 at 08:30; Stop 11/24/18 at 13:00 Fentanyl (Sublimaze) 75 mcg PACU ORDER PRN IV SEVERE PAIN 7-10; Start 11/24/18 at 08:30; Stop 11/24/18 at 13:00 Ondansetron HCl (Zofran Inj) 4 mg PACU ORDER PRN IV NAUSEA/VOMITING Last administered on 11/24/18at 10:20; Admin Dose 4 MG; Start 11/24/18 at 08:30; Stop 11/24/18 at 13:00 Prochlorperazine (Compazine Inj) 5 mg PACU ORDER PRN IV NAUSEA/VOMITING; Start 11/24/18 at 08:30; Stop 11/24/18 at 13:00 Labetalol HCl (Labetalol) 5 mg PACU ORDER PRN IV HIGH BLOOD PRESSURE; Start at 08:30; Stop 11/24/18 at 13:00 Albuterol (Proventil 0.083% (Neb)) 2.5 mg PACU ORDER PRN HHN .WHEEZING; Start 11/24/18 at 08:30; Stop 11/24/18 at 13:00 Cefazolin Sodium 50 ml @ 100 mls/hr Q8H IVPB ; Start 11/24/18 at 16:00; Stop 11/25/18 at 08:29 BETH COOK Nov 24, 2018 12:14
[2018-11-24] MEDS ORDERED: CEFAZOLIN 1 GM/50 ML (PMX) 50 ML IVPB SCH (14:00)
[2018-11-24] MEDS: CEFAZOLIN 1 GM/50 ML (PMX) 50 ML IVPB SCH (15:31)
[2018-11-24] MEDS: ATORVASTATIN 40 MG TAB PO SCH (20:29)
[2018-11-24] MEDS ORDERED: SOD CHLORIDE 0.9% 500 ML IV ONE (21:00)
[2018-11-24] MEDS: SOD CHLORIDE 0.9% 1,000 ML IV SCH (22:17)
[2018-11-25] MEDS: CEFAZOLIN 1 GM/50 ML (PMX) 50 ML IVPB SCH ×2 (00:04→08:07)
[2018-11-25] MEDS: DEXAMETHASONE 4 MG/ML 1 ML INJ IV SCH ×2 (00:06→05:53)
[2018-11-25 00:21] VITALS: BP 95/49; PULSE 56; RESP 20
[2018-11-25] MEDS: ACCU-CHEK XX SCH (02:09)
[2018-11-25 04:00] VITALS: BP 95/53; PULSE 79; RESP 20
[2018-11-25] MEDS ORDERED: KETOROLAC 30 MG INJ IV STA (04:11)
[2018-11-25] MEDS: SOD CHLORIDE 0.9% 1,000 ML IV SCH (07:00)
[2018-11-25 07:28] VITALS: BP 100/50; PULSE 59; RESP 20
[2018-11-25] MEDS: FLUOXETINE 20 MG CAP PO SCH (08:06)
[2018-11-25] MEDS: LISINOPRIL 5 MG TAB PO SCH (08:06)
[2018-11-25] MEDS: FLUTICASONE/VILANTEROL 100-25 INH SCH (08:07)
[2018-11-25] MEDS: HEPARIN 5,000 UNIT/1 ML VIAL SC SCH ×2 (08:26→20:43)
[2018-11-25] MEDS: INSULIN GLARGINE [LANTus] (100 UNITS/ML) SYG SC SCH ×2 (08:26→20:36)
[2018-11-25] MEDS: INSULIN ASPART [NOVOLOG] 3 ML PEN SC SCH ×4 (08:26→20:39)
--- NOTE | 2018-11-25 09:59 | CONS ---
Assessment/Plan Assessment/Plan Assessment/Plan (Daily) POD1 bilateral L4/5 foramenotomies - d/c pickard/voiding trial - taper steroids to off - PT/OT - goal d/c tomorrow Consultation Date/Type/Reason Admit Date/Time Nov 22, 2018 at 23:48 Initial Consult Date 11/23/18 Type of Consult Neurosurgery Date/Time of Note DATE: 11/25/18 TIME: 09:55 24 HR Interval Summary Free Text/Dictation POD1 bilateral L4/5 foramenotomies Doing well - radicular pain improved Urinary retention last night - pickard placed Exam/Review of Systems Exam Vitals Vital Signs Date Temp Pulse Resp B/P (MAP) Pulse Ox O2 O2 Flow FiO2 Time Delivery Rate 11/25/18 98.0 59 20 100/50 97 Nasal 07:28 (67) Cannula 11/24/18 2.0 11:48 Intake and Output 11/24/18 11/24/18 11/25/18 1515:00 23:00 07:00 IntakeIntake Total 1000 ml 120 ml OutputOutput Total 10 ml 953 ml 400 ml BalanceBalance 990 ml -833 ml -400 ml Exam 5/5 strength neg straight leg raise test inc c/d/i Results Result Diagram: 11/24/18 0530 11/24/18 0530 Results 24hrs Laboratory Tests Test 11/24/18 10:00 11/24/18 12:30 11/24/18 13:30 11/24/18 17:21 Bedside Glucose 370 H 337 H 337 H 281 H Test 11/24/18 20:40 11/25/18 02:10 11/25/18 07:55 Bedside Glucose 402 *H 298 H 294 H Medications Medication Current Medications IV Flush (NS 3 ml) 3 ml PER PROTOCOL IV ; Start 11/23/18 at 03:30 Ondansetron HCl (Zofran Inj) 4 mg Q6H PRN IV NAUSEA/VOMITING; Start 11/23/18 at 03:30 Acetaminophen (Tylenol Tab) 650 mg Q6H PRN PO .PAIN 1-3 OR TEMP; Start 11/23/18 at 03:30 Acetaminophen/ Hydrocodone Bitart ([place] (5/325)) 1 tab Q6H PRN PO .PAIN 4-6 Last administered on 11/24/18at 15:45; Admin Dose 1 TAB; Start 11/23/18 at 03:30 Acetaminophen/ Hydrocodone Bitart ([place] (5/325)) 2 tab Q6H PRN PO .PAIN 7-10 Last administered on 11/24/18 20:29; Admin Dose 2 TAB; Start 11/23/18 at 03:30 Albuterol/ Ipratropium (Duoneb) 3 ml Q2H RESP THERAPY PRN HHN SHORTNESS OF BREATH; Start 11/23/18 at 03:30 Diagnostic Test (Pha) (Accu-Chek) 1 ea 02 XX Last administered on 11/25/18 02:09; Admin Dose 1 EA; Start 11/24/18 at 02:00 Insulin Aspart (Novolog Insulin Pen) NOVOLOG *MODERATE* ALGORITHM WITH MEALS BEDTIME SC Last administered on 11/25/18 08:26; Admin Dose 8 UNIT; Start 11/23/18 at 08:00 Albuterol (Ventolin Hfa) 2 puff Q4H PRN INH SHORTNESS OF BREATH; Start 11/23/18 at 03:30 Atorvastatin Calcium (Lipitor) 40 mg QHS PO Last administered on 11/24/18 20:29; Admin Dose 40 MG; Start 11/23/18 at 21:00 Fluoxetine HCl (Prozac) 40 mg DAILY PO Last administered on 11/25/18 08:06; Ad min Dose 40 MG; Start 11/23/18 at 09:00 Lisinopril (Zestril) 2.5 mg DAILY PO Last administered on 11/25/18 08:06; Admin Dose 2.5 MG; Start 11/23/18 at 09:00 Naproxen (Naprosyn) 500 mg BID PRN PO PAIN AND/OR INFLAMMATION; Start 11/23/18 at 03:30 Tiotropium [place] (Spiriva) 18 inh DAILY INH Last administered on 11/23/18 09:01; Admin Dose 18 INH; Start 11/23/18 at 09:00 Zolpidem Tartrate (Ambien) 10 mg QHS PRN PO INSOMNIA; Start 11/23/18 at 03:30 Fluticasone/ Vilanterol (Breo Ellipta 100-25 Mcg Inh) 1 inh DAILY INH Last administered on 11/25/18 08:07; Admin Dose 1 INH; Start 11/23/18 at 09:00 Miscellaneous Information 1 ea NOTE XX ; Start 11/23/18 at 03:30 Glucose (Glutose) 15 gm Q15M PRN PO DECREASED GLUCOSE; Start 11/23/18 at 03:30 Glucose (Glutose) 22.5 gm Q15M PRN PO DECREASED GLUCOSE; Start 11/23/18 at 03:30 Dextrose (D50w Syringe) 25 ml Q15M PRN IV DECREASED GLUCOSE; Start 11/23/18 at 03:30 Dextrose (D50w Syringe) 50 ml Q15M PRN IV DECREASED GLUCOSE; Start 11/23/18 at 03:30 Glucagon (Glucagen) 1 mg Q15M PRN IM DECREASED GLUCOSE; Start 11/23/18 at 03:30 Glucose (Glutose) 15 gm Q15M PRN BUCCAL DECREASED GLUCOSE; Start 11/23/18 at 03:30 Dexamethasone (Decadron) 6 mg Q6 IV Last administered on 11/25/18 05:53; Admin Dose 6 MG; Start 11/23/18 at 06:30 Heparin Sodium (Porcine) (Heparin (5000 Units/1ml)) 5,000 unit BID SC Last administered on 11/25/18 08:26; Admin Dose 5,000 UNIT; Start 11/23/18 at 09:00 Insulin Glargine (Lantus) 30 units DAILY@0800 SC Last administered on 11/25/18 08:26; Admin Dose 30 UNITS; Start 11/24/18 at 13:00 Sodium Chloride 1,000 ml @ 100 mls/hr Q10H IV Last administered on 11/24/18 22:17; Admin Dose 100 MLS/HR; Start 11/24/18 at 21:00 Insulin Glargine (Lantus) 20 units DAILY@2000 SC Last administered on 11/24/18at 21:44; Admin Dose 20 UNITS; Start 11/24/18 at 21:00 AKIKO TOLBERT MD Nov 25, 2018 09:59
[2018-11-25 11:45] VITALS: BP 112/65; PULSE 61; RESP 18
[2018-11-25 14:00] VITALS: BP 115/59; PULSE 65; RESP 19
--- NOTE | 2018-11-25 15:05 | PN ---
Date/Time of Note Date/Time of Note DATE: 11/25/18 TIME: 15:03 Assessment/Plan VTE Prophylaxis Risk score (from Nsg)>0 risk: 4 SCD applied (from Ns): Yes Pharmacological prophylaxis: heparin Lines/Catheters IV Catheter Type (from Nrsg): Peripheral IV Urinary Cath still in place: Yes Reason Cath still needed: urinary retention Assessment/Plan Hospital Course 1. 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 Hypertension: BP within acceptable range 3. Diabetes: Insulin while in-house 4. Dyslipidemia: Continue statin 5. Depression: Continue home meds 6. Asthma: No sign of acute exacerbation. Continue bronchodilators and home inhaled corticosteroids Prophylaxis: SCDs DC planning: PT/OT Result Diagram: 11/24/18 0530 11/24/18 0530 Results 24hrs Laboratory Tests Test 11/24/18 17:21 11/24/18 20:40 11/25/18 02:10 11/25/18 07:55 Bedside Glucose 281 H 402 *H 298 H 294 H Test 11/25/18 11:49 Bedside Glucose 399 H Subjective 24 Hr Interval Summary Free Text/Dictation s/p L4/5 decompression and bilateral foramenotomies yesterday Had post operative urinary retention so pickard placed Hyperglycemia persists Exam/Review of Systems Exam Vitals Vital Signs Date Temp Pulse Resp B/P (MAP) Pulse Ox O2 O2 Flow FiO2 Time Delivery Rate 11/25/18 98.4 61 18 112/65 93 Room Air 11:45 (81) 11/24/18 2.0 11:48 Intake and Output 11/24/18 11/24/18 11/25/18 1515:00 23:00 07:00 IntakeIntake Total 1000 ml 120 ml OutputOutput Total 10 ml 953 ml 400 ml BalanceBalance 990 ml -833 ml -400 ml Constitutional: alert, oriented, well developed Psych: no complaints, nl mood/affect Head: normocephalic, atraumatic Eyes: nl conjunctiva, EOMI, nl lids, nl sclera, PERRL ENMT: nl external ears & nose, nl lips & teeth, nl nasal mucosa & septum Neck: supple, non-tender Respiratory: clear to auscultation, normal air movement Cardiovascular: regular rate and rhythm, nl pulses Gastrointestinal: soft, nl liver, spleen, non-tender Musculoskeletal: nl extremities to inspection, nl gait and stance Extremities: normal pulses 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, nl mental status, nl speech, nl strength Skin: nl turgor; No rash or lesions Lymph: nl lymph nodes Results Results 24hrs Laboratory Tests Test 11/24/18 17:21 11/24/18 20:40 11/25/18 02:10 11/25/18 07:55 Bedside Glucose 281 H 402 *H 298 H 294 H Test 11/25/18 11:49 Bedside Glucose 399 H Medications Medication Current Medications IV Flush (NS 3 ml) 3 ml PER PROTOCOL IV ; Start 11/23/18 at 03:30 Ondansetron HCl (Zofran Inj) 4 mg Q6H PRN IV NAUSEA/VOMITING; Start 11/23/18 at 03:30 Acetaminophen (Tylenol Tab) 650 mg Q6H PRN PO .PAIN 1-3 OR TEMP; Start 11/23/18 at 03:30 Acetaminophen/ Hydrocodone Bitart ([place] (5/325)) 1 tab Q6H PRN PO .PAIN 4-6 Last administered on 11/24/18at 15:45; Admin Dose 1 TAB; Start 11/23/18 at 03:30 Acetaminophen/ Hydrocodone Bitart ([place] (5/325)) 2 tab Q6H PRN PO .PAIN 7-10 Last administered on 11/24/18 20:29; Admin Dose 2 TAB; Start 11/23/18 at 03:30 Albuterol/ Ipratropium (Duoneb) 3 ml Q2H RESP THERAPY PRN HHN SHORTNESS OF BREATH; Start 11/23/18 at 03:30 Insulin Aspart (Novolog Insulin Pen) NOVOLOG *MODERATE* ALGORITHM WITH MEALS BEDTIME SC Last administered on 11/25/18 11:54; Admin Dose 12 UNIT; Start 11/23/18 at 08:00 Albuterol (Ventolin Hfa) 2 puff Q4H PRN INH SHORTNESS OF BREATH; Start 11/23/18 at 03:30 Atorvastatin Calcium (Lipitor) 40 mg QHS PO Last administered on 11/24/18 20:29; Admin Dose 40 MG; Start 11/23/18 at 21:00 Fluoxetine HCl (Prozac) 40 mg DAILY PO Last administered on 11/25/18 08:06; Admin Dose 40 MG; Start 11/23/18 at 09:00 Lisinopril (Zestril) 2.5 mg DAILY PO Last administered on 11/25/18 08:06; Admin Dose 2.5 MG; Start 11/23/18 at 09:00 Naproxen (Naprosyn) 500 mg BID PRN PO PAIN AND/OR INFLAMMATION; Start 11/23/18 at 03:30 Tiotropium [place] (Spiriva) 18 inh DAILY INH Last administered on 11/23/18 09:01; Admin Dose 18 INH; Start 11/23/18 at 09:00 Zolpidem Tartrate (Ambien) 10 mg QHS PRN PO INSOMNIA; Start 11/23/18 at 03:30 Fluticasone/ Vilanterol (Breo Ellipta 100-25 Mcg Inh) 1 inh DAILY INH Last administered on 11/25/18 08:07; Admin Dose 1 INH; Start 11/23/18 at 09:00 Miscellaneous Information 1 ea NOTE XX ; Start 11/23/18 at 03:30 Glucose (Glutose) 15 gm Q15M PRN PO DECREASED GLUCOSE; Start 11/23/18 at 03:30 Glucose (Glutose) 22.5 gm Q15M PRN PO DECREASED GLUCOSE; Start 11/23/18 at 03:30 Dextrose (D50w Syringe) 25 ml Q15M PRN IV DECREASED GLUCOSE; Start 11/23/18 at 03:30 Dextrose (D50w Syringe) 50 ml Q15M PRN IV DECREASED GLUCOSE; Start 11/23/18 at 03:30 Glucagon (Glucagen) 1 mg Q15M PRN IM DECREASED GLUCOSE; Start 11/23/18 at 03:30 Glucose (Glutose) 15 gm Q15M PRN BUCCAL DECREASED GLUCOSE; Start 11/23/18 at 03:30 Heparin Sodium (Porcine) (Heparin (5000 Units/1ml)) 5,000 unit BID SC Last administered on 11/25/18 08:26; Admin Dose 5,000 UNIT; Start 11/23/18 at 09:00 Insulin Glargine (Lantus) 30 units DAILY@0800 SC Last administered on 11/25/18 08:26; Admin Dose 30 UNITS; Start 11/24/18 at 13:00 Insulin Glargine (Lantus) 20 units DAILY@2000 SC Last administered on 11/24/18at 21:44; Admin Dose 20 UNITS; Start 11/24/18 at 21:00 TITA BONDS MD Nov 25, 2018 15:05
[2018-11-25] MEDS ORDERED: TIOTROPIUM 18 MCG CAPSULE INHA DEV INH SCH (16:19)
[2018-11-25] MEDS: POLYETHYLENE GLYCOL 17 GM PACKET PO SCH (16:27)
[2018-11-25] MEDS: HYDROCODONE/APAP (5/325) TAB PO PRN (16:27)
[2018-11-25] MEDS ORDERED: DOCUSATE SODIUM 100 MG CAP PO PRN (16:30)
[2018-11-25] MEDS: metFORMIN 500 MG TAB PO SCH (17:28)
[2018-11-25] MEDS: TIOTROPIUM 18 MCG CAPSULE INHA DEV INH SCH (17:29)
[2018-11-25 20:00] VITALS: BP 101/59; PULSE 66; RESP 17
[2018-11-25] MEDS ORDERED: INSULIN GLARGINE [LANTus] (100 UNITS/ML) SYG SC SCH (20:00)
[2018-11-25] MEDS ORDERED: INSULIN ASPART [NOVOLOG] 3 ML PEN SC ONE (20:30)
[2018-11-25] MEDS: ATORVASTATIN 40 MG TAB PO SCH (20:43)
[2018-11-25] MEDS ORDERED: ACCU-CHEK XX ONE (21:00)
[2018-11-26] MEDS: HYDROCODONE/APAP (5/325) TAB PO PRN ×3 (01:49→14:33)
[2018-11-26 02:00] VITALS: BP 105/66; PULSE 68; RESP 18
[2018-11-26 07:48] VITALS: BP 109/62; PULSE 67; RESP 18
[2018-11-26] MEDS: INSULIN ASPART [NOVOLOG] 3 ML PEN SC SCH ×3 (08:17→17:12)
[2018-11-26] MEDS: INSULIN GLARGINE [LANTus] (100 UNITS/ML) SYG SC SCH (08:17)
[2018-11-26] MEDS: HEPARIN 5,000 UNIT/1 ML VIAL SC SCH (08:18)
[2018-11-26] MEDS: metFORMIN 500 MG TAB PO SCH ×2 (08:18→17:11)
[2018-11-26] MEDS: LISINOPRIL 5 MG TAB PO SCH (08:18)
[2018-11-26] MEDS: FLUTICASONE/VILANTEROL 100-25 INH SCH (08:19)
[2018-11-26] MEDS: FLUOXETINE 20 MG CAP PO SCH (08:19)
[2018-11-26] MEDS: TIOTROPIUM 18 MCG CAPSULE INHA DEV INH SCH (08:19)
[2018-11-26] MEDS: POLYETHYLENE GLYCOL 17 GM PACKET PO SCH (08:21)
[2018-11-26] MEDS ORDERED: NA PHOSPHATE/BIPHOS 133 ML ENEMA PR ONE (11:00)
--- NOTE | 2018-11-26 16:22 | PDOCDIS ---
Discharge Instructions DIAGNOSIS Discharge Diagnosis Spinal stenosis CONDITION [id number] Patient Condition: [id number] Stable FOLLOW UP/APPOINTMENTS Follow-up Plan Make an appointment to see Dr Gaitan in clinic in the next 1-2 weeks TITA BONDS MD Nov 26, 2018 16:22
--- NOTE | 2018-11-26 16:23 | DS ---
Date/Time of Note Date/Time of Note DATE: 11/26/18 TIME: 16:22 Discharge Summary Admission/Discharge Info Admit Date/Time Nov 23, 2018 at 03:23 Discharge Date/Time Discharge Diagnosis Spinal stenosis Patient Condition: Stable Hospital Course The patient was found oth ave Bilateral L4/5 neuroforaminal stenosis She was started on analgesia and corticosteroids without much benefit. Resulting hyperglycemia was treated wt insulin Neurosurgery consultation suggested s/p L4/5 decompression and bilateral foramenotomies which was performed without complication. She worked with PT and was cleared for discharge to home. Home Meds Active Scripts Promethazine HCl/Codeine (Prometh-Codein 6.25-10 mg/5 ml) 5 Ml Syrup, 5 ML PO QHS PRN for COUGH, #60 ML Prov:PRUDENCIO VANESSA MD 09/18/18 Amoxicillin* (Amoxicillin*) 500 Mg Cap, 500 MG PO TID for 7 Days, CAP Prov:PRUDENCIO VANESSA MD 09/18/18 Azithromycin* (Zithromax*) 250 Mg Tablet, 250 MG PO .YANELICK DIRECTED, #6 TAB TAKE 500 MG (2 TABS) THE FIRST DAY THEN 250 MG (1 TAB) DAYS 2-5 Prov:PRUDENCIO VANESSA MD 09/18/18 Prednisone* (Prednisone*) 20 Mg Tab, 60 MG PO DAILY for 4 Days, TAB Prov:PRUDENCIO VANESSA MD 09/18/18 Naproxen* (Naprosyn*) 500 Mg Tablet, 500 MG PO BID PRN for PAIN AND/OR INFLAMMATION, #30 TAB Prov:LESLY SANTOS MD 08/08/18 Cephalexin* (Keflex*) 500 Mg Capsule, 500 MG PO QID for 5 Days, CAP Prov:LESLY SANTOS MD 08/08/18 Oxycodone HCl/Acetaminophen (Percocet 5-325 mg Tablet) 1 Each Tablet, 1 EACH PO TID PRN for PAIN LEVEL 6-10, #9 TAB Prov:LESLY SANTOS MD 08/08/18 Reported Medications Tiotropium [place]* (Spiriva*) 18 Mcg Cap.w.dev, 1 CAP INHALATION DAILY, #30 CAP 08/08/18 Zolpidem Tartrate* (Zolpidem Tartrate*) 10 Mg Tablet, 10 MG PO QHS PRN for INSOMNIA, #30 TAB 08/08/18 Glipizide* (Glipizide*) 10 Mg Tablet, 10 MG PO AC BREAKFAST DINNER, TAB 11/01/17 Mometasone-Formoterol (Dulera) 100-5 Mcg - 13 Gm Hfa.aer.ad, 2 PUFFS INHALATION BID, #1 INHALER 08/22/17 Albuterol Sulfate* (Ventolin HFA*) 18 Gm Hfa.aer.ad, 2 PUFF INHALATION Q4H, #1 INHALER 08/22/17 Fluoxetine Hcl* (Fluoxetine Hcl*) 40 Mg Capsule, 40 MG PO DAILY, CAP 08/22/17 Atorvastatin* (Atorvastatin*) 40 Mg Tablet, 40 MG PO QHS, #30 TAB 08/22/17 Lisinopril* (Lisinopril*) 2.5 Mg Tablet, 2.5 MG PO DAILY, #30 TAB 08/22/17 Insulin Glargine,Hum.rec.anlog (Basaglar Kwikpen U-100) 100 Unit/1 Ml Insuln.pen, 50 UNIT SC QHS, EA 08/22/17 Metformin Hcl* (Metformin Hcl*) 1,000 Mg Tablet, 1000 MG PO WITH BREAKFAST DINNE, #60 TAB 08/22/17 Follow-up Plan Make an appointment to see Dr Gaitan in clinic in the next 1-2 weeks Primary Care Provider [facility] Pending Labs Laboratory Tests Test 11/25/18 17:23 11/25/18 20:15 11/25/18 20:44 11/25/18 23:05 Bedside 300 486 303 Glucose mg/dL (70-220) mg/dL (70-220) mg/dL (70-220) Glucose Level 368 mg/dl (70-220) Test 11/26/18 01:45 11/26/18 08:14 11/26/18 12:01 Bedside 206 146 172 Glucose mg/dL (70-220) mg/dL (70-220) mg/dL (70-220) TITA BONDS MD Nov 26, 2018 16:23
== END 2018-11-26 19:00 | disposition home or self-care (01) | DRG 517 ==
LOC: UNDOADMIN 23:48 → 6WM 23:48 → PP2 11-25 14:25
PROVIDERS: ADMIT Internal Medicine; ATTEND Internal Medicine
PROC: 01NB0ZZ Release Lumbar Nerve, Open Approach (ICD-10-PCS; principal; 2018-11-24 07:30)
DX: M48.061 Spinal stenosis, lumbar region without neurogenic claudication (principal); M54.16 Radiculopathy, lumbar region; I10 Essential (primary) hypertension; E78.5 Hyperlipidemia, unspecified; F32.9 Major depressive disorder, single episode, unspecified; E11.65 Type 2 diabetes mellitus with hyperglycemia
CPT/HCPCS: 72020; 80048; 80053; 80061; 82947; 82962; 83036; 83735; 84100; 85025; 86850; 86900; 86901; 87081; 97116; 97162; 97530; J0131; J0690; J1100; J1170; J1644; J1815; J1885; J2250; J2405; J2765; J3010; J3475; J7030; J7040; J7042; P9045

== ENCOUNTER 2018-12-05 09:09 | Emergency (ER) | payer OTHER ==
[~2018-12-05] VITALS: Ht 167.6 cm; Wt 88.4 kg
[~2018-12-05 09:09] MED LIST changes: -AMOX500C2 PO; -AZIT250T PO; -CEPH-443 PO; -OXYC-279 PO; -PRED20TA PO; -PROM5SYR2 PO
[2018-12-05 09:14] VITALS: BP 122/71; PULSE 85; RESP 18; Ht 167.6 cm; Wt 88.4 kg
[2018-12-05] MEDS ORDERED: ALBUTEROL 0.083% (NEB) 2.5 MG/3 ML AMP NEB STA (10:03)
[2018-12-05] MEDS ORDERED: predniSONE 20 MG TAB PO STA (10:03)
[2018-12-05] MEDS ORDERED: IPRATROPIUM (NEB) 0.5 MG/2.5 ML AMP NEB STA (10:03)
[2018-12-05] MEDS ORDERED: ALBU18HF INHALATION (10:19)
[2018-12-05] MEDS ORDERED: PRED20TA PO (10:20)
--- NOTE | 2018-12-05 11:27 | ERD ---
ER Documentation Chief Complaint Chief Complaint asthma x 2 days HPI 58-year-old female with history of asthma presents with complaint of asthma exacerbation for last 3 days. Patient states that she has been taking her ICS for her exacerbations but does not have a prescription for Ventolin. Patient denies any fevers, chills, chest pain, shortness of breath, hemoptysis, dyspnea, respiratory distress. ROS All systems reviewed and are negative except as per history of present illness. Medications Home Meds Active Scripts Prednisone* (Prednisone*) 20 Mg Tab, 40 MG PO DAILY for 6 Days, TAB Prov:KEYANNA CHIANG 12/05/18 Albuterol Sulfate* (Ventolin HFA*) 18 Gm Hfa.aer.ad, 2 PUFF INHALATION Q4H, #1 INHALER Prov:KEYANNA CHIANG 12/05/18 Naproxen* (Naprosyn*) 500 Mg Tablet, 500 MG PO BID PRN for PAIN AND/OR INFLAMMATION, #30 TAB Prov:LESLY SANTOS MD 08/08/18 Reported Medications Tiotropium [place]* (Spiriva*) 18 Mcg Cap.w.dev, 1 CAP INHALATION DAILY, #30 CAP 08/08/18 Zolpidem Tartrate* (Zolpidem Tartrate*) 10 Mg Tablet, 10 MG PO QHS PRN for INSOMNIA, #30 TAB 08/08/18 Glipizide* (Glipizide*) 10 Mg Tablet, 10 MG PO AC BREAKFAST DINNER, TAB 11/01/17 Mometasone-Formoterol (Dulera) 100-5 Mcg - 13 Gm Hfa.aer.ad, 2 PUFFS INHALATION BID, #1 INHALER 08/22/17 Albuterol Sulfate* (Ventolin HFA*) 18 Gm Hfa.aer.ad, 2 PUFF INHALATION Q4H, #1 INHALER 08/22/17 Fluoxetine Hcl* (Fluoxetine Hcl*) 40 Mg Capsule, 40 MG PO DAILY, CAP 08/22/17 Atorvastatin* (Atorvastatin*) 40 Mg Tablet, 40 MG PO QHS, #30 TAB 08/22/17 Lisinopril* (Lisinopril*) 2.5 Mg Tablet, 2.5 MG PO DAILY, #30 TAB 08/22/17 Insulin Glargine,Hum.rec.anlog (Basaglar Kwikpen U-100) 100 Unit/1 Ml Insuln.pen, 50 UNIT SC QHS, EA 08/22/17 Metformin Hcl* (Metformin Hcl*) 1,000 Mg Tablet, 1000 MG PO WITH BREAKFAST DINNE, #60 TAB 08/22/17 Allergies Allergies: Coded Allergies: No Known Allergy (Unverified , 08/08/18) PMhx/Soc History of Surgery: Yes ( 2 HERNIA REPAIR, Back sx 11/2018,mil,kidney stone,c/sx3) Anesthesia Reaction: No Hx Neurological Disorder: No Hx Respiratory Disorders: Yes (Asthma) Hx Cardiac Disorders: Yes (HTN,hyperlipidemia) Hx Psychiatric Problems: Yes (depression) Hx Miscellaneous Medical Probl: No Hx Alcohol Use: No Hx Substance Use: No Hx Tobacco Use: No Smoking Status: Never smoker FmHx Family History: No diabetes, No coronary disease, No other Physical Exam Vitals Vital Signs Date Temp Pulse Resp B/P (MAP) Pulse Ox O2 O2 Flow FiO2 Time Delivery Rate 12/05/18 88 17 97 21 10:12 12/05/18 97.6 85 18 122/71 97 09:14 (88) Physical Exam Const: No acute distress Head: Atraumatic Eyes: Normal Conjunctiva ENT: Normal External Ears, Nose and Mouth. Neck: Full range of motion. No meningismus. Resp: Mild wheezing heard again upper left lung field without any rales or crackles. Equal breath sounds Cardio: Regular rate and rhythm, no murmurs Abd: Soft, non tender, non distended. Normal bowel sounds Skin: No petechiae or rashes Back: No midline or flank tenderness Ext: No cyanosis, or edema Neur: Awake and alert Psych: Normal Mood and Affect Results 24 hrs Current Medications Medications Dose Sig/Roland Start Time Status Last (Trade) Ordered Route PRN Stop Time Admin Dose Reason Admin Albuterol 7.5 mg ONCE STAT 12/05/18 DC 12/05/18 (Proventil NEB 10:03 10:12 0.083% (Neb)) 12/05/18 10:05 Ipratropium 0.5 mg ONCE STAT 12/05/18 DC 12/05/18 [place] NEB 10:03 10:12 (Atrovent 12/05/18 10:05 0.02% (Neb)) Prednisone 60 mg ONCE STAT 12/05/18 DC 12/05/18 (Prednisone) PO 10:03 10:09 12/05/18 10:05 Procedures/MDM ER Course: Patient given treatment with nebulized albuterol, ipatropium, and steroids. MDM: Patient is advised that her inhaled corticosteroids to be used on a daily basis and is not used for exacerbations, for this she would need prescription for Ventolin. Patient understood and agreed to use Ventolin as a rescue inhaler and not the ICS. I have low suspicion for status asthmaticus due to patient improvement after breathing treatment. I have low suspicion for CHF, pneumonia, aspirated foreign body, pneumothorax, PE, respiratory distress, or other mergent condition based on exam and patient history. In addition, patient does not meet Wells score criteria for D-Dimer. Presentation consistent with asthma exacerbation for which patient was given breathing treatment and steroids in ER. After breathing treatment was finished, patients vitals and exam were WNL and patient stated they felt much better. Patient was discharged with rx for alubuterol and a short course of oral steroids. Patient was also advised that asthma has to be managed on outpatient basis by primary care provider. At this time, patient is stable for discharge and outpatient management. I have instructed the patient to follow-up with his/her primary care physician in 1-2 days. I have discussed with the patient the possibility of needing to see a specialist for further workup and imaging studies if symptoms persist. I have instructed the patient to promptly return to the ER for any new or worsening symptoms including but not limited to increased pain, fever, nausea, vomiting, weakness or LOC. The patient and/or family expressed understanding of and agreement with this plan. All questions were answered. Home care instructions were provided. DISCLAIMER: Inadvertent spelling and grammatical errors are likely due to EHR/dictation software use and do not reflect on the overall quality of patient care. Also, please note that the electronic time recorded on this note does not necessarily reflect the actual time of the patient encounter. Departure Diagnosis: Primary Impression: Asthma Condition: Stable Patient Instructions: Asthma, Asthma, Acute (Adult) Referrals: [facility] (PCP) Additional Instructions: FOLLOW UP WITH YOUR PRIMARY CARE PHYSICIAN TOMORROW.Return to this facility if you are not improving as expected. KEYANNA CHIANG Dec 05, 2018 11:27
[2018-12-08] MEDS ORDERED: PROM5SYR2 PO (13:58)
== END 2018-12-05 10:24 | disposition home or self-care (01) ==
LOC: FTE 09:09
DX: J45.901 Unspecified asthma with (acute) exacerbation (principal); I10 Essential (primary) hypertension; E11.9 Type 2 diabetes mellitus without complications; Z79.4 Long term (current) use of insulin
CPT/HCPCS: 94664; J7512; Z7502; Z7610

== ENCOUNTER 2018-12-08 09:18 | Emergency (ER) | payer OTHER ==
[~2018-12-08] VITALS: Ht 165.1 cm; Wt 88.8 kg
[~2018-12-08 09:18] MED LIST changes: +MONT10TA24 PO; +PRED20TA PO; +PROM5SYR2 PO
[2018-12-08 09:25] VITALS: Ht 165.1 cm; Wt 88.8 kg
--- NOTE | 2018-12-08 09:55 | ERD ---
ER Documentation Chief Complaint Chief Complaint c/o asthma excerbation, which started 3 days ago, was here. Lungs clear HPI 58-year-old female with history of asthma presents with complaint of continued asthma exacerbation. States that she is been having productive cough as well as wheezing. States that she is been taking the Ventolin as well as the prednisone as prescribed has not been helping with the cough and wheezing. States that she did have a history of a pneumonia in the past. Denies any fevers, chills, hemoptysis, dyspnea, chest pain, leg pain, malignancy. States she did have surgery for her back 15 days ago and was hospitalized for 4 days. Denies being on any antibiotics. ROS All systems reviewed and are negative except as per history of present illness. Medications Home Meds Active Scripts Prednisone* (Prednisone*) 20 Mg Tab, 40 MG PO DAILY for 6 Days, TAB Prov:KEYANNA CHIANG 12/05/18 Albuterol Sulfate* (Ventolin HFA*) 18 Gm Hfa.aer.ad, 2 PUFF INHALATION Q4H, #1 INHALER Prov:KEYANNA CHIANG 12/05/18 Naproxen* (Naprosyn*) 500 Mg Tablet, 500 MG PO BID PRN for PAIN AND/OR INFLAMMATION, #30 TAB Prov:LESLY SANTOS MD 08/08/18 Reported Medications Tiotropium [place]* (Spiriva*) 18 Mcg Cap.w.dev, 1 CAP INHALATION DAILY, #30 CAP 08/08/18 Zolpidem Tartrate* (Zolpidem Tartrate*) 10 Mg Tablet, 10 MG PO QHS PRN for INSOMNIA, #30 TAB 08/08/18 Glipizide* (Glipizide*) 10 Mg Tablet, 10 MG PO AC BREAKFAST DINNER, TAB 11/01/17 Mometasone-Formoterol (Dulera) 100-5 Mcg - 13 Gm Hfa.aer.ad, 2 PUFFS INHALATION BID, #1 INHALER 08/22/17 Albuterol Sulfate* (Ventolin HFA*) 18 Gm Hfa.aer.ad, 2 PUFF INHALATION Q4H, #1 INHALER 08/22/17 Fluoxetine Hcl* (Fluoxetine Hcl*) 40 Mg Capsule, 40 MG PO DAILY, CAP 08/22/17 Atorvastatin* (Atorvastatin*) 40 Mg Tablet, 40 MG PO QHS, #30 TAB 08/22/17 Lisinopril* (Lisinopril*) 2.5 Mg Tablet, 2.5 MG PO DAILY, #30 TAB 08/22/17 Insulin Glargine,Hum.rec.anlog (Basaglar Kwikpen U-100) 100 Unit/1 Ml Insuln.pen, 50 UNIT SC QHS, EA 08/22/17 Metformin Hcl* (Metformin Hcl*) 1,000 Mg Tablet, 1000 MG PO WITH BREAKFAST DINNE, #60 TAB 08/22/17 Allergies Allergies: Coded Allergies: No Known Allergy (Unverified , 08/08/18) PMhx/Soc History of Surgery: Yes ( 2 HERNIA REPAIR, Back sx 11/2018,mil,kidney stone,c/sx3) Anesthesia Reaction: No Hx Neurological Disorder: No Hx Respiratory Disorders: Yes (Asthma) Hx Cardiac Disorders: Yes (HTN,hyperlipidemia) Hx Psychiatric Problems: Yes (depression) Hx Miscellaneous Medical Probl: No Hx Alcohol Use: No Hx Substance Use: No Hx Tobacco Use: No Smoking Status: Never smoker FmHx Family History: No diabetes, No coronary disease, No other Physical Exam Vitals Vital Signs Date Temp Pulse Resp B/P (MAP) Pulse Ox O2 O2 Flow FiO2 Time Delivery Rate 12/08/18 96.8 70 20 122/64 99 09:25 (83) Physical Exam Const: No acute distress Head: Atraumatic Eyes: Normal Conjunctiva ENT: Normal External Ears, Nose and Mouth. Neck: Full range of motion. No meningismus. Resp: Clear to auscultation bilaterally Cardio: Regular rate and rhythm, no murmurs Abd: Soft, non tender, non distended. Normal bowel sounds Skin: No petechiae or rashes Back: No midline or flank tenderness Ext: No cyanosis, or edema Neur: Awake and alert Psych: Normal Mood and Affect Result Diagram: 12/08/18 1056 12/08/18 1100 Results 24 hrs Laboratory Tests Test 12/08/18 10:56 12/08/18 10:57 12/08/18 11:00 12/08/18 12:49 White Blood Count 7.2 10^3/ul Red Blood Count 4.38 10^6/ul Hemoglobin 12.6 g/dl Hematocrit 38.5 % Mean Corpuscular 87.9 fl Volume Mean Corpuscular 28.8 pg Hemoglobin Mean Corpuscular 32.7 g/dl Hemoglobin Concent Red Cell 13.8 % Distribution Width Platelet Count 223 10^3/UL Mean Platelet 12.0 fl Volume Immature 0.400 % Granulocytes % Neutrophils % 61.2 % Lymphocytes % 26.9 % Monocytes % 7.7 % Eosinophils % 3.5 % Basophils % 0.3 % Nucleated Red Blood 0.0 /100WBC Cells % Immature 0.030 10^3/ul Granulocytes # Neutrophils # 4.4 10^3/ul Lymphocytes # 1.9 10^3/ul Monocytes # 0.6 10^3/ul Eosinophils # 0.3 10^3/ul Basophils # 0.0 10^3/ul Nucleated Red Blood 0.0 10^3/ul Cells # Troponin I < 0.012 ng/ml D-Dimer 626.88 ng/ml D-Dimer Comment Sodium Level 143 mmol/L Potassium Level 4.0 mmol/L Chloride Level 108 mmol/L Carbon Dioxide 24 mmol/L Level Anion Gap 11 Blood Urea Nitrogen 14 mg/dl Creatinine 0.60 mg/dl Est Glomerular > 60 mL/min Filtrat Rate mL/min Glucose Level 244 mg/dl Calcium Level 9.6 mg/dl Total Bilirubin 0.4 mg/dl Direct Bilirubin 0.00 mg/dl Indirect Bilirubin 0.4 mg/dl Aspartate Amino 36 IU/L Transf (AST/SGOT) Alanine 37 IU/L Aminotransferase (A LT/SGPT) Alkaline 103 IU/L Phosphatase Total Protein 7.1 g/dl Albumin 4.0 g/dl Globulin 3.10 g/dl Albumin/Globulin 1.29 Ratio POC Beta HCG, NEGATIVE Qualitative Current Medications Medications Dose Sig/Roland Start Time Status Last (Trade) Ordered Route PRN Stop Time Admin Dose Reason Admin Sodium 1,000 ml @ Q1H STAT 12/08/18 DC 12/08/18 Chloride 1,000 mls/hr IV 12:35 13:30 12/08/18 13:34 Iohexol 100 ml @ ud STK-MED 12/08/18 DC ONCE .ROUTE 12:43 12/08/18 12:44 Sodium 100 ml @ ud STK-MED 12/08/18 DC Chloride ONCE .ROUTE 12:43 12/08/18 12:44 Procedures/MDM EKG: Rate/Rhythm: Normal Sinus Rhythm QRS, ST, T-waves: No changes consistent w/ acute ischemia Impression: No evidence of ischemia or arrhythmia IAGNOSTIC IMAGING REPORT Patient: MARK LEONARD : 1960 Age: 58 Sex: F MR #: [id number] #: [id number] DOS: 12/08/18 0000 Ordering MD: KEYANNA CHIANG Location: [facility] Room/Bed: PROCEDURE: CT Pulmonary Angiogram. CLINICAL INDICATION: Chest pain and shortness of breath. TECHNIQUE: CT pulmonary angiogram and a CT scan of the chest with contrast was performed. The patient was scanned following the uncomplicated intravenous adm inistration of 100 ml of Omnipaque-350 intravenous contrast. 2-D coronal reformatted images were obtained from the axial source images. In addition, 3-D post processing was performed. Total exam DLP is 21 mGy-cm. CTDIvol is 42 mGy. One or more of the following dose reduction techniques were used: Automated exposure control, adjustment of the mA and/or kV according to patient size, use of iterative reconstruction technique. DICOM images are available. COMPARISON: None available. FINDINGS: The pulmonary arteries are normal with no filling defect or lack of enhancement to suggest pulmonary artery embolism. The lungs are clear. There is no pulmonary airspace or interstitial disease. There is no pulmonary nodule or mass lesion. There is no pneumothorax. There is no mediastinal or hilar lymphadenopathy or mass. There is no pleural effusion. There is no pericardial effusion. The thoracic aorta demonstrates vascular calcifications with no aneurysm or dissection. Images through the upper abdomen demonstrate normal visualized portions of the liver, spleen, and adrenals. There are degenerative changes of the spine. IMPRESSION: 1. No evidence of pulmonary artery embolism. 2. No focal consolidation. RPTAT: QQ Physician Deja Date Time Electronically viewed and signed by Physician Deja on 12/08/2018 13:48 RD/ CC: KEYANNA CHIANG [id number] MDM: Case was discussed with supervising physician Dr. sher, he stated that given patient's recent surgery as well as complaint of cough and shortness of breath patient should be given d-dimer testing. D-dimer was elevated to Dr. sher recommended doing CT angiogram. CT angiogram results within normal limits. At this time I have low suspicion for pulmonary embolism, DVT, pneumothorax, pneumonia, VT, acute heart failure, or any other emergent condition. Most likely has a URI. Patient will be given promethazine with codeine for cough to be used at night. At this time, patient is stable for discharge and outpatient management. I have instructed the patient to follow-up with his/her primary care physician in 1-2 days. I have discussed with the patient the possibility of needing to see a specialist for further workup and imaging studies if symptoms persist. I have instructed the patient to promptly return to the ER for any new or worsening sym ptoms including but not limited to increased pain, fever, nausea, vomiting, weakness or LOC. The patient and/or family expressed understanding of and agreement with this plan. All questions were answered. Home care instructions were provided. DISCLAIMER: Inadvertent spelling and grammatical errors are likely due to EHR/dictation software use and do not reflect on the overall quality of patient care. Also, please note that the electronic time recorded on this note does not necessarily reflect the actual time of the patient encounter. Departure Diagnosis: Primary Impression: Bronchitis Additional Impression: Elevated d-dimer Condition: Stable KEYANNA CHIANG Dec 08, 2018 09:55
[2018-12-08] MEDS ORDERED: SOD CHLORIDE 0.9% 1,000 ML IV STA (12:35)
[2018-12-08] MEDS ORDERED: SOD CHLORIDE 0.9% 100 ML ONE (12:43)
[2018-12-08] MEDS ORDERED: IOHEXOL 100 ML ONE (12:43)
[2018-12-08 14:23] VITALS: BP 104/67; PULSE 66; RESP 18
== END 2018-12-08 14:24 | disposition home or self-care (01) ==
LOC: FTE 09:18
DX: J40 Bronchitis, not specified as acute or chronic (principal); I10 Essential (primary) hypertension; R79.89 Other specified abnormal findings of blood chemistry; E11.9 Type 2 diabetes mellitus without complications; Z79.4 Long term (current) use of insulin; Z79.82 Long term (current) use of aspirin
CPT/HCPCS: 71046; 71275; 80053; 81025; 84484; 85025; 85378; 93005; 96360; J7030; Q9967; Z7502; Z7610

== ENCOUNTER 2018-12-12 19:09 | Observation (INO) | payer OTHER ==
[~2018-12-12] VITALS: Ht 165.1 cm; Wt 88.5 kg
[~2018-12-12 19:09] MED LIST changes: -MONT10TA24 PO
[2018-12-12 19:10] VITALS: Ht 165.1 cm; Wt 88.5 kg
[2018-12-12] MEDS ORDERED: KETOROLAC 15 MG INJ IM STA (21:03)
[2018-12-12] MEDS ORDERED: NACL 0.9% 3 ML SYG IV SCH (22:00)
[2018-12-12] MEDS ORDERED: ACETAMINOPHEN 325 MG TAB PO PRN (22:00)
[2018-12-12] MEDS ORDERED: ONDANSETRON 4 MG TAB PO PRN (22:00)
[2018-12-12] MEDS ORDERED: DOCUSATE SODIUM 100 MG CAP PO PRN (22:00)
[2018-12-12] MEDS ORDERED: BISACODYL (EC) 5 MG TAB PO PRN (22:00)
--- NOTE | 2018-12-12 22:32 | ERD ---
ER Documentation Chief Complaint Chief Complaint S/P BACK SX [id number] AGO; MORE PAINFUL TODAY HPI 58-year-old female with history of diabetes, hypertension, hyperlipidemia, asthma and depression who is status post L4/L5 foramentomies and 11/24/2018 presents to the ED complaining of a one-week history of worsening, sharp, severe left-sided back pain which radiates down to her buttock. Pain is exacerbated by movement and ambulation. No focal weakness or numbness. Denies urinary or fecal incontinence. Pain is not relieved by nonsteroidal anti-inflammatories. Denies abdominal pain, nausea, vomiting, diarrhea constipation. No dysuria, polyuria or hematuria. No fevers or chills. ROS All systems reviewed and are negative except as per history of present illness. Medications Home Meds Active Scripts Montelukast Sodium* (Montelukast Sodium*) 10 Mg Tablet, 10 MG PO HS for asthma for 30 Days, #30 TAB For asthma Prov:ELPIDIO TRAN MD 12/15/18 Reported Medications Zolpidem Tartrate* (Zolpidem Tartrate*) 10 Mg Tablet, 10 MG PO QHS PRN for INSOMNIA, #30 TAB 08/08/18 Glipizide* (Glipizide*) 10 Mg Tablet, 10 MG PO AC BREAKFAST DINNER, TAB 11/01/17 Mometasone-Formoterol (Dulera) 100-5 Mcg - 13 Gm Hfa.aer.ad, 2 PUFFS INHALATION BID, #1 INHALER 08/22/17 Albuterol Sulfate* (Ventolin HFA*) 18 Gm Hfa.aer.ad, 2 PUFF INHALATION Q4H PRN for SHORTNESS OF BREATH, #1 INHALER 08/22/17 Fluoxetine Hcl* (Fluoxetine Hcl*) 40 Mg Capsule, 40 MG PO DAILY, CAP 08/22/17 Atorvastatin* (Atorvastatin*) 40 Mg Tablet, 40 MG PO QHS, #30 TAB 08/22/17 Lisinopril* (Lisinopril*) 2.5 Mg Tablet, 2.5 MG PO DAILY, #30 TAB 08/22/17 Insulin Glargine,Hum.rec.anlog (Basaglar Kwikpen U-100) 100 Unit/1 Ml Insuln.pen, 50 UNIT SC QHS, EA 08/22/17 Metformin Hcl* (Metformin Hcl*) 1,000 Mg Tablet, 1000 MG PO WITH BREAKFAST DINNE, #60 TAB 08/22/17 Discontinued Reported Medications Tiotropium [place]* (Spiriva*) 18 Mcg Cap.w.dev, 1 CAP INHALATION DAILY, #30 CAP 08/08/18 Discontinued Scripts Promethazine HCl/Codeine (Prometh-Codein 6.25-10 mg/5 ml) 5 Ml Syrup, 5 ML PO Q4, #4 OZ Prov:KEYANNA CHIANG 12/08/18 Prednisone* (Prednisone*) 20 Mg Tab, 40 MG PO DAILY for 6 Days, TAB Prov:KEYANNA CHIANG 12/05/18 Albuterol Sulfate* (Ventolin HFA*) 18 Gm Hfa.aer.ad, 2 PUFF INHALATION Q4H, #1 INHALER Prov:DANIELLEKEYANNA CROCKER 12/05/18 Naproxen* (Naprosyn*) 500 Mg Tablet, 500 MG PO BID PRN for PAIN AND/OR INFLAMMA TION, #30 TAB Prov:LESLY SANTOS MD 08/08/18 Allergies Allergies: Coded Allergies: No Known Allergy (Unverified , 12/13/18) PMhx/Soc History of Surgery: Yes ( 2 HERNIA REPAIR, Back sx 11/2018,mil,kidney stone,c/sx3) Anesthesia Reaction: No Hx Neurological Disorder: No Hx Respiratory Disorders: Yes (Asthma) Hx Cardiac Disorders: Yes (HTN,hyperlipidemia) Hx Psychiatric Problems: Yes (depression) Hx Miscellaneous Medical Probl: No Hx Alcohol Use: No Hx Substance Use: No Hx Tobacco Use: No Smoking Status: Never smoker FmHx No family history relevant to presenting complaint Physical Exam Vitals Temp: 97.5. Pulse: 84. Respirations: 20. Blood pressure: 148/73. O2 saturation 97% on room air. Physical Exam Const: Alert in moderate distress due to pain. Head: Atraumatic Eyes: Normal Conjunctiva ENT: Normal External Ears, Nose and Mouth. Neck: Full range of motion. No meningismus. Resp: Breath sounds are equal and clear to auscultation bilaterally Cardio: Regular rate and rhythm, no murmurs Abd: Soft, obese, non tender, non distended. No rebound or guarding. Normal bowel sounds Skin: No petechiae or rashes Back: Healing lumbar midline incision. No significant tenderness, swelling, erythema, induration or discharge. Moderate left paraspinal tenderness. No CVA tenderness. Ext: No cyanosis, or edema. No calf swelling or tenderness. Neur: Awake and alert. Motor and sensory equal bilaterally. No focal deficit observed. Psych: Anxious but not depressed. Result Diagram: 12/13/18 0511 12/15/18 0509 Results 24 hrs Current Medications Medications Dose Sig/Roland Start Time Status Last (Trade) Ordered Route PRN Stop Time Admin Dose Reason Admin Ketorolac 15 mg ONCE STAT 12/12/18 DC 12/12/18 Tromethamine IM 21:03 21:07 (Toradol) 12/12/18 21:04 IV Flush 3 ml PER 12/12/18 DC (NS 3 ml) PROTOCOL IV 22:00 12/15/18 11:00 Ondansetron 4 mg Q6H PRN 12/12/18 DC HCl (Zofran PO 22:00 Tab) NAUSEA/VOMITI 12/15/18 11:00 NG 650 mg Q6H PRN 12/12/18 DC Acetaminophen PO .PAIN 1-3 22:00 (Tylenol OR TEMP 12/15/18 11:00 Tab) 1 tab Q6H PRN 12/12/18 DC 12/15/18 Acetaminophen PO .MOD PAIN 22:00 03:03 / 4-6 12/15/18 11:00 Hydrocodone Bitart ([place] (5/325)) Morphine 2 mg Q4H PRN 12/12/18 DC 12/14/18 Sulfate IV .SEVERE 22:00 06:14 (morphine) PAIN 7-10 12/14/18 19:07 Docusate 100 mg Q12H PRN 12/12/18 DC Sodium PO 22:00 (Colace) .CONSTIPATION 12/13/18 15:10 Bisacodyl 5 mg DAILY PRN 12/12/18 DC (Dulcolax) PO 22:00 .CONSTIPATION 12/15/18 11:00 Procedures/MDM DOCUMENTS REVIEWED: ED nurse, prior ED, prior records MEDICAL DECISION MAKIN-year-old female with history of diabetes, hypertension, hyperlipidemia, asthma and depression who is status post L4/L5 foramentomies and 11/24/2018 presents to the ED for evaluation of a one-week history of worsening back pain. Patient did well postoperatively there is no sign of wound infection. Unclear whether her current pain represents a new process or is related to prior surgery. No acute neurologic deficit or signs of spinal epidural abscess or hematoma. Radiographs of the lumbar spine reveal the vertebral heights and intervertebral disc spaces appear well-maintained. Neurosurgery consulted. MRI is pending. Admit to med/surg for pain management, further evaluation and management. CALLS/CONSULTS: Dr. Gaitan. Recommends admission, standing lumbar radiographs and MRI PATIENT CARE TRANSITIONED: Time: 21:56, Dr. Giordano. Counseled patient regarding diagnosis, diagnostic results and plan for admission. Departure Diagnosis: Primary Impression: Intractable low back pain Additional Impressions: History of back surgery Diabetes mellitus type 2 in obese Condition: Serious DAVIDA CLARK MD Dec 12, 2018 22:32
[2018-12-12] MEDS: morphine 2 MG INJ IV PRN (22:40)
[2018-12-12] MEDS: HYDROCODONE/APAP (5/325) TAB PO PRN (22:40)
[2018-12-12] MEDS ORDERED: HYDROmorphONE 0.5 MG/0.5 ML SYG IV PRN (23:00)
[2018-12-12] MEDS ORDERED: LORAZEPAM 2 MG INJ IV PRN (23:00)
--- NOTE | 2018-12-12 23:56 | HP ---
Date/Time of Note Date/Time of Note DATE: 12/12/18 TIME: 23:56 Assessment/Plan VTE Prophylaxis SCD applied (from Nsg): Yes Pharmacological prophylaxis: NA/contraindicated Pharm contraindication: low risk/ambulating Lines/Catheters IV Catheter Type (from Nrsg): Saline Lock Assessment/Plan Hospital Course This is a 38-year female being admitted to the [facility] [place] for: 1. 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 She has tenderness palpation over the lumbar spine as well as the adjacent paravertebral muscles of the left side. She does have some pain in her left hip. She does not have any bowel or bladder incontinence. She does not have any saddle anesthesia. She previously had bilateral L4/5 foramenotomies on 11/24/2018 by who was consulted by the ED physician and recommendation was to provide pain control and obtain an MRI of the lumbar spine with and without contrast. 2. Hypertension: Continue home lisinopril 3. Diabetes: Latest hemoglobin A1c 9.2 continue home insulin regimen, insulin sliding scale. Titrate as needed 4. Dyslipidemia: Continue statin 5. Depression: Continue home meds 6. Asthma: Continue home inhalers, PRN inhalers as indicated 7. Obesity: Recent hemoglobin A1c of 9.2, will need to help titrate patient's blood sugars better. Encourage diet and lifestyle modification. Continue statin, TSH within normal values. Encourage diet lifestyle modifications once able DVT GI prophylaxis: SCDs, no GI prophylaxis indicated Further treatment strategy will be implemented as per the clinical course HPI/ROS Admit Date/Time Admit Date/Time Hx of Present Illness Chief complaint: Lower back pain lergies This is a 58-year-old female who presented to the [facility] emergency department complaining of acute back pain. Patient is a history of bilateral L4-L5 foraminal stenosis status post bilateral L4-L5 foraminotomies. She was following up yesterday with her neurosurgeon and was doing fine there and only had some mild pain. She was set to follow-up with 3 weeks time. She states that today when she was at home she went to take a shower and during her shower her pain got worse. She states that she has pain over her lumbar spine a round the area of the surgical procedure and she states that she has pain that radiates across her left back. She denies any bladder or bowel incontinence. She denies any saddle anesthesia. Denies any nausea vomiting or diarrhea. Denies any trauma. She did try NSAIDs at home but they did not help with her pain. Allergies: NKDA Medications: See KANDICE MERCEDES Const: Negative for fever, chills, weight gain or weight loss, fatigue, or diaphoresis Eyes : No pain discharge or redness or change in visual acuity ENT: No pain, sore throat, congestion, congestion, dysphagia or discharge Respiratory: No shortness of breath, cough, sputum, wheezing, or pleuritic pain Cardiovascular: No chest pain, palpitation, PND, or edema GI : no change in appetite, abdominal pain, nausea, vomiting, diarrhea, constipation, or change in the color his stool Genitourinary: No dysuria, hematuria, flank pain , discharge or CVA tenderness Musculoskeletal: As per HPI Skin: No rash, bruising or hives Neuro: No headache, dizziness, syncope, seizure, focal weakness Endocrine: No polyuria, polydipsia, temperature intolerance Psych: No hallucination, depression, anxiety or suicidal ideation As per HPI PMH/Family/Social Past Medical History bilateral L4/5 neuroforaminal stenosis, lumbar radiculopathy. Diabetes mitis, hypertension, hyperlipidemia, asthma Medications Current Medications IV Flush (NS 3 ml) 3 ml PER PROTOCOL IV ; Start 12/12/18 at 22:00 Ondansetron HCl (Zofran Tab) 4 mg Q6H PRN PO NAUSEA/VOMITING; Start 12/12/18 at 22:00 Acetaminophen (Tylenol Tab) 650 mg Q6H PRN PO .PAIN 1-3 OR TEMP; Start 12/12/18 at 22:00 Acetaminophen/ Hydrocodone Bitart ([place] (5/325)) 1 tab Q6H PRN PO .MOD PAIN 4- 6 Last administered on 12/12/18at 22:40; Admin Dose 1 TAB; Start 12/12/18 at 22:00 Morphine Sulfate (morphine) 2 mg Q4H PRN IV .SEVERE PAIN 7-10 Last administered on 12/12/18at 22:40; Admin Dose 2 MG; Start 12/12/18 at 22:00 Docusate Sodium (Colace) 100 mg Q12H PRN PO .CONSTIPATION; Start 12/12/18 at 22:00 Bisacodyl (Dulcolax) 5 mg DAILY PRN PO .CONSTIPATION; Start 12/12/18 at 22:00 Hydromorphone HCl (Dilaudid) 0.5 mg PRN PRN IV pain prior to MRI; Start 12/12/18 at 23:00 Lorazepam (Ativan) 0.5 mg ONCE PRN IV if needed prior to MRI ; Start 12/12/18 at 23:00; Stop 12/13/18 at 22:59 Coded Allergies: No Known Allergy (Unverified , 12/13/18) Past Surgical History Bilateral L4-L5 foraminotomies Family History Significant Family History: heart disease, diabetes Social History Alcohol Use: none Smoking Status: Never smoker Drug Use: none Exam/Review of Systems Vital Signs Vitals Vital Signs Date Temp Pulse Resp B/P (MAP) Pulse Ox O2 O2 Flow FiO2 Time Delivery Rate 12/12/18 60 16 110/69 100 Room Air 23:06 (83) 12/12/18 97.5 19:10 Exam Exam General: Patient is currently laying on her right side in moderate distress from back pain . HEENT: Atraumatic, normocephalic. The pupils are equal, round and reactive. Extraocular motor are intact Neck: Supple with full range of motion. No rigidity or meningismus Chest: Nontender Lungs: Clear to auscultation bilaterally no crackles rales or wheezing Heart: Normal S1-S2, Regular rhythm and rate. No murmur, S3, or S4 Abdomen: Soft , nontender, nondistended , bowel sounds are present. No guarding no rebound tenderness , No masses or organomegaly. No costovertebral temporal angle mass Extremities: Decreased range of motion of the left lower extremity secondary to pain Musculoskeletal: Tenderness to palpation along the lumbar spine at the previous surgical site as well as over the left-sided lumbar paravertebral muscles Neurologic: Normal mental status, speech normal, cranial nerves II through XII are intact, motor and sensory are intact, no bladder or bowel incontinence, Additional Comments PROCEDURE: DX LUMBAR SPINE 3 VIEWS CLINICAL INDICATION: Low back pain. TECHNIQUE: AP , cone down lateral and lateral views of the lumbar spine. COMPARISON: Lumbar spine x-ray 07/01/2018 FINDINGS: Osseous structures: 6 lumbar-type vertebrae. Lumbar vertebral body height maintained. No acute endplate fracture. No lytic or blastic lesions. Left L3-4, bilateral L4-5 and bilateral L5-S1 and left L6-S1 facet arthrosis, chronic. Alignment: Normal lordosis. No spondylolisthesis or spondylolysis. Mild lumbar dextroscoliosis that was present on the comparison study is no longer present. Disc spaces: Mild narrowing L5-6 and L6-S1 disc spaces, unchanged. Visualized sacrum: Intact. Additional findings: Aortic calcified plaque absent. IMPRESSION: 1. 6 lumbar-type vertebrae. 2. 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 3. No acute changes. RPTAT: HLRS Physician Javier Date Time Electronically viewed and signed by Physician Javier on 12/12/2018 22:40 RS/ CC: DAVIDA CLARK MD [id number] DULCE AGOSTO Dec 12, 2018 23:56
[2018-12-13 00:35] VITALS: BP 101/56; PULSE 73; RESP 18
[2018-12-13] MEDS ORDERED: GLUCOSE GEL 15 GRAM TUBE BUCCAL PRN (01:00)
[2018-12-13] MEDS ORDERED: GLUCAGON 1 MG INJ IM PRN (01:00)
[2018-12-13] MEDS ORDERED: INSULIN GLARGINE [LANTus] (100 UNITS/ML) SYG SC SCH (01:00)
[2018-12-13] MEDS ORDERED: GLUCOSE GEL 15 GRAM TUBE PO PRN ×2 (01:00)
[2018-12-13] MEDS ORDERED: ZOLPIDEM 5 MG TAB PO PRN ×2 (01:00)
[2018-12-13] MEDS ORDERED: DEXTROSE 50% 50 ML SYRINGE IV PRN ×2 (01:00)
[2018-12-13] MEDS ORDERED: ALBUTEROL 18 GM INHALER INH PRN (01:00)
[2018-12-13] MEDS: ACCU-CHEK XX SCH (01:38)
[2018-12-13] MEDS: morphine 2 MG INJ IV PRN ×3 (05:10→20:38)
[2018-12-13] MEDS: HYDROCODONE/APAP (5/325) TAB PO PRN ×2 (06:13→19:42)
[2018-12-13] MEDS ORDERED: glipiZIDE 10 MG TAB PO SCH (07:00)
[2018-12-13 07:29] VITALS: BP 103/50; PULSE 63; RESP 16
[2018-12-13] MEDS: INSULIN ASPART [NOVOLOG] 3 ML PEN SC SCH ×4 (08:28→20:47)
[2018-12-13] MEDS ORDERED: NON-FORMULARY/PATIENT OWN MED (Mometasone-Formoterol (Dulera) 2 PUFFS) INHALATION SCH (09:00)
[2018-12-13] MEDS: LISINOPRIL 5 MG TAB PO SCH (09:00)
[2018-12-13] MEDS: FLUOXETINE 20 MG CAP PO SCH (09:09)
[2018-12-13] MEDS: FLUTICASONE/VILANTEROL 100-25 INH SCH (09:49)
--- NOTE | 2018-12-13 11:48 | CONS ---
Assessment/Plan Assessment/Plan Assessment/Plan (Daily) Diagnosis: Back pain A/P - 58 year old with new left sacro-iliac region back pain after lumbar surg garcia 2 weeks ago. Imaging does not reveal clues as to the etiology. - obtain flex/ex lumbar xrays - obtain left hip x ray - can discharge today Consultation Date/Type/Reason Admit Date/Time Date of Consultation: Dec 13, 2018 Type of Consult Neurosurgery Reason for Consultation Back pain Date/Time of Note DATE: 12/13/18 TIME: 11:36 Hx of Present Illness Ms. Arana is a very pleasant 58 year old woman who underwent a bilateral L4/5 foramentomy on 11/24/2018, which resulted in complete resolution of her L>R radiculopathy. Over the past week, however, she has developed new back pain, that got suddenly worse in the shower yesterday. She presented to the ED for management. She states the pain is different from preop and is mostly in the left sacroiliac region. The pain is worst with movement. She has a small fluid collection below the incision, which is improving. Past Medical History Home Meds Reported Medications Zolpidem Tartrate* (Zolpidem Tartrate*) 10 Mg Tablet, 10 MG PO QHS PRN for INSOMNIA, #30 TAB 08/08/18 Glipizide* (Glipizide*) 10 Mg Tablet, 10 MG PO AC BREAKFAST DINNER, TAB 11/01/17 Mometasone-Formoterol (Dulera) 100-5 Mcg - 13 Gm Hfa.aer.ad, 2 PUFFS INHALATION BID, #1 INHALER 08/22/17 Albuterol Sulfate* (Ventolin HFA*) 18 Gm Hfa.aer.ad, 2 PUFF INHALATION Q4H PRN for SHORTNESS OF BREATH, #1 INHALER 08/22/17 Fluoxetine Hcl* (Fluoxetine Hcl*) 40 Mg Capsule, 40 MG PO DAILY, CAP 08/22/17 Atorvastatin* (Atorvastatin*) 40 Mg Tablet, 40 MG PO QHS, #30 TAB 08/22/17 Lisinopril* (Lisinopril*) 2.5 Mg Tablet, 2.5 MG PO DAILY, #30 TAB 08/22/17 Insulin Glargine,Hum.rec.anlog (Basaglar Kwikpen U-100) 100 Unit/1 Ml Insuln.pen, 50 UNIT SC QHS, EA 08/22/17 Metformin Hcl* (Metformin Hcl*) 1,000 Mg Tablet, 1000 MG PO WITH BREAKFAST DINNE, #60 TAB 08/22/17 Discontinued Reported Medications Tiotropium [place]* (Spiriva*) 18 Mcg Cap.w.dev, 1 CAP INHALATION DAILY, #30 CAP 08/08/18 Discontinued Scripts Promethazine HCl/Codeine (Prometh-Codein 6.25-10 mg/5 ml) 5 Ml Syrup, 5 ML PO Q4, #4 OZ Prov:KEYANNA CHIANG 12/08/18 Prednisone* (Prednisone*) 20 Mg Tab, 40 MG PO DAILY for 6 Days, TAB Prov:KEYANNA CHIANG 12/05/18 Albuterol Sulfate* (Ventolin HFA*) 18 Gm Hfa.aer.ad, 2 PUFF INHALATION Q4H, #1 INHALER Prov:KEYANNA CHIANG 12/05/18 Naproxen* (Naprosyn*) 500 Mg Tablet, 500 MG PO BID PRN for PAIN AND/OR INFLAMMATION, #30 TAB Prov:LESLY SANTOS MD 08/08/18 Medications Current Medications IV Flush (NS 3 ml) 3 ml PER PROTOCOL IV ; Start 12/12/18 at 22:00 Ondansetron HCl (Zofran Tab) 4 mg Q6H PRN PO NAUSEA/VOMITING; Start 12/12/18 at 22:00 Acetaminophen (Tylenol Tab) 650 mg Q6H PRN PO .PAIN 1-3 OR TEMP; Start 12/12/18 at 22:00 Acetaminophen/ Hydrocodone Bitart ([place] (5/325)) 1 tab Q6H PRN PO .MOD PAIN 4- 6 Last administered on 12/13/18at 06:13; Admin Dose 1 TAB; Start 12/12/18 at 22:00 Morphine Sulfate (morphine) 2 mg Q4H PRN IV .SEVERE PAIN 7-10 Last administered on 12/13/18at 05:10; Admin Dose 2 MG; Start 12/12/18 at 22:00 Docusate Sodium (Colace) 100 mg Q12H PRN PO .CONSTIPATION; Start 12/12/18 at 22:00 Bisacodyl (Dulcolax) 5 mg DAILY PRN PO .CONSTIPATION; Start 12/12/18 at 22:00 Hydromorphone HCl (Dilaudid) 0.5 mg PRN PRN IV pain prior to MRI; Start 12/12/18 at 23:00 Lorazepam (Ativan) 0.5 mg ONCE PRN IV if needed prior to MRI ; Start 12/12/18 at 23:00; Stop 12/13/18 at 22:59 Albuterol (Ventolin Hfa) 2 puff Q4H PRN INH SHORTNESS OF BREATH; Start 12/13/18 at 01:00 Atorvastatin Calcium (Lipitor) 40 mg QHS PO ; Start 12/13/18 at 21:00 Fluoxetine HCl (Prozac) 40 mg DAILY PO Last administered on 12/13/18at 09:09; Admin Dose 40 MG; Start 12/13/18 at 09:00 Insulin Glargine (Lantus) 50 units DAILY@2100 SC ; Start 12/13/18 at 21:00 Lisinopril (Zestril) 2.5 mg DAILY PO ; Start 12/13/18 at 09:00 Diagnostic Test (Pha) (Accu-Chek) 1 ea 02 XX ; Start 12/13/18 at 02:00 Insulin Aspart (Novolog Insulin Pen) NOVOLOG *MILD* ALGORITHM WITH MEALS BEDTIME SC Last administered on 12/13/18at 08:28; Admin Dose 1 UNIT; Start 12/13/18 at 08:00 Miscellaneous Information 1 ea NOTE XX ; Start 12/13/18 at 01:00 Glucose (Glutose) 15 gm Q15M PRN PO DECREASED GLUCOSE; Start 12/13/18 at 01:00 Glucose (Glutose) 22.5 gm Q15M PRN PO DECREASED GLUCOSE; Start 12/13/18 at 01:00 Dextrose (D50w Syringe) 25 ml Q15M PRN IV DECREASED GLUCOSE; Start 12/13/18 at 01:00 Dextrose (D50w Syringe) 50 ml Q15M PRN IV DECREASED GLUCOSE; Start 12/13/18 at 01:00 Glucagon (Glucagen) 1 mg Q15M PRN IM DECREASED GLUCOSE; Start 12/13/18 at 01:00 Glucose (Glutose) 15 gm Q15M PRN BUCCAL DECREASED GLUCOSE; Start 12/13/18 at 01:00 Zolpidem Tartrate (Ambien) 5 mg HS MAY REPEAT X 1 PRN PO INSOMNIA; Start 12/13/18 at 01:00 Fluticasone/ Vilanterol (Breo Ellipta 100-25 Mcg Inh) 1 inh DAILY INH Last administered on 12/13/18at 09:49; Admin Dose 1 INH; Start 12/13/18 at 09:00 Allergies: Coded Allergies: No Known Allergy (Unverified , 12/13/18) Social History Alcohol Use: none Smoking Status: Never smoker Drug Use: none Exam/Review of Systems Exam Vitals Vital Signs Date Temp Pulse Resp B/P (MAP) Pulse Ox O2 O2 Flow FiO2 Time Delivery Rate 12/13/18 98.7 63 16 103/50 95 07:29 (67) 12/12/18 Room Air 23:06 Exam 5 strength, except pain limited with left leg raise sensation intact incision well healed, small fluctuance improved from 2 days ago Results Result Diagram: 12/13/18 0511 12/13/18 0511 Results 24hrs Laboratory Tests Test 12/13/18 00:36 12/13/18 05:11 12/13/18 08:24 Bedside Glucose 212 208 White Blood Count 6.1 Red Blood Count 4.00 L Hemoglobin 11.6 L Hematocrit 35.7 L Mean Corpuscular Volume 89.3 Mean Corpuscular Hemoglobin 29.0 Mean Corpuscular Hemoglobin Concent 32.5 Red Cell Distribution Width 13.9 Platelet Count 198 Mean Platelet Volume 12.4 H Immature Granulocytes % 0.300 Neutrophils % 49.5 Lymphocytes % 35.7 Monocytes % 8.6 Eosinophils % 5.6 Basophils % 0.3 Nucleated Red Blood Cells % 0.0 Immature Granulocytes # 0.020 Neutrophils # 3.0 Lymphocytes # 2.2 Monocytes # 0.5 Eosinophils # 0.3 Basophils # 0.0 Nucleated Red Blood Cells # 0.0 Sodium Level 141 Potassium Level 4.0 Chloride Level 109 Carbon Dioxide Level 24 Anion Gap 8 Blood Urea Nitrogen 21 H Creatinine 0.71 Est Glomerular Filtrat Rate mL/min > 60 Glucose Level 314 H Calcium Level 9.2 Magnesium Level 1.5 L Total Bilirubin 0.4 Direct Bilirubin 0.00 Indirect Bilirubin 0.4 Aspartate Amino Transf (AST/SGOT) 34 Alanine Aminotransferase (ALT/SGPT) 33 Alkaline Phosphatase 80 Total Protein 6.6 Albumin 3.6 Globulin 3.00 Albumin/Globulin Ratio 1.20 Imaging Imaging MRI show no complications and a small fluid collection above the fascia that does not enhance Supine x-rays show no mal-alignment Medications Medication Current Medications IV Flush (NS 3 ml) 3 ml PER PROTOCOL IV ; Start 12/12/18 at 22:00 Ondansetron HCl (Zofran Tab) 4 mg Q6H PRN PO NAUSEA/VOMITING; Start 12/12/18 at 22:00 Acetaminophen (Tylenol Tab) 650 mg Q6H PRN PO .PAIN 1-3 OR TEMP; Start 12/12/18 at 22:00 Acetaminophen/ Hydrocodone Bitart ([place] (5/325)) 1 tab Q6H PRN PO .MOD PAIN 4- 6 Last administered on 12/13/18at 06:13; Admin Dose 1 TAB; Start 12/12/18 at 22:00 Morphine Sulfate (morphine) 2 mg Q4H PRN IV .SEVERE PAIN 7-10 Last administered on 12/13/18at 05:10; Admin Dose 2 MG; Start 12/12/18 at 22:00 Docusate Sodium (Colace) 100 mg Q12H PRN PO .CONSTIPATION; Start 12/12/18 at 22:00 Bisacodyl (Dulcolax) 5 mg DAILY PRN PO .CONSTIPATION; Start 12/12/18 at 22:00 Hydromorphone HCl (Dilaudid) 0.5 mg PRN PRN IV pain prior to MRI; Start 12/12/18 at 23:00 Lorazepam (Ativan) 0.5 mg ONCE PRN IV if needed prior to MRI ; Start 12/12/18 at 23:00; Stop 12/13/18 at 22:59 Albuterol (Ventolin Hfa) 2 puff Q4H PRN INH SHORTNESS OF BREATH; Start 12/13/18 at 01:00 Atorvastatin Calcium (Lipitor) 40 mg QHS PO ; Start 12/13/18 at 21:00 Fluoxetine HCl (Prozac) 40 mg DAILY PO Last administered on 12/13/18at 09:09; Admin Dose 40 MG; Start 12/13/18 at 09:00 Insulin Glargine (Lantus) 50 units DAILY@2100 SC ; Start 12/13/18 at 21:00 Lisinopril (Zestril) 2.5 mg DAILY PO ; Start 12/13/18 at 09:00 Diagnostic Test (Pha) (Accu-Chek) 1 ea 02 XX ; Start 12/13/18 at 02:00 Insulin Aspart (Novolog Insulin Pen) NOVOLOG *MILD* ALGORITHM WITH MEALS BEDTIME SC Last administered on 12/13/18at 08:28; Admin Dose 1 UNIT; Start 12/13/18 at 08:00 Miscellaneous Information 1 ea NOTE XX ; Start 12/13/18 at 01:00 Glucose (Glutose) 15 gm Q15M PRN PO DECREASED GLUCOSE; Start 12/13/18 at 01:00 Glucose (Glutose) 22.5 gm Q15M PRN PO DECREASED GLUCOSE; Start 12/13/18 at 01:00 Dextrose (D50w Syringe) 25 ml Q15M PRN IV DECREASED GLUCOSE; Start 12/13/18 at 01:00 Dextrose (D50w Syringe) 50 ml Q15M PRN IV DECREASED GLUCOSE; Start 12/13/18 at 01:00 Glucagon (Glucagen) 1 mg Q15M PRN IM DECREASED GLUCOSE; Start 12/13/18 at 01:00 Glucose (Glutose) 15 gm Q15M PRN BUCCAL DECREASED GLUCOSE; Start 12/13/18 at 01 :00 Zolpidem Tartrate (Ambien) 5 mg HS MAY REPEAT X 1 PRN PO INSOMNIA; Start 12/13/18 at 01:00 Fluticasone/ Vilanterol (Breo Ellipta 100-25 Mcg Inh) 1 inh DAILY INH Last administered on 12/13/18at 09:49; Admin Dose 1 INH; Start 12/13/18 at 09:00 AKIKO TOLBERT MD Dec 13, 2018 11:48
[2018-12-13] MEDS ORDERED: MAGNESIUM SULFATE 2 GM/50 ML 50 ML IVPB ONE (13:00)
[2018-12-13] MEDS: DICLOFENAC SODIUM 1% GEL 100 GM TUBE TP SCH ×3 (13:09→20:48)
[2018-12-13 13:49] VITALS: BP 129/87; PULSE 79; RESP 17
--- NOTE | 2018-12-13 15:10 | PN ---
Date/Time of Note Date/Time of Note DATE: 12/13/18 TIME: 14:56 Assessment/Plan VTE Prophylaxis Risk score (from Nsg)>0 risk: 3 SCD applied (from Nsg): Yes Pharmacological prophylaxis: LMWH Lines/Catheters IV Catheter Type (from Nrsg): Peripheral IV Assessment/Plan Hospital Course This is a 58-year-old female who is status post bilateral L4-5 and L5 foraminotomies for bilateral neuroforaminal stenosis and lumbar radiculopathy. Procedure was done November 24, 2018. She did well in terms of pain in the immediate postoperative., But came back to the emergency room yesterday after she developed severe pain in the shower affecting her lower back and radiating down her leg, severely limiting her ability to walk. She was admitted for observation and pain control and the neurosurgeon who did her surgery did order a lumbar CT scan with and without contrast which he has reviewed and has found without acute abnormality that requires intervention. She is currently managed as follows: 1. Severe low back pain limiting ambulation: -Per neurosurgery, there is some postoperative fluid collection but this should resolve on its own and there is no indication for further intervention regarding this. Otherwise there are normal postoperative changes on imaging. -Recommendation is for pain control supportive care, physical therapy. -Neurosurgery has actually cleared patient for discharge at this time from their standpoint, but as patient continues to have pain, will observe her and see how she does. -Patient also has history of recurrent kidney stones and wants to be ruled out for this. I ordered renal ultrasound that showed no concerning findings. -For now continue IV fluids, systemic analgesia, also add topical analgesics. Physical therapy evaluation, observe overnight, possible discharge tomorrow. 2.Diabetes mellitus type 2, patient has had poor control with last hemoglobin A1c 9.22 weeks ago. -Patient presented again with hypoglycemia, -Insulin regimen resumed at home dosing, titrate as indicated 3. Hypomagnesemia: Replete 4. Chronic dyslipidemia on statin 5. Chronic depression: Stable 6. Chronic asthma 7 7. Obesity: Disposition: -See #1 Result Diagram: [id number]/13/1851012/[id number]/18510 Results 24hrs Laboratory Tests Test 12/13/18 00:36 12/13/18 05:11 12/13/18 08:24 12/13/18 12:29 Bedside Glucose 212 208 207 White Blood Count 6.1 Red Blood Count 4.00 L Hemoglobin 11.6 L Hematocrit 35.7 L Mean Corpuscular 89.3 Volume Mean Corpuscular 29.0 Hemoglobin Mean Corpuscular 32.5 Hemoglobin Concent Red Cell 13.9 Distribution Width Platelet Count 198 Mean Platelet Volume 12.4 H Immature 0.300 Granulocytes % Neutrophils % 49.5 Lymphocytes % 35.7 Monocytes % 8.6 Eosinophils % 5.6 Basophils % 0.3 Nucleated Red Blood 0.0 Cells % Immature 0.020 Granulocytes # Neutrophils # 3.0 Lymphocytes # 2.2 Monocytes # 0.5 Eosinophils # 0.3 Basophils # 0.0 Nucleated Red Blood 0.0 Cells # Sodium Level 141 Potassium Level 4.0 Chloride Level 109 Carbon Dioxide Level 24 Anion Gap 8 Blood Urea Nitrogen 21 H Creatinine 0.71 Est Glomerular > 60 Filtrat Rate mL/min Glucose Level 314 H Calcium Level 9.2 Magnesium Level 1.5 L Total Bilirubin 0.4 Direct Bilirubin 0.00 Indirect Bilirubin 0.4 Aspartate Amino 34 Transf (AST/SGOT) Alanine 33 Aminotransferase (AL T/SGPT) Alkaline Phosphatase 80 Total Protein 6.6 Albumin 3.6 Globulin 3.00 Albumin/Globulin 1.20 Ratio Subjective 24 Hr Interval Summary Free Text/Dictation pain is a bit better with IV meds, spoke at length with neurosurgery. We rev iewed imaging together. Exam/Review of Systems Exam Vitals Vital Signs Date Temp Pulse Resp B/P (MAP) Pulse Ox O2 O2 Flow FiO2 Time Delivery Rate 12/13/18 98.8 79 17 129/87 98 13:49 (101) 12/12/18 Room Air 23:06 Constitutional: alert, oriented, obese; No distress Psych: nl mood/affect Head: normocephalic Eyes: PERRL Neck: supple Respiratory: clear to auscultation Cardiovascular: regular rate and rhythm Gastrointestinal: soft, non-tender, bowel sounds Musculoskeletal: nl extremities to inspection Extremities: normal pulses Neurological: nl mental status, nl speech, nl strength Additional Comments Back: Patient's pain is located just left to the midline in the lumbosacral area. And it radiates to the well-healing surgical sites in her lower back. The area around the surgical site is not infected, there is no oozing, there is no bleeding. There is paraspinal tenderness in that area. Results Results 24hrs Laboratory Tests Test 12/13/18 00:36 12/13/18 05:11 12/13/18 08:24 12/13/18 12:29 Bedside Glucose 212 208 207 White Blood Count 6.1 Red Blood Count 4.00 L Hemoglobin 11.6 L Hematocrit 35.7 L Mean Corpuscular 89.3 Volume Mean Corpuscular 29.0 Hemoglobin Mean Corpuscular 32.5 Hemoglobin Concent Red Cell 13.9 Distribution Width Platelet Count 198 Mean Platelet Volume 12.4 H Immature 0.300 Granulocytes % Neutrophils % 49.5 Lymphocytes % 35.7 Monocytes % 8.6 Eosinophils % 5.6 Basophils % 0.3 Nucleated Red Blood 0.0 Cells % Immature 0.020 Granulocytes # Neutrophils # 3.0 Lymphocytes # 2.2 Monocytes # 0.5 Eosinophils # 0.3 Basophils # 0.0 Nucleated Red Blood 0.0 Cells # Sodium Level 141 Potassium Level 4.0 Chloride Level 109 Carbon Dioxide Level 24 Anion Gap 8 Blood Urea Nitrogen 21 H Creatinine 0.71 Est Glomerular > 60 Filtrat Rate mL/min Glucose Level 314 H Calcium Level 9.2 Magnesium Level 1.5 L Total Bilirubin 0.4 Direct Bilirubin 0.00 Indirect Bilirubin 0.4 Aspartate Amino 34 Transf (AST/SGOT) Alanine 33 Aminotransferase (AL T/SGPT) Alkaline Phosphatase 80 Total Protein 6.6 Albumin 3.6 Globulin 3.00 Albumin/Globulin 1.20 Ratio Imaging Imaging PROCEDURE: Renal US. CLINICAL INDICATION: Flank pain TECHNIQUE: Multiple sonographic images of the kidneys were obtained. The images were reviewed on a PACS workstation. COMPARISON: 08/11/2017 FINDINGS: Both kidneys are normal in echogenicity. There is normal renal cortical thickness without focal thinning or scarring. No solid renal masses are identified. There is no evidence of renal calculi or obstructive uropathy. There is a 2.1 cm simple right renal cyst. The right kidney measures 10.9 cm, and the left kidney measures 11.2 cm. Spot images of the pelvis demonstrating normally distended bladder with smooth contours. IMPRESSION: 1. Unremarkable renal ultrasound. No evidence of renal calculi or obstructive uropathy 2. Simple right renal cyst RPTAT: HH .Torsten Low MD, Date Time Electronically viewed and signed by .Torsten Low MD, on 12/13/2018 13:44 .W/ CC: [email or web address] [id number] PROCEDURE: MR LUMBAR SPINE WITH AND WITHOUT CONTRAST CLINICAL INDICATION: 58 year-old female. Low back pain radiating into left lower extremity for 1 day. Lumbar surgery 2 weeks ago. TECHNIQUE: Multiplanar multi-sequence images of the lumbar contrast without and with contrast. CONTRAST: ProHance 10 cc IV. COMPARISON: Lumbar spine x-ray 12/12/2018. FINDINGS: T12 - L1: Disc space height maintained with normal hydration. No canal stenosis or foraminal narrowing. L1 - L2: Disc space height maintained with normal hydration. No canal stenosis or foraminal narrowing. Conus terminates at the upper L2 level. L2 - L3: Disc space height maintained with normal hydration. Posterior annular bulge. No canal stenosis or foraminal narrowing. L3 - L4: Disc space height maintained. Slight dehydration. Posterior annular bulge. No significant canal stenosis or foraminal narrowing. L4 - L5: Disc space height maintained with dehydration. Small posterior annular fissure with contrast enhancement. Minimal grade 1 spondylolisthesis due to facet arthrosis. Bilateral hemilaminotomies with nonspecific fluid at both hemilaminotomy sites. Fluid noted around the L4 spinous process, extending into the overlying subcutaneous fat, resulting in a 1.3 x 2.1 x 5.4 cm fluid collection in the deep subcutaneous fat slightly to the left of midline. Contrast enhancement posterior to the dural sac and around the fluid collections in the laminotomy defects, likely due to granulation tissue.. Hyperintense signal changes in the medial left and right paravertebral muscles from recent surgery. Hyperintense signal enhances with contrast, likely due to granulation tissue in growth. L5 - S1: Disc space height maintained with dehydration. Posterior annular fissure with contrast enhancement. No canal stenosis or foraminal narrowing. Normal lumbar lordosis. Normal marrow signal. Normal appearing prevertebral and paravertebral soft tissues. 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 IMPRESSION: 1. Bilateral L4-5 hemilaminotomies with surgical related changes in the medial left right paravertebral muscles as described above. 2. Contrast enhancement in the posterior spinal canal at the L4-5 level, likely due to granulation tissue. 3. Fluid around the L4 spinous process, extending into the overlying deep subcutaneous fat, resulting in a 1.3 x 2.1 x 5.4 cm fluid collection. This could represent a seroma, hemorrhage or CSF. 4. Small amount of fluid at this left and right hemilaminotomy sites. Tissue around the fluid collection enhances. Postsurgical fluid and granulation tissue favored over abscess. 5. Small L4-5 and L5 S and posterior annular fissures with contrast enhancement, representing granulation tissue. 6. No significant canal stenosis or epidural fluid collection identified. RPTAT: [facility] Physician Javier Date Time Electronically viewed and signed by Edelmira Sagastume Physician on 12/13/2018 00:31 RS/ Medications Medication Current Medications IV Flush (NS 3 ml) 3 ml PER PROTOCOL IV ; Start 12/12/18 at 22:00 Ondansetron HCl (Zofran Tab) 4 mg Q6H PRN PO NAUSEA/VOMITING; Start 12/12/18 at 22:00 Acetaminophen (Tylenol Tab) 650 mg Q6H PRN PO .PAIN 1-3 OR TEMP; Start 12/12/18 at 22:00 Acetaminophen/ Hydrocodone Bitart ([place] (5/325)) 1 tab Q6H PRN PO .MOD PAIN 4- 6 Last administered on 12/13/18at 06:13; Admin Dose 1 TAB; Start 12/12/18 at 22:00 Morphine Sulfate (morphine) 2 mg Q4H PRN IV .SEVERE PAIN 7-10 Last administered on 12/13/18at 14:10; Admin Dose 2 MG; Start 12/12/18 at 22:00 Docusate Sodium (Colace) 100 mg Q12H PRN PO .CONSTIPATION; Start 12/12/18 at 22:00 Bisacodyl (Dulcolax) 5 mg DAILY PRN PO .CONSTIPATION; Start 12/12/18 at 22:00 Hydromorphone HCl (Dilaudid) 0.5 mg PRN PRN IV pain prior to MRI; Start 9 at 23:00 Lorazepam (Ativan) 0.5 mg ONCE PRN IV if needed prior to MRI ; Start 12/12/18 at 23:00; Stop 12/13/18 at 22:59 Albuterol (Ventolin Hfa) 2 puff Q4H PRN INH SHORTNESS OF BREATH; Start 12/13/18 at 01:00 Atorvastatin Calcium (Lipitor) 40 mg QHS PO ; Start 12/13/18 at 21:00 Fluoxetine HCl (Prozac) 40 mg DAILY PO Last administered on 12/13/18at 09:09; Admin Dose 40 MG; Start 12/13/18 at 09:00 Insulin Glargine (Lantus) 50 units DAILY@2100 SC ; Start 12/13/18 at 21:00 Lisinopril (Zestril) 2.5 mg DAILY PO ; Start 12/13/18 at 09:00 Diagnostic Test (Pha) (Accu-Chek) 1 ea 02 XX ; Start 12/13/18 at 02:00 Insulin Aspart (Novolog Insulin Pen) NOVOLOG *MILD* ALGORITHM WITH MEALS BEDTIME SC Last administered on 12/13/18at 12:31; Admin Dose 1 UNIT; Start 12/13/18 at 08:00 Miscellaneous Information 1 ea NOTE XX ; Start 12/13/18 at 01:00 Glucose (Glutose) 15 gm Q15M PRN PO DECREASED GLUCOSE; Start 12/13/18 at 01:00 Glucose (Glutose) 22.5 gm Q15M PRN PO DECREASED GLUCOSE; Start 12/13/18 at 01:00 Dextrose (D50w Syringe) 25 ml Q15M PRN IV DECREASED GLUCOSE; Start 12/13/18 at 01:00 Dextrose (D50w Syringe) 50 ml Q15M PRN IV DECREASED GLUCOSE; Start 12/13/18 at 01:00 Glucagon (Glucagen) 1 mg Q15M PRN IM DECREASED GLUCOSE; Start 12/13/18 at 01:00 Glucose (Glutose) 15 gm Q15M PRN BUCCAL DECREASED GLUCOSE; Start 12/13/18 at 01:00 Zolpidem Tartrate (Ambien) 5 mg HS MAY REPEAT X 1 PRN PO INSOMNIA; Start 12/13/18 at 01:00 Fluticasone/ Vilanterol (Breo Ellipta 100-25 Mcg Inh) 1 inh DAILY INH Last administered on 12/13/18at 09:49; Admin Dose 1 INH; Start 12/13/18 at 09:00 Magnesium Sulfate 50 ml @ 25 mls/hr ONCE ONCE IVPB Last administered on 12/13/18at 13:09; Admin Dose 25 MLS/HR; Start 12/13/18 at 13:00; Stop 12/13/18 at 14:59 Diclofenac Sodium (Voltaren 1% Gel) 2 gm QID TP Last administered on 12/13/18at 13:09; Admin Dose 2 GM; Start 12/13/18 at 13:00 ALICJA SWEET Dec 13, 2018 15:08
[2018-12-13] MEDS ORDERED: SOD CHLORIDE 0.9% 1,000 ML IV SCH (15:30)
[2018-12-13] MEDS: DOCUSATE SODIUM 250 MG CAP PO SCH (17:55)
[2018-12-13 20:12] VITALS: BP 111/56; PULSE 71; RESP 18
[2018-12-13] MEDS: ATORVASTATIN 40 MG TAB PO SCH (20:38)
[2018-12-13] MEDS: INSULIN GLARGINE [LANTus] (100 UNITS/ML) SYG SC SCH (20:48)
[2018-12-14 01:57] VITALS: BP 100/49; PULSE 68; RESP 17
[2018-12-14] MEDS: ACCU-CHEK XX SCH (02:00)
[2018-12-14] MEDS: morphine 2 MG INJ IV PRN ×2 (06:14→14:53)
[2018-12-14 07:45] VITALS: BP 103/52; PULSE 64; RESP 16
[2018-12-14] MEDS: INSULIN ASPART [NOVOLOG] 3 ML PEN SC SCH ×4 (08:12→21:27)
[2018-12-14] MEDS: FLUOXETINE 20 MG CAP PO SCH (08:14)
[2018-12-14] MEDS: DOCUSATE SODIUM 250 MG CAP PO SCH (08:14)
[2018-12-14] MEDS: DICLOFENAC SODIUM 1% GEL 100 GM TUBE TP SCH ×4 (08:15→21:00)
[2018-12-14] MEDS: LISINOPRIL 5 MG TAB PO SCH (08:15)
[2018-12-14] MEDS: FLUTICASONE/VILANTEROL 100-25 INH SCH (08:15)
[2018-12-14] MEDS: ENOXAPARIN 40 MG/0.4 ML SYG SC SCH (08:26)
[2018-12-14 14:34] VITALS: BP 105/50; PULSE 66; RESP 17
[2018-12-14] MEDS: HYDROCODONE/APAP (5/325) TAB PO PRN ×2 (15:10→21:17)
--- NOTE | 2018-12-14 16:50 | PN ---
Date/Time of Note Date/Time of Note DATE: 12/14/18 TIME: 16:49 Assessment/Plan VTE Prophylaxis Risk score (from Nsg)>0 risk: 2 SCD applied (from Ns): Yes Pharmacological prophylaxis: heparin Lines/Catheters IV Catheter Type (from Nrsg): Peripheral IV Urinary Cath still in place: No Assessment/Plan Problems: (1) Intractable back pain Status: Acute Comment: With bedrest and pain medication she is doing a little bit better. If she continues to do well nothing else shows up and then discharge her in the morning (2) Lumbar disc disease with radiculopathy Status: Chronic Comment: As per operative surgeon (3) Asthma, moderate persistent Status: Chronic Comment: Presently well compensated Qualifiers: Asthma complication type: uncomplicated Qualified Codes: J45.40 - Moderate persistent asthma, uncomplicated (4) Diabetes mellitus type 2 in obese Status: Chronic Comment: Her diabetic control is not outstanding I will try make some adjustments (5) Hyperlipidemia Status: Chronic Comment: Continue with statin therapy Qualifiers: Hyperlipidemia type: pure hypercholesterolemia Qualified Codes: E78.00 - Pure hypercholesterolemia, unspecified (6) Hypertension Status: Chronic Comment: Adequate control Qualifiers: Hypertension type: essential hypertension Qualified Codes: I10 - Essential (primary) hypertension (7) Hypomagnesemia Status: Acute Comment: Replete Result Diagram: 12/13/18 0511 12/14/18 0533 Results 24hrs Laboratory Tests Test 12/13/18 17:43 12/13/18 20:43 12/14/18 02:10 12/14/18 05:33 Bedside Glucose 217 282 H 264 H Sodium Level 140 Potassium Level 4.6 Chloride Level 107 Carbon Dioxide Level 26 Anion Gap 7 Blood Urea Nitrogen 17 Creatinine 0.63 Est Glomerular > 60 Filtrat Rate mL/min Glucose Level 281 H Calcium Level 9.2 Magnesium Level 1.7 Test 12/14/18 07:46 12/14/18 12:31 Bedside Glucose 244 H 284 H Subjective 24 Hr Interval Summary Free Text/Dictation Charming female. She reports her pain is a little bit better. Constitutional: no complaints Respiratory: no complaints Cardiovascular: no complaints Gastrointestinal: no complaints Genitourinary: no complaints Exam/Review of Systems Exam Vitals Vital Signs Date Temp Pulse Resp B/P (MAP) Pulse Ox O2 O2 Flow FiO2 Time Delivery Rate 12/14/18 98.2 66 17 105/50 96 14:34 (68) 12/12/18 Room Air 23:06 Intake and Output 12/13/18 12/13/18 12/14/18 1515:00 23:00 07:00 IntakeIntake Total 700 ml 850 ml BalanceBalance 700 ml 850 ml Constitutional: alert, oriented Respiratory: clear to auscultation, normal air movement Cardiovascular: regular rate and rhythm, nl pulses Gastrointestinal: soft, nl liver, spleen, non-tender Results Results 24hrs Laboratory Tests Test 12/13/18 17:43 12/13/18 20:43 12/14/18 02:10 12/14/18 05:33 Bedside Glucose 217 282 H 264 H Sodium Level 140 Potassium Level 4.6 Chloride Level 107 Carbon Dioxide Level 26 Anion Gap 7 Blood Urea Nitrogen 17 Creatinine 0.63 Est Glomerular > 60 Filtrat Rate mL/min Glucose Level 281 H Calcium Level 9.2 Magnesium Level 1.7 Test 12/14/18 07:46 12/14/18 12:31 Bedside Glucose 244 H 284 H Medications Medication Current Medications IV Flush (NS 3 ml) 3 ml PER PROTOCOL IV ; Start 12/12/18 at 22:00 Ondansetron HCl (Zofran Tab) 4 mg Q6H PRN PO NAUSEA/VOMITING; Start 12/12/18 at 22:00 Acetaminophen (Tylenol Tab) 650 mg Q6H PRN PO .PAIN 1-3 OR TEMP; Start 12/12/18 at 22:00 Acetaminophen/ Hydrocodone Bitart ([place] (5/325)) 1 tab Q6H PRN PO .MOD PAIN 4- 6 Last administered on 12/14/18at 15:10; Admin Dose 1 TAB; Start 12/12/18 at 22:00 Morphine Sulfate (morphine) 2 mg Q4H PRN IV .SEVERE PAIN 7-10 Last administered on 12/14/18at 06:14; Admin Dose 2 MG; Start 12/12/18 at 22:00 Bisacodyl (Dulcolax) 5 mg DAILY PRN PO .CONSTIPATION; Start 12/12/18 at 22:00 Hydromorphone HCl (Dilaudid) 0.5 mg PRN PRN IV pain prior to MRI; Start 12/12/18 at 23:00 Albuterol (Ventolin Hfa) 2 puff Q4H PRN INH SHORTNESS OF BREATH; Start 12/13/18 at 01:00 Atorvastatin Calcium (Lipitor) 40 mg QHS PO Last administered on 12/13/18at 20:38; Admin Dose 40 MG; Start 12/13/18 at 21:00 Fluoxetine HCl (Prozac) 40 mg DAILY PO Last administered on 12/14/18at 08:14; Admin Dose 40 MG; Start 12/13/18 at 09:00 Insulin Glargine (Lantus) 50 units DAILY@2100 SC Last administered on 12/13/18at 20:48; Admin Dose 50 UNITS; Start 12/13/18 at 21:00 Lisinopril (Zestril) 2.5 mg DAILY PO Last administered on 12/14/18at 08:15; Admin Dose 2.5 MG; Start 12/13/18 at 09:00 Diagnostic Test (Pha) (Accu-Chek) 1 ea 02 XX ; Start 12/13/18 at 02:00 Insulin Aspart (Novolog Insulin Pen) NOVOLOG *MILD* ALGORITHM WITH MEALS BEDTIME SC Last administered on 12/14/18at 12:34; Admin Dose 4 UNIT; Start at 08:00 Miscellaneous Information 1 ea NOTE XX ; Start 12/13/18 at 01:00 Glucose (Glutose) 15 gm Q15M PRN PO DECREASED GLUCOSE; Start 12/13/18 at 01:00 Glucose (Glutose) 22.5 gm Q15M PRN PO DECREASED GLUCOSE; Start 12/13/18 at 01:00 Dextrose (D50w Syringe) 25 ml Q15M PRN IV DECREASED GLUCOSE; Start 12/13/18 at 01:00 Dextrose (D50w Syringe) 50 ml Q15M PRN IV DECREASED GLUCOSE; Start 12/13/18 at 01:00 Glucagon (Glucagen) 1 mg Q15M PRN IM DECREASED GLUCOSE; Start 12/13/18 at 01:00 Glucose (Glutose) 15 gm Q15M PRN BUCCAL DECREASED GLUCOSE; Start 12/13/18 at 01:00 Zolpidem Tartrate (Ambien) 5 mg HS MAY REPEAT X 1 PRN PO INSOMNIA; Start 12/13/18 at 01:00 Fluticasone/ Vilanterol (Breo Ellipta 100-25 Mcg Inh) 1 inh DAILY INH Last administered on 12/14/18 08:15; Admin Dose 1 INH; Start 12/13/18 at 09:00 Diclofenac Sodium (Voltaren 1% Gel) 2 gm QID TP Last administered on 12/14/18at 12:33; Admin Dose 2 GM; Start 12/13/18 at 13:00 Docusate Sodium (Colace) 250 mg DAILY PO Last administered on 12/14/18 08:14; Admin Dose 250 MG; Start 12/13/18 at 16:00 Enoxaparin Sodium (Lovenox) 40 mg DAILY SC Last administered on 12/14/18 08:26; Admin Dose 40 MG; Start 12/14/18 at 09:00 ELPIDIO TRAN MD Dec 14, 2018 16:50
[2018-12-14] MEDS: metFORMIN 500 MG TAB PO SCH (17:37)
[2018-12-14 19:59] VITALS: BP 103/54; PULSE 69; RESP 18
[2018-12-14] MEDS ORDERED: MONTELUKAST 10 MG TAB PO SCH (21:00)
[2018-12-14] MEDS: ATORVASTATIN 40 MG TAB PO SCH (21:17)
[2018-12-14] MEDS: INSULIN GLARGINE [LANTus] (100 UNITS/ML) SYG SC SCH (21:27)
[2018-12-15] MEDS: ACCU-CHEK XX SCH (02:00)
[2018-12-15 02:34] VITALS: BP_SYST 93; BP_SYST 94; BP_DIAS 50; BP_DIAS 55; PULSE 66; RESP 16
[2018-12-15 02:52] VITALS: BP 99/57; RESP 17
[2018-12-15] MEDS: HYDROCODONE/APAP (5/325) TAB PO PRN (03:03)
[2018-12-15 08:06] VITALS: BP 93/53; PULSE 61; RESP 16
[2018-12-15] MEDS: metFORMIN 500 MG TAB PO SCH (08:38)
[2018-12-15] MEDS: DOCUSATE SODIUM 250 MG CAP PO SCH (08:38)
[2018-12-15] MEDS: FLUOXETINE 20 MG CAP PO SCH (08:38)
[2018-12-15] MEDS: DICLOFENAC SODIUM 1% GEL 100 GM TUBE TP SCH (08:39)
[2018-12-15] MEDS: FLUTICASONE/VILANTEROL 100-25 INH SCH (08:39)
[2018-12-15] MEDS: LISINOPRIL 5 MG TAB PO SCH (08:41)
[2018-12-15] MEDS: ENOXAPARIN 40 MG/0.4 ML SYG SC SCH (08:44)
[2018-12-15] MEDS: INSULIN ASPART [NOVOLOG] 3 ML PEN SC SCH (08:44)
--- NOTE | 2018-12-15 08:57 | DS ---
Date/Time of Note Date/Time of Note DATE: 12/15/18 TIME: 08:52 Discharge Summary Admission/Discharge Info Admit Date/Time Dec 12, 2018 at 22:00 Discharge Date/Time December 15 2018 Discharge Diagnosis Intractable back pain post operative; lumbar disc disease; asthma persistent moderate; hypertension; diabetes mellitus type 2; obesity; snoring-possible obstructive sleep apnea?; Hyperlipidemia; right renal cyst Patient Condition: Fair Consults Spinal surgery-Dr. Tolbert Procedures Lumbosacral MRI scan IMPRESSION: 1. Bilateral L4-5 hemilaminotomies with surgical related changes in the medial left right paravertebral muscles as described above. 2. Contrast enhancement in the posterior spinal canal at the L4-5 level, likely due to granulation tissue. 3. Fluid around the L4 spinous process, extending into the overlying deep subcutaneous fat, resulting in a 1.3 x 2.1 x 5.4 cm fluid collection. This could represent a seroma, hemorrhage or CSF. 4. Small amount of fluid at this left and right hemilaminotomy sites. Tissue around the fluid collection enhances. Postsurgical fluid and granulation tissue favored over abscess. 5. Small L4-5 and L5 S and posterior annular fissures with contrast enhancement, representing granulation tissue. 6. No significant canal stenosis or epidural fluid collection identified. Renal ultrasound IMPRESSION: 1. Unremarkable renal ultrasound. No evidence of renal calculi or obstructive uropathy 2. Simple right renal cyst Hx of Present Illness Hx of Present Illness Chief complaint: Lower back pain lergies This is a 58-year-old female who presented to the [facility] emergency department complaining of acute back pain. Patient is a history of bilateral L4-L5 foraminal stenosis status post bilateral L4-L5 foraminotomies. She was following up yesterday with her neurosurgeon and was doing fine there and only had some mild pain. She was set to follow-up with 3 weeks time. She states that today when she was at home she went to take a shower and during her shower her pain got worse. She states that she has pain over her lumbar spine around the area of the surgical procedure and she states that she has pain that radiates across her left back. She denies any bladder or bowel incontinence. She denies any saddle anesthesia. Denies any nausea vomiting or diarrhea. Denies any trauma. She did try NSAIDs at home but they did not help with her pain. Hx of Present Illness Ms. Arana is a very pleasant 58 year old woman who underwent a bilateral L4/5 foramentomy on 11/24/2018, which resulted in complete resolution of her L>R radiculopathy. Over the past week, however, she has developed new back pain, that got suddenly worse in the shower yesterday. She presented to the ED for management. She states the pain is different from preop and is mostly in the left sacroiliac region. The pain is worst with movement. She has a small fluid collection below the incision, which is improving. Hospital Course Pleasant 58-year-old woman status post back surgery who came in with intractable back pain. She was placed at bedrest and had conservative analgesia used. She improved slowly but steadily is now at a point where she is able to be discharged. She was evaluated for the possibility of this being renal colic pain, which it was not. And had an MRI scan of the surgical area to make sure that nothing had gone awry. She is now stable for discharge. Please note that her asthma persistent moderate remained under control, we have been working on her diabetic medications to get her diabetes under better control. We will follow-up with the surgeon in the next week. Home Meds Reported Medications Zolpidem Tartrate* (Zolpidem Tartrate*) 10 Mg Tablet, 10 MG PO QHS PRN for INSOMNIA, #30 TAB 08/08/18 Glipizide* (Glipizide*) 10 Mg Tablet, 10 MG PO AC BREAKFAST DINNER, TAB 11/01/17 Mometasone-Formoterol (Dulera) 100-5 Mcg - 13 Gm Hfa.aer.ad, 2 PUFFS INHALATION BID, #1 INHALER 08/22/17 Albuterol Sulfate* (Ventolin HFA*) 18 Gm Hfa.aer.ad, 2 PUFF INHALATION Q4H PRN for SHORTNESS OF BREATH, #1 INHALER 08/22/17 Fluoxetine Hcl* (Fluoxetine Hcl*) 40 Mg Capsule, 40 MG PO DAILY, CAP 08/22/17 Atorvastatin* (Atorvastatin*) 40 Mg Tablet, 40 MG PO QHS, #30 TAB 08/22/17 Lisinopril* (Lisinopril*) 2.5 Mg Tablet, 2.5 MG PO DAILY, #30 TAB 08/22/17 Insulin Glargine,Hum.rec.anlog (Basaglar Kwikpen U-100) 100 Unit/1 Ml Insuln.pen, 50 UNIT SC QHS, EA 08/22/17 Metformin Hcl* (Metformin Hcl*) 1,000 Mg Tablet, 1000 MG PO WITH BREAKFAST DINNE, #60 TAB 08/22/17 Discontinued Reported Medications Tiotropium Amana* (Spiriva*) 18 Mcg Cap.w.dev, 1 CAP INHALATION DAILY, #30 CAP 08/08/18 Discontinued Scripts Promethazine HCl/Codeine (Prometh-Codein 6.25-10 mg/5 ml) 5 Ml Syrup, 5 ML PO Q4, #4 OZ Prov:KEYANNA CHIANG 12/08/18 Prednisone* (Prednisone*) 20 Mg Tab, 40 MG PO DAILY for 6 Days, TAB Prov:KEYANNA CHIANG 12/05/18 Albuterol Sulfate* (Ventolin HFA*) 18 Gm Hfa.aer.ad, 2 PUFF INHALATION Q4H, #1 INHALER Prov:KEYANNA CHIANG 12/05/18 Naproxen* (Naprosyn*) 500 Mg Tablet, 500 MG PO BID PRN for PAIN AND/OR INFLAMMATION, #30 TAB Prov:LESLY SANTOS MD 08/08/18 Follow-up Plan Spinal surgeon in the next 1 week; primary care physician in the next 2 weeks for further adjustment of diabetic medications Primary Care Provider [facility] Pending Labs Laboratory Tests Test 12/14/18 12:31 12/14/18 17:32 12/14/18 21:19 12/15/18 02:23 Bedside 284 239 295 204 Glucose mg/dL (70-220) mg/dL (70-220) mg/dL (70-220) mg/dL (70-220) Test 12/15/18 05:08 12/15/18 05:09 12/15/18 08:07 Erythrocyte 19 mm/Hr (0-30) Sedimentation Rate Sodium Level 139 mmol/L (135-14 4) Potassium 4.2 Level mmol/L (3.5-5. 1) Chloride Level 105 mmol/L (97-110 ) Carbon Dioxide 25 Level mmol/L (21-31) Anion Gap 9 (5-13) Blood Urea 17 Nitrogen mg/dl (7-20) Creatinine 0.58 mg/dl (0.44-1. 00) Est Glomerular > 60 Filtrat mL/min (>60) Rate mL/min Glucose Level 204 mg/dl (70-220) Calcium Level 9.6 mg/dl (8.4-10. 2) Bedside 197 Glucose mg/dL (70-220) Copies To: CC: AKIKO TOLBERT MD ; ELPIDIO TRAN MD Dec 15, 2018 08:57
--- NOTE | 2018-12-15 08:57 | PDOCDIS ---
Discharge Instructions DIAGNOSIS Discharge Diagnosis Intractable back pain post operative; lumbar disc disease; asthma persistent moderate; hypertension; diabetes mellitus type 2; obesity; snoring-possible obstructive sleep apnea?; Hyperlipidemia; right renal cyst CONDITION [id number] Patient Condition: [id number] Fair HOME CARE INSTRUCTIONS: [id number] Diet Instructions: [id number] Reduced Calorie ACTIVITY: [id number] Activity Restrictions: [id number] Slowly Increase Activity FOLLOW UP/APPOINTMENTS Follow-up Plan Spinal surgeon in the next 1 week; primary care physician in the next 2 weeks for further adjustment of diabetic medications ELPIDIO TRAN MD Dec 15, 2018 08:57
[2018-12-15] MEDS ORDERED: MONT10TA24 PO (08:59)
== END 2018-12-15 10:57 | disposition home or self-care (01) ==
LOC: E/R 19:09 → 2NE 22:00
PROVIDERS: ADMIT Family Medicine; ATTEND Family Medicine
DX: G89.18 Other acute postprocedural pain (principal); M54.5 Low back pain; M51.16 Intervertebral disc disorders with radiculopathy, lumbar region; E11.9 Type 2 diabetes mellitus without complications; Z79.4 Long term (current) use of insulin; I10 Essential (primary) hypertension; E78.5 Hyperlipidemia, unspecified; F32.9 Major depressive disorder, single episode, unspecified; J45.40 Moderate persistent asthma, uncomplicated; E66.9 Obesity, unspecified; Z68.32 Body mass index [BMI] 32.0-32.9, adult; N28.1 Cyst of kidney, acquired; E83.42 Hypomagnesemia
CPT/HCPCS: 72100; 72110; 72158; 76775; 80048; 80053; 81003; 82962; 83735; 85025; 85651; 87081; 87086; 96372; 97162; J1650; J1815; J1885; J2270; J3475; J7030; Z7500; Z7502; Z7610; G0378